=== PATIENT | male | born 1965 | race Caucasian/White ===

== ENCOUNTER 2024-10-29 08:54 | Outpatient (AMB) | payer BC, SELFPAY ==
--- NOTE | 2024-10-29 09:57 | MHC.OFFWIV ---
Intake Vital Signs 10/29/24 09:59 Weight 245 lb BP 150/100 H Blood Pressure Location Lt brachial Position Sitting Pulse 100 Pulse Source Pulse Oximeter Temp 98.2 F Temp Source Oral Pulse Oximetry (%) 94 Oxygen Delivery Method Room Air Intake Visit Reasons: EP SOB, pain in rt shoulder Intake Note: Patient here for SOB which has been present for a couple of months and worsening. Patient Tobacco Use Status: Never used Tobacco Allergies No Known Allergies Allergy (Verified 10/29/24 10:00) Do you need a note to return to daycare/school/sports/work: Yes HPI HPI Comments History of Present Illness Details This is a 59yo male with a past medical history of NIDDM and hypertension, currently not taking any medications, presenting for dyspnea on exertion that has been present and worsening over the past six months. 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 Patient denies any overt has pain has had right anterior shoulder pain for the past 3 days. Patient denies any injury or trauma preceding the onset of his right shoulder pain but finds lifting objects painful. Patient has not taken any medication for treatment of his discomfort. [facility] Medical History Encounter to establish care Hypertension Newly diagnosed type 1 diabetes mellitus Right foot pain Surgical History No pertinent past surgical history Social History Housing: Apartment Alcohol intake: current Alcohol intake frequency: holidays/special occasions only Patient Tobacco Use Status: Never used Tobacco e-Cigarette/Vaping Use: Never Used Second Hand Smoke Exposure: No service: No Current occupational status: employed Cognitive needs: No Hearing needs: No Vision needs: No Review of Systems Const All systems reviewed & are unremarkable except as noted in HPI and below Reports no additional complaints, Denies chills, Reports fatigue, Denies fever(s) and Reports snoring (unknown, but states poor sleep at night) Eyes Reports no additional complaints ENT Reports no additional complaints Card Denies chest pain and Reports dyspnea on exertion Resp Denies cough, Reports dyspnea on exertion, Reports snoring (unknown, but states poor sleep at night) and Denies wheezing GI Reports no additional complaints, Denies belching, Denies bloating and Denies nausea Reports no additional complaints Musc Reports no additional complaints Skin/Breast Reports system reviewed and no additional complaints, except as documented Neuro Reports no additional complaints Psych Reports no additional complaints Endo Reports no additional complaints and Reports fatigue Rajat/Lymph Reports no additional complaints Aller/Immun Denies wheezing Physical Exam Vital Signs: Last Vital Signs Temp 98.2 F 10/29/24 09:59 Pulse 100 10/29/24 09:59 BP 150/100 H 10/29/24 09:59 Pulse Ox 94 10/29/24 09:59 Oxygen Delivery Method Room Air 10/29/24 09:59 Patient is hypertensive and afebrile. Const General: cooperative, no acute distress, well developed, alert and awake; No lethargic Nutritional Appearance: obese Orientation/consciousness: patient oriented x3 and No lethargic Limitations: no limitations Resp Effort & Inspection: normal respiratory effort, able to speak in complete sentences, normal respiratory pattern, no audible wheezes, no cough and no respiratory distress Auscultation: clear to auscultation bilaterally Cardio Rate: regular rate Rhythm: regular rhythm Skin General skin exam: no rashes or lesions noted Neuro General: patient oriented x3 Psych Appearance: grossly normal Mental Status: mental status grossly normal Insight: Good insight present (Psych) Judgement: Good judgement present (Psych) Results AMB Random Glucose (hemocue) AMB Random Glucose (hemocue) 234 mg/dL Last Edit by YU Costa on 10/29/24 10:28 Results Reviewed Results Reviewed: Patient is hyperglycemic. Assessment & Plan Assessment & Plan (1) Hyperglycemia: Comment: Patient has no primary care physician in his not currently taking any oral hyperglycemic medications. Code(s): R73.9 - Hyperglycemia, unspecified Plan: Patient will go to the emergency department for further evaluation and care. (2) Dyspnea on exertion: Comment: Given this patient's history coupled with his examination there is concern for cardiac etiology of his dyspnea on exertion. Code(s): R06.09 - Other forms of dyspnea Plan: Patient will go to the emergency department for further evaluation and care. Expect is called to RAIMUNDO Rico at [facility] at 10:32am. Patient will travel by private vehicle and is agreement with this plan of care. Orders: Orders AMB Random Glucose (hemocue) Today Z13.9 - Encounter for screening, unspecified AMB Random Glucose (hemocue) Today Z13.9 - Encounter for screening, unspecified Coding Level of Care Code Est Pt Level 3 (01641) Diagnoses Hyperglycemia R73.9 Dyspnea on exertion R06.09 Time Spent (min) 20
[2024-10-29 09:59] VITALS: BP 150/100; PULSE 100; TEMP 36.8; O2SAT 94
== END 2024-10-29 10:58 | disposition home or self-care (01) ==
PROVIDERS: PCP Nurse Practitioner Family; Visit Provider Physician Assistant
DX: R73.9 Hyperglycemia, unspecified (principal); R06.09 Other forms of dyspnea; Z13.9 Encounter for screening, unspecified

== ENCOUNTER → 2024-10-29 08:54 | Outpatient (BNVA) | payer BC, SELFPAY | PROVIDERS: PCP Nurse Practitioner Family | DX: R06.09 Other forms of dyspnea (principal); E11.65 Type 2 diabetes mellitus with hyperglycemia; I10 Essential (primary) hypertension | CPT/HCPCS: 82948 ==

== ENCOUNTER 2024-10-29 11:01 | Inpatient (IN) | payer OTHER, SELFPAY ==
[2024-10-29] VITALS (9 sets, daily range): BP systolic 154–186; BP diastolic 80–133; PULSE 96–108; RESP 18–30; TEMP 36.7–37.4; O2SAT 88–100; BMI 41.7
--- NOTE | ~2024-10-29 | US_ITS ---
CLINICAL HISTORY: bilateral sweling r o dvt Venous duplex ultrasound bilateral lower extremity Comparison: None Findings: The visualized deep veins are fully compressible with normal Doppler color flow and spectral tracings. No popliteal cyst. Left groin lymph node measuring 3.2 x 2.6 x 0.9 cm. IMPRESSION: 1. Negative for bilateral lower extremity deep vein thrombosis. 2. Prominent left groin lymph node. This document has been electronically signed by: Tim Huggins MD on 10/29/2024 19:03:52
--- NOTE | ~2024-10-29 | CT_ITS ---
EXAMINATION: CT ANGIOGRAM CHEST CLINICAL INFORMATION: Dyspnea with elevated d-dimer. COMPARISON: None available. TECHNIQUE: CTPA examination performed. Spiral CT imaging axially was obtained through the chest after the administration of 65 mL of Omnipaque 350 intravenous contrast. Extensive vascular post-processing including two-dimensional and three-dimensional reformatted images were created and reviewed on an independent workstation. This CT examination was performed using dose optimization techniques as appropriate, variously including the following: *Automated exposure control *Adjustment of mA and/or kV according to patient size (this includes techniques or standardized protocols for targeted exams where dose is matched to indication/reason for exam; i.e. extremities or head) *Use of iterative reconstruction technique FINDINGS: LUNGS: -Moderate respiratory motion present limiting the examination. -Low lung volumes present, with patchy groundglass opacities throughout both lungs. Expiratory appearance of the lungs with indwelling of the posterior membranous trachea. -Small layering pleural effusions bilaterally, with segmental atelectasis bilateral lower lobes. Cannot exclude pneumonia given the appearance. -No additional consolidative opacity. -No pneumothorax. MEDIASTINUM: -There is moderate cardiac enlargement. There is no pericardial effusion. -No pathologic lymphadenopathy or mass within the mediastinum. -Normal esophagus. -Normal thyroid. VASCULAR: -Opacification of the pulmonary artery system is diagnostic. There is limitation from extensive respiratory motion. No central or segmental embolus. Cannot exclude more peripheral embolic disease. -Main pulmonary artery is abnormally dilated suggesting pulmonary arterial hypertension. -No evidence of right heart strain. -Mild reflux of contrast into the hepatic IVC and proximal hepatic veins, suggesting elevated right heart pressures. -Aorta is nonaneurysmal. No definite evidence of acute aortic syndrome. AXILLA/CHEST WALL: No lymphadenopathy. UPPER ABDOMEN: Small type I hiatus hernia. OSSEOUS STRUCTURES: -No suspicious lytic or blastic bone lesions. Mild to moderate degenerative spinal changes. CT/CT angio chest PE protocol IMPRESSION: 1. Exam is significantly limited by expiratory state of the lungs, and extensive respiratory motion artifact. 2. There is no central or segmental pulmonary embolus. Cannot exclude for peripheral embolic disease on the basis of this exam. 3. There is enlargement of the main pulmonary artery, with mild reflux of contrast into the proximal hepatic veins. Findings suggest elevated right heart pressures/pulmonary hypertension. 4. There is moderate cardiac enlargement. 5. Within confines of motion and expiratory appearance, there are small layering effusions with passive associated atelectasis. Cannot exclude, however doubt pneumonia given the appearance. 6. Patchy geographic groundglass attenuation throughout the aerated lungs is likely on the basis of expiratory state. Cannot exclude a mild amount of interstitial pulmonary edema. Electronically signed by: Shine Avila MD 10/29/2024 03:33 PM [facility] [place]
--- NOTE | ~2024-10-29 | XR_ITS ---
EXAMINATION: XR CHEST CLINICAL INFORMATION: SOB COMPARISON: None available. TECHNIQUE: 2 views of the chest were obtained. FINDINGS: The lungs are expanded with patchy opacity left lung base question atelectasis versus infiltrate. Rest the lungs are clear. There is mild blunting of left CP angle from pleural effusion or thickening. The heart size is enlarged. Pulmonary vascularity is normal. There is mild spondylosis off dorsal spine. XR/XR chest 2V IMPRESSION: Left lower lobe patchy opacity infiltrate versus atelectasis. Mild blunting of left CP angle from pleural effusion or pleural thickening. Electronically signed by: King Benz MD 10/29/2024 12:01 PM EST
--- NOTE | 2024-10-29 11:19 | ED.SOB ---
HPI - SOB/Dyspnea General Chief Complaint: Dyspnea Stated Complaint: SOB Time Seen by Provider: 10/29/24 12:38 Source: patient, RN notes reviewed and old records reviewed Mode of arrival: ambulatory Limitations: no limitations History of Present Illness ED Provider: Flakita HPI Narrative: Patient is a 59-year-old male with history of NIDDM, HTN, not currently on any medications as he has not had a PCP for several years presenting to the emergency department with complaint of worsening shortness of breath and dyspnea on exertion over the past 1-2 weeks. Reports associated pedal edema, left worse than right. Denies fevers or URI symptoms. Denies chest pain or palpitations. Denies dizziness or lightheadedness. 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 States that he is having difficulty with work due to his dyspnea. Also complains of right anterior shoulder pain but denies known injury. MD elicited complaint: shortness of breath Pertinent past history: diabetes and other Onset (ago): week(s) Context: occurred during exertion Timing: intermittent Exacerbating factors: exertion and movement Relieving factors: rest Associated symptoms: denies other symptoms Treatment prior to arrival: none Related Data Previous Rx's ?Medication ?Instructions ?Recorded blood sugar diagnostic (FreeStyle #100 ea 02/08/22 Lite Strips) blood-glucose meter (FreeStyle #1 ea 02/08/22 Lite Meter kit) lancets 21 gauge (Comfort EZ #100 ea 02/08/22 Lancets) Allergies Allergy/AdvReac Type Severity Reaction Status Date / Time No Known Allergies Allergy Verified 10/29/24 11:20 Review of Systems Review of Systems: As per HPI Yes all other systems are reviewed and are negative Constitutional: Constitutional: Reports as per HPI PMFSH Past Medical History Medical History Encounter to establish care Hypertension Newly diagnosed type 1 diabetes mellitus Right foot pain Surgical History No pertinent past surgical history Social History Social History Housing: Apartment Alcohol intake: current Alcohol intake frequency: holidays/special occasions only Patient Tobacco Use Status: Never used Tobacco Smoked in Last 30 Days: No e-Cigarette/Vaping Use: Never Used Second Hand Smoke Exposure: No Use of substances other than those prescribed or required for medical reasons: No Advance Directives: No Advance Directives Information Provided: Yes Do you have a plan to hurt others: No Plan service: No Current occupational status: employed Cognitive needs: No Hearing needs: No Vision needs: No Physical Exam Vital Signs: Vital Signs: Last Vital Signs Temp 98.7 F 10/29/24 13:45 Pulse 99 10/29/24 13:45 Resp 28 H 10/29/24 13:45 BP 181/125 H 10/29/24 13:45 Pulse Ox 98 10/29/24 13:45 O2 Del Method Nasal Cannula 10/29/24 13:45 O2 Flow Rate 2 10/29/24 13:45 BMI result Body Mass Index 41.7 Vital signs have been reviewed and appear to be correct. Blood pressure elevated. Heart rate slightly tachycardic. Respiratory rate normal. Temperature normal. Oxygen saturation hypoxic on room air. Const: General: cooperative, no acute distress, alert and awake Nutritional Appearance: obese Orientation/consciousness: oriented to person, oriented to place, oriented to time and patient oriented x3 Limitations: no limitations HEENT: Head: Yes normocephalic and Yes atraumatic Ears: external ears normal General nose exam: Normal external nose present Face and sinus: Yes face symmetric Mouth: oropharynx normal and moist mucous membranes Throat: Yes uvula midline Eyes: Pupils: Equal, round and reactive pupils present Neck: Neck: Yes normal visual inspection and Yes supple Resp: Effort & Inspection: normal respiratory effort and able to speak in complete sentences Auscultation: clear to auscultation bilaterally Cardio: Rate: regular rate Rhythm: regular rhythm Heart sounds: S1 normal heart sound present and S2 normal heart sound present Peripheral pulses: Peripheral pulses 2+ throughout GI: Palpation (GI): Soft to palpation and nontender Auscultation: normoactive bowel sounds : General: Yes no CVA tenderness Back/Spine/Pelvis: Back: no CVA tenderness Skin: General skin exam: elasticity normal and turgor normal Neuro: General: oriented to person, oriented to place, oriented to time, patient oriented x3, moves all extremities, no focal motor deficits and CN's II-XI intact bilaterally Cranial nerves: Yes Equal, round and reactive pupils present Cognition (Neuro): normal cognition Extrem: Other: bilateral 3+ pitting pedal edema, L>R General: Yes full ROM and Yes no calf tenderness Psych: Mental Status: mental status grossly normal Affect: normal affect Thought process: Normal thought process present Course Course Course Narrative: This is an RME: Additional HPI, ROS, PE not included below will be deferred to primary provider. RME assessment and note performed by: Yuli Rose PA-C This is a [id number]-male, NIDDM and hypertension, currently not taking any medications, who presents to the ER with complaints of SOB x 5 months. Endorsing some LE swelling. SOB is constant. 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 Patient found to be hypoxic at 88% on room air, he was placed on 2 L. Plan: Labs, EKG, CXR, viral swabs, further ER eval needed Medications Administered Discontinued Medications Generic Name Dose Route Start Last Admin Trade Name Freq PRN Reason Stop Dose Admin Furosemide 20 mg 10/29/24 13:15 10/29/24 13:47 Furosemide 20 Mg/2 Ml Vial IVPUSH 10/29/24 13:16 20 mg ONCE ONE Administration Protocol Iohexol 100 ml 10/29/24 14:38 10/29/24 14:38 Iohexol 350 Mg/Ml 100 Ml Infus..Btl IV 10/29/24 14:39 70 ml ONCE ONE Administration Medical Decision Making Medical Decision Making [facility] Narrative: Patient is a 59-year-old male with history of NIDDM, HTN, not currently on any medications as he has not had a PCP for several years presenting to the emergency department with complaint of worsening shortness of breath and dyspnea on exertion over the past 1-2 weeks. On exam patient is awake, A+Ox3, hypertensive, slightly tachycardic, afebrile, normal neurological exam without focal deficits, physical exam findings as above. Given reported symptoms and physical exam findings, initial differential includes but is not limited to viral illness, covid, flu, rsv, bronchitis, pneumonia, new onset CHF. Labs notable for no leukocytosis, elevated troponin, elevated BNP, elevated D-dimer. EKG shows sinus tachycardia. Will obtain CTA chest to r/o PE. X-ray chest notable for patchy LLL opacity. CTA chest limited by motion artifact, no central or segmental PE, enlargement of main pulmonary artery suggesting pulmonary hypertension, moderate cardiac enlargement. My interpretation is in agreement with the radiologist's interpretation. Feel symptoms are likely due to new onset CHF. Case discussed with Dr. Smith Differential Diagnosis Differential Diagnoses: The differential diagnosis associated with the presentation includes As per [facility] Admission/Observation Consideration of admission/observation: Escalation of care including admission/observation considered Consult Healthcare Provider Management of the patient was discussed with: Hospitalist Lab Data [facility] Lab Attestation statement: I reviewed the patient's lab results. As per [facility] 10/29/24 12:02 10/29/24 12:02 Labs: Lab Results 10/29/24 10/29/24 Range/Units 11:59 12:02 WBC 7.7 (4.8-10.8) X10*3/uL RBC 5.45 (4.60-5.80) X10*6/uL Hgb 14.8 (14.0-18.0) g/dl Hct 45.9 (42.0-52.0) % MCV 84.2 (80.0-98.0) fL MCH 27.2 (27.0-33.0) pg MCHC 32.2 (31.0-36.0) g/dl RDW 13.4 (11.0-16.0) % Plt Count 161 (160-400) X10*3/uL MPV 11.7 (9.4-12.4) fL Immature Gran % (Auto) 0.1 (0.0-0.4) % Neut % (Auto) 74.2 H (45-73) % Lymph % (Auto) 15.6 L (20-40) % [place] % (Auto) 7.8 (2-11) % Eos % (Auto) 1.8 (0-4) % Baso % (Auto) 0.5 (0-2) % Lymph # (Auto) 1.2 (1.2-4.9) X10*3/uL [place] # (Auto) 0.6 (0.1-1.2) X10*3/uL Eos # (Auto) 0.1 (0.0-0.4) X10*3/uL Baso # (Auto) 0.0 (0.0-0.2) X10*3/uL Abs Immat Gran (auto) 0.01 (0.00-0.03) X10*3/uL Absolute Neuts (auto) 5.7 (2.0-8.3) x10*3/uL Absolute Nucleated RBC 0.000 (0.0-0.012) X10*3/uL Nucleated RBC % (auto) 0.0 (0.0-0.2) /100WBC PT 12.6 H (10.9-12.4) SEC INR 1.1 (0.9-1.1) D-Dimer High Sensitivty 459 NG/ML Sodium 139 (135-145) mmol/L Potassium 4.1 (3.3-5.1) mmol/L Chloride 106 (96-108) mmol/L Carbon Dioxide 30 H (22-29) mmol/L Anion Gap 7 L (12-20) BUN 18 H (9-16) mg/dL Creatinine 1.27 (0.5-1.4) mg/dL Estim Creat Clear Calc 78.4 Estimated GFR 58 Random Glucose 259 H (60-115) mg/dL Calcium 8.7 (8.4-10.2) mg/dL Magnesium 1.9 (1.6-2.6) mg/dL Total Bilirubin 0.8 (0.0-1.0) mg/dL Direct Bilirubin 0.3 (0.0-0.5) mg/dL AST 23 (5-37) U/L ALT 43 H (0-40) U/L Alkaline Phosphatase 88 (39-117) U/L Troponin I High Sens 62.8 H (<3.5-35.0) ng/L B-Natriuretic Peptide 795 H (<100) pg/mL Total Protein 6.6 (6.5-8.0) g/dL Albumin 3.6 (3.5-5.0) g/dL Influenza Type A (PCR) NEGATIVE (Negative) Influenza Type B (PCR) NEGATIVE (Negative) RSV RNA Qual (PCR) NEGATIVE (Negative) SARS-CoV-2 RNA (RT-PCR) NEGATIVE (Negative) Independent Interpretation I performed an independent interpretation of an: EKG (sinus tachycardia, rate 101bpm, normal AL interval and QTc), Plain X-Ray and CT Scan Interpretation: Chest x-ray notable for patchy left lower lobe opacity. CTA chest limited by motion artifact, no central or segmental PE, enlargement of main pulmonary artery suggesting pulmonary hypertension, moderate cardiac enlargement. Radiology Impression Discussion of test interpretation with radiology: I have reviewed the radiologist's reading. Radiologist Impression: XR/XR chest 2V IMPRESSION: Left lower lobe patchy opacity infiltrate versus atelectasis. Mild blunting of left CP angle from pleural effusion or pleural thickening. CT/CT angio chest PE protocol IMPRESSION: 1. Exam is significantly limited by expiratory state of the lungs, and extensive respiratory motion artifact. 2. There is no central or segmental pulmonary embolus. Cannot exclude for peripheral embolic disease on the basis of this exam. 3. There is enlargement of the main pulmonary artery, with mild reflux of contrast into the proximal hepatic veins. Findings suggest elevated right heart pressures/pulmonary hypertension. 4. There is moderate cardiac enlargement. 5. Within confines of motion and expiratory appearance, there are small layering effusions with passive associated atelectasis. Cannot exclude, however doubt pneumonia given the appearance. 6. Patchy geographic groundglass attenuation throughout the aerated lungs is likely on the basis of expiratory state. Cannot exclude a mild amount of interstitial pulmonary edema. External Record Review External record reviewed: Inpatient record, Office record and Outpatient record Chronic Conditions Patient?s care impacted by: Diabetes and Hypertension Discharge Plan Discharge Clinical Impression: DAWKINS (dyspnea on exertion) Patient Disposition: Admitted As Inpatient Print Language: Arabic
--- NOTE | 2024-10-29 11:26 | ECG_ITS ---
Test Reason : sob Blood Pressure : */* mmHG Vent. Rate : 101 BPM Atrial Rate : 101 BPM P-R Int : 178 ms QRS Dur : 92 ms QT Int : 358 ms P-R-T Axes : 45 2 65 degrees QTcB Int : 464 ms Sinus tachycardia Possible Left atrial enlargement Minimal voltage criteria for LVH, may be normal variant ( [place] product ) Nonspecific T wave abnormality Abnormal ECG No previous ECGs available Referred By: Yuli Rose Electronically Signed By: LANDY CASTREJON
--- NOTE | 2024-10-29 11:27 | PC.NURSE ---
pt 88% room air - started on 2L NC and pt came up to 94%
[2024-10-29 12:07] LABS: MANUAL DIFF FLAG NO
[2024-10-29 12:09] LABS: Basophils Percent Auto 0.5 % (0-2); Eosinophils Absolute Auto 0.1 X10*3/uL (0.0-0.4); Eosinophils Percent Auto 1.8 % (0-4); Hematocrit 45.9 % (42.0-52.0); Hemoglobin 14.8 g/dl (14.0-18.0); Imm Gran Abs Auto 0.01 X10*3/uL (0.00-0.03); Imm Gran Pct Auto 0.1 % (0.0-0.4); Lymphocytes Absolute Auto 1.2 X10*3/uL (1.2-4.9); Lymphocytes Percent Auto 15.6 % (20-40); Mean Corpuscular HGB Conc 32.2 g/dl (31.0-36.0); Mean Corpuscular Hemoglobin 27.2 pg (27.0-33.0); Mean Corpuscular Volume 84.2 fL (80.0-98.0); Mean Platelet Volume 11.7 fL (9.4-12.4); Monocytes Absolute Auto 0.6 X10*3/uL (0.1-1.2); Monocytes Percent Auto 7.8 % (2-11); Neutrophils Absolute Auto 5.7 x10*3/uL (2.0-8.3); Neutrophils Percent Auto 74.2 % (45-73); Platelet Count 161 X10*3/uL (160-400); Red Blood Count 5.45 X10*6/uL (4.60-5.80); Red Cell Distribution Width 13.4 % (11.0-16.0); White Blood Count 7.7 X10*3/uL (4.8-10.8)
[2024-10-29 12:18] LABS: INTERNATIONAL NORM RATIO 1.1 (0.9-1.1); Prothrombin Time 12.6 SEC (10.9-12.4)
[2024-10-29 12:44] LABS: Alanine Aminotransferase 43 U/L (0-40); Albumin Level 3.6 g/dL (3.5-5.0); Alkaline Phosphatase 88 U/L (39-117); Anion Gap 7 (12-20); Aspartate Amino Transferase 23 U/L (5-37); Bilirubin Direct 0.3 mg/dL (0.0-0.5); Bilirubin Total 0.8 mg/dL (0.0-1.0); Blood Urea Nitrogen 18 mg/dL (9-16); Calcium 8.7 mg/dL (8.4-10.2); Carbon Dioxide 30 mmol/L (22-29); Chloride 106 mmol/L (96-108); Creatinine Clr Calc Pharmacy 78.4; Estimated Glomerular Filt Rate 58; Glucose Random 259 mg/dL (60-115); Magnesium 1.9 mg/dL (1.6-2.6); Potassium 4.1 mmol/L (3.3-5.1); Sodium 139 mmol/L (135-145); Total Protein 6.6 g/dL (6.5-8.0)
[2024-10-29 12:47] LABS: Influenza A PCR NEGATIVE (Negative); Influenza B PCR NEGATIVE (Negative); Resp Syncy Virus RNA Qual PCR NEGATIVE (Negative); SARS COV2 PCR INHOUSE NEGATIVE (Negative)
[2024-10-29 12:48] LABS: B Type Natriuretic Peptide 795 pg/mL (<100)
[2024-10-29 12:51] LABS: Troponin-I High Sensitivity 62.8 ng/L (<3.5-35.0)
[2024-10-29 12:56] LABS: D Dimer High Sensitivity 459 NG/ML
[2024-10-29] MEDS: Furosemide 20 MG/2 ML VIAL IVPUSH (13:47)
--- NOTE | 2024-10-29 14:19 | PC.NURSE ---
pt is alert and oriented, skin pwd, respirations even but slightly labored breathing at about 26-28, ls clear diminished, pt is currently on 2l via nasal cannual and sating at 97-98%, pt's bilateral legs have peding edema all the way up to the knees about +2 legs are also red and glossy in appearance, pt reports feeling sob of breath for the last couple of months and progressively getting worse, pt is sob with exertion and with rest, pt's bp is very high witch the pt states he is aware of it but currently not on any meds
[2024-10-29] MEDS: iohexoL 350 MG/ML 100 ML INFUS..BTL IV (14:38)
--- NOTE | 2024-10-29 16:08 | P.HPHOSP_ITS ---
History of Present Illness Date of Service: 10/29/24 Chief Complaint: dyspnea, swelling, weight gain 59yo M with DM2 but not on any medications and without any current primary care doctor presenting with about 2 weeks of progressive lower extremity swelling, dyspnea at rest and exertion, and orthopnea. No chest pain. Approximately 10 lb weight gain over this period of time. No history of known CAD or HTN. He is a truck driver teamster. He denies smoking, alcohol intake, or drug use. In the ED, he was found to be hypoxic [Sa 88%] and volume overloaded on clinical exam and CT. He was hypertensive to 181/125 and tachypneic to 28. He was given 20 mg of IV furosemide and is starting to diurese. BNP 795, hs Tn-I 62.8. Review of Systems 2 Review of Systems: Yes all other systems are reviewed and are negative [facility] Medical History Encounter to establish care Hypertension Newly diagnosed type 1 diabetes mellitus Right foot pain Surgical History No pertinent past surgical history Social History Housing: Apartment Alcohol intake: current Alcohol intake frequency: holidays/special occasions only Patient Tobacco Use Status: Never used Tobacco Smoked in Last 30 Days: No e-Cigarette/Vaping Use: Never Used Second Hand Smoke Exposure: No Use of substances other than those prescribed or required for medical reasons: No Advance Directives: No Advance Directives Information Provided: Yes Do you have a plan to hurt others: No Plan service: No Current occupational status: employed Cognitive needs: No Hearing needs: No Vision needs: No Meds Allergies Allergy/AdvReac Type Severity Reaction Status Date / Time No Known Allergies Allergy Verified 10/29/24 11:20 Active Medications: Current Medications Dextrose (Dextrose 50 % 25 Gm/50 Ml Syringe) 25 gm IVPUSH Q15M PRN; Protocol PRN Reason: per Hypoglycemia Standing Ord. Glucose (Glucose Gel 15 Gm Gel..Gram.) 15 gm PO Q15M PRN; Protocol PRN Reason: per Hypoglycemia Standing Ord. Furosemide 200 mg/ Sodium (Chloride) 100 mls @ 2.5 mls/hr IVCONT .Q24H KELSEY Insulin Human Lispro (Insulin Lispro 100 Unit/Ml 3 Ml Vial) 0 unit SUBCUT QIDACHS KELSEY; Protocol Nitroglycerin (Nitroglycerin 2 % Oint 1 Gm Packet) 1 inch TRANSDERMA ONCE ONE Stop: 10/29/24 15:59 Valsartan (Valsartan 40 Mg Tablet) 40 mg PO BID KELSEY; Protocol Physical Exam 2 Vital Signs and Narrative: Vital Signs: Last Vital Signs Temp 98.7 F 10/29/24 13:45 Pulse 99 10/29/24 13:45 Resp 28 H 10/29/24 13:45 BP 181/125 H 10/29/24 13:45 Pulse Ox 98 10/29/24 13:45 O2 Del Method Nasal Cannula 10/29/24 13:45 O2 Flow Rate 2 10/29/24 13:45 BMI result Body Mass Index 41.7 Gen: short of breath HEENT: sclera anicteric, moist mucus membranes Neck: supple, JVD Lungs: mild resp distress, bilateral inspiratory crackles Heart: regular rate and rhythm, no murmurs Abd: soft, non-tender, non-distended, obese Ext: 3+ bilateral pitting leg edema Skin: warm/well-perfused Neuro: alert and oriented x3, no focal findings Psych: appropriate affect Results Labs 10/29/24 12:02 10/29/24 12:02 Labs: Laboratory Results - last 24 hr 10/29/24 10/29/24 11:59 12:02 MCV 84.2 MCH 27.2 MCHC 32.2 RDW 13.4 Plt Count 161 MPV 11.7 Immature Gran % (Auto) 0.1 Neut % (Auto) 74.2 H Lymph % (Auto) 15.6 L [place] % (Auto) 7.8 Eos % (Auto) 1.8 Baso % (Auto) 0.5 Lymph # (Auto) 1.2 [place] # (Auto) 0.6 Eos # (Auto) 0.1 Baso # (Auto) 0.0 Abs Immat Gran (auto) 0.01 Absolute Neuts (auto) 5.7 Absolute Nucleated RBC 0.000 Nucleated RBC % (auto) 0.0 PT 12.6 H INR 1.1 D-Dimer High Sensitivty 459 Anion Gap 7 L Estim Creat Clear Calc 78.4 Estimated GFR 58 Random Glucose 259 H Calcium 8.7 Magnesium 1.9 Total Bilirubin 0.8 Direct Bilirubin 0.3 AST 23 ALT 43 H Alkaline Phosphatase 88 Troponin I High Sens 62.8 H B-Natriuretic Peptide 795 H Total Protein 6.6 Albumin 3.6 Influenza Type A (PCR) NEGATIVE Influenza Type B (PCR) NEGATIVE RSV RNA Qual (PCR) NEGATIVE SARS-CoV-2 RNA (RT-PCR) NEGATIVE Imaging Radiologist's Impressions: Impressions Chest X-Ray 10/29/24 11:26 IMPRESSION: Left lower lobe patchy opacity infiltrate versus atelectasis. Mild blunting of left CP angle from pleural effusion or pleural thickening. Electronically signed by: King Benz MD 10/29/2024 12:01 PM EST RP Chest CTA 10/29/24 14:31 IMPRESSION: 1. Exam is significantly limited by expiratory state of the lungs, and extensive respiratory motion artifact. 2. There is no central or segmental pulmonary embolus. Cannot exclude for peripheral embolic disease on the basis of this exam. 3. There is enlargement of the main pulmonary artery, with mild reflux of contrast into the proximal hepatic veins. Findings suggest elevated right heart pressures/pulmonary hypertension. 4. There is moderate cardiac enlargement. 5. Within confines of motion and expiratory appearance, there are small layering effusions with passive associated atelectasis. Cannot exclude, however doubt pneumonia given the appearance. 6. Patchy geographic groundglass attenuation throughout the aerated lungs is likely on the basis of expiratory state. Cannot exclude a mild amount of interstitial pulmonary edema. Electronically signed by: Shine Avila MD 10/29/2024 03:33 PM EST RP Assessment and Plan (1) Acute decompensated heart failure: Status: Acute Plan 59yo M with DM2, no current primary care; no known cardiac history; presenting with 2 wk of progressive orthopena, dyspnea, edema, and weight gain, found to have hypoxia due to ADHF. ADHF uncontrolled HTN - admit to telemetry, start furosemide IV infusion, strict I/O, monitor BNP + lytes, recheck Tn-I though suspect high due to demand from CHF rather than ACS though will eventually require ischemic workup, TTE, low-Na diet, Cardiology consultation - give nitroglycerin paste and hydralazine now - start neurohormonal modulation with valsartan - start beta-madeleine once euvolemic acute hypoxic respiratory failure - supplemental O2, wean as tolerated DM2 - correction-dose lispro, A1c VTE prophylaxis - enoxaparin dispo - eventual home code status - full I anticipate that the patient will stay at least 2 midnights as an inpatient in the hospital due to the above reasons. It is neither reasonable nor safe to care for them in a less acute setting. Quality Stroke Does the patient have a stroke diagnosis?: No VTE Prior VTE?: No VTE Risk Level:: Medical - moderate - high VTE Device Contraindication: N/A - Device Ordered VTE Drug Contraindication: N/A - Med Ordered
--- NOTE | 2024-10-29 16:22 | PHA.MEDREC ---
Addendum entered by Marcus Tolentino RPh 10/29/24 16:36: Med rec was reviewed by Jacque. Original Note: Pharmacy Consult ? Medication Reconciliation Pharmacy has completed the medication reconciliation. patient states he isn't taking any medications at this time.
[2024-10-29] MEDS: Nitroglycerin 2 % Oint 1 GM Packet 1 INCH TRANSDERMA (16:36)
[2024-10-29] MEDS: hydrALAZINE HCl 20 MG/ML VIAL 10 MG IVPUSH (16:37)
[2024-10-29 16:49] LABS: Estimated Average Glucose 298 mg/dL; Hemoglobin A1C 416.0534 umol/L; Total Hemoglobin (HGBA1C) 3861.7466 umol/L
[2024-10-29 17:03] LABS: Troponin-I High Sensitivity 60.9 ng/L (<3.5-35.0)
[2024-10-29] MEDS: Valsartan 40 MG TABLET PO ×2 (17:10→20:51)
[2024-10-29] MEDS: Enoxaparin Sodium 40 MG/0.4 ML SYRINGE SUBCUT (17:10)
[2024-10-29] MEDS: Furosemide 200 MG in 0.9 % Sodium Chloride 80 ML IVCONT (17:11)
[2024-10-29] MEDS: Insulin Lispro 100 UNIT/ML 3 ML VIAL SUBCUT ×2 (17:56→20:50)
[2024-10-29 18:01] LABS: Glucose, Whole Blood 220 mg/dL (60-115)
[2024-10-29 20:06] LABS: Glucose, Whole Blood 261 mg/dL (60-115)
[2024-10-30] VITALS (7 sets, daily range): BP systolic 129–157; BP diastolic 70–98; PULSE 78–93; RESP 16–19; TEMP 36.3–37.4; O2SAT 92–100
[2024-10-30] MEDS: Acetaminophen 325 MG TABLET 650 MG PO (00:33)
[2024-10-30 06:40] LABS: Venous Blood Gas Refer to POC result
[2024-10-30 06:43] LABS: VBG Base Excess 10.1 mmol/L; VBG HCO3 37 mmol/L (22-26); VBG pCO2 55 mmHg; VBG pH 7.42 (7.32-7.43); VBG pO2 41 mmHg
--- NOTE | 2024-10-30 07:00 | CA_ITS ---
Transthoracic Echocardiogram Patient (Last, First, Middle): Jerome Garner M Gender: Male Date of : 1965 Age: 59 Procedure Date: 10/30/2024 Procedure Type: Transthoracic Echocardiogram Location: [facility] – [place] Height: 170.18 cm Weight: 124.29 kg BSA: 2.31 m2 Heart Rate: 91 bpm BP: 157 / 91 mmHg Foreign Language Stenographer: SB Referring MD: Latha Adame MD Symptoms: chf Study Quality: Fair/Contrast ECG Rhythm: Sinus Conclusions: - The left ventricular systolic function is mild to moderately decreased. The calculated ejection fraction is 40% by biplane method. - Evidence suggests grade II (moderate) diastolic dysfunction. - No obvious valvular pathology seen on this study. Findings Procedure Information Contrast agent, definity, is being given per protocol without apparent complications. Left Ventricle Moderately increased left ventricular cavity size. The left ventricular systolic function is mild to moderately decreased. The calculated ejection fraction is 40% by biplane method. There is moderate global hypokinesis. Evidence suggests grade II (moderate) diastolic dysfunction. There is mild septal asymmetric hypertrophy. Right Ventricle Moderately increased right ventricular cavity size. There is normal right ventricular systolic function. Atria Both atria are normal in size. Aortic Valve There is a normal trileaflet aortic valve. There is mild calcification of the aortic valve. There is no aortic valve stenosis. There is no aortic valve regurgitation. Mitral Valve The mitral valve appears normal. There is no mitral valve regurgitation. There is no mitral valve stenosis. Pulmonic Valve The pulmonic valve is likely normal. Tricuspid Valve There is trace tricuspid valve regurgitation. There is no evidence of pulmonary hypertension. Great Vessels The asc aorta is normal in size. Small plaque is seen in the sino tubular ridge. Venous The inferior vena cava is normal in size and collapses greater than 50% with inspiration. Pericardium/Pleural There is a small loculated pericardial effusion overlying the left ventricle. Recommendations, Care & Conclusions No obvious valvular pathology seen on this study. Measurements 2D Linear Measurements IVSd: 1.08 0.6-0.9/0.6-1.0 cm LVIDd: 6.81 3.9-5.3/4.2-5.9 cm LVIDd Index: 2.95 2.4-3.2/2.2-3.1 cm/m2 LVIDs: 4.83 2.0-3.6 cm LVPWd: 1.41 0.7-1.1 cm Ao Root: 3.80 2.1-3.5 cm LA Diam: 4.50 2.7-3.8/3.0-4.0 cm LAIDs Index: 1.95 1.5-2.3 cm/m2 LV Mass: 508.08 67-162/88-224 g LV Mass Index: 219.95 43-95/49-115 g/m2 LVOT Diam: 2.50 3.0+(-)1.3 cm 2D Systolic Function EF 4C: 44.30 >55% EF 2C: 37.50 >55% EF BiP: 39.90 >55% Mitral Valve MV Pk E: 0.99 MV PK A: 0.56 MV Decel Time: 139.00 E/A: 1.80 E'Lateral: 9.03 E'Medial: 5.00 E/E' Med: 19.70 E/E' Lat: 10.90 PHT: 41.00 MVA PHT: 5.37 Decel [place]: 7.08 Aortic Valve AoV Pk [place]: 1.41 AoV Pk Grad: 8.00 XAVI: 3.81 LVOT LVOT Pk [place]: 0.96 LVOT Mn [place]: 0.78 LVOT VTI: 0.20 LVOT Pk Grad: 4.00 LVOT Mn Grad: 3.00 LVOT Diam: 2.50 LVOT Area: 4.91 Diastolic Function MV Pk E: 0.99 MV Pk A: 0.56 E/A: 1.80 E'Medial: 5.00 E/E' Med: 19.70 E' Laterial: 9.03 E/E' Lat: 10.90 Right Ventricle TAPSE (mm): 19.00 TVS' [place]: 11.00 Tricuspid Valve TR Pk [place]: 2.00 TR Pk Grad: 16.00 RA Press: 3.00 RVSP: 19.00 Great Vessels Aorta Ao Root-2D: 3.80 2.0-3.7 cm Ao Asc: 3.80 2.1-3.4 cm Pulmonary Veins Pulm Vein S/D 0.70 Pulmonary Valve PV Pk [place]: 0.80 Peak PV Grad: 3.00 Updated in Other Vendor System with Status of Final Semaj Weinstein MD electronically signed on 10/30/2024 10:58:05 AM with status of Final
[2024-10-30 07:04] LABS: B Type Natriuretic Peptide 496 pg/mL (<100)
[2024-10-30 07:05] LABS: Anion Gap 15 (12-20); Blood Urea Nitrogen 17 mg/dL (9-16); Calcium 9.7 mg/dL (8.4-10.2); Carbon Dioxide 31 mmol/L (22-29); Chloride 99 mmol/L (96-108); Creatinine Clr Calc Pharmacy 80.3; Estimated Glomerular Filt Rate 59; Glucose Random 204 mg/dL (60-115); Magnesium 1.9 mg/dL (1.6-2.6); Potassium 3.9 mmol/L (3.3-5.1); Sodium 141 mmol/L (135-145)
[2024-10-30 07:18] LABS: Glucose, Whole Blood 209 mg/dL (60-115)
[2024-10-30] MEDS: Valsartan 40 MG TABLET PO ×2 (07:52→21:35)
[2024-10-30] MEDS: Insulin Lispro 100 UNIT/ML 3 ML VIAL SUBCUT ×4 (08:29→21:35)
--- NOTE | 2024-10-30 08:36 | MHC.CM.PN ---
Pt lives alone, he is functionally independent, no home health services or DME. He does not currently have a PCP, brochure given. He is able to arrange transport home at [place]. HCP form completed and added to chart, naming his sisters: Hui and Trena. DCP: home, self care. CM to follow for [place] needs.
--- NOTE | 2024-10-30 09:23 | PM.CNCAR ---
History of Present Illness History of Present Illness Date of Service: 10/30/24 Chief complaint: ADHF Narrative: This is a cardiology consultation regarding congestive heart failure. Apparently patient does not have a primary care doctor. He states his physician retired while back and he has not found a new 1. It seems he has a history of diabetes, not on meds. Also had very high blood pressures upon arrival and he does not take any meds for that either. He states that he has been having shortness of breath for the last few weeks along with some leg swelling and that led to the presentation. He does not have any clear anginal-type symptoms. He has been treated for congestive heart failure. No known cardiac issues in the past including coronary disease or myocardial infarction or cardiomyopathy. Review of Systems Review of Systems: Yes all other systems are reviewed and are negative Constitutional: Constitutional: Reports as per HPI and Reports no additional constitutional complaints Eyes: Eyes: Reports as per HPI and Denies no additional eye complaints ENT: Denies system reviewed and no additional complaints, except as documented and Reports as per HPI Cardiovascular: Cardiovascular: Reports as per HPI, Reports no additional cardiovascular complaints, Denies acrocyanosis, Denies cool extremities, Denies chest pain, Denies leg edema, Denies lightheadedness, Denies palpitations and Reports dyspnea Respiratory: Respiratory: Reports as per HPI, Denies no additional respiratory complaints and Reports dyspnea Gastrointestinal: Gastrointestinal: Reports as per HPI and Denies no additional gastrointestinal complaints Genitourinary: Genitourinary: Reports no additional male genitourinary complaints and Reports as per HPI Musculoskeletal: Musculoskeletal: Reports no additional musculoskeletal complaints and Reports as per HPI Integumentary/Breasts: Skin/Breast: Reports system reviewed and no additional complaints, except as docu Neurologic: Reports system reviewed and no additional complaints, except as documented and Reports as per HPI Psychiatric: Psychiatric: Reports no additional psychiatric complaints and Reports as per HPI Endocrine: Endocrine: Reports no additional endocrine complaints, Reports as per HPI and Denies palpitations Hematologic/Lymphatic: Hematologic/Lymphatic: Reports no additional hematologic/lymphatic complaints and Reports as per HPI Allergic/Immunologic: Allergic/Immunologic: Reports no additional allergic/immunologic complaints and Reports as per HPI [facility] Past Medical History Medical History Encounter to establish care Hypertension Newly diagnosed type 1 diabetes mellitus Right foot pain Family History Family History (Updated 10/30/24 @ 09:26 by Semaj Weinstein MD) Unknown No problems noted. Surgical History Surgical History No pertinent past surgical history Social History Social History Household Members: None Housing: Apartment Do you presently have visiting nurse or other home services: No Alcohol intake: current Alcohol intake frequency: holidays/special occasions only Comment: refusing fall prec Patient Tobacco Use Status: Never used Tobacco Smoked in Last 30 Days: No e-Cigarette/Vaping Use: Never Used Patient Interested in Nicotine Replacement: No Patient Given Instructions on How to Stop Smoking: No Second Hand Smoke Exposure: No Use of substances other than those prescribed or required for medical reasons: No Currently Displaying Signs/Symptoms of Drug Intoxication Withdrawal: No Any prior treatment program specific to substance use: No Have you been hit, kicked, punched, or otherwise hurt by someone within the past year? If so, by whom?: No Is there a partner from a previous relationship who is making you feel unsafe now?: No Are you made to feel afraid or neglected: No Advance Directives: No Advance Directives Information Provided: Yes Do you have a plan to hurt others: No Plan Recently lost weight without trying: No Eating poorly because of decreased appetite: No Poor oral hygiene: No service: No Current occupational status: employed Cognitive needs: No Hearing needs: No Vision needs: No Meds Allergies Allergy/AdvReac Type Severity Reaction Status Date / Time No Known Allergies Allergy Verified 10/29/24 11:20 Active Medications: Current Medications Acetaminophen (Acetaminophen 325 Mg Tablet) 650 mg PO Q6H PRN PRN Reason: Pain, Mild 1-3,fever,headache Last Admin: 10/30/24 00:33 Dose: 650 mg Calcium Carbonate (Calcium Carbonate 750 Mg Tab.Chew) 750 mg PO Q4H PRN PRN Reason: Heartburn Dextrose (Dextrose 50 % 25 Gm/50 Ml Syringe) 25 gm IVPUSH Q15M PRN; Protocol PRN Reason: per Hypoglycemia Standing Ord. Enoxaparin Sodium (Enoxaparin Sodium 40 Mg/0.4 Ml Syringe) 40 mg SUBCUT Q24H [facility] Last Admin: 10/29/24 17:10 Dose: 40 mg Glucose (Glucose Gel 15 Gm Gel..Gram.) 15 gm PO Q15M PRN; Protocol PRN Reason: per Hypoglycemia Standing Ord. Furosemide 200 mg/ Sodium (Chloride) 100 mls @ 2.5 mls/hr IVCONT .Q24H [facility] Last Admin: 10/29/24 17:11 Dose: 5 mg/hr, 2.5 mls/hr Insulin Glargine (Insulin Glargine,Hum.Rec.Anlog 100 Unit/Ml 10 Ml Vial) 10 unit SUBCUT BEDTIME [facility] Insulin Human Lispro (Insulin Lispro 100 Unit/Ml 3 Ml Vial) 0 unit SUBCUT QIDACHS [facility]; Protocol Last Admin: 10/30/24 08:29 Dose: 4 unit Magnesium Hydroxide (Milk Of Magnesia 30 Ml Oral.Susp) 30 ml PO DAILY PRN PRN Reason: Constipation Melatonin (Melatonin 3 Mg Tablet) 6 mg PO BEDTIME PRN PRN Reason: Insomnia Ondansetron HCl (Ondansetron Hcl 4 Mg/2 Ml Vial) 4 mg IVPUSH Q8H PRN PRN Reason: Nausea and Vomiting Sodium Chloride (0.9 % Sodium Chloride Flush 3 Ml Syringe) 3 ml IVFLUSH QSHIFT [facility] Last Admin: 10/30/24 07:53 Dose: Not Given Valsartan (Valsartan 40 Mg Tablet) 40 mg PO BID [facility]; Protocol Last Admin: 10/30/24 07:52 Dose: 40 mg Home Medications ?Medication ?Instructions ?Recorded ?Confirmed ?Last Taken ?Type No Known Home Meds 10/29/24 10/29/24 Unknown History Physical Exam Vital Signs: Vital Signs: Last Vital Signs Temp 98.0 F 10/30/24 07:27 Pulse 78 10/30/24 07:27 Resp 19 10/30/24 07:27 BP 146/91 H 10/30/24 07:27 Pulse Ox 100 10/30/24 07:27 O2 Del Method Nasal Cannula 10/30/24 07:27 O2 Flow Rate 3 10/30/24 07:27 BMI result Body Mass Index 41.7 Const: General: comfortable and no acute distress Orientation/consciousness: patient oriented x3 HEENT: Other: Unremarkable Head: Yes normal to inspection Neck: Neck: Yes normal visual inspection Chest: Chest palpation & inspection: normal inspection of the chest Resp: Other: Few fine crackles Cardio: Palpation: normal PMI Heart sounds: S1 normal heart sound present, S2 normal heart sound present, no gallops, no murmurs and no rubs GI: Palpation (GI): Soft to palpation Back/Spine/Pelvis: Other: unremarkable Skin: General skin exam: no rashes or lesions noted Neuro: General: patient oriented x3 Extrem: Other: 1-2+ edema General: Yes normal to inspection Psych: Mental Status: mental status grossly normal Objective Labs and Meds 10/29/24 12:02 10/30/24 06:34 Lab results: Laboratory Results - last 24 hr 10/29/24 10/29/24 10/29/24 11:59 12:02 16:36 WBC 7.7 RBC 5.45 Hgb 14.8 Hct 45.9 MCV 84.2 MCH 27.2 MCHC 32.2 RDW 13.4 Plt Count 161 MPV 11.7 Immature Gran % (Auto) 0.1 Neut % (Auto) 74.2 H Lymph % (Auto) 15.6 L [place] % (Auto) 7.8 Eos % (Auto) 1.8 Baso % (Auto) 0.5 Lymph # (Auto) 1.2 [place] # (Auto) 0.6 Eos # (Auto) 0.1 Baso # (Auto) 0.0 Abs Immat Gran (auto) 0.01 Absolute Neuts (auto) 5.7 Absolute Nucleated RBC 0.000 Nucleated RBC % (auto) 0.0 PT 12.6 H INR 1.1 D-Dimer High Sensitivty 459 VBG pH VBG pCO2 VBG pO2 VBG HCO3 VBG O2 Saturation VBG Base Excess Sodium 139 Potassium 4.1 Chloride 106 Carbon Dioxide 30 H Anion Gap 7 L BUN 18 H Creatinine 1.27 Estim Creat Clear Calc 78.4 Estimated GFR 58 POC Glucose Random Glucose 259 H Estimat Average Glucose 298 Hemoglobin A1c % 12.0 H Calcium 8.7 Magnesium 1.9 Total Bilirubin 0.8 Direct Bilirubin 0.3 AST 23 ALT 43 H Alkaline Phosphatase 88 Troponin I High Sens 62.8 H 60.9 H B-Natriuretic Peptide 795 H Total Protein 6.6 Albumin 3.6 Influenza Type A (PCR) NEGATIVE Influenza Type B (PCR) NEGATIVE RSV RNA Qual (PCR) NEGATIVE SARS-CoV-2 RNA (RT-PCR) NEGATIVE 10/29/24 10/29/24 10/30/24 17:53 20:00 06:34 WBC RBC Hgb Hct MCV MCH MCHC RDW Plt Count MPV Immature Gran % (Auto) Neut % (Auto) Lymph % (Auto) [place] % (Auto) Eos % (Auto) Baso % (Auto) Lymph # (Auto) [place] # (Auto) Eos # (Auto) Baso # (Auto) Abs Immat Gran (auto) Absolute Neuts (auto) Absolute Nucleated RBC Nucleated RBC % (auto) PT INR D-Dimer High Sensitivty VBG pH VBG pCO2 VBG pO2 VBG HCO3 VBG O2 Saturation VBG Base Excess Sodium 141 Potassium 3.9 Chloride 99 Carbon Dioxide 31 H Anion Gap 15 BUN 17 H Creatinine 1.24 Estim Creat Clear Calc 80.3 Estimated GFR 59 POC Glucose 220 H 261 H Random Glucose 204 H Estimat Average Glucose Hemoglobin A1c % Calcium 9.7 D Magnesium 1.9 Total Bilirubin Direct Bilirubin AST ALT Alkaline Phosphatase Troponin I High Sens B-Natriuretic Peptide 496 H Total Protein Albumin Influenza Type A (PCR) Influenza Type B (PCR) RSV RNA Qual (PCR) SARS-CoV-2 RNA (RT-PCR) 10/30/24 10/30/24 06:38 07:09 WBC RBC Hgb Hct MCV MCH MCHC RDW Plt Count MPV Immature Gran % (Auto) Neut % (Auto) Lymph % (Auto) [place] % (Auto) Eos % (Auto) Baso % (Auto) Lymph # (Auto) [place] # (Auto) Eos # (Auto) Baso # (Auto) Abs Immat Gran (auto) Absolute Neuts (auto) Absolute Nucleated RBC Nucleated RBC % (auto) PT INR D-Dimer High Sensitivty VBG pH 7.42 VBG pCO2 55 VBG pO2 41 VBG HCO3 37 H VBG O2 Saturation 63.0 VBG Base Excess 10.1 Sodium Potassium Chloride Carbon Dioxide Anion Gap BUN Creatinine Estim Creat Clear Calc Estimated GFR POC Glucose 209 H Random Glucose Estimat Average Glucose Hemoglobin A1c % Calcium Magnesium Total Bilirubin Direct Bilirubin AST ALT Alkaline Phosphatase Troponin I High Sens B-Natriuretic Peptide Total Protein Albumin Influenza Type A (PCR) Influenza Type B (PCR) RSV RNA Qual (PCR) SARS-CoV-2 RNA (RT-PCR) ECG Interpretation: EKG with underlying sinus rhythm at 01:01/Min; possible left atrial enlargement; minimal criteria for LVH; nonspecific ST-T changes. Normal CO/corrected QT. Imaging Radiologist's impression: Impressions Chest X-Ray 10/29/24 11:26 IMPRESSION: Left lower lobe patchy opacity infiltrate versus atelectasis. Mild blunting of left CP angle from pleural effusion or pleural thickening. Electronically signed by: King Benz MD 10/29/2024 12:01 PM EST RP Chest CTA 10/29/24 14:31 IMPRESSION: 1. Exam is significantly limited by expiratory state of the lungs, and extensive respiratory motion artifact. 2. There is no central or segmental pulmonary embolus. Cannot exclude for peripheral embolic disease on the basis of this exam. 3. There is enlargement of the main pulmonary artery, with mild reflux of contrast into the proximal hepatic veins. Findings suggest elevated right heart pressures/pulmonary hypertension. 4. There is moderate cardiac enlargement. 5. Within confines of motion and expiratory appearance, there are small layering effusions with passive associated atelectasis. Cannot exclude, however doubt pneumonia given the appearance. 6. Patchy geographic groundglass attenuation throughout the aerated lungs is likely on the basis of expiratory state. Cannot exclude a mild amount of interstitial pulmonary edema. Electronically signed by: Shine Avila MD 10/29/2024 03:33 PM EST RP Assessment and Plan (1) Acute congestive heart failure: Status: Acute (2) Acute right-sided heart failure: Status: Acute (3) Hypertensive emergency: Status: Acute (4) Uncontrolled diabetes mellitus with hyperglycemia: Status: Acute Plan Blood pressure trend reviewed. As much as 186/121 mm Hg. Hemoglobin A1c was 12%. High sensitivity troponins are 62.8 and 60.9. Cardiac BNP is 496. On arrival, 795. Clinically, he does appear volume overloaded. Overall, uncontrolled diabetes, uncontrolled hypertension, obesity, possible sleep apnea, biventricular failure. IV diuretics. Because of diabetes, agree with Diovan as the initial choice for blood pressure management. Most likely will need more medications. To be decided. Diabetes management. Consider adding Jardiance. Obtain echocardiogram. We will follow up with you. Procedures Date of Service Date of Service: 10/30/24
[2024-10-30] MEDS: Empagliflozin 10 MG TABLET PO (10:24)
[2024-10-30 11:04] LABS: Glucose, Whole Blood 262 mg/dL (60-115)
--- NOTE | 2024-10-30 14:17 | P.PNIM_ITS ---
Subjective Subjective Date of Service: 10/30/24 Interval History: net negative 4.2L thus far, dyspnea + BP improved no chest pain Review of Systems Review of Systems: Yes all other systems are reviewed and are negative Physical Exam 2 Vital Signs: Vital Signs: Last Vital Signs Temp 98.1 F 10/30/24 11:42 Pulse 82 10/30/24 11:42 Resp 17 10/30/24 11:42 BP 154/98 H 10/30/24 11:42 Pulse Ox 99 10/30/24 11:42 O2 Del Method Nasal Cannula 10/30/24 11:42 O2 Flow Rate 3 10/30/24 11:42 BMI result Body Mass Index 41.7 Gen: in no acute distress HEENT: sclera anicteric, moist mucus membranes Neck: supple, JVD Lungs: bibasilar inspiratory crackles Heart: regular rate and rhythm, no murmurs Abd: soft, non-tender, non-distended, obese Ext: 2+ pitting edema bilaterally in legs Skin: warm/well-perfused Neuro: alert and oriented x3, no focal findings Psych: appropriate affect Objective Data Active Medications Acetaminophen (Acetaminophen 325 Mg Tablet) 650 mg PO Q6H PRN PRN Reason: Pain, Mild 1-3,fever,headache Last Admin: 10/30/24 00:33 Dose: 650 mg Documented By: AUDRA Calcium Carbonate (Calcium Carbonate 750 Mg Tab.Chew) 750 mg PO Q4H PRN PRN Reason: Heartburn Dextrose (Dextrose 50 % 25 Gm/50 Ml Syringe) 25 gm IVPUSH Q15M PRN; Protocol PRN Reason: per Hypoglycemia Standing Ord. Empagliflozin (Empagliflozin 10 Mg Tablet) 10 mg PO DAILY [facility] Last Admin: 10/30/24 10:24 Dose: 10 mg Documented By: JAZZY Enoxaparin Sodium (Enoxaparin Sodium 40 Mg/0.4 Ml Syringe) 40 mg SUBCUT Q24H [facility] Last Admin: 10/29/24 17:10 Dose: 40 mg Documented By: VIDHI Glucose (Glucose Gel 15 Gm Gel..Gram.) 15 gm PO Q15M PRN; Protocol PRN Reason: per Hypoglycemia Standing Ord. Furosemide 200 mg/ Sodium (Chloride) 100 mls @ 2.5 mls/hr IVCONT .Q24H [facility] Last Admin: 10/29/24 17:11 Dose: 5 mg/hr, 2.5 mls/hr Documented By: VIDHI Insulin Glargine (Insulin Glargine,Hum.Rec.Anlog 100 Unit/Ml 10 Ml Vial) 10 unit SUBCUT BEDTIME [facility] Insulin Human Lispro (Insulin Lispro 100 Unit/Ml 3 Ml Vial) 0 unit SUBCUT QIDACHS [facility]; Protocol Last Admin: 10/30/24 11:36 Dose: 6 unit Documented By: JAZZY Magnesium Hydroxide (Milk Of Magnesia 30 Ml Oral.Susp) 30 ml PO DAILY PRN PRN Reason: Constipation Melatonin (Melatonin 3 Mg Tablet) 6 mg PO BEDTIME PRN PRN Reason: Insomnia Ondansetron HCl (Ondansetron Hcl 4 Mg/2 Ml Vial) 4 mg IVPUSH Q8H PRN PRN Reason: Nausea and Vomiting Sodium Chloride (0.9 % Sodium Chloride Flush 3 Ml Syringe) 3 ml IVFLUSH QSHIFT [facility] Last Admin: 10/30/24 07:53 Dose: Not Given Documented By: JAZZY Non-Admin Reason: IV Running Valsartan (Valsartan 40 Mg Tablet) 40 mg PO BID [facility]; Protocol Last Admin: 10/30/24 07:52 Dose: 40 mg Documented By: JAZZY Labs 10/29/24 12:02 10/30/24 06:34 Labs: Laboratory Results - last 24 hr 10/29/24 10/29/24 10/29/24 12:02 16:36 17:53 VBG pH VBG pCO2 VBG pO2 VBG HCO3 VBG O2 Saturation VBG Base Excess Anion Gap Estim Creat Clear Calc Estimated GFR POC Glucose 220 H Random Glucose Estimat Average Glucose 298 Hemoglobin A1c % 12.0 H Calcium Magnesium Troponin I High Sens 60.9 H B-Natriuretic Peptide 10/29/24 10/30/24 10/30/24 20:00 06:34 06:38 VBG pH 7.42 VBG pCO2 55 VBG pO2 41 VBG HCO3 37 H VBG O2 Saturation 63.0 VBG Base Excess 10.1 Anion Gap 15 Estim Creat Clear Calc 80.3 Estimated GFR 59 POC Glucose 261 H Random Glucose 204 H Estimat Average Glucose Hemoglobin A1c % Calcium 9.7 D Magnesium 1.9 Troponin I High Sens B-Natriuretic Peptide 496 H 10/30/24 10/30/24 07:09 10:54 VBG pH VBG pCO2 VBG pO2 VBG HCO3 VBG O2 Saturation VBG Base Excess Anion Gap Estim Creat Clear Calc Estimated GFR POC Glucose 209 H 262 H Random Glucose Estimat Average Glucose Hemoglobin A1c % Calcium Magnesium Troponin I High Sens B-Natriuretic Peptide Assessment and Plan (1) Acute decompensated heart failure: Status: Acute Plan d2 for 59yo M with DM2, no current primary care; no known cardiac history; presenting with 2 wk of progressive orthopena, dyspnea, edema, and weight gain, found to have hypoxia due to ADHF acute HF with mildly reduced EF - continue IV furosemide, monitor I/O + BNP + lytes, low-Na diet - hs Tn-I indeterminate/flat, due to CHF rather than ACS though will need outpt ischemic workup - started valsartan - start empagliflozin - eventually start b-madeleine once euvolemic - sleep study - outpt Cardiology f/u acute hypoxic respiratory failure - supplemental O2, wean as tolerated uncontrolled DM2 with hyperglycemia - A1c 12; start Lantus and continue correction-dose lispro; also on empagliflozin and will also eventually start MTF VTE prophylaxis - enoxaparin dispo - eventual home Total time managing care of this patient today: 40 minutes. Quality Stroke Does the patient have a stroke diagnosis?: No VTE Prior VTE?: No VTE Risk Level:: Medical - moderate - high VTE Device Contraindication: N/A - Device Ordered VTE Drug Contraindication: N/A - Med Ordered
[2024-10-30 16:17] LABS: Glucose, Whole Blood 159 mg/dL (60-115)
[2024-10-30] MEDS: Enoxaparin Sodium 40 MG/0.4 ML SYRINGE SUBCUT (17:10)
--- NOTE | 2024-10-30 18:43 | PC.NURSE ---
patient would like sister naveed tejeda updated with his health as she will be the one helping care for him when he gets home [phone]
[2024-10-30] MEDS: Furosemide 200 MG in 0.9 % Sodium Chloride 80 ML IVCONT (20:11)
[2024-10-30 21:32] LABS: Glucose, Whole Blood 194 mg/dL (60-115)
[2024-10-30] MEDS: Insulin Glargine,Hum.rec.anlog 100 UNIT/ML 10 ML VIAL 10 UNIT SUBCUT (21:35)
[2024-10-31] VITALS (9 sets, daily range): BP systolic 106–142; BP diastolic 64–89; PULSE 80–95; RESP 16–20; TEMP 36–37.1; O2SAT 91–96
[2024-10-31 07:05] LABS: Glucose, Whole Blood 192 mg/dL (60-115)
[2024-10-31 07:40] LABS: Anion Gap 19 (12-20); Blood Urea Nitrogen 27 mg/dL (9-16); Calcium 9.5 mg/dL (8.4-10.2); Carbon Dioxide 30 mmol/L (22-29); Chloride 95 mmol/L (96-108); Creatinine Clr Calc Pharmacy 66.3; Estimated Glomerular Filt Rate 48; Glucose Random 182 mg/dL (60-115); Magnesium 2.1 mg/dL (1.6-2.6); Potassium 3.6 mmol/L (3.3-5.1); Sodium 140 mmol/L (135-145)
[2024-10-31 08:15] LABS: B Type Natriuretic Peptide 111 pg/mL (<100)
[2024-10-31] MEDS: Empagliflozin 10 MG TABLET PO (09:31)
[2024-10-31] MEDS: 0.9 % Sodium Chloride Flush 3 ML SYRINGE IVFLUSH ×3 (09:31→20:48)
[2024-10-31] MEDS: Valsartan 40 MG TABLET PO ×2 (09:31→20:46)
[2024-10-31] MEDS: Insulin Lispro 100 UNIT/ML 3 ML VIAL SUBCUT ×4 (09:32→21:17)
--- NOTE | 2024-10-31 09:45 | PM.PNCARD ---
Subjective Subjective Date of Service: 10/31/24 Interval history: Patient was seen in follow-up. He states he is feeling better. He has diuresed a lot. So far, he is-6.3 L. Total urine output 7.8 L. Review of Systems Review of Systems Yes all other systems are reviewed and are negative Constitutional: Reports as per HPI and Reports no additional constitutional complaints Eyes: Reports as per HPI and Denies no additional eye complaints Denies system reviewed and no additional complaints, except as documented and Reports as per HPI Cardiovascular: Reports as per HPI, Reports no additional cardiovascular complaints, Denies acrocyanosis, Denies cool extremities, Denies chest pain, Denies leg edema, Denies lightheadedness, Denies palpitations and Reports dyspnea Respiratory: Reports as per HPI, Denies no additional respiratory complaints and Reports dyspnea Gastrointestinal: Reports as per HPI and Denies no additional gastrointestinal complaints Genitourinary: Reports no additional male genitourinary complaints and Reports as per HPI Musculoskeletal: Reports no additional musculoskeletal complaints and Reports as per HPI Skin/Breast: Reports system reviewed and no additional complaints, except as docu Reports system reviewed and no additional complaints, except as documented and Reports as per HPI Psychiatric: Reports no additional psychiatric complaints and Reports as per HPI Endocrine: Reports no additional endocrine complaints, Reports as per HPI and Denies palpitations Hematologic/Lymphatic: Reports no additional hematologic/lymphatic complaints and Reports as per HPI Allergic/Immunologic: Reports no additional allergic/immunologic complaints and Reports as per HPI Physical Exam Vital Signs: Last Vital Signs Temp 97.5 F 10/31/24 07:14 Pulse 86 10/31/24 07:14 Resp 20 10/31/24 07:14 BP 132/83 10/31/24 07:14 Pulse Ox 95 10/31/24 07:14 O2 Del Method Nasal Cannula 10/31/24 07:14 O2 Flow Rate 3 10/31/24 07:14 FiO2 95 10/30/24 19:35 BMI result Body Mass Index 41.7 Const General: comfortable and no acute distress Orientation/consciousness: patient oriented x3 HEENT Other: Unremarkable Head: Yes normal to inspection Neck Neck: Yes normal visual inspection Chest Chest palpation & inspection: normal inspection of the chest Resp Other: Few fine crackles Cardio Palpation: normal PMI Heart sounds: S1 normal heart sound present, S2 normal heart sound present, no gallops, no murmurs and no rubs GI Palpation (GI): Soft to palpation Back/Spine/Pelvis Other: unremarkable Skin General skin exam: no rashes or lesions noted Neuro General: patient oriented x3 Extrem Other: 1-2+ edema General: Yes normal to inspection Psych Mental Status: mental status grossly normal Objective Labs and Meds 10/29/24 12:02 10/31/24 06:52 Lab results: Laboratory Results - last 24 hr 10/30/24 10/30/24 10/30/24 10:54 16:13 21:27 Sodium Potassium Chloride Carbon Dioxide Anion Gap BUN Creatinine Estim Creat Clear Calc Estimated GFR POC Glucose 262 H 159 H 194 H Random Glucose Calcium Magnesium B-Natriuretic Peptide 10/31/24 10/31/24 06:52 06:57 Sodium 140 Potassium 3.6 Chloride 95 L Carbon Dioxide 30 H Anion Gap 19 BUN 27 H Creatinine 1.50 H Estim Creat Clear Calc 66.3 Estimated GFR 48 POC Glucose 192 H Random Glucose 182 H Calcium 9.5 Magnesium 2.1 B-Natriuretic Peptide 111 H Progress Note: A&P Assessment and plan (1) Acute congestive heart failure: Status: Acute (2) Acute right-sided heart failure: Status: Acute (3) Hypertensive emergency: Status: Acute (4) Uncontrolled diabetes mellitus with hyperglycemia: Status: Acute Plan Blood pressure trend reviewed. As much as 186/121 mm Hg. Currently, blood pressure is much improved. 132/83 mm Hg. Hemoglobin A1c was 12%. High sensitivity troponins are 62.8 and 60.9. Cardiac BNP on arrival somewhere in 95. Then 496 and most recently 111 today. Hence there is good improvement. Overall, improving congestive heart failure. Uncontrolled diabetes, uncontrolled hypertension, obesity, possible sleep apnea. Echocardiogram with LVEF of 40%. Moderate diastolic dysfunction. No significant valve findings. As there is a bump in creatinine and he is also diurese a lot, okay to hold diuretics today. Probably start oral diuretics tomorrow. Continue Diovan. For diabetes, on Lantus/Jardiance. We will follow up with you. Discussed with Dr. Adame. Time Spent With Patient Time: Total time managing care of this patient today ____ minutes. Progress Note: Quality Stroke Does the patient have a stroke diagnosis?: No Procedures Date of Service Date of Service: 10/31/24
--- NOTE | 2024-10-31 10:48 | P.PNIM_ITS ---
Subjective Subjective Date of Service: 10/31/24 Interval History: breathing improved SCr up Review of Systems Review of Systems: Yes all other systems are reviewed and are negative Physical Exam 2 Vital Signs: Vital Signs: Last Vital Signs Temp 97.5 F 10/31/24 07:14 Pulse 86 10/31/24 07:14 Resp 20 10/31/24 07:14 BP 132/83 10/31/24 07:14 Pulse Ox 95 10/31/24 07:14 O2 Del Method Nasal Cannula 10/31/24 07:14 O2 Flow Rate 3 10/31/24 07:14 FiO2 95 10/30/24 19:35 BMI result Body Mass Index 41.7 Gen: in no acute distress HEENT: sclera anicteric, moist mucus membranes Neck: supple Lungs: clear to auscultation bilaterally Heart: regular rate and rhythm, no murmurs Abd: soft, non-tender, non-distended, obese Ext: 1+ edema of legs Skin: warm/well-perfused Neuro: alert and oriented x3, no focal findings Psych: appropriate affect Objective Data Active Medications Acetaminophen (Acetaminophen 325 Mg Tablet) 650 mg PO Q6H PRN PRN Reason: Pain, Mild 1-3,fever,headache Last Admin: 10/30/24 00:33 Dose: 650 mg Documented By: AUDRA Calcium Carbonate (Calcium Carbonate 750 Mg Tab.Chew) 750 mg PO Q4H PRN PRN Reason: Heartburn Dextrose (Dextrose 50 % 25 Gm/50 Ml Syringe) 25 gm IVPUSH Q15M PRN; Protocol PRN Reason: per Hypoglycemia Standing Ord. Empagliflozin (Empagliflozin 10 Mg Tablet) 10 mg PO DAILY [facility] Last Admin: 10/31/24 09:31 Dose: 10 mg Documented By: CATHERINE Enoxaparin Sodium (Enoxaparin Sodium 40 Mg/0.4 Ml Syringe) 40 mg SUBCUT Q24H [facility] Last Admin: 10/30/24 17:10 Dose: 40 mg Documented By: JAZZY Glucose (Glucose Gel 15 Gm Gel..Gram.) 15 gm PO Q15M PRN; Protocol PRN Reason: per Hypoglycemia Standing Ord. Insulin Glargine (Insulin Glargine,Hum.Rec.Anlog 100 Unit/Ml 10 Ml Vial) 10 unit SUBCUT BEDTIME [facility] Last Admin: 10/30/24 21:35 Dose: 10 unit Documented By: PAULETTE Insulin Human Lispro (Insulin Lispro 100 Unit/Ml 3 Ml Vial) 0 unit SUBCUT QIDACHS [facility]; Protocol Last Admin: 10/31/24 09:32 Dose: 2 unit Documented By: CATHERINE Magnesium Hydroxide (Milk Of Magnesia 30 Ml Oral.Susp) 30 ml PO DAILY PRN PRN Reason: Constipation Melatonin (Melatonin 3 Mg Tablet) 6 mg PO BEDTIME PRN PRN Reason: Insomnia Ondansetron HCl (Ondansetron Hcl 4 Mg/2 Ml Vial) 4 mg IVPUSH Q8H PRN PRN Reason: Nausea and Vomiting Sodium Chloride (0.9 % Sodium Chloride Flush 3 Ml Syringe) 3 ml IVFLUSH QSHIFT [facility] Last Admin: 10/31/24 09:31 Dose: 3 ml Documented By: CATHERINE Valsartan (Valsartan 40 Mg Tablet) 40 mg PO BID [facility]; Protocol Last Admin: 10/31/24 09:31 Dose: 40 mg Documented By: CATHERNIE Labs 10/29/24 12:02 10/31/24 06:52 Labs: Laboratory Results - last 24 hr 10/30/24 10/30/24 10/30/24 10:54 16:13 21:27 Anion Gap Estim Creat Clear Calc Estimated GFR POC Glucose 262 H 159 H 194 H Random Glucose Calcium Magnesium B-Natriuretic Peptide 10/31/24 10/31/24 06:52 06:57 Anion Gap 19 Estim Creat Clear Calc 66.3 Estimated GFR 48 POC Glucose 192 H Random Glucose 182 H Calcium 9.5 Magnesium 2.1 B-Natriuretic Peptide 111 H Assessment and Plan (1) Acute decompensated heart failure: Status: Acute Plan d3 for 59yo M with DM2, no current primary care; no known cardiac history; presenting with 2 wk of progressive orthopena, dyspnea, edema, and weight gain, found to have hypoxia due to ADHF acute HF with mildly reduced EF - d/c IV furosemide; recheck BMP in AM and if SCr improved, start PO furosemide - low-Na diet - hs Tn-I indeterminate/flat, due to CHF rather than ACS though will need outpt ischemic workup - started valsartan - started empagliflozin - eventually start b-madeleine - sleep study - outpt Cardiology f/u - TTE 10/30/24: - The left ventricular systolic function is mild to moderately decreased. The calculated ejection fraction is 40% by biplane method. - Evidence suggests grade II (moderate) diastolic dysfunction. - No obvious valvular pathology seen on this study. DEZ - probably from zealous diuresis; hold and recheck BMP in AM acute hypoxic respiratory failure - supplemental O2, wean as tolerated uncontrolled DM2 with hyperglycemia - A1c 12; staredt Lantus and continue correction-dose lispro; also on empagliflozin and will also eventually start MTF and GPZ VTE prophylaxis - enoxaparin dispo - eventual home In my clinical judgment, the patient requires continued inpatient hospitalization for the following reasons: DEZ Total time managing care of this patient today: 40 minutes. Quality Stroke Does the patient have a stroke diagnosis?: No VTE Prior VTE?: No VTE Risk Level:: Medical - moderate - high VTE Device Contraindication: N/A - Device Ordered VTE Drug Contraindication: N/A - Med Ordered
[2024-10-31 10:52] LABS: Glucose, Whole Blood 267 mg/dL (60-115)
[2024-10-31] MEDS: carvediloL 3.125 MG TABLET PO ×2 (11:45→20:47)
--- NOTE | 2024-10-31 14:23 | P.CDIM_ITS ---
PROVIDER RESPONSE TEXT: To clarify, the appropriate diagnosis supported by the clinical indicators: Other (explain): Morbid obesity QUERY TEXT: PHYSICIAN'S DOCUMENTATION REQUEST Date of Query: 10/31/2024 12:56 PM EST Patient Name: Jerome Garner Admit Date: 10/29/2024 Dear Latha Adame MD, A review of the medical record indicates additional documentation may be needed. Please review below and update the documentation accordingly. Clinical Indicators: Height: ( ) 5'8 Weight: ( ) 124.284 kg BMI: ( ) 41.7 Other Clinical Notes Supporting Significance of the BMI: on therapeutic diet If possible, please provide an associated diagnosis related to the abnormal BMI, such as: Overweight Obesity Due to excess calories Obesity Drug induced Obesity Due to other cause Specify the other cause Severe or Morbid Obesity With alveolar hypoventilation Severe or Morbid Obesity Without alveolar hypoventilation BMI is not significant Other (explain) Clinically unable to determine (explain) Thank you, Flower Boogie RN Use of terms such as suspected, likely, concern for, or probable (associated with a specific diagnosi s that is being evaluated, monitored, or treated as if it exists) are acceptable and can be coded in the inpatient se tting, when documented at the time of discharge. Please use your independent medical judgment in providing your response. THIS QUERY IS PART OF THE PERMANENT MEDICAL RECORD
[2024-10-31 15:25] LABS: Glucose, Whole Blood 235 mg/dL (60-115)
[2024-10-31] MEDS: Enoxaparin Sodium 40 MG/0.4 ML SYRINGE SUBCUT (18:33)
[2024-10-31] MEDS: Acetaminophen 325 MG TABLET 650 MG PO (20:45)
[2024-10-31] MEDS: Melatonin 3 MG TABLET 6 MG PO (20:46)
[2024-10-31 21:04] LABS: Glucose, Whole Blood 246 mg/dL (60-115)
[2024-10-31] MEDS: Insulin Glargine,Hum.rec.anlog 100 UNIT/ML 10 ML VIAL 10 UNIT SUBCUT (21:17)
[2024-11-01] VITALS (7 sets, daily range): BP systolic 114–127; BP diastolic 64–74; PULSE 67–105; RESP 18–20; TEMP 36.3–36.8; O2SAT 91–97
[2024-11-01 07:07] LABS: Glucose, Whole Blood 188 mg/dL (60-115)
[2024-11-01 07:43] LABS: Anion Gap 15 (12-20); B Type Natriuretic Peptide 57 pg/mL (<100); Blood Urea Nitrogen 37 mg/dL (9-16); Calcium 9.8 mg/dL (8.4-10.2); Carbon Dioxide 31 mmol/L (22-29); Chloride 98 mmol/L (96-108); Estimated Glomerular Filt Rate 47; Glucose Random 181 mg/dL (60-115); Magnesium 2.5 mg/dL (1.6-2.6); Potassium 3.6 mmol/L (3.3-5.1); Sodium 140 mmol/L (135-145)
[2024-11-01] MEDS: 0.9 % Sodium Chloride Flush 3 ML SYRINGE IVFLUSH ×3 (10:30→21:34)
[2024-11-01] MEDS: Valsartan 40 MG TABLET PO ×2 (10:30→21:33)
[2024-11-01] MEDS: carvediloL 3.125 MG TABLET PO ×2 (10:30→21:33)
[2024-11-01] MEDS: Empagliflozin 10 MG TABLET PO (10:30)
[2024-11-01] MEDS: Acetaminophen 325 MG TABLET 650 MG PO ×2 (10:40→23:02)
--- NOTE | 2024-11-01 10:48 | PM.PNCARD ---
Subjective Subjective Date of Service: 11/01/24 Interval history: Patient states that he feels fine. No new complaints. Review of Systems Review of Systems Yes all other systems are reviewed and are negative Constitutional: Reports as per HPI and Reports no additional constitutional complaints Eyes: Reports as per HPI and Denies no additional eye complaints Denies system reviewed and no additional complaints, except as documented and Reports as per HPI Cardiovascular: Reports as per HPI, Reports no additional cardiovascular complaints, Denies acrocyanosis, Denies cool extremities, Denies chest pain, Denies leg edema, Denies lightheadedness, Denies palpitations and Denies dyspnea Respiratory: Reports as per HPI, Denies no additional respiratory complaints and Denies dyspnea Gastrointestinal: Reports as per HPI and Denies no additional gastrointestinal complaints Genitourinary: Reports no additional male genitourinary complaints and Reports as per HPI Musculoskeletal: Reports no additional musculoskeletal complaints and Reports as per HPI Skin/Breast: Reports system reviewed and no additional complaints, except as docu Reports system reviewed and no additional complaints, except as documented and Reports as per HPI Psychiatric: Reports no additional psychiatric complaints and Reports as per HPI Endocrine: Reports no additional endocrine complaints, Reports as per HPI and Denies palpitations Hematologic/Lymphatic: Reports no additional hematologic/lymphatic complaints and Reports as per HPI Allergic/Immunologic: Reports no additional allergic/immunologic complaints and Reports as per HPI Physical Exam Vital Signs: Last Vital Signs Temp 97.5 F 11/01/24 07:16 Pulse 79 11/01/24 07:16 Resp 20 11/01/24 07:16 BP 116/71 11/01/24 07:16 Pulse Ox 96 11/01/24 07:16 O2 Del Method Nasal Cannula 11/01/24 07:16 O2 Flow Rate 2 11/01/24 07:16 FiO2 95 10/30/24 19:35 BMI result Body Mass Index 41.7 Const General: comfortable and no acute distress Orientation/consciousness: patient oriented x3 HEENT Other: Unremarkable Head: Yes normal to inspection Neck Neck: Yes normal visual inspection Chest Chest palpation & inspection: normal inspection of the chest Resp Other: Few fine crackles Cardio Palpation: normal PMI Heart sounds: S1 normal heart sound present, S2 normal heart sound present, no gallops, no murmurs and no rubs GI Palpation (GI): Soft to palpation Back/Spine/Pelvis Other: unremarkable Skin General skin exam: no rashes or lesions noted Neuro General: patient oriented x3 Extrem Other: 1+ edema General: Yes normal to inspection Psych Mental Status: mental status grossly normal Objective Labs and Meds 10/29/24 12:02 11/01/24 06:44 Lab results: Laboratory Results - last 24 hr 10/31/24 10/31/24 10/31/24 10:46 15:22 21:00 Sodium Potassium Chloride Carbon Dioxide Anion Gap BUN Creatinine Estim Creat Clear Calc Estimated GFR POC Glucose 267 H 235 H 246 H Random Glucose Calcium Magnesium B-Natriuretic Peptide 11/01/24 11/01/24 06:44 06:58 Sodium 140 Potassium 3.6 Chloride 98 Carbon Dioxide 31 H Anion Gap 15 BUN 37 H Creatinine 1.53 H Estim Creat Clear Calc 65.0 Estimated GFR 47 POC Glucose 188 H Random Glucose 181 H Calcium 9.8 Magnesium 2.5 B-Natriuretic Peptide 57 Progress Note: A&P Assessment and plan (1) Acute congestive heart failure: Status: Acute (2) Acute right-sided heart failure: Status: Acute (3) Hypertensive emergency: Status: Acute (4) Uncontrolled diabetes mellitus with hyperglycemia: Status: Acute Plan Blood pressure trend reviewed. As much as 186/121 mm Hg. Currently, blood pressure is much improved. Today's blood pressure is 116/71 mm Hg. Hemoglobin A1c was 12%. High sensitivity troponins are 62.8 and 60.9. Cardiac BNP on arrival somewhere in 95. Then 496 and most recently 57 today. Hence there is good improvement. Overall, improving congestive heart failure. So far, he is -8 L. total urine output is 11,200 ml. Uncontrolled diabetes, uncontrolled hypertension, obesity, possible sleep apnea. Echocardiogram with LVEF of 40%. Moderate diastolic dysfunction. No significant valve findings. Creatinine has shown a slight tries and hence diuretics can be on hold. Continue Diovan/Coreg. For diabetes, he is on Lantus/Jardiance. We will need primary care to follow up on this upon discharge. Ambulate patient. Discussed with Dr. Adame. Time Spent With Patient Time: Total time managing care of this patient today ____ minutes. Progress Note: Quality Stroke Does the patient have a stroke diagnosis?: No Procedures Date of Service Date of Service: 11/01/24
[2024-11-01 10:53] LABS: Glucose, Whole Blood 240 mg/dL (60-115)
[2024-11-01] MEDS: Insulin Lispro 100 UNIT/ML 3 ML VIAL SUBCUT ×3 (12:30→21:33)
--- NOTE | 2024-11-01 12:48 | P.PNIM_ITS ---
Subjective Subjective Date of Service: 11/01/24 Interval History: breathing improved, edema improved SCr still up at 1.53 Review of Systems Review of Systems: Yes all other systems are reviewed and are negative Physical Exam 2 Vital Signs: Vital Signs: Last Vital Signs Temp 97.4 F 11/01/24 11:00 Pulse 79 11/01/24 11:00 Resp 18 11/01/24 11:00 BP 127/74 11/01/24 11:00 Pulse Ox 94 11/01/24 11:00 O2 Del Method Room Air 11/01/24 11:00 O2 Flow Rate 2 11/01/24 07:16 FiO2 95 10/30/24 19:35 BMI result Body Mass Index 41.7 Gen: in no acute distress HEENT: sclera anicteric, moist mucus membranes Neck: supple Lungs: clear to auscultation bilaterally Heart: regular rate and rhythm, no murmurs Abd: soft, non-tender, non-distended, obese Ext: 1+ edema of legs Skin: warm/well-perfused Neuro: alert and oriented x3, no focal findings Psych: appropriate affect Objective Data Active Medications Acetaminophen (Acetaminophen 325 Mg Tablet) 650 mg PO Q6H PRN PRN Reason: Pain, Mild 1-3,fever,headache Last Admin: 11/01/24 10:40 Dose: 650 mg Documented By: CATHERINE Calcium Carbonate (Calcium Carbonate 750 Mg Tab.Chew) 750 mg PO Q4H PRN PRN Reason: Heartburn Carvedilol (Carvedilol 3.125 Mg Tablet) 3.125 mg PO BID [facility]; Protocol Last Admin: 11/01/24 10:30 Dose: 3.125 mg Documented By: CATHERINE Dextrose (Dextrose 50 % 25 Gm/50 Ml Syringe) 25 gm IVPUSH Q15M PRN; Protocol PRN Reason: per Hypoglycemia Standing Ord. Empagliflozin (Empagliflozin 10 Mg Tablet) 10 mg PO DAILY [facility] Last Admin: 11/01/24 10:30 Dose: 10 mg Documented By: CATHERINE Enoxaparin Sodium (Enoxaparin Sodium 40 Mg/0.4 Ml Syringe) 40 mg SUBCUT Q24H [facility] Last Admin: 10/31/24 18:33 Dose: 40 mg Documented By: CATHERINE Glucose (Glucose Gel 15 Gm Gel..Gram.) 15 gm PO Q15M PRN; Protocol PRN Reason: per Hypoglycemia Standing Ord. Insulin Glargine (Insulin Glargine,Hum.Rec.Anlog 100 Unit/Ml 10 Ml Vial) 10 unit SUBCUT BEDTIME [facility] Last Admin: 10/31/24 21:17 Dose: 10 unit Documented By: ELENI Insulin Human Lispro (Insulin Lispro 100 Unit/Ml 3 Ml Vial) 0 unit SUBCUT QIDACHS [facility]; Protocol Last Admin: 11/01/24 10:31 Dose: Not Given Documented By: CATHERINE Non-Admin Reason: Patient Asleep Magnesium Hydroxide (Milk Of Magnesia 30 Ml Oral.Susp) 30 ml PO DAILY PRN PRN Reason: Constipation Melatonin (Melatonin 3 Mg Tablet) 6 mg PO BEDTIME PRN PRN Reason: Insomnia Last Admin: 10/31/24 20:46 Dose: 6 mg Documented By: ELENI Ondansetron HCl (Ondansetron Hcl 4 Mg/2 Ml Vial) 4 mg IVPUSH Q8H PRN PRN Reason: Nausea and Vomiting Sodium Chloride (0.9 % Sodium Chloride Flush 3 Ml Syringe) 3 ml IVFLUSH QSHIFT [facility] Last Admin: 11/01/24 10:30 Dose: 3 ml Documented By: CATHERINE Valsartan (Valsartan 40 Mg Tablet) 40 mg PO BID [facility]; Protocol Last Admin: 11/01/24 10:30 Dose: 40 mg Documented By: CATHERINE Labs 10/29/24 12:02 11/01/24 06:44 Labs: Laboratory Results - last 24 hr 10/31/24 10/31/24 11/01/24 15:22 21:00 06:44 Anion Gap 15 Estim Creat Clear Calc 65.0 Estimated GFR 47 POC Glucose 235 H 246 H Random Glucose 181 H Calcium 9.8 Magnesium 2.5 B-Natriuretic Peptide 57 11/01/24 11/01/24 06:58 10:50 Anion Gap Estim Creat Clear Calc Estimated GFR POC Glucose 188 H 240 H Random Glucose Calcium Magnesium B-Natriuretic Peptide Assessment and Plan (1) Acute decompensated heart failure: Status: Acute Plan d4 for 59yo M with DM2, no current primary care; no known cardiac history; presenting with 2 wk of progressive orthopena, dyspnea, edema, and weight gain, found to have hypoxia due to ADHF acute HF with mildly reduced EF - d/c'ed IV furosemide drip 10/30; recheck BMP in AM and if SCr improved, start PO furosemide - low-Na diet - hs Tn-I indeterminate/flat, due to CHF rather than ACS though will need outpt ischemic workup - started valsartan - started empagliflozin - started carvedilol - sleep study done, f/u results as outpt - outpt Cardiology f/u - TTE 10/30/24: - The left ventricular systolic function is mild to moderately decreased. The calculated ejection fraction is 40% by biplane method. - Evidence suggests grade II (moderate) diastolic dysfunction. - No obvious valvular pathology seen on this study. DEZ - probably from zealous diuresis; held and recheck BMP in AM acute hypoxic respiratory failure - supplemental O2, wean as tolerated, home O2 eval prior to d/c uncontrolled DM2 with hyperglycemia - A1c 12; started Lantus and continue correction-dose lispro - upon discharge, will try to manage glucose with metformin, glipizide, and empagliflozin VTE prophylaxis - enoxaparin dispo - eventual home In my clinical judgment, the patient requires continued inpatient hospitalization for the following reasons: DEZ Total time managing care of this patient today: 40 minutes. Quality Stroke Does the patient have a stroke diagnosis?: No VTE Prior VTE?: No VTE Risk Level:: Medical - moderate - high VTE Device Contraindication: N/A - Device Ordered VTE Drug Contraindication: N/A - Med Ordered
--- NOTE | 2024-11-01 14:35 | MHC.CM.PN ---
PT NOT YET MEDICALLY CLEARED TO DC, PER MD NOTE, PT REQUIRING TREATMENT FOR DEZ DCP: HOME NO SERVICES VIA PRIVATE TRANSPORT
[2024-11-01 16:08] LABS: Glucose, Whole Blood 217 mg/dL (60-115)
--- NOTE | 2024-11-01 16:57 | P.DS_ITS ---
DS: Providers Provider Date of Service: 11/01/24 Date of admission: 10/29/24 16:07 Date of discharge: 11/01/24 Primary care physician: HAILEY Lange Consults: 10/29/24 15:58 Consult to Cardiology Routine Consulting Provider: [facility] [place] [facility] Reason for consultation: CHF DS: Diagnosis Discharge Diagnosis (1) Acute decompensated heart failure: Status: Acute (2) Acute heart failure with reduced ejection fraction (HFrEF, <= 40%): Status: Acute (3) Uncontrolled hypertension: Status: Acute (4) Uncontrolled diabetes mellitus with hyperglycemia: Status: Acute (5) Morbid obesity with BMI of 40.0-44.9, adult: Status: Acute (6) YURIY (obstructive sleep apnea): Status: Acute (7) Acute respiratory failure with hypoxia: Status: Acute DS: Summary Hospital Course Hospital Course: from my admission H+P, 10/29/24: 59yo M with DM2 but not on any medications and without any current primary care doctor presenting with about 2 weeks of progressive lower extremity swelling, dyspnea at rest and exertion, and orthopnea. No chest pain. Approximately 10 lb weight gain over this period of time. No history of known CAD or HTN. He is a student truck driver. He denies smoking, alcohol intake, or drug use. In the ED, he was found to be hypoxic [Sa 88%] and volume overloaded on clinical exam and CT. He was hypertensive to 181/125 and tachypneic to 28. He was given 20 mg of IV furosemide and is starting to diurese. BNP 795, hs Tn-I 62.8. 59yo M with DM2, no current primary care; no known cardiac history; presenting with 2 wk of progressive orthopena, dyspnea, edema, and weight gain, found to have hypoxia due to acute decompensated heart failure. He was admitted to the telemetry unit. Hospital course by problem: acute HF with reduced EF hypertensive urgency - Treated with IV furosemide drip until 10/30. SCr slightly high at 1.5 and was ___ on discharge; started on furosemide 20 mg daily plus low-sodium diet. - Troponin indeterminate/flat, due to CHF rather than ACS though will need outpt ischemic workup - Started valsartan, empagliflozin, and carvedilol. - Needs outpt Cardiology follow-up. - TTE 10/30/24: - The left ventricular systolic function is mild to moderately decreased. The calculated ejection fraction is 40% by biplane method. - Evidence suggests grade II (moderate) diastolic dysfunction. - No obvious valvular pathology seen on this study. DEZ - probably from zealous diuresis and valsartan. acute hypoxic respiratory failure YURIY - weaned off oxygen but qualified for nocturnal oxygen. Home O2 eval: ____ uncontrolled DM2 with hyperglycemia - A1c 12; given basal-bolus insulin in the hospital but upon discharge, will try to manage glucose with metformin, glipizide, and empagliflozin. Diet/exercise counseled. Needs to establish primary care RIKI. He was discharged home with the above medications and follow-up plan. Time Attestation Discharge Coordination Time (in mins): 45 Quality: Safe Use of Opioids Does Pt have an Active Cancer Diagnosis on the Problem List?: No Quality: Stroke Does the patient have a stroke diagnosis?: No Physical Exam Vital Signs: Vital Signs: Last Vital Signs Temp 97.4 F 11/01/24 15:43 Pulse 77 11/01/24 15:43 Resp 20 11/01/24 15:43 BP 118/64 11/01/24 15:43 Pulse Ox 91 L 11/01/24 15:43 O2 Del Method Room Air 11/01/24 15:43 O2 Flow Rate 2 11/01/24 07:16 FiO2 95 10/30/24 19:35 BMI result Body Mass Index 41.7 Gen: in no acute distress HEENT: sclera anicteric, moist mucus membranes Neck: supple Lungs: clear to auscultation bilaterally Heart: regular rate and rhythm, no murmurs Abd: soft, non-tender, non-distended, obese Ext: 1+ edema of legs Skin: warm/well-perfused Neuro: alert and oriented x3, no focal findings Psych: appropriate affect DS: Data Data Completed and Pending Completed studies during hospitalization [Text1]: Laboratory Results WBC 7.7 X10*3/uL (4.8-10.8) 10/29/24 12:02 RBC 5.45 X10*6/uL (4.60-5.80) 10/29/24 12:02 Hgb 14.8 g/dl (14.0-18.0) 10/29/24 12:02 Hct 45.9 % (42.0-52.0) 10/29/24 12:02 MCV 84.2 fL (80.0-98.0) 10/29/24 12:02 MCH 27.2 pg (27.0-33.0) 10/29/24 12:02 MCHC 32.2 g/dl (31.0-36.0) 10/29/24 12:02 RDW 13.4 % (11.0-16.0) 10/29/24 12:02 Plt Count 161 X10*3/uL (160-400) 10/29/24 12:02 MPV 11.7 fL (9.4-12.4) 10/29/24 12:02 Immature Gran % (Auto) 0.1 % (0.0-0.4) 10/29/24 12:02 Neut % (Auto) 74.2 % (45-73) H 10/29/24 12:02 Lymph % (Auto) 15.6 % (20-40) L 10/29/24 12:02 [place] % (Auto) 7.8 % (2-11) 10/29/24 12:02 Eos % (Auto) 1.8 % (0-4) 10/29/24 12:02 Baso % (Auto) 0.5 % (0-2) 10/29/24 12:02 Lymph # (Auto) 1.2 X10*3/uL (1.2-4.9) 10/29/24 12:02 [place] # (Auto) 0.6 X10*3/uL (0.1-1.2) 10/29/24 12:02 Eos # (Auto) 0.1 X10*3/uL (0.0-0.4) 10/29/24 12:02 Baso # (Auto) 0.0 X10*3/uL (0.0-0.2) 10/29/24 12:02 Abs Immat Gran (auto) 0.01 X10*3/uL (0.00-0.03) 10/29/24 12:02 Absolute Neuts (auto) 5.7 x10*3/uL (2.0-8.3) 10/29/24 12:02 Absolute Nucleated RBC 0.000 X10*3/uL (0.0-0.012) 10/29/24 12:02 Nucleated RBC % (auto) 0.0 /100WBC (0.0-0.2) 10/29/24 12:02 PT 12.6 SEC (10.9-12.4) H 10/29/24 12:02 INR 1.1 (0.9-1.1) 10/29/24 12:02 D-Dimer High Sensitivty 459 NG/ML 10/29/24 12:02 VBG pH 7.42 (7.32-7.43) 10/30/24 06:38 VBG pCO2 55 mmHg 10/30/24 06:38 VBG pO2 41 mmHg 10/30/24 06:38 VBG HCO3 37 mmol/L (22-26) H 10/30/24 06:38 VBG O2 Saturation 63.0 % 10/30/24 06:38 VBG Base Excess 10.1 mmol/L 10/30/24 06:38 Sodium 140 mmol/L (135-145) 11/01/24 06:44 Potassium 3.6 mmol/L (3.3-5.1) 11/01/24 06:44 Chloride 98 mmol/L (96-108) 11/01/24 06:44 Carbon Dioxide 31 mmol/L (22-29) H 11/01/24 06:44 Anion Gap 15 (12-20) 11/01/24 06:44 BUN 37 mg/dL (9-16) H 11/01/24 06:44 Creatinine 1.53 mg/dL (0.5-1.4) H 11/01/24 06:44 Estim Creat Clear Calc 65.0 11/01/24 06:44 Estimated GFR 47 11/01/24 06:44 POC Glucose 217 mg/dL (60-115) H 11/01/24 16:01 Random Glucose 181 mg/dL (60-115) H 11/01/24 06:44 Estimat Average Glucose 298 mg/dL 10/29/24 12:02 Hemoglobin A1c % 12.0 % (<6.0) H 10/29/24 12:02 Calcium 9.8 mg/dL (8.4-10.2) 11/01/24 06:44 Magnesium 2.5 mg/dL (1.6-2.6) 11/01/24 06:44 Total Bilirubin 0.8 mg/dL (0.0-1.0) 10/29/24 12:02 Direct Bilirubin 0.3 mg/dL (0.0-0.5) 10/29/24 12:02 AST 23 U/L (5-37) 10/29/24 12:02 ALT 43 U/L (0-40) H 10/29/24 12:02 Alkaline Phosphatase 88 U/L (39-117) 10/29/24 12:02 Troponin I High Sens 60.9 ng/L (<3.5-35.0) H 10/29/24 16:36 B-Natriuretic Peptide 57 pg/mL (<100) 11/01/24 06:44 Total Protein 6.6 g/dL (6.5-8.0) 10/29/24 12:02 Albumin 3.6 g/dL (3.5-5.0) 10/29/24 12:02 Influenza Type A (PCR) NEGATIVE (Negative) 10/29/24 11:59 Influenza Type B (PCR) NEGATIVE (Negative) 10/29/24 11:59 RSV RNA Qual (PCR) NEGATIVE (Negative) 10/29/24 11:59 SARS-CoV-2 RNA (RT-PCR) NEGATIVE (Negative) 10/29/24 11:59 Impressions Chest X-Ray 10/29/24 11:26 IMPRESSION: Left lower lobe patchy opacity infiltrate versus atelectasis. Mild blunting of left CP angle from pleural effusion or pleural thickening. Electronically signed by: King Benz MD 10/29/2024 12:01 PM [facility] [place] Chest CTA 10/29/24 14:31 IMPRESSION: 1. Exam is significantly limited by expiratory state of the lungs, and extensive respiratory motion artifact. 2. There is no central or segmental pulmonary embolus. Cannot exclude for peripheral embolic disease on the basis of this exam. 3. There is enlargement of the main pulmonary artery, with mild reflux of contrast into the proximal hepatic veins. Findings suggest elevated right heart pressures/pulmonary hypertension. 4. There is moderate cardiac enlargement. 5. Within confines of motion and expiratory appearance, there are small layering effusions with passive associated atelectasis. Cannot exclude, however doubt pneumonia given the appearance. 6. Patchy geographic groundglass attenuation throughout the aerated lungs is likely on the basis of expiratory state. Cannot exclude a mild amount of interstitial pulmonary edema. Electronically signed by: Shine Avila MD 10/29/2024 03:33 PM [facility] [place] Discharge Plan Discharge Patient Disposition: Home, Self-Care Discharge Diagnosis: CHF hypertension diabetes YURIY Referrals: Brenda Roland FNP [Primary Care Provider] - 1 Week Semaj Weinstein MD [Physician] - 1 Week Discharge Medications: New Jardiance 10 mg Tablet 10 mg PO DAILY Qty: 30 0RF furosemide 20 mg tablet 20 mg PO QAM Qty: 30 0RF glipizide 5 mg tablet extended release 24hr 5 mg PO DAILY Qty: 30 0RF metformin 500 mg tablet extended release 24 hr 500 mg PO BID Qty: 60 0RF valsartan 40 mg Tablet 40 mg PO BID Qty: 60 0RF Protocol: Hold for SBP< HOLD for SBP < : 90 carvedilol 3.125 mg Tablet 3.125 mg PO BID Qty: 60 0RF Protocol: Hold for SBP/HR < HOLD for SBP < : 90 HOLD for HR < : 60 No Action No Known Home Meds Diet: diabetic, low-sodium Activity on Discharge: As tolerated Stand Alone Forms: Patient Portal Discharge page Print Language: Liberian Care Plan Goals: cardiac health Health Concerns: CHF hypertension diabetes YURIY Plan of Treatment: Low-sodium diet: less than 2000 mg of sodium daily. Weigh yourself daily and call your doctor if your weight goes up by more than 3 lb/day or 5 lb/week. furosemide [diuretic] 20 mg daily carvedilol 3.125 mg twice daily valsartan 40 mg twice daily empagliflozin 10 mg once daily metformin 500 mg twice daily glipizide 5 mg once daily nocturnal oxygen diet/exercise follow up with [facility] [place] Cardiology in 1-2 weeks. Please establish primary care RIKI. Return to the hospital if you experience recurrent or worsening symptoms. Assessment: See Discharge Summary.
[2024-11-01] MEDS: Enoxaparin Sodium 40 MG/0.4 ML SYRINGE SUBCUT (17:37)
[2024-11-01 19:37] LABS: Glucose, Whole Blood 260 mg/dL (60-115)
[2024-11-01] MEDS: Insulin Glargine,Hum.rec.anlog 100 UNIT/ML 10 ML VIAL 10 UNIT SUBCUT (21:33)
[2024-11-02 03:02] VITALS: BP 109/69; PULSE 69; RESP 20; TEMP 36.1; O2SAT 92
[2024-11-02 06:58] LABS: Anion Gap 15 (12-20); Blood Urea Nitrogen 38 mg/dL (9-16); Calcium 9.7 mg/dL (8.4-10.2); Carbon Dioxide 29 mmol/L (22-29); Chloride 99 mmol/L (96-108); Creatinine Clr Calc Pharmacy 66.8; Estimated Glomerular Filt Rate 48; Glucose Random 204 mg/dL (60-115); Potassium 3.9 mmol/L (3.3-5.1); Sodium 139 mmol/L (135-145)
[2024-11-02 07:29] LABS: Glucose, Whole Blood 212 mg/dL (60-115)
[2024-11-02] MEDS: Valsartan 40 MG TABLET PO (07:57)
[2024-11-02] MEDS: carvediloL 3.125 MG TABLET PO (07:58)
[2024-11-02] MEDS: Empagliflozin 10 MG TABLET PO (07:58)
[2024-11-02] MEDS: 0.9 % Sodium Chloride Flush 3 ML SYRINGE IVFLUSH (07:58)
[2024-11-02] MEDS: Insulin Lispro 100 UNIT/ML 3 ML VIAL SUBCUT ×2 (07:59→11:46)
[2024-11-02 08:00] VITALS: BP 137/78; PULSE 84; RESP 16; TEMP 36.3; O2SAT 97
--- NOTE | 2024-11-02 10:17 | PM.PNCARD ---
Subjective Subjective Date of Service: 11/02/24 Interval history: He seems to be improving quite well. No new concerns. Review of Systems Review of Systems Yes all other systems are reviewed and are negative Constitutional: Reports as per HPI and Reports no additional constitutional complaints Eyes: Reports as per HPI and Denies no additional eye complaints Denies system reviewed and no additional complaints, except as documented and Reports as per HPI Cardiovascular: Reports as per HPI, Reports no additional cardiovascular complaints, Denies acrocyanosis, Denies cool extremities, Denies chest pain, Denies leg edema, Denies lightheadedness, Denies palpitations and Denies dyspnea Respiratory: Reports as per HPI, Denies no additional respiratory complaints and Denies dyspnea Gastrointestinal: Reports as per HPI and Denies no additional gastrointestinal complaints Genitourinary: Reports no additional male genitourinary complaints and Reports as per HPI Musculoskeletal: Reports no additional musculoskeletal complaints and Reports as per HPI Skin/Breast: Reports system reviewed and no additional complaints, except as docu Reports system reviewed and no additional complaints, except as documented and Reports as per HPI Psychiatric: Reports no additional psychiatric complaints and Reports as per HPI Endocrine: Reports no additional endocrine complaints, Reports as per HPI and Denies palpitations Hematologic/Lymphatic: Reports no additional hematologic/lymphatic complaints and Reports as per HPI Allergic/Immunologic: Reports no additional allergic/immunologic complaints and Reports as per HPI Physical Exam Vital Signs: Last Vital Signs Temp 97.4 F 11/02/24 08:00 Pulse 84 11/02/24 08:00 Resp 16 11/02/24 08:00 BP 137/78 11/02/24 08:00 Pulse Ox 97 11/02/24 08:00 O2 Del Method Room Air 11/02/24 08:00 O2 Flow Rate 2 11/01/24 07:16 FiO2 95 10/30/24 19:35 BMI result Body Mass Index 41.7 Const General: comfortable and no acute distress Orientation/consciousness: patient oriented x3 HEENT Other: Unremarkable Head: Yes normal to inspection Neck Neck: Yes normal visual inspection Chest Chest palpation & inspection: normal inspection of the chest Resp Auscultation: clear to auscultation bilaterally Cardio Palpation: normal PMI Heart sounds: S1 normal heart sound present, S2 normal heart sound present, no gallops, no murmurs and no rubs GI Palpation (GI): Soft to palpation Back/Spine/Pelvis Other: unremarkable Skin General skin exam: no rashes or lesions noted Neuro General: patient oriented x3 Extrem Other: Chronic lower extremity changes with 1+ edema. General: Yes normal to inspection Psych Mental Status: mental status grossly normal Objective Labs and Meds 10/29/24 12:02 11/02/24 06:15 Lab results: Laboratory Results - last 24 hr 11/01/24 11/01/24 11/01/24 10:50 16:01 19:31 Hold Purple Top Sodium Potassium Chloride Carbon Dioxide Anion Gap BUN Creatinine Estim Creat Clear Calc Estimated GFR POC Glucose 240 H 217 H 260 H Random Glucose Calcium 11/02/24 11/02/24 06:15 07:13 Hold Purple Top SEE NOTE Sodium 139 Potassium 3.9 Chloride 99 Carbon Dioxide 29 Anion Gap 15 BUN 38 H Creatinine 1.49 H Estim Creat Clear Calc 66.8 Estimated GFR 48 POC Glucose 212 H Random Glucose 204 H Calcium 9.7 Progress Note: A&P Assessment and plan (1) Acute congestive heart failure: Status: Acute (2) Acute right-sided heart failure: Status: Acute (3) Hypertensive emergency: Status: Acute (4) Uncontrolled diabetes mellitus with hyperglycemia: Status: Acute Plan Blood pressure trend reviewed. As much as 186/121 mm Hg. Currently, blood pressure is much improved. Today's blood pressure is 137/78 mm Hg. Hemoglobin A1c was 12%. High sensitivity troponins are 62.8 and 60.9. Cardiac BNP on arrival somewhere in 95. Then 496 and most recently 57. Hence there is good improvement. Overall, improving congestive heart failure. So far, he is -8.8 L. total urine output is 12,900 ml. Uncontrolled diabetes, uncontrolled hypertension, obesity, possible sleep apnea. Echocardiogram with LVEF of 40%. Moderate diastolic dysfunction. No significant valve findings. Creatinine has shown a slight rise and hence diuretics on hold. Continue Diovan/Coreg. For diabetes, he is on Lantus/Jardiance. We will need primary care to follow up on this upon discharge. Ambulate patient. Discussed with Dr. Adame. Follow-up in clinic could be scheduled. Time Spent With Patient Time: Total time managing care of this patient today ____ minutes. Progress Note: Quality Stroke Does the patient have a stroke diagnosis?: No Procedures Date of Service Date of Service: 11/02/24
[2024-11-02 11:27] LABS: Glucose, Whole Blood 297 mg/dL (60-115)
--- NOTE | 2024-11-02 12:01 | PM.DS ---
DS: Providers Provider Date of Service: 11/02/24 Date of admission: 10/29/24 16:07 Date of discharge: 11/02/24 Primary care physician: HAILEY Lange Consults: 10/29/24 15:58 Consult to Cardiology Routine Consulting Provider: [facility] Reason for consultation: CHF DS: Diagnosis Discharge Diagnosis (1) Acute congestive heart failure: Status: Acute (2) Acute right-sided heart failure: Status: Acute (3) Hypertensive emergency: Status: Acute (4) Uncontrolled diabetes mellitus with hyperglycemia: Status: Acute DS: Summary Hospital Course Hospital Course: from my admission H+P, 10/29/24: 59yo M with DM2 but not on any medications and without any current primary care doctor presenting with about 2 weeks of progressive lower extremity swelling, dyspnea at rest and exertion, and orthopnea. No chest pain. Approximately 10 lb weight gain over this period of time. No history of known CAD or HTN. He is a septic pump truck driver. He denies smoking, alcohol intake, or drug use. In the ED, he was found to be hypoxic [Sa 88%] and volume overloaded on clinical exam and CT. He was hypertensive to 181/125 and tachypneic to 28. He was given 20 mg of IV furosemide and is starting to diurese. BNP 795, hs Tn-I 62.8. 59yo M with DM2, no current primary care; no known cardiac history; presenting with 2 wk of progressive orthopena, dyspnea, edema, and weight gain, found to have hypoxia due to acute decompensated heart failure. He was admitted to the telemetry unit. Hospital course by problem: acute HF with reduced EF hypertensive urgency - Treated with IV furosemide drip until 10/30. SCr slightly high at 1.5 and was ___ on discharge; started on furosemide 20 mg daily plus low-sodium diet. - Troponin indeterminate/flat, due to CHF rather than ACS though will need outpt ischemic workup - Started valsartan, empagliflozin, and carvedilol. - Needs outpt Cardiology follow-up. - TTE 10/30/24: - The left ventricular systolic function is mild to moderately decreased. The calculated ejection fraction is 40% by biplane method. - Evidence suggests grade II (moderate) diastolic dysfunction. - No obvious valvular pathology seen on this study. DEZ - probably from zealous diuresis and valsartan. acute hypoxic respiratory failure YURIY - weaned off oxygen... Did not qualify for home O2. We will need outpatient nocturnal study uncontrolled DM2 with hyperglycemia - A1c 12; given basal-bolus insulin in the hospital but upon discharge, will try to manage glucose with metformin, glipizide, and empagliflozin. Diet/exercise counseled. Needs to establish primary care RIKI. He was discharged home with the above medications and follow-up plan. Time Attestation Discharge Coordination Time (in mins): 35 Quality: Safe Use of Opioids Does Pt have an Active Cancer Diagnosis on the Problem List?: No Quality: Stroke Does the patient have a stroke diagnosis?: No Physical Exam Vital Signs: Vital Signs: Last Vital Signs Temp 97.4 F 11/02/24 08:00 Pulse 84 11/02/24 08:00 Resp 16 11/02/24 08:00 BP 137/78 11/02/24 08:00 Pulse Ox 97 11/02/24 08:00 O2 Del Method Room Air 11/02/24 08:00 O2 Flow Rate 2 11/01/24 07:16 FiO2 95 10/30/24 19:35 BMI result Body Mass Index 41.7 Const: Other: Awake alert oriented x3 no acute distress Resp: Other: Clear to auscultation bilaterally no rales rhonchi or wheezes Cardio: Other: No S4; positive S1-S2; no S3 murmurs rubs or gallops GI: Other: Soft nontender nondistended normoactive bowel sounds Extrem: Other: No edema bilaterally DS: Data Data Completed and Pending Labs on day of discharge: Laboratory Results - last 24 hr 11/01/24 11/01/24 11/02/24 16:01 19:31 06:15 Hold Purple Top SEE NOTE Sodium 139 Potassium 3.9 Chloride 99 Carbon Dioxide 29 Anion Gap 15 BUN 38 H Creatinine 1.49 H Estim Creat Clear Calc 66.8 Estimated GFR 48 POC Glucose 217 H 260 H Random Glucose 204 H Calcium 9.7 11/02/24 11/02/24 07:13 11:20 Hold Purple Top Sodium Potassium Chloride Carbon Dioxide Anion Gap BUN Creatinine Estim Creat Clear Calc Estimated GFR POC Glucose 212 H 297 H Random Glucose Calcium Discharge Plan Discharge Anticipated Discharge Date/Time: 11/02/24 11:58 Patient Disposition: Home, Self-Care Discharge Diagnosis: CHF hypertension diabetes YURIY Referrals: Brenda Roland FNP [Primary Care Provider] - 1 Week Semaj Weinstein MD [Physician] - 1 Week Discharge Medications: New valsartan 40 mg Tablet 40 mg PO BID Qty: 60 0RF Protocol: Hold for SBP< HOLD for SBP < : 90 Jardiance 10 mg Tablet 10 mg PO DAILY Qty: 30 0RF glipizide 5 mg tablet extended release 24hr 5 mg PO DAILY Qty: 30 0RF metformin 500 mg tablet extended release 24 hr 500 mg PO BID Qty: 60 0RF furosemide 20 mg tablet 20 mg PO QAM Qty: 30 0RF carvedilol 3.125 mg Tablet 3.125 mg PO BID Qty: 60 0RF Protocol: Hold for SBP/HR < HOLD for SBP < : 90 HOLD for HR < : 60 Discharge Orders: Discharge Order (Routine); Ordered 11/02/24 Ordered By: Tobi Biggs Diet: diabetic, low-sodium Activity on Discharge: As tolerated Stand Alone Forms: Patient Portal Discharge page Print Language: Mauritian Care Plan Goals: cardiac health Health Concerns: CHF hypertension diabetes YURIY Plan of Treatment: Low-sodium diet: less than 2000 mg of sodium daily. Weigh yourself daily and call your doctor if your weight goes up by more than 3 lb/day or 5 lb/week. furosemide [diuretic] 20 mg daily carvedilol 3.125 mg twice daily valsartan 40 mg twice daily empagliflozin 10 mg once daily metformin 500 mg twice daily glipizide 5 mg once daily nocturnal oxygen diet/exercise [place] up with [facility] [place] [place]2 [place]. Please establish primary care RIKI. Return to the hospital if you experience recurrent or worsening symptoms. Assessment: See Discharge Summary.
--- NOTE | 2024-11-02 12:46 | MHC.CM.PN ---
Pt has been medically cleared for DC, he will go home today via private transport, plan is self care.
== END 2024-11-02 15:31 | disposition home or self-care (01) | DRG 194 ==
LOC: HO.ED 15:54 → HO.EDOVER 16:22 → HO.IMC 16:26
PROVIDERS: Physician Assistant Medical; Registered Nurse Emergency; Admitting Provider Family Medicine; Emergency Provider Emergency Medicine Emergency Medical Services; PCP Nurse Practitioner Family; Visit Provider Hospitalist
DX: I11.0 Hypertensive heart disease with heart failure (principal); J96.01 Acute respiratory failure with hypoxia; N17.9 Acute kidney failure, unspecified; I50.31 Acute diastolic (congestive) heart failure; E66.01 Morbid (severe) obesity due to excess calories; G47.33 Obstructive sleep apnea (adult) (pediatric); Z68.41 Body mass index [BMI] 40.0-44.9, adult; E11.65 Type 2 diabetes mellitus with hyperglycemia; I27.29 Other secondary pulmonary hypertension; I50.811 Acute right heart failure; I50.82 Biventricular heart failure; Z20.822 Contact with and (suspected) exposure to COVID-19
CPT/HCPCS: 0241U; 36415; 71046; 71275; 80048; 80076; 82803; 82947; 83036; 83735; 83880; 84484; 85025; 85379; 85610; 93005; 93306; 93970; 94799; 97162; 99285; J0360; J1650; J1940; Q9957; Q9967

== ENCOUNTER → 2024-10-29 11:26 | Outpatient (BNV) | payer BC, SELFPAY | PROVIDERS: Emergency Provider Emergency Medicine Emergency Medical Services; PCP Nurse Practitioner Family; Visit Provider Radiology Diagnostic Radiology | DX: I51.7 Cardiomegaly (principal); I28.8 Other diseases of pulmonary vessels; R59.0 Localized enlarged lymph nodes; R06.02 Shortness of breath | CPT/HCPCS: 71046; 71275 ==

== ENCOUNTER → 2024-10-29 11:26 | Outpatient (BNV) | payer BC, SELFPAY | PROVIDERS: Admitting Provider Family Medicine; Emergency Provider Emergency Medicine Emergency Medical Services; PCP Nurse Practitioner Family; Visit Provider Internal Medicine | DX: R00.0 Tachycardia, unspecified (principal) | CPT/HCPCS: 93010 ==

== ENCOUNTER → 2024-10-29 13:09 | Outpatient (BNV) | payer BC, SELFPAY | PROVIDERS: Emergency Provider Emergency Medicine Emergency Medical Services; PCP Nurse Practitioner Family; Visit Provider Family Medicine | DX: I50.9 Heart failure, unspecified (principal) | CPT/HCPCS: 99232 ==

== ENCOUNTER → 2024-10-29 16:07 | Outpatient (BNV) | payer BC, SELFPAY | PROVIDERS: Admitting Provider Family Medicine; Emergency Provider Emergency Medicine Emergency Medical Services; PCP Nurse Practitioner Family; Visit Provider Internal Medicine | DX: I50.9 Heart failure, unspecified (principal); I50.811 Acute right heart failure; I16.1 Hypertensive emergency; E11.65 Type 2 diabetes mellitus with hyperglycemia | CPT/HCPCS: 99223; 99233 ==

== ENCOUNTER 2024-11-05 14:12 | Outpatient (AMB) | payer OTHER, SELFPAY ==
--- NOTE | 2024-11-05 14:22 | A.OFFPC_ITS ---
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 to est care/HTN, DM, CHF Allergies No Known Allergies Allergy (Verified 11/05/24 14:24) Medication List - Last Reconciled 11/05/24 by Jai Ribera, [facility]- carvedilol 3.125 mg See Protocol PO BID empagliflozin (Jardiance) 10 mg PO DAILY furosemide 20 mg PO QAM glipizide ER 5 mg PO DAILY metformin ER 500 mg PO BID valsartan 40 mg See Protocol PO BID Tobacco use date assessed: 11/05/24 Dental Screening Dental Screen Date: 11/05/24 Did you have a dental visit in the last 12 months?: No Did you have a dental problem in the last 6 months where you did not have access to dental care?: No Was dental information given to patient?: No HPI [employer], htn, chf, dm - per Jai HPI Details Chief Complaint I am here to establish care and follow up on my heart failure and other health issues. History of Present Illness The patient is a 59-year-old male presenting with a history of acute decompensated heart failure. He experienced a two-week history of worsening orthopnea, dyspnea, edema, and weight gain prior to hospitalization (10/29/2024- 11/02/2024). In the hospital, the patient was noted to have hypoxia secondary to heart failure, for which he was treated with intravenous Lasix. Troponin levels were intermittently elevated but attributed to congestive heart failure (CHF) rather than acute coronary syndrome. He began therapy with Valsartan, Jardiance, and Carvedilol, and was discharged on Lasix 20 mg daily and a low-sodium diet. A follow-up with cardiology was recommended. The patient reports significant improvement in symptoms, denying any current orthopnea, dyspnea, or chest pain. His last cardiology evaluation noted an improvement in heart function with an ejection fraction of 40%, and improved congestion. He also remains on Metformin and reports interest in adjusting his blood sugar management. (pleasee see hospital documentation) Social History - Employment status: no work for the nex t 2-3 months currently - Housing: Not discussed. - Exercise: light, encouraged weight los s - Nutritional intake: Following a low-so dium diet. - Weight management: Encouraged weight l oss with diet and exercise - Substance use: Not discussed. Health Maintenance - Colonoscopy screen declined; consideri ng Cologuard test. Review of Systems - Cardiovascular: Denies chest pain. - Respiratory: Denies dyspnea. - Neurological: Denies headache, dizzine ss. Physical Exam General: Cooperative, healthy appearing, comfortable, no acute distress and well developed, morbidly obese Orientation: Patient oriented x3 Limitations: No limitations Head: Normal to inspection Ears: Hearing grossly normal bilaterally Nose: Normal external nose present Face and sinus: Normal facial exam Eyes: Appearance normal, both eyes and all related structures Neck: Normal visual inspection and Yes full ROM Respiratory: Normal respiratory effort and able to speak in complete sentences. Clear to auscultation bilaterally Cardiovascular: Regular rate and rhythm. Normal S1 and S2, no murmurs GI: Normal to inspection. Soft to palpation and nontender Skin: No rashes or lesions noted Neuro: Patient oriented x3 Extremities: Feet were dry appearing bilateral. Positive sensation from the use of the monofilament of feet. Feet were intact except for some onychomycosis noted with dilated toenails. Results - Echocardiogram: Ejection fraction of 4 3%, mild diastolic dysfunction noted. Plan - Continue current management with Lasix , Valsartan, Jardiance, and Carvedilol. - Follow up with cardiology as scheduled . - Review blood glucose monitoring schedu le and maintain a log, encouraged labs and follow up - Encourage patient to obtain Cologuard for colorectal cancer screening. - Encourage regular blood pressure monit oring and symptom tracking, and report readings. Will drop off values from home in approx 2.5 weeks, will adjust accordingly Discussion Notes During the visit, I reviewed the patient's history of acute decompensated heart failure and the current medication regimen. We discussed the importance of c ompliance with medications, particularly focusing on the benefits of diuretics and their role in managing fluid status. I explained that the improvement in ejection fraction is a positive indicator of controlled heart failure, and further cardiology follow-up will help optimize treatment. We also discussed the rationale for blood sugar monitoring to manage his diabetes. The patient expressed understanding and agreement with the management plan and expressed interest in performing the Cologuard test for colon cancer screening. Refused all vaccinations Patient Instructions - Continue taking all prescribed medicat ions as directed. - Monitor and log blood pressure and blo od sugar levels twice daily. - Follow a strict low-sodium diet. - Attend follow-up appointment with card iology. - Submit Cologuard test as arranged for colorectal cancer screening. - Contact clinic for any new or worsenin g symptoms including chest pain, shortness of breath, or rapid weight changes. [facility] Medical History Encounter to establish care Hypertension Newly diagnosed type 1 diabetes mellitus Right foot pain Surgical History No pertinent past surgical history Family History (Updated 10/30/24 @ 09:26 by Semaj Weinstein MD) Unknown No problems noted. Social History Household Members: None Housing: Apartment Do you presently have visiting nurse or other home services: No Alcohol intake: current Alcohol intake frequency: holidays/special occasions only Comment: refusing fall prec Patient Tobacco Use Status: Never used Tobacco e-Cigarette/Vaping Use: Never Used Second Hand Smoke Exposure: No service: No Current occupational status: employed Cognitive needs: No Hearing needs: No Vision needs: No Questionnaire PHQ-9 Over the last 2 weeks, how often have you been bothered by any of the following problems? 1. Little interest or pleasure in doing things: not at all 2. Feeling down, depressed, or hopeless: not at all 3. Trouble falling or staying asleep, or sleeping too much: several days 4. Feeling tired or having little energy: several days 5. Poor appetite or overeating: several days 6. Feeling bad about yourself - or that you are a failure or have let yourself or your family down: not at all 7. Trouble concentrating on things, such as reading the newspaper or watching television: not at all 8. Moving or speaking so slowly that other people could have noticed. Or the opposite - being so fidgety or restless that you have been moving around a lot more than usual: not at all 9. Thoughts that you would be better off or of hurting yourself in some way: not at all Total score: 3 Source: Developed by Drs. Constantino Nunez, Sahra Bay, Lobito Chino and colleagues, with an educational kayden from [employer]. Thrive Questionnaire Date Thrive assessed: 10/30/24 I am a: Patient What is your living situation today?: I have a steady place to live Within the past 12 months, did the food you bought not last and you didn't have the money to get more?: Never true Within the past 12 months, did you worry whether your food would run out before you got money to buy more?: Never true Do you have trouble paying for medicines?: No Do you have trouble getting transportation to medical appointments?: No Do you have trouble paying your heating and electricity bill?: No Do you have trouble taking care of your child, family member or friend?: No Do you have trouble with day-to-day activities such as bathing, preparing meals, shopping, managing finances, etc.?: No Are you currently unemployed and looking for a job?: Yes Are you interested in more education?: No Please select the resources that you would like help with: None Currently or been in a relationship where the following occur: No concerns reported THRIVE Score: 0 AUDIT C Alcohol Use Questionnaire (AUDIT-C) 1. How often do you have a drink containing alcohol?: Monthly or less 2. How many drinks containing alcohol do you have on a typical day when you are drinking?: 1 or 2 3. How often do you have six or more drinks on one occasion?: Never Total Score: 1 CONSTANZA-7 AMB Questionnaire CONSTANZA-7 Date CONSTANZA - 7 assessed: 11/05/24 Feeling nervous, anxious, or on edge: 0 = Not at all Not being able to stop or control worryin = Not at all Worrying too much about different things: 0 = Not at all Trouble relaxin = Not at all Being so restless that it is hard to sit still: 0 = Not at all Becoming easily annoyed or irritable: 0 = Not at all Feeling afraid as if something awful might happen: 0 = Not at all Total CONSTANZA-7 score (0-4 normal; 5-9 mild; 10-14 moderate; 15-21 severe): 0 Source: Developed by Drs. Constantino Nunez, Sahra [place], Lobito Chino and colleagues, with an educational kayden from [employer]. Physical exam (Primary Care) Vital Signs: Last Vital Signs Temp 98.0 F 11/05/24 14:34 Pulse 86 11/05/24 14:34 Resp 18 11/05/24 14:34 BP 144/84 H 11/05/24 14:34 Pulse Ox 95 11/05/24 14:34 Oxygen Delivery Method Room Air 11/05/24 14:34 BMI result Body Mass Index 40.1 Tobacco/Smoking Status: Tobacco use Status Tobacco use date assessed 11/05/24 11/05/24 14:26 Patient Tobacco Use Status Never used Tobacco 11/05/24 14:22 e-Cigarette/Vaping Use Never Used 11/05/24 14:22 PHQ-9: PHQ-9 Score PHQ-9: Total score 3 11/05/24 14:56 Thrive Assessment: Date of Thrive Assessment Date Thrive assessed 10/30/24 11/05/24 14:22 Currently or been in a relationship where the following occur: No concerns reported Coding Level of Care Code New Pt Level 4 (36845) Diagnoses DM (diabetes mellitus) type II uncontrolled with eye manifestation Primary hypertension I10 Hypertension type: primary hypertension Acute heart failure with reduced ejection fraction (HFrEF, <= 40%) I50.21 Morbid obesity E66.01 Dyspnea on exertion R06.09 Morbid obesity with BMI of 40.0-44.9, adult E66.01; Z68.41 Screening for prostate cancer Z12.5 Assessment & Plan Assessment & Plan (1) DM (diabetes mellitus) type II uncontrolled with eye manifestation: Category: Medical (2) Hypertension: Code(s): I10 - Essential (primary) hypertension Category: Medical Qualifiers: Hypertension type: primary hypertension Qualified Code(s): I10 - Essential (primary) hypertension (3) Acute heart failure with reduced ejection fraction (HFrEF, <= 40%): Code(s): I50.21 - Acute systolic (congestive) heart failure Category: Medical (4) Morbid obesity: Code(s): E66.01 - Morbid (severe) obesity due to excess calories Category: Medical (5) Morbid obesity: Code(s): E66.01 - Morbid (severe) obesity due to excess calories Category: Medical (6) Dyspnea on exertion: Comment: Given this patient's history coupled with his examination there is concern for cardiac etiology of his dyspnea on exertion. Code(s): R06.09 - Other forms of dyspnea Category: Medical (7) Morbid obesity with BMI of 40.0-44.9, adult: Code(s): E66.01 - Morbid (severe) obesity due to excess calories; Z68.41 - Body mass index [BMI] 40.0-44.9, adult Category: Medical Plan: . (8) Screening for prostate cancer: Code(s): Z12.5 - Encounter for screening for malignant neoplasm of prostate Category: Medical Plan . Orders: Orders Complete Blood Count Auto Diff Today E66.01 - Morbid (severe) obesity due to excess calories, I10 - Essential (primary) hypertension, I50.21 - Acute systolic (congestive) heart failure Lipid Panel Today E66.01 - Morbid (severe) obesity due to excess calories, I10 - Essential (primary) hypertension, I50.21 - Acute systolic (congestive) heart failure Prostate Specific Antigen Scr Today Z12.5 - Encounter for screening for malignant neoplasm of prostate Comprehensive [place]. Panel Fast Today E66.01 - Morbid (severe) obesity due to excess calories, I10 - Essential (primary) hypertension, I50.21 - Acute systolic (congestive) heart failure TSH reflex Free T4 Today E66.01 - Morbid (severe) obesity due to excess calories, I10 - Essential (primary) hypertension, I50.21 - Acute systolic (congestive) heart failure UA CC w/rflx Micro + Cult Today E66.01 - Morbid (severe) obesity due to excess calories, I10 - Essential (primary) hypertension, I50.21 - Acute systolic (congestive) heart failure B Type Natriuretic Peptide Today I50.21 - Acute systolic (congestive) heart failure, R06.09 - Other forms of dyspnea Microalbumin, Random (w Creat) Today I50.21 - Acute systolic (congestive) heart failure Hemoglobin A1c Today E66.01 - Morbid (severe) obesity due to excess calories, Z68.41 - Body mass index [BMI] 40.0-44.9, adult Referrals Sleep Medicine Referral E66.01 - Morbid (severe) obesity due to excess calories, I10 - Essential (primary) hypertension Ophthalmology Referral I10 - Essential (primary) hypertension, I50.21 - Acute systolic (congestive) heart failure Cologuard Test Z12.11 - Encounter for screening for malignant neoplasm of colon, Z12.12 - Encounter for screening for malignant neoplasm of rectum
[2024-11-05 14:34] VITALS: BP 144/84; PULSE 86; RESP 18; TEMP 36.7; O2SAT 95; BMI 40.1
== END 2024-11-05 15:41 | disposition home or self-care (01) ==
PROVIDERS: PCP Nurse Practitioner Family; Visit Provider Nurse Practitioner Family
DX: I10 Essential (primary) hypertension (principal); I50.21 Acute systolic (congestive) heart failure; E66.01 Morbid (severe) obesity due to excess calories; Z68.41 Body mass index [BMI] 40.0-44.9, adult; R06.09 Other forms of dyspnea; Z12.5 Encounter for screening for malignant neoplasm of prostate

== ENCOUNTER 2024-11-13 09:22 | Outpatient (REF) | payer OTHER, SELFPAY ==
[2024-11-13 10:49] LABS: B Type Natriuretic Peptide 84 pg/mL (<100)
[2024-11-13 13:52] LABS: Appearance Urine Clear; Color Urine Yellow; Glucose Urine UA >=1000 mg/dL (Negative); Leukocyte Esterase Urine Negative (Negative); Nitrite Urine Negative (Negative); PH 6.5 (5.0-9.0); Specific Gravity - Urine 1.025 (1.005-1.025); UMIC TRIGGER UACC YES; Urine Blood Negative (Negative); Urine Ketones Negative (Negative); Urine Protein 30 (1+) mg/dL (Neg-Trace)
[2024-11-13 13:53] LABS: MANUAL DIFF FLAG NO
[2024-11-13 13:58] LABS: Bacteria Urine None Seen (None Seen); Basophils Absolute Auto 0.1 X10*3/uL (0.0-0.2); Basophils Percent Auto 0.7 % (0-2); Eosinophils Absolute Auto 0.3 X10*3/uL (0.0-0.4); Eosinophils Percent Auto 3.9 % (0-4); Hematocrit 47.5 % (42.0-52.0); Hemoglobin 14.6 g/dl (14.0-18.0); Hyaline Casts Urine 0-2 /LPF (0-2); Imm Gran Abs Auto 0.01 X10*3/uL (0.00-0.03); Imm Gran Pct Auto 0.1 % (0.0-0.4); Lymphocytes Absolute Auto 1.7 X10*3/uL (1.2-4.9); Lymphocytes Percent Auto 22.1 % (20-40); Mean Corpuscular HGB Conc 30.7 g/dl (31.0-36.0); Mean Corpuscular Hemoglobin 26.6 pg (27.0-33.0); Mean Corpuscular Volume 86.5 fL (80.0-98.0); Monocytes Absolute Auto 0.8 X10*3/uL (0.1-1.2); Monocytes Percent Auto 10.6 % (2-11); Neutrophils Absolute Auto 4.7 x10*3/uL (2.0-8.3); Neutrophils Percent Auto 62.6 % (45-73); Platelet Count 151 X10*3/uL (160-400); RBC Urine 0-2 /HPF (0-2); Red Blood Count 5.49 X10*6/uL (4.60-5.80); Red Cell Distribution Width 13.3 % (11.0-16.0); Squamous Epithelial Cell Urine 0-2 /HPF (0-2); WBC Urine 0-5 /HPF (0-5); White Blood Count 7.5 X10*3/uL (4.8-10.8)
[2024-11-13 14:11] LABS: Estimated Average Glucose 289 mg/dL; Hemoglobin A1c % 11.7 % (<6.0); Total Hemoglobin (HGBA1C) 3819.7431 umol/L
[2024-11-13 14:23] LABS: Alanine Aminotransferase 53 U/L (0-40); Albumin Level 3.7 g/dL (3.5-5.0); Alkaline Phosphatase 93 U/L (39-117); Anion Gap 11 (12-20); Aspartate Amino Transferase 31 U/L (5-37); Bilirubin Total 0.4 mg/dL (0.0-1.0); Blood Urea Nitrogen 28 mg/dL (9-16); Calcium 8.9 mg/dL (8.4-10.2); Carbon Dioxide 28 mmol/L (22-29); Chloride 105 mmol/L (96-108); Cholesterol 179 mg/dL (<200); Estimated Glomerular Filt Rate 60; Glucose Fasting 170 mg/dL (60-99); HDL Cholesterol 51 mg/dL (>40); LDL Cholesterol Calculated 112 mg/dL (<100); Potassium 4.6 mmol/L (3.3-5.1); Sodium 139 mmol/L (135-145); Total Protein 7.1 g/dL (6.5-8.0); Triglycerides 82 mg/dL (<150)
[2024-11-13 14:37] LABS: Creatinine Urine 63.37 mg/dL
[2024-11-13 14:43] LABS: TSH reflex Free T4 2.64 uIU/mL (0.32-4.0)
[2024-11-13 14:56] LABS: Prostate Specific Antigen Scr 2.65 ng/mL (<0.05-4.0)
== END 2024-11-13 09:23 | disposition home or self-care (01) ==
LOC: HO.HMGCLDS 09:22
PROVIDERS: PCP Nurse Practitioner Family; Visit Provider Nurse Practitioner Family
DX: R06.09 Other forms of dyspnea (principal); Z68.41 Body mass index [BMI] 40.0-44.9, adult; Z12.5 Encounter for screening for malignant neoplasm of prostate; I10 Essential (primary) hypertension; E66.01 Morbid (severe) obesity due to excess calories; I50.21 Acute systolic (congestive) heart failure; Z13.1 Encounter for screening for diabetes mellitus
CPT/HCPCS: 36415; 80053; 80061; 81001; 82043; 82570; 83036; 83880; 84153; 84443; 85025

== ENCOUNTER 2024-11-14 12:53 | Outpatient (AMB) | payer OTHER, SELFPAY ==
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
[2024-11-14 12:55] VITALS: BP 152/98; PULSE 100; O2SAT 92; BMI 40.4
== END 2024-11-14 14:07 | disposition home or self-care (01) ==
PROVIDERS: PCP Nurse Practitioner Family; Visit Provider Physician Assistant Medical
DX: E66.01 Morbid (severe) obesity due to excess calories (principal); Z68.41 Body mass index [BMI] 40.0-44.9, adult; G47.33 Obstructive sleep apnea (adult) (pediatric); S43.51XA Sprain of right acromioclavicular joint, initial encounter; G47.19 Other hypersomnia; M54.50 Low back pain, unspecified; G89.29 Other chronic pain; R06.89 Other abnormalities of breathing
CPT/HCPCS: 99204

== ENCOUNTER → 2024-11-14 12:53 | Outpatient (BNVA) | payer OTHER, SELFPAY | PROVIDERS: PCP Nurse Practitioner Family; Visit Provider Physician Assistant Medical ==

== ENCOUNTER → 2024-11-28 10:44 | Outpatient (BNVA) | payer OTHER, SELFPAY | PROVIDERS: PCP Nurse Practitioner Family ==

== ENCOUNTER 2024-12-02 13:38 | Outpatient (AMB) | payer OTHER, SELFPAY ==
--- NOTE | 2024-12-02 13:39 | A.OFFVIS_ITS ---
Vital Signs 12/02/24 13:40 Height 5 ft 8 in Weight 268 lb 15.423 oz BMI 40.9 BP 140/80 H Blood Pressure Location Lt brachial Position Sitting Pulse 88 Pulse Source Pulse Oximeter Intake Visit Reasons: C hosp F/U Allergies No Known Allergies Allergy (Verified 11/14/24 13:00) Medication List - Last Reconciled 12/02/24 by Semaj Weinstein MD carvedilol 3.125 mg See Protocol PO BID empagliflozin (Jardiance) 10 mg PO DAILY furosemide 20 mg PO QAM glipizide ER 5 mg PO DAILY metformin ER 500 mg PO BID valsartan 40 mg See Protocol PO BID HPI Comments Details: Jerome returns for follow-up after recent hospitalization. He was admitted for acute congestive heart failure from suspected uncontrolled hypertension and also had uncontrolled diabetes. Appropriately managed and received intravenous diuretics. Eventually, put on guideline based medical therapy for heart failure, hypertension, diabetes and discharged home. He states he feels better. He still gets some shortness of breath going up inclines but okay on level ground. Overall, better than before. On reasonable medical regimen but likely needs more optimization. [facility] Medical History Encounter to establish care Hypertension Newly diagnosed type 1 diabetes mellitus Right foot pain Surgical History No pertinent past surgical history Family History Unknown No problems noted. Social History Household Members: None Housing: Apartment Do you presently have visiting nurse or other home services: No Alcohol intake: current Alcohol intake frequency: holidays/special occasions only Comment: refusing fall prec Patient Tobacco Use Status: Never used Tobacco e-Cigarette/Vaping Use: Never Used Second Hand Smoke Exposure: No service: No Current occupational status: employed Cognitive needs: No Hearing needs: No Vision needs: No Review of Systems Const Denies weakness ENT Denies dizziness Card Denies chest pain, Denies chest pain with activity, Denies syncope, Denies rapid heart rate, Denies pedal edema, Denies edema, Denies leg edema, Denies lightheadedness, Denies palpitations, Denies dyspnea, Denies dyspnea on exertion and Denies orthopnea Resp Denies cough, Denies dyspnea and Denies dyspnea on exertion GI Denies hematochezia and Denies change in stool character Musc Denies abnormal gait, Denies muscle cramps, Denies muscle weakness, Denies numbness, Denies radiating pain into limb and Denies tingling Neuro Denies abnormal gait, Denies dizziness, Denies syncope, Denies numbness, Denies tingling and Denies weakness Endo Denies palpitations Physical Exam Vital Signs: Last Vital Signs Pulse 88 12/02/24 13:40 BP 140/80 H 12/02/24 13:40 BMI result Body Mass Index 40.9 Const General: comfortable and no acute distress Orientation/consciousness: patient oriented x3 HEENT Other: Unremarkable Head: Yes normal to inspection Neck Neck: Yes normal visual inspection Chest Chest palpation & inspection: normal inspection of the chest Resp Auscultation: clear to auscultation bilaterally Cardio Palpation: normal PMI Heart sounds: S1 normal heart sound present, S2 normal heart sound present, no gallops, no murmurs and no rubs GI Palpation (GI): Soft to palpation Back/Spine/Pelvis Other: unremarkable Skin General skin exam: no rashes or lesions noted Neuro General: patient oriented x3 Extrem General: Yes normal to inspection Psych Mental Status: mental status grossly normal Assessment & Plan Assessment & Plan (1) Chronic combined systolic and diastolic CHF (congestive heart failure): Code(s): I50.42 - Chronic combined systolic (congestive) and diastolic (congestive) heart failure Category: Medical Plan: In the echocardiogram, LVEF 40%. Moderate diastolic dysfunction. Etiology could be uncontrolled hypertension but could have concurrent coronary disease as well. Repeat the study to see if any improvement in LVEF now that blood pressure is much better. Exercise myocardial perfusion imaging study to assess for ischemia. Continue carvedilol, valsartan, diuretics. (2) Hypertension: Code(s): I10 - Essential (primary) hypertension Category: Medical Qualifiers: Hypertension type: primary hypertension Qualified Code(s): I10 - Essential (primary) hypertension Plan: Blood pressure as much as 186/121 mm Hg during hospitalization. Much better now but still not ideal. We will likely need changes in due course. Orders: Orders CA stress test Today I50.9 - Heart failure, unspecified, R07.2 - Precordial pain CA Echo Limited Today I50.9 - Heart failure, unspecified NM cardiolite stress test Today I50.9 - Heart failure, unspecified Coding Level of Care Code Est Pt Level 4 (48553) Complex EM visit Add On G2211 Diagnoses Chronic combined systolic and diastolic CHF (congestive heart failure) I50.42 Primary hypertension I10 Hypertension type: primary hypertension
[2024-12-02 13:40] VITALS: BP 140/80; PULSE 88; BMI 40.9
== END 2024-12-02 13:56 | disposition home or self-care (01) ==
PROVIDERS: PCP Nurse Practitioner Family; Visit Provider Internal Medicine
DX: I50.42 Chronic combined systolic (congestive) and diastolic (congestive) heart failure (principal); I10 Essential (primary) hypertension
CPT/HCPCS: 99214

== ENCOUNTER → 2024-12-02 13:38 | Outpatient (BNVA) | payer OTHER, SELFPAY | PROVIDERS: PCP Nurse Practitioner Family; Visit Provider Internal Medicine ==

== ENCOUNTER 2025-01-09 08:13 | Outpatient (AMB) | payer OTHER, SELFPAY ==
--- NOTE | 2025-01-09 08:21 | A.OFFPC_ITS ---
Vital Signs 01/09/25 08:22 01/09/25 09:05 Height 5 ft 8 in Weight 274 lb BMI 41.7 BP 146/92 H 150/92 H Blood Pressure Location Rt brachial Rt brachial Position Sitting Sitting Respiration 16 Pulse 95 Pulse Source Pulse Oximeter Temp 97.9 F Temp Source Oral Pulse Oximetry (%) 93 Oxygen Delivery Method Room Air Intake Visit Reasons: DM reschedule from 12/23 Intake Note: Pt is here today for his f/u DM Allergies No Known Allergies Allergy (Verified 01/09/25 09:31) Medication List - Last Reconciled 01/09/25 by Jai Ribera, [facility]- carvedilol 3.125 mg See Protocol PO BID empagliflozin (Jardiance) 10 mg PO DAILY furosemide 20 mg PO QAM glipizide ER 5 mg PO DAILY metformin ER 500 mg PO BID valsartan 40 mg See Protocol PO BID Tobacco use date assessed: 01/09/25 Dental Screening Dental Screen Date: 01/09/25 Did you have a dental visit in the last 12 months?: No Did you have a dental problem in the last 6 months where you did not have access to dental care?: No Was dental information given to patient?: No HPI DM reschedule from 12/23 HPI Details Chief Complaint The patient is newly diagnosed with diabetes and requires a follow-up. History of Present Illness The patient is a 59-year-old male presenting with a follow-up for Type 2 Diabetes Mellitus. The patient has been newly diagnosed and currently measures his home blood glucose levels, noting averages in the 150s to 180s range. His treatment involves the medication Jardiance, initially at 10 mg, with planned escalation to 25 mg to better manage his condition. His morbid obesity serves as a complicating factor, warranting future consideration of GLP-1 agonists to aid in both glycemic control and weight management. Reports of shortness of breath on exertion were discussed, but the patient denies experiencing any chest pain. Additional concerns such as pruritus on the dorsal aspect of his hands were identified during the visit. Pt is following up with cardiology. refused vaccinations. Social History - The patient is not currently employed. - He is morbidly obese. - Emphasis on incorporating a walking ro utine for weight loss was discussed. Health Maintenance - Discussed the importance of weight los s and starting a walking routine. - Consideration of GLP-1 agonists for we ight and diabetes management in the future. Review of Systems - Cardiovascular: Denies chest pain. - Respiratory: Reports shortness of ayah th on exertion. - Integumentary: Reports pruritus on the dorsal aspect of both hands. -faint neuropathy verbalized to medial b ilat feet. Physical Exam General: Cooperative, healthy appearing, comfortable, no acute distress and well developed, morbidly obese Orientation: Patient oriented x3 Limitations: No limitations Head: Normal to inspection Ears: Hearing grossly normal bilaterally Nose: Normal external nose present Face and sinus: Normal facial exam Eyes: Appearance normal, both eyes and all related structures Neck: Normal visual inspection and Yes full ROM Respiratory: Normal respiratory effort and able to speak in complete sentences. Clear to auscultation bilaterally Cardiovascular: Regular rate and rhythm. Normal S1 and S2 GI: Normal to inspection. Soft to palpation and nontender Skin: Erythematous and slightly scabbing on the dorsal aspect of bilateral hands, related to itching Neuro: Patient oriented x3 Extremities: +1 edema to bilateral lower extremities, normal to inspection. feet intact bilat, + sensation bilat (dry appearing) Results Plan I will increase the patient's Jardiance dosage from 10 mg to 25 mg to better manage his blood glucose levels. Due to the patient's morbid obesity, a GLP-1 agonist might be introduced in the future to assist with weight loss and better glycemic control. Encouraging a walking routine is essential for weight reduction and overall health improvement. The pruritus on the patient's hands will be addressed with a prescription of hydrocortisone cream. Consistent follo w-up will be maintained to assess the patient's progress and modify management as required. Discussion Notes During the visit, I discussed the patient's current diabetes management plan, emphasizing the increase in Jardiance dosage and potential future use of GLP-1 agonists. The importance of weight loss and incorporating a walking routine was highlighted. We reviewed the pruritus on the patient's hands, agreeing to treat it with hydrocortisone cream. The patient was informed about the potential benefits of these interventions and is aware of the need for ongoing monitoring, follow-up, and reassessment during future visits. Patient Instructions - Begin taking Jardiance at 25 mg as pre scribed. - Start a daily walking routine to aid w eight management and overall health. - Apply hydrocortisone cream to the affe cted areas on the hands as directed. - Schedule follow-up appointments for on going evaluation and management. - Monitor blood glucose levels regularly and report significant changes. - Seek care if you experience chest pain , increased shortness of breath, or other concerning symptoms. -HTN: spoke to pt's campaign manager, will increase his coreg. [facility] Medical History Encounter to establish care Hypertension Newly diagnosed type 1 diabetes mellitus Right foot pain Surgical History No pertinent past surgical history Family History Unknown No problems noted. Social History Household Members: None Housing: Apartment Do you presently have visiting nurse or other home services: No Alcohol intake: current Alcohol intake frequency: holidays/special occasions only Comment: refusing fall prec Patient Tobacco Use Status: Never used Tobacco e-Cigarette/Vaping Use: Never Used Second Hand Smoke Exposure: No service: No Current occupational status: employed Cognitive needs: No Hearing needs: No Vision needs: No Questionnaire Thrive Questionnaire Date Thrive assessed: 11/05/24 I am a: Patient What is your living situation today?: I have a steady place to live Within the past 12 months, did the food you bought not last and you didn't have the money to get more?: Never true Within the past 12 months, did you worry whether your food would run out before you got money to buy more?: Never true Do you have trouble paying for medicines?: No Do you have trouble getting transportation to medical appointments?: No Do you have trouble paying your heating and electricity bill?: No Do you have trouble taking care of your child, family member or friend?: No Do you have trouble with day-to-day activities such as bathing, preparing meals, shopping, managing finances, etc.?: No Are you currently unemployed and looking for a job?: Yes Are you interested in more education?: No Please select the resources that you would like help with: None Currently or been in a relationship where the following occur: No concerns reported THRIVE Score: 0 CONSTANZA-7 AMB Questionnaire CONSTANZA-7 Date CONSTANZA - 7 assessed: 11/05/24 Source: Developed by Drs. Constantino Nunez, Sahra [place], Lobito Chino and colleagues, with an educational kayden from [employer]. Physical exam (Primary Care) Vital Signs: Last Vital Signs Temp 97.9 F 01/09/25 08:22 Pulse 95 01/09/25 08:22 Resp 16 01/09/25 08:22 BP 146/92 H 01/09/25 08:22 Pulse Ox 93 01/09/25 08:22 Oxygen Delivery Method Room Air 01/09/25 08:22 BMI result Body Mass Index 41.7 Tobacco/Smoking Status: Tobacco use Status Tobacco use date assessed 01/09/25 01/09/25 08:25 Patient Tobacco Use Status Never used Tobacco 01/09/25 08:22 e-Cigarette/Vaping Use Never Used 01/09/25 08:22 Thrive Assessment: Date of Thrive Assessment Date Thrive assessed 11/05/24 01/09/25 08:22 Currently or been in a relationship where the following occur: No concerns reported Coding Level of Care Code Est Pt Level 4 (53649) Diagnoses Uncontrolled diabetes mellitus with hyperglycemia E11.65 Dyspnea on exertion R06.09 Primary hypertension I10 Hypertension type: primary hypertension Chronic combined systolic and diastolic CHF (congestive heart failure) I50.42 Dermatitis L30.9 Morbid obesity E66.01 Assessment & Plan Assessment & Plan (1) Uncontrolled diabetes mellitus with hyperglycemia: Code(s): E11.65 - Type 2 diabetes mellitus with hyperglycemia Category: Medical (2) Dyspnea on exertion: Code(s): R06.09 - Other forms of dyspnea Category: Medical (3) Hypertension: Code(s): I10 - Essential (primary) hypertension Category: Medical Qualifiers: Hypertension type: primary hypertension Qualified Code(s): I10 - Essential (primary) hypertension (4) Chronic combined systolic and diastolic CHF (congestive heart failure): Code(s): I50.42 - Chronic combined systolic (congestive) and diastolic (congestive) heart failure Category: Medical (5) Dermatitis: Code(s): L30.9 - Dermatitis, unspecified Category: Medical (6) Morbid obesity: Code(s): E66.01 - Morbid (severe) obesity due to excess calories Category: Medical Plan . Orders: Orders UA CC w/rflx Micro + Cult Today E11.65 - Type 2 diabetes mellitus with hyperglycemia Lipid Panel Today E11.65 - Type 2 diabetes mellitus with hyperglycemia PFT pulmonary function test Today R06.09 - Other forms of dyspnea Complete Blood Count Auto Diff Today E11.65 - Type 2 diabetes mellitus with hyperglycemia Comprehensive [place]. Panel Fast Today E11.65 - Type 2 diabetes mellitus with hyperglycemia TSH reflex Free T4 Today E11.65 - Type 2 diabetes mellitus with hyperglycemia Medications: New hydrocortisone 2.5% 1 appl topical BID PRN 30 grams 0RF skin irritation Changed From empagliflozin (Jardiance) 10 mg PO DAILY 30 tabs 1RF To empagliflozin 25 mg PO DAILY 90 tabs 1RF From carvedilol 3.125 mg See Protocol PO BID 60 tabs 1RF To carvedilol 6.25 mg See Protocol PO BID 30 days 60 tabs 3RF
[2025-01-09 08:22] VITALS: BP 146/92; PULSE 95; RESP 16; TEMP 36.6; O2SAT 93; BMI 41.7
[2025-01-09 09:05] VITALS: BP 150/92
== END 2025-01-09 09:38 | disposition home or self-care (01) ==
LOC: HO.HMCC 08:14
PROVIDERS: PCP Nurse Practitioner Family; Visit Provider Nurse Practitioner Family
DX: E11.65 Type 2 diabetes mellitus with hyperglycemia (principal); I11.0 Hypertensive heart disease with heart failure; E66.01 Morbid (severe) obesity due to excess calories; Z68.41 Body mass index [BMI] 40.0-44.9, adult; I50.42 Chronic combined systolic (congestive) and diastolic (congestive) heart failure; R06.09 Other forms of dyspnea; L30.9 Dermatitis, unspecified

== ENCOUNTER → 2025-01-09 08:13 | Outpatient (BNVA) | payer OTHER, SELFPAY | PROVIDERS: PCP Nurse Practitioner Family; Visit Provider Nurse Practitioner Family ==

== ENCOUNTER 2025-02-03 13:44 | Outpatient (AMB) | payer OTHER, SELFPAY ==
[2025-02-03 13:50] VITALS: BP 144/90; PULSE 95; O2SAT 94; BMI 41.0
--- NOTE | 2025-02-03 13:50 | A.OFFPC_ITS ---
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 Accompanied by: Self / Same As Patient Allergies No Known Allergies Allergy (Verified 02/03/25 14:18) Medication List - Last Reconciled 02/03/25 by ELBA RodriguezP- carvedilol 12.5 mg See Protocol PO BID 30 days empagliflozin 25 mg PO DAILY furosemide 20 mg PO QAM glipizide ER 10 mg (2 x 5 mg) PO DAILY 90 days hydrocortisone 2.5% 1 appl topical BID PRN metformin ER 500 mg PO BID tirzepatide (Mounjaro) 2.5 mg (0.5 mL) subcut QWEEK valsartan 40 mg See Protocol PO BID Tobacco use date assessed: 01/09/25 Dental Screening Dental Screen Date: 01/09/25 HPI 3m f/u HPI Details Chief Complaint Elevated blood pressure and poorly controlled diabetes History of Present Illness The patient is a 59-year-old male presenting with issues related to his hypertension and type 2 diabetes mellitus management. He reports persistently elevated systolic blood pressures at home, typically in the 140s to 150s, with no recent improvements. He denies any chest pain, headaches, or blurred vision. However, he experiences exertional shortness of breath, which he attributes to his morbid obesity. For his diabetes, he reports glucose levels mostly ranging from 170 to 200 mg/dL, and his current HbA1c is 8.8%. He has been on glipizide, though the current method appears insufficient for his glycemic control. His morbid obesity remains a significant factor in his overall health, affecting both his hypertension and diabetes management. denies any hx of thyroid carcinoma/pancreatitis. Social History - Denies participation in regular exerci se. - Attributes shortness of breath on exer tion to being out of shape and morbidly obese. Health Maintenance Review of Systems - Cardiovascular: Denies chest pain. - Respiratory: Reports shortness of ayah th on exertion. - Neurological: Denies headaches, blurre d vision. Physical Exam General: Cooperative, healthy appearing, comfortable, no acute distress and well developed Orientation: Patient oriented x3 Limitations: No limitations Head: Normal to inspection Ears: Hearing grossly normal bilaterally Nose: Normal external nose present Face and sinus: Normal facial exam Eyes: Appearance normal, both eyes and all related structures Neck: Normal visual inspection and Yes full ROM Respiratory: Normal respiratory effort and able to speak in complete sentences. Diminished/clear to auscultation bilaterally Cardiovascular: Regular rate and rhythm. Normal S1 and S2 GI: Normal to inspection. Soft to palpation and nontender Skin: No rashes or lesions noted Neuro: Patient oriented x3 Extremities: Morbidly obese plus 1 pitting edema in lower extremities, + sensation with use of monofilament. intact, dry Results - Labs: HbA1c today at 8.8%. Plan 1. 5 mg twice daily to address his uncon trolled hypertension. For managing his type 2 diabetes, we initiated a GLP-1 receptor agonist with Mounjaro and increased glipizide to 10 mg daily to enhance glycemic control. The patient should continue home monitoring of blood pressure and blood sugar, with a f ollow-up in three months to evaluate treatment efficacy.: Discussion Notes I discussed with the patient the details of increasing his beta-madeleine dosage to help manage his high blood pressure more effectively. Additionally, I explained the introduction of the GLP-1 agonist, Mounjaro, which may aid in both glucose control and weight management. I also emphasized the importance of increasing his glipizide dosage for better control of his diabetes. The patient was informed of the procedures involved, potential benefits, and possible side effects. We concluded with plans for a follow-up in three months to monitor his progress and make further adjustments if necessary. Patient Instructions - Continue taking your beta-madeleine as p rescribed, now at 12.5 mg twice daily. - Start taking Mounjaro as directed, a G LP-1 agonist for diabetes management. - Increase your glipizide dosage to 10 m g daily. - Monitor your blood pressure and blood sugar levels at home regularly. - Return for a follow-up appointment in three months. - Contact us if you experience side effe cts or worsening symptoms. [facility] Medical History Encounter to establish care Hypertension Newly diagnosed type 1 diabetes mellitus Right foot pain Surgical History No pertinent past surgical history Family History Unknown No problems noted. Social History Household Members: None Housing: Apartment Do you presently have visiting nurse or other home services: No Alcohol intake: current Alcohol intake frequency: holidays/special occasions only Comment: refusing fall prec Patient Tobacco Use Status: Never used Tobacco e-Cigarette/Vaping Use: Never Used Second Hand Smoke Exposure: No service: No Current occupational status: employed Cognitive needs: No Hearing needs: No Vision needs: No Questionnaire Thrive Questionnaire Date Thrive assessed: 02/03/25 I am a: Patient What is your living situation today?: I have a steady place to live Within the past 12 months, did the food you bought not last and you didn't have the money to get more?: Never true Within the past 12 months, did you worry whether your food would run out before you got money to buy more?: Never true Do you have trouble paying for medicines?: No Do you have trouble getting transportation to medical appointments?: No Do you have trouble paying your heating and electricity bill?: No Do you have trouble taking care of your child, family member or friend?: No Do you have trouble with day-to-day activities such as bathing, preparing meals, shopping, managing finances, etc.?: No Are you currently unemployed and looking for a job?: Yes Are you interested in more education?: No Please select the resources that you would like help with: None Currently or been in a relationship where the following occur: No concerns reported THRIVE Score: 0 CONSTANZA-7 AMB Questionnaire CONSTANZA-7 Date CONSTANZA - 7 assessed: 11/05/24 Source: Developed by Drs. Constantino Nunez, [place], Lobito Chino and colleagues, with an educational kayden from [employer]. Physical exam (Primary Care) BMI result Body Mass Index 41.0 Tobacco/Smoking Status: Tobacco use Status Tobacco use date assessed 01/09/25 02/03/25 13:52 Patient Tobacco Use Status Never used Tobacco 02/03/25 13:52 e-Cigarette/Vaping Use Never Used 02/03/25 13:52 Thrive Assessment: Date of Thrive Assessment Date Thrive assessed 02/03/25 02/03/25 13:52 Currently or been in a relationship where the following occur: No concerns reported Results AMB Hemoglobin A1c AMB Hemoglobin A1c 8.8 % Last Edit by Tino Daniel CMA on 02/03/25 14: 06 Coding Level of Care Code Est Pt Level 4 (27779) Diagnoses Decompensated heart failure I50.9 Uncontrolled diabetes mellitus with hyperglycemia E11.65 Morbid obesity with BMI of 40.0-44.9, adult E66.01; Z68.41 Assessment & Plan Assessment & Plan (1) Decompensated heart failure: Code(s): I50.9 - Heart failure, unspecified Category: Medical (2) Uncontrolled diabetes mellitus with hyperglycemia: Code(s): E11.65 - Type 2 diabetes mellitus with hyperglycemia Category: Medical (3) Morbid obesity with BMI of 40.0-44.9, adult: Code(s): E66.01 - Morbid (severe) obesity due to excess calories; Z68.41 - Body mass index [BMI] 40.0-44.9, adult Category: Medical Plan . Orders: Orders AMB Hemoglobin A1c Today Z13.9 - Encounter for screening, unspecified B Type Natriuretic Peptide Today I50.9 - Heart failure, unspecified Medications: New tirzepatide (Mounjaro) for 4 weeks 2.5 mg (0.5 mL) subcut QWEEK 2 mL 0RF Changed From glipizide ER 5 mg PO DAILY 30 tabs 1RF To glipizide ER 10 mg (2 x 5 mg) PO DAILY 90 days 180 tabs 1RF From carvedilol 6.25 mg See Protocol PO BID 30 days 60 tabs 3RF To carvedilol 12.5 mg See Protocol PO BID 30 days 60 tabs 3RF
== END 2025-02-03 14:13 | disposition home or self-care (01) ==
LOC: HO.HMCC 13:45
PROVIDERS: PCP Nurse Practitioner Family; Visit Provider Nurse Practitioner Family
DX: I50.9 Heart failure, unspecified (principal); E11.65 Type 2 diabetes mellitus with hyperglycemia; E66.01 Morbid (severe) obesity due to excess calories; Z68.41 Body mass index [BMI] 40.0-44.9, adult; Z13.9 Encounter for screening, unspecified

== ENCOUNTER → 2025-02-03 13:44 | Outpatient (BNVA) | payer OTHER, SELFPAY | PROVIDERS: PCP Nurse Practitioner Family; Visit Provider Nurse Practitioner Family | DX: I50.9 Heart failure, unspecified (principal); E11.65 Type 2 diabetes mellitus with hyperglycemia; E66.01 Morbid (severe) obesity due to excess calories; Z68.41 Body mass index [BMI] 40.0-44.9, adult; Z79.84 Long term (current) use of oral hypoglycemic drugs; Z79.899 Other long term (current) drug therapy | CPT/HCPCS: 83036 ==

== ENCOUNTER 2025-02-28 14:08 | Outpatient (AMB) | payer OTHER, SELFPAY ==
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
[2025-02-28 14:17] VITALS: BP 140/90; PULSE 71; O2SAT 94; BMI 42.0
== END 2025-02-28 14:47 | disposition home or self-care (01) ==
LOC: HO.HSMS 14:09
PROVIDERS: PCP Nurse Practitioner Family; Visit Provider Physician Assistant Medical
DX: G47.19 Other hypersomnia (principal); M54.50 Low back pain, unspecified; G89.29 Other chronic pain; R06.89 Other abnormalities of breathing
CPT/HCPCS: 99499

== ENCOUNTER → 2025-02-28 14:08 | Outpatient (BNVA) | payer OTHER, SELFPAY | PROVIDERS: PCP Nurse Practitioner Family; Visit Provider Physician Assistant Medical ==

== ENCOUNTER 2025-05-12 08:55 | Outpatient (REF) | payer SELFPAY ==
[2025-05-12 10:52] LABS: B Type Natriuretic Peptide 10 pg/mL (<100)
[2025-05-12 13:18] LABS: MANUAL DIFF FLAG NO
[2025-05-12 13:40] LABS: Appearance Urine Cloudy; PH 6.0 (5.0-9.0); Specific Gravity - Urine 1.025 (1.005-1.025); UMIC TRIGGER UACC YES
[2025-05-12 13:41] LABS: Hematocrit 46.8 % (42.0-52.0); Hemoglobin 14.9 g/dl (14.0-18.0); Imm Gran Abs Auto 0.01 X10*3/uL (0.00-0.03); Imm Gran Pct Auto 0.2 % (0.0-0.4); Lymphocytes Absolute Auto 1.1 X10*3/uL (1.2-4.9); Mean Corpuscular HGB Conc 31.8 g/dl (31.0-36.0); Mean Corpuscular Hemoglobin 28.3 pg (27.0-33.0); Mean Corpuscular Volume 88.8 fL (80.0-98.0); NRBC Abs Auto 0.000 X10*3/uL (0.0-0.012); NRBC Pct Auto 0.0 /100WBC (0.0-0.2); Platelet Count 156 X10*3/uL (160-400); Red Blood Count 5.27 X10*6/uL (4.60-5.80); White Blood Count 6.1 X10*3/uL (4.8-10.8)
[2025-05-12 14:08] LABS: Alanine Aminotransferase 223 U/L (0-40); Albumin Level 3.9 g/dL (3.5-5.0); Alkaline Phosphatase 166 U/L (39-117); Anion Gap 12 (12-20); Aspartate Amino Transferase 134 U/L (5-37); Blood Urea Nitrogen 24 mg/dL (9-16); Calcium 9.2 mg/dL (8.4-10.2); Carbon Dioxide 31 mmol/L (22-29); Chloride 101 mmol/L (96-108); Cholesterol 176 mg/dL (<200); Estimated Glomerular Filt Rate 47; HDL Cholesterol 31 mg/dL (>40); Potassium 4.1 mmol/L (3.3-5.1); Sodium 140 mmol/L (135-145); Total Protein 7.1 g/dL (6.5-8.0); Triglycerides 290 mg/dL (<150)
== END 2025-05-12 08:56 | disposition home or self-care (01) ==
LOC: HO.HMGCLDS 08:55
PROVIDERS: PCP Nurse Practitioner Family; Visit Provider Nurse Practitioner Family
DX: E11.65 Type 2 diabetes mellitus with hyperglycemia (principal); I87.2 Venous insufficiency (chronic) (peripheral); E66.01 Morbid (severe) obesity due to excess calories; Z68.41 Body mass index [BMI] 40.0-44.9, adult; I50.9 Heart failure, unspecified; Z79.84 Long term (current) use of oral hypoglycemic drugs; Z28.21 Immunization not carried out because of patient refusal
CPT/HCPCS: 36415; 80053; 80061; 81001; 81003; 83036; 83880; 84443; 85025; 99212

== ENCOUNTER 2025-05-12 08:55 | Outpatient (AMB) | payer OTHER, SELFPAY ==
[2025-05-12 08:59] VITALS: BP 138/80; PULSE 100; RESP 18; O2SAT 91; BMI 42.6
--- NOTE | 2025-05-12 08:59 | A.OFFPC_ITS ---
Vital Signs 05/12/25 08:59 05/12/25 09:21 Height 5 ft 8 in Weight 280 lb BMI 42.6 BP 138/80 Blood Pressure Location Lt brachial Position Sitting Respiration 18 Pulse 100 Pulse Source Pulse Oximeter Pulse Oximetry (%) 91 L 95 Oxygen Delivery Method Room Air Intake Visit Reasons: 3m follow up Allergies No Known Allergies Allergy (Verified 05/12/25 09:36) Medication List - Last Reconciled 05/12/25 by Jai Ribera [facility] carvedilol 12.5 mg See Protocol PO BID 30 days empagliflozin 25 mg PO DAILY furosemide 20 mg PO QAM glipizide ER 10 mg (2 x 5 mg) PO DAILY 90 days hydrocortisone 2.5% 1 appl topical BID PRN metformin ER 750 mg PO BID 90 days valsartan 40 mg See Protocol PO BID Tobacco use date assessed: 01/09/25 Dental Screening Dental Screen Date: 01/09/25 HPI 3m follow up HPI Details Chief Complaint The patient presents for follow-up of diabetes management. History of Present Illness The patient is a 60-year-old male presenting with diabetes management. His hemoglobin A1c is currently 9.0, indicating poor glycemic control. He reports a suboptimal diet and has experienced intolerance to Mounjaro, which made him feel excessively full. The patient is also morbidly obese and experiences dyspnea on exertion. He has been advised to follow up with cardiology and has undergone pulmonary function testing, but there were issues with scheduling the follow-up (pt could not be contacted, number given to pt today to set up PFT). Additionally, the patient exhibits signs of venous stasis in the lower extremities, with erythema and itching leading to scabbing. There is a positive dorsalis pedis pulse bilaterally, with the right side being more pronounced, and plus 1 pitting edema is noted to BLE. Social History - Exercise: Reports dyspnea on exertion, indicating limited physical activity. - Nutrition: Reports a suboptimal diet, contributing to poor diabetes control. Health Maintenance - Referral to endocrinology for diabetes management. - Referral for pulmonary function testin g due to dyspnea on exertion. - Optometry and ophthalmology referrals placed previously. Review of Systems - General: Denies fever, chills, nausea, vomiting. - Cardiovascular: Denies chest pain. - Respiratory: Reports dyspnea on exerti on, denies shortness of breath at rest. - Neurological: Denies blurred vision. Physical Exam General: Cooperative, healthy appearing, comfortable, no acute distress and well developed, morbidly obese Orientation: Patient oriented x3 Limitations: No limitations Head: Normal to inspection Ears: Hearing grossly normal bilaterally Nose: Normal external nose present Face and sinus: Normal facial exam Eyes: Appearance normal, both eyes and all related structures Neck: Normal visual inspection and Yes full ROM Respiratory: Normal respiratory effort and able to speak in complete sentences. Clear to auscultation bilaterally Cardiovascular: Regular rate and rhythm. Normal S1 and S2 GI: Normal to inspection. Soft to palpation and nontender Skin: Swelling to bilateral extremities with venous stasis appearance, small and larger patches of erythema, signs of itching and scabbing Neuro: Patient oriented x3 Extremities: Positive dorsalis pedis bilaterally, right greater than left, + 1 pitting edema to lower extremities, large areas of erythema (left lateral LE) more macular and small areas of erythema more macular singular to bilateral extremities as well Results - Labs: Hemoglobin A1c 9.0, indicating p oor glycemic control. Plan The patient's diabetes management plan includes increasing the dosage of metformin and maintaining the current SGLT-2 inhibitor therapy with Jardiance. He is referred to endocrinology for further evaluation and management, with a potential need for insulin therapy in the future. For his dyspnea on exertion, pulmonary function testing has been ordered, and he is encouraged to follow up with cardiology. The patient is advised to address his morbid obesity through dietary modifications and increased physical activity, although his current exercise capacity is limited by dyspnea. Additionally, venous stasis US order to BLE Discussion Notes I discussed with the patient the importance of managing his diabetes more effectively, including the need to increase his metformin dosage and the potential for insulin therapy in the future. We talked about the referral to endocrinology for specialized care and the necessity of following up with cardiology and importance of PFT reinforced for his dyspnea on exertion. I emphasized the importance of lifestyle modifications, particularly dietary changes and increased physical activity, to address his morbid obesity. Patient Instructions - Increase metformin dosage as prescribe d. - Continue taking Jardiance as directed. - Follow up with endocrinology for diabe rod management. - Schedule and complete pulmonary functi on testing. - Follow up with cardiology - Implement dietary changes and increase physical activity as tolerated. -complete testing to BLE (US) -encouraged to get labs drawn. [facility] Medical History Encounter to establish care Hypertension Newly diagnosed type 1 diabetes mellitus Right foot pain Surgical History No pertinent past surgical history Family History Unknown No problems noted. Social History Household Members: None Housing: Apartment Do you presently have visiting nurse or other home services: No Alcohol intake: current Alcohol intake frequency: holidays/special occasions only Comment: refusing fall prec Patient Tobacco Use Status: Never used Tobacco e-Cigarette/Vaping Use: Never Used Second Hand Smoke Exposure: No service: No Current occupational status: employed Cognitive needs: No Hearing needs: No Vision needs: No Questionnaire Thrive Questionnaire Date Thrive assessed: 11/05/24 I am a: Patient What is your living situation today?: I have a steady place to live Within the past 12 months, did the food you bought not last and you didn't have the money to get more?: Never true Within the past 12 months, did you worry whether your food would run out before you got money to buy more?: Never true Do you have trouble paying for medicines?: No Do you have trouble getting transportation to medical appointments?: No Do you have trouble paying your heating and electricity bill?: No Do you have trouble taking care of your child, family member or friend?: No Do you have trouble with day-to-day activities such as bathing, preparing meals, shopping, managing finances, etc.?: No Are you currently unemployed and looking for a job?: Yes Are you interested in more education?: No Please select the resources that you would like help with: None Currently or been in a relationship where the following occur: No concerns reported THRIVE Score: 0 CONSTANZA-7 AMB Questionnaire CONSTANZA-7 Date CONSTANZA - 7 assessed: 11/05/24 Source: Developed by Drs. Constantino Nunez, Sahra Bay, Lobito Chino and colleagues, with an educational kayden from [employer]. Physical exam (Primary Care) Vital Signs: Last Vital Signs Pulse 100 05/12/25 08:59 Resp 18 05/12/25 08:59 BP 138/80 05/12/25 08:59 Pulse Ox 91 L 05/12/25 08:59 Oxygen Delivery Method Room Air 05/12/25 08:59 BMI result Body Mass Index 42.6 Tobacco/Smoking Status: Tobacco use Status Tobacco use date assessed 01/09/25 05/12/25 09:01 Patient Tobacco Use Status Never used Tobacco 05/12/25 09:01 e-Cigarette/Vaping Use Never Used 05/12/25 09:01 Thrive Assessment: Date of Thrive Assessment Date Thrive assessed 11/05/24 05/12/25 09:01 Currently or been in a relationship where the following occur: No concerns repo rted Results AMB Hemoglobin A1c AMB Hemoglobin A1c 9.0 % Last Edit by Amber Seymour MA on 05/12/25 09:24 Coding Level of Care Code Est Pt Level 4 (35463) Diagnoses Venous insufficiency I87.2 DM (diabetes mellitus) type II uncontrolled with eye manifestation Uncontrolled diabetes mellitus with hyperglycemia E11.65 Assessment & Plan Assessment & Plan (1) Venous insufficiency: Code(s): I87.2 - Venous insufficiency (chronic) (peripheral) Category: Medical (2) DM (diabetes mellitus) type II uncontrolled with eye manifestation: Category: Medical (3) Uncontrolled diabetes mellitus with hyperglycemia: Code(s): E11.65 - Type 2 diabetes mellitus with hyperglycemia Category: Medical Plan . Orders: Orders AMB Hemoglobin A1c Today Z13.9 - Encounter for screening, unspecified US venous insuf bilat Today I87.2 - Venous insufficiency (chronic) (peripheral) Referrals Endocrinology Referral E11.65 - Type 2 diabetes mellitus with hyperglycemia Medications: Changed From metformin ER 500 mg PO BID 60 tabs 1RF To metformin ER 750 mg PO BID 180 tabs 1RF 90 days Discontinued tirzepatide (Mounjaro) for 4 weeks Discontinued Reason: Patient Refused 2.5 mg (0.5 mL) subcut QWEEK 2 mL 0RF
[2025-05-12 09:21] VITALS: O2SAT 95
== END 2025-05-12 09:30 | disposition home or self-care (01) ==
LOC: HO.HMCC 08:55
PROVIDERS: PCP Nurse Practitioner Family; Visit Provider Nurse Practitioner Family
DX: I87.2 Venous insufficiency (chronic) (peripheral) (principal); E11.65 Type 2 diabetes mellitus with hyperglycemia; Z13.9 Encounter for screening, unspecified

== ENCOUNTER 2025-07-13 18:13 | Inpatient (IN) | payer OTHER, SELFPAY ==
[2025-07-13] VITALS (17 sets, daily range): BP systolic 113–146; BP diastolic 67–95; PULSE 90–135; RESP 17–45; TEMP 36.2–37; O2SAT 88–100; BMI 39.3
--- NOTE | 2025-07-13 | ECG_ITS ---
Test Reason : TACHY Blood Pressure : */* mmHG Vent. Rate : 124 BPM Atrial Rate : 124 BPM P-R Int : 162 ms QRS Dur : 90 ms QT Int : 310 ms P-R-T Axes : 36 -20 118 degrees QTcB Int : 445 ms Sinus tachycardia Possible Left atrial enlargement Left ventricular hypertrophy ( R in aVL , [place] product ) T wave abnormality, consider lateral ischemia Abnormal ECG When compared with ECG of 29-Oct-2024 11:53, No significant change was found Referred By: Generic ED Physician Electronically Signed By: Homar José
--- NOTE | ~2025-07-13 | NM_ITS ---
EXAMINATION: NM GASTROINTESTINAL BLEEDING HISTORY: hemorrhagic shock/rectal bleeding, abd CT negative. TECHNIQUE: A GI bleeding study was performed following the intravenous administration of 25 mCi technetium 99m labeled red blood cells. COMPARISON: Correlation is made with an unenhanced CT of the abdomen and pelvis dated 07/15/2025. FINDINGS: No extravasation of activity is identified suggest active GI bleeding. There is normal activity seen in the heart, liver, and urinary bladder. NM/NM GI bleeding IMPRESSION: No evidence of active GI bleeding. Electronically signed by: Constantino Marte MD 07/15/2025 02:24 PM EDT
--- NOTE | ~2025-07-13 | CT_ITS ---
CLINICAL HISTORY: Hemorrhagic shock, rectal bleeding CT angiography abdomen and pelvis with contrast. 3-D post processing. Comparison: None provided Findings: Motion degraded exam. Aorta, mesenteric/renal arteries, and iliofemoral systems are within normal limits. No significant atheromatous plaquing. No intraluminal contrast within the bowel to suggest acute gastrointestinal bleed. Hypoventilatory changes in the bilateral lung base. Sludge versus stones within the gallbladder. Liver and spleen are unremarkable. No biliary ductal dilation. Pancreas, adrenal glands and kidneys demonstrate no acute process. No stones or hydronephrosis. No bowel obstruction, pneumoperitoneum, or pneumatosis. Diverticulosis without diverticulitis affecting the descending and sigmoid colon. Pelvic contents unremarkable. Normal appendix. Fat containing left inguinal hernia. No fluid collections or adenopathy. No acute fracture. Lumbar degenerative change. IMPRESSION: No findings of acute gastrointestinal hemorrhage. Diverticulosis without evidence of acute diverticulitis. Biliary sludge versus cholelithiasis without findings of acute cholecystitis. This document has been electronically signed by: Deanna Mcintosh MD on 07/15/2025 05:39:49
--- NOTE | ~2025-07-13 | CT_ITS ---
CLINICAL HISTORY: dissection rule out CT angiography abdomen and pelvis with contrast. 3-D post processing. Comparison: None provided Findings: No aortic dissection. The celiac, SMA, single left and right renal arteries and MARTHA are patent. Small paraesophageal hernia. The lung bases are clear. Cholelithiasis. Inferior of the pancreas mesenteric root geographic areas of heterogeneous low-attenuation, approximately 13 x 6 cm by 10 cm craniocaudal. No bowel obstruction, pneumoperitoneum, or pneumatosis. Diverticulosis. The appendix is within normal limits. The prostate is within normal limits. The bones are intact. IMPRESSION: 1. Large heterogeneous low-attenuation area inferior to pancreas, measuring 13 x 6 x 10 cm; mesenteric panniculitis. 2. Cholelithiasis. 3. Small paraesophageal hernia. 4. No CT evidence of abdominal aortic dissection. This document has been electronically signed by: Macho Shields MD on 07/13/2025 22:09:47
--- NOTE | ~2025-07-13 | CT_ITS ---
CLINICAL HISTORY: facial trauma CT cervical spine without contrast Comparison: None provided Findings: Vertebral alignment is within normal limits. Multilevel disc height loss with reactive endplate change. No acute fractures or dislocations. No acute findings on limited view of the intracranial contents. Soft tissues of the neck are normal. Lung apices are clear. IMPRESSION: Degenerative changes without evidence of acute fracture. This document has been electronically signed by: Deanna Mcintosh MD on 07/15/2025 04:53:23
--- NOTE | ~2025-07-13 | CT_ITS ---
CLINICAL HISTORY: Unwitnessed fall CT chest without contrast Comparison: CT/SR - CT ANGIO CHEST AORTA - 07/13/2025 07:47 PM EDT Findings: The heart size is normal. Mild coronary calcification. No pericardial effusion. No adenopathy. Esophagus is decompressed. No chest wall lesions. The visualized thyroid and mediastinum are unremarkable. Basilar hypoventilatory changes bilaterally. This is greater on the right than the left. No significant effusion. No dense consolidation. Imaging obtained in expiration. The visualized upper abdomen is unremarkable. No acute fractures. IMPRESSION: 1. No findings of acute trauma to the chest. Image obtained in expiration. Hypoventilatory changes bilaterally. This document has been electronically signed by: Deanna Mcintosh MD on 07/15/2025 05:39:24
--- NOTE | ~2025-07-13 | CT_ITS ---
CLINICAL HISTORY: Face trauma CT maxillofacial without contrast Comparison: None provided Findings: No acute fractures. Facial soft tissue swelling Temporomandibular joints are mildly subluxed though this may be related to the position of the mouth. Polypoid mucosal thickening in the bilateral maxillary sinus. Paranasal sinuses are otherwise clear. No mastoid effusions. Unremarkable orbital contents. Visualized intracranial contents are within normal limits. No foreign bodies. IMPRESSION: No acute facial fracture identified. Anterior midline soft tissue swelling. This document has been electronically signed by: Deanna Mcintosh MD on 07/15/2025 04:52:19
--- NOTE | ~2025-07-13 | CT_ITS ---
CLINICAL HISTORY: face trauma CT head without contrast Comparison: None provided Findings: No intra-axial mass, midline shift, hydrocephalus, or acute hemorrhage. No significant atrophy-like change or white matter disease. The visualized paranasal sinuses and mastoid air cells are normal. The orbits are within normal limits. There is no acute fracture. IMPRESSION: 1. No acute intracranial hemorrhage or skull fracture. This document has been electronically signed by: Deanna Mcintosh MD on 07/15/2025 05:42:56
--- NOTE | ~2025-07-13 | CT_ITS ---
CLINICAL HISTORY: Aorta rule out CT angiography chest with contrast. 3D Postprocessing. Comparison: CT - CT CHEST ANGIOGRAPHY WITH IV CONTRAST - 10/29/24 14:29 EST Findings: Calcified coronary atherosclerotic disease. The thoracic aorta is normal caliber. No main or segmental pulmonary emboli identified. Small paraesophageal hernia. Bibasilar dependent subsegmental atelectasis. Cholelithiasis. Hepatic steatosis. No acute fractures. IMPRESSION: 1. Calcified coronary atherosclerotic disease. 2. Small paraesophageal hernia. 3. Cholelithiasis. 4. Hepatic steatosis. 5. No main or segmental pulmonary emboli identified. This document has been electronically signed by: Macho Shields MD on 07/13/2025 21:32:32
--- NOTE | ~2025-07-13 | XR_ITS ---
CLINICAL HISTORY: hypoxia 1 view chest x-ray Comparison: CR - XR CHEST 1V - 07/13/25 19:04 EDT Findings: Mild linear opacities at the bilateral lung bases. Mild pulmonary hypoinflation. No consolidation. Heart size is mildly enlarged. No acute fracture. IMPRESSION: Mild pulmonary hypoinflation with mild bibasilar opacities likely secondary to atelectasis. This document has been electronically signed by: Jazmine Aldridge MD on 07/20/2025 13:17:39
--- NOTE | ~2025-07-13 | XR_ITS ---
CLINICAL HISTORY: gastric perforation --- Additional Notes or Special Instructions: Upright please 1 view chest x-ray Comparison: CR/VA/SR - XR CHEST 2 VIEWS - 10/29/24 11:45 EST Findings: The lungs are clear. Normal size heart. No acute fracture. IMPRESSION: 1. No acute findings. This document has been electronically signed by: Macho Shields MD on 07/13/2025 19:44:19
--- NOTE | ~2025-07-13 | US_ITS ---
CLINICAL HISTORY: new right ankle swelling; hypoxia Venous duplex ultrasound bilateral lower extremity Comparison: US - US VENOUS DUPLEX LE BI - 10/29/24 18:20 EST Findings: The visualized deep veins are fully compressible with normal Doppler color flow and spectral tracings. No popliteal cyst. Enlarged normal morphology lymph node containing a large fatty hilum within the left groin, most likely inflammatory. A similar finding was present on the prior study. IMPRESSION: 1. Negative for bilateral lower extremity deep vein thrombosis. This document has been electronically signed by: Jazmine Aldridge MD on 07/20/2025 15:10:29
--- NOTE | ~2025-07-13 | XR_ITS ---
CLINICAL HISTORY: c o right knee pain 2 view right knee Comparison: None provided Findings: No fracture or dislocation. Mild tricompartmental osteoarthritis. No knee joint effusion. IMPRESSION: Mild tricompartmental osteoarthritis. This document has been electronically signed by: Elliot Friend DO on 07/14/2025 12:00:22
--- NOTE | ~2025-07-13 | XR_ITS ---
CLINICAL HISTORY: pain, new swelling 3 view left ankle Comparison: None provided Findings: There are at least 2 small bone fragments adjacent to the distal tip of the medial malleolus measuring up to 5 mm in size. Symmetric ankle mortise. Severe soft tissue edema. Mild arthritic change. No ankle effusion. No radiopaque foreign body. IMPRESSION: Small bone fragments adjacent to the medial malleolus are felt to most likely be chronic but acute fractures are not excluded. This document has been electronically signed by: Jazmine Aldridge MD on 07/20/2025 13:14:30
--- NOTE | 2025-07-13 18:20 | ED_ITS ---
HPI - General Adult General Chief complaint: GI Bleed Stated complaint: Bld in stool Time Seen by Provider: 07/13/25 18:49 Source: patient Mode of arrival: ambulatory Limitations: no limitations History of Present Illness ED Provider: Dr. Valadez [facility] narrative: This is a 60-year-old male history of CHF, hypertension, hyperlipidemia, obesity, diabetes presented hospital today for evaluation of bright red rectal bleeding. With the abdominal pain. The patient is also complaining of fatigue and exhaustion. He is complaining of diffuse abdominal pain. No nausea no vomiting. Related Data Previous Rx's ?Medication ?Instructions ?Recorded empagliflozin 25 mg tablet 25 mg PO DAILY #90 tabs 07/26 hydrocortisone 2.5 % topical cream 1 appl topical BID PRN skin 01/09/25 irritation #30 grams glipizide 5 mg tablet, extended 10 mg (2 x 5 mg) PO DA TREVOR 90 days 02/03/25 release 24 hr #180 tabs furosemide 20 mg tablet 20 mg PO QAM #30 tabs valsartan 40 mg tablet 40 mg PO BID #60 tabs carvedilol 12.5 mg tablet 12.5 mg PO BID 30 days #60 t abs 05/08/25 metformin 750 mg tablet,extended 750 mg PO BID 90 days #180 tabs 05/12/25 release 24 hr Allergies Allergy/AdvReac Type Severity Reaction Status Date / Time No Known Allergies Allergy Verified 07/13/25 18:24 Review of Systems 2 Review of Systems: Pertinent review of systems as mentioned in HPI. All other system otherwise negative. [facility] Past Medical History Medical History Encounter to establish care Hypertension Newly diagnosed type 1 diabetes mellitus Right foot pain Surgical History No pertinent past surgical history Family History Family History Unknown No problems noted. Social History Social History Household Members: None Housing: Apartment Do you presently have visiting nurse or other home services: No Alcohol intake: current Alcohol intake frequency: holidays/special occasions only Comment: refusing fall prec Patient Tobacco Use Status: Never used Tobacco e-Cigarette/Vaping Use: Never Used Second Hand Smoke Exposure: No Advance Directives Date on File: 11/04/24 service: No Current occupational status: employed Cognitive needs: No Hearing needs: No Vision needs: No Physical Exam ED Exam Exam: General: Appears fatigued, diaphoretic pale Head: Normacephalic, atraumatic ENT: oral mucosa moist, neck supple, no tracheal deviation Cardiovascular: regular rate, regular rhythm, no murmurs, rubbing, gallops Respiratory: CTAB, no wheeze, rales, rhonchi Gastrointestinal: Soft, non distended, diffuse abdominal tenderness on palpation Extremities: +2 pitting edema bilateral lower extremities Neurological: Awake and alert, no facial droop noted Skin: Cool and diaphoretic Psychiatric: Appropriate mood and thoughts Vital Signs: Vital Signs - 24 hr 07/13/25 18:21 07/13/25 18:50 07/13/25 19:13 Temperature 97.5 F 97.9 F Pulse Rate 135 H 119 H 104 H Respiratory Rate 20 40 H 45 H Blood Pressure 130/84 129/78 146/84 H Pulse Oximetry 94 92 Oxygen Delivery Method Room Air Oxygen Flow Rate 07/13/25 19:31 07/13/25 19:34 07/13/25 20:00 Temperature 97.2 F Pulse Rate 103 H 109 H Respiratory Rate 37 H Blood Pressure 120/78 120/78 Pulse Oximetry 88 L Oxygen Delivery Method Nasal Cannula Oxygen Flow Rate 2 07/13/25 20:02 07/13/25 20:05 07/13/25 20:19 Temperature Pulse Rate 103 H 104 H Respiratory Rate 39 H Blood Pressure 127/68 113/71 Pulse Oximetry 90 L 98 Oxygen Delivery Method Nasal Cannula Nasal Cannula Oxygen Flow Rate 4 6 07/13/25 20:30 07/13/25 20:34 07/13/25 20:49 Temperature Pulse Rate 101 H 101 H 96 Respiratory Rate 29 H Blood Pressure 117/67 117/67 127/72 Pulse Oximetry 95 Oxygen Delivery Method Nasal Cannula Oxygen Flow Rate 6 07/13/25 21:00 07/13/25 22:00 07/13/25 22:15 Temperature 97.2 F Pulse Rate 97 91 90 Respiratory Rate 27 H 17 26 H Blood Pressure 124/76 123/78 123/78 Pulse Oximetry 98 100 Oxygen Delivery Method Nasal Cannula Nasal Cannula Oxygen Flow Rate 07/13/25 23:00 07/13/25 23:25 Temperature 98.6 F Pulse Rate 95 100 Respiratory Rate 28 H 20 Blood Pressure 121/86 139/95 H Pulse Oximetry 100 100 Oxygen Delivery Method Nasal Cannula Nasal Cannula Oxygen Flow Rate 6 3 BMI result Body Mass Index 39.3 Course Course Course Narrative: Rapid medical examination performed in triage by Christine Moore PA-C. Patient is a 60 year old assigned male at presenting to the emergency department with blood in his stool. Detailed physical exam and review of systems are deferred to the human resources office manager. Labs ordered. camp program director aware. Medications Administered Discontinued Medications Generic Name Dose Route Start Last Admin Trade Name Freq PRN Reason Stop Dose Admin Famotidine 20 mg 07/13/25 18:55 07/13/25 19:01 Famotidine/Pf 20 Mg/2 Ml Vial IVPUSH 07/13/25 18:56 20 mg ONCE ONE Administration Sodium Chloride 1,000 mls @ 999 mls/hr 07/13/25 19:00 07/13/25 20:02 Ns IV 07/13/25 20:00 Infused .Q1H1M KELSEY Infusion Vancomycin HCl 2,000 mg in 500 mls @ 250 mls/hr 07/13/25 19:03 07/13/25 22:00 Vancomycin/Ns IV 07/13/25 21:02 Infused ONCE ONE Infusion Piperacillin Sod/Tazobactam 100 mls @ 200 mls/hr 07/13/25 19:03 07/13/25 20:10 Sod 4.5 gm/ Sodium Chloride IV 07/13/25 19:32 Infused ONCE ONE Infusion Iohexol 100 ml 07/13/25 20:06 07/13/25 20:06 Iohexol 350 Mg/Ml 100 Ml Infus..Btl IV 07/13/25 20:07 100 ml ONCE ONE Administration Ondansetron HCl 4 mg 07/13/25 18:55 07/13/25 19:01 Ondansetron Hcl 4 Mg/2 Ml Vial IVPUSH 07/13/25 18:56 4 mg ONCE ONE Administration Pantoprazole Sodium 80 mg 07/13/25 18:55 07/13/25 19:01 Pantoprazole Sodium 40 Mg/10 Ml Vial IVPUSH 07/13/25 18:56 80 mg ONCE ONE Administration Medical Decision Making Medical Decision Making [facility] Narrative: 60-year-old male history of obesity, diabetes hypertension hyperlipidemia, CHF presented hospital today for diffuse abdominal pain and diaphoresis and lightheadedness. Upon my evaluation the patient had a syncopal episode. Patient has no seizure- like activity on examination. No sign of cardiac arrhythmia. No sign of hypotension. Patient is likely had a syncopal episode due to either vasovagal or due to his underlying metabolic pathologies. I did obtain a EKG no sign of cardiac arrhythmia no sign of STEMI. Due to patient's history of rectal bleeding and syncopal episode. We will plan to transfuse 1 units of uncrossed blood. IV Protonix and IV Pepcid given to the patient. Patient's initial hemoglobin was 13.6. We will plan to repeat a 2nd hemoglobin level. Patient's chemistry did show elevated glucose at 504, patient's lactic acid elevated at 3.2. Second lactic acid is 2.0. Patient's BNP is elevated at 831. No sign of DKA on lab work. Broad-spectrum antibiotic initiated for the patient given leukocytosis and elevated lactic acid. CTA of the chest abdomen and pelvis was ordered to rule out aortic dissection given patient's presentation. 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 No dissection. On my reassessment patient does appears to be improved. We will plan to admit the patient to the hospital at this time. Differential Diagnosis Differential Diagnoses: The differential diagnosis associated with the presentation includes Rectal bleed, syncopal episode, mesenteric panniculitis, cholecystitis, appendicitis, aortic dissection Lab Data [facility] Lab Attestation statement: I reviewed the patient's lab results. 07/13/25 19:19 07/13/25 18:39 Labs: Lab Results 07/13/25 07/13/25 07/13/25 Range/Units 18:39 18:55 19:19 WBC 10.6 12.6 H (4.8-10.8) X10*3/uL RBC 4.92 4.69 (4.60-5.80) X10*6/uL Hgb 13.6 L 13.1 L (14.0-18.0) g/dl Hct 42.1 40.6 L (42.0-52.0) % MCV 85.6 86.6 (80.0-98.0) fL MCH 27.6 27.9 (27.0-33.0) pg MCHC 32.3 32.3 (31.0-36.0) g/dl RDW 13.0 13.1 (11.0-16.0) % Plt Count 204 D 186 (160-400) X10*3/uL MPV 12.5 H 12.7 H (9.4-12.4) fL Immature Gran % (Auto) 0.3 0.2 (0.0-0.4) % Neut % (Auto) 69.7 67.1 (45-73) % Lymph % (Auto) 18.9 L 20.0 (20-40) % [place] % (Auto) 8.0 9.9 (2-11) % Eos % (Auto) 2.5 2.2 (0-4) % Baso % (Auto) 0.6 0.6 (0-2) % Lymph # (Auto) 2.0 2.5 (1.2-4.9) X10*3/uL [place] # (Auto) 0.9 1.3 H (0.1-1.2) X10*3/uL Eos # (Auto) 0.3 0.3 (0.0-0.4) X10*3/uL Baso # (Auto) 0.1 0.1 (0.0-0.2) X10*3/uL Abs Immat Gran (auto) 0.03 0.02 (0.00-0.03) X10*3/uL Absolute Neuts (auto) 7.4 8.4 H (2.0-8.3) x10*3/uL Absolute Nucleated RBC 0.000 0.000 (0.0-0.012) X10*3/uL Nucleated RBC % (auto) 0.0 0.0 (0.0-0.2) /100WBC PT 11.5 (10.9-12.4) SEC INR 1.0 (0.9-1.1) VBG pH (7.32-7.43) VBG pCO2 mmHg VBG pO2 mmHg VBG HCO3 (22-26) mmol/L VBG O2 Saturation % VBG Base Excess mmol/L Sodium 138 (135-145) mmol/L Potassium 3.7 (3.3-5.1) mmol/L Chloride 103 (96-108) mmol/L Carbon Dioxide 21 L (22-29) mmol/L Anion Gap 18 (12-20) BUN 19 H (9-16) mg/dL Creatinine 1.31 (0.5-1.4) mg/dL Estim Creat Clear Calc 72.7 Estimated GFR 55 POC Glucose 439 H* (60-115) mg/dL Random Glucose 504 H* (60-115) mg/dL Lactic Acid 3.2 H* (0.5-2.0) mmol/L Lactic Acid F/U @ 2Hr (0.5-2.0) mmol/L Calcium 8.5 D (8.4-10.2) mg/dL Magnesium 1.8 (1.6-2.6) mg/dL Total Bilirubin 0.4 (0.0-1.0) mg/dL AST 24 (5-37) U/L ALT 40 (0-40) U/L Alkaline Phosphatase 98 (39-117) U/L NT-Pro-B Natriuret Pep 831.6 H (<300) pg/mL Total Protein 6.3 L (6.5-8.0) g/dL Albumin 3.6 (3.5-5.0) g/dL Beta-Hydroxybutyrate 0.45 H (0.02-0.27) mmol/L Blood Type A Negative Antibody Screen NEGATIVE Crossmatch See Detail 07/13/25 07/13/25 Range/Units 19:28 23:02 WBC (4.8-10.8) X10*3/uL RBC (4.60-5.80) X10*6/uL Hgb (14.0-18.0) g/dl Hct (42.0-52.0) % MCV (80.0-98.0) fL MCH (27.0-33.0) pg MCHC (31.0-36.0) g/dl RDW (11.0-16.0) % Plt Count (160-400) X10*3/uL MPV (9.4-12.4) fL Immature Gran % (Auto) (0.0-0.4) % Neut % (Auto) (45-73) % Lymph % (Auto) (20-40) % [place] % (Auto) (2-11) % Eos % (Auto) (0-4) % Baso % (Auto) (0-2) % Lymph # (Auto) (1.2-4.9) X10*3/uL [place] # (Auto) (0.1-1.2) X10*3/uL Eos # (Auto) (0.0-0.4) X10*3/uL Baso # (Auto) (0.0-0.2) X10*3/uL Abs Immat Gran (auto) (0.00-0.03) X10*3/uL Absolute Neuts (auto) (2.0-8.3) x10*3/uL Absolute Nucleated RBC (0.0-0.012) X10*3/uL Nucleated RBC % (auto) (0.0-0.2) /100WBC PT (10.9-12.4) SEC INR (0.9-1.1) VBG pH 7.35 (7.32-7.43) VBG pCO2 46 mmHg VBG pO2 179 mmHg VBG HCO3 26 (22-26) mmol/L VBG O2 Saturation 100.0 % VBG Base Excess 0.1 mmol/L Sodium (135-145) mmol/L Potassium (3.3-5.1) mmol/L Chloride (96-108) mmol/L Carbon Dioxide (22-29) mmol/L Anion Gap (12-20) BUN (9-16) mg/dL Creatinine (0.5-1.4) mg/dL Estim Creat Clear Calc Estimated GFR POC Glucose (60-115) mg/dL Random Glucose (60-115) mg/dL Lactic Acid (0.5-2.0) mmol/L Lactic Acid F/U @ 2Hr 2.0 (0.5-2.0) mmol/L Calcium (8.4-10.2) mg/dL Magnesium (1.6-2.6) mg/dL Total Bilirubin (0.0-1.0) mg/dL AST (5-37) U/L ALT (0-40) U/L Alkaline Phosphatase (39-117) U/L NT-Pro-B Natriuret Pep (<300) pg/mL Total Protein (6.5-8.0) g/dL Albumin (3.5-5.0) g/dL Beta-Hydroxybutyrate (0.02-0.27) mmol/L Blood Type Antibody Screen Crossmatch Independent Interpretation I performed an independent interpretation of an: Plain X-Ray and CT Scan Radiology Impression Discussion of test interpretation with radiology: I have reviewed the radiologist's reading. Chronic Conditions Patient?s care impacted by: Diabetes and Hypertension Critical Care Time Critical Care Time Critical Care Time: Yes Total Critical Care Time: 40 Attestation: Time is exclusive of separately billable procedures. Time includes: direct patient care, patient reassessment, coordination of patient care, interpretation of data (laboratory data, pulse oximetry, arterial blood gases and chest xrays), review of patient's medical records, medical consultation and documentation of patient care. Procedures excluded from critical care time: central intravenous line placement and electrocardiography. Discharge Plan Discharge Clinical Impression: Mesenteric panniculitis, Sepsis Patient Disposition: Admitted As Inpatient Print Language: Mac[place]
[2025-07-13 18:42] LABS: MANUAL DIFF FLAG NO
[2025-07-13 18:44] LABS: Hematocrit 42.1 % (42.0-52.0); Hemoglobin 13.6 g/dl (14.0-18.0); Imm Gran Abs Auto 0.03 X10*3/uL (0.00-0.03); Imm Gran Pct Auto 0.3 % (0.0-0.4); Lymphocytes Absolute Auto 2.0 X10*3/uL (1.2-4.9); Mean Corpuscular HGB Conc 32.3 g/dl (31.0-36.0); Mean Corpuscular Hemoglobin 27.6 pg (27.0-33.0); Mean Corpuscular Volume 85.6 fL (80.0-98.0); NRBC Abs Auto 0.000 X10*3/uL (0.0-0.012); NRBC Pct Auto 0.0 /100WBC (0.0-0.2); Platelet Count 204 X10*3/uL (160-400); Red Blood Count 4.92 X10*6/uL (4.60-5.80); White Blood Count 10.6 X10*3/uL (4.8-10.8)
[2025-07-13 18:50] LABS: INTERNATIONAL NORM RATIO 1.0 (0.9-1.1); Prothrombin Time 11.5 SEC (10.9-12.4)
[2025-07-13 18:59] LABS: Glucose, Whole Blood 439 mg/dL (60-115)
[2025-07-13 19:01] LABS: Alanine Aminotransferase 40 U/L (0-40); Albumin Level 3.6 g/dL (3.5-5.0); Alkaline Phosphatase 98 U/L (39-117); Anion Gap 18 (12-20); Aspartate Amino Transferase 24 U/L (5-37); Blood Urea Nitrogen 19 mg/dL (9-16); Calcium 8.5 mg/dL (8.4-10.2); Carbon Dioxide 21 mmol/L (22-29); Chloride 103 mmol/L (96-108); Creatinine Clr Calc Pharmacy 72.7; Estimated Glomerular Filt Rate 55; Magnesium 1.8 mg/dL (1.6-2.6); Potassium 3.7 mmol/L (3.3-5.1); Sodium 138 mmol/L (135-145); Total Protein 6.3 g/dL (6.5-8.0)
--- NOTE | 2025-07-13 19:02 | PC.NURSE ---
at approx, Dr alexander requested help in room 19, two RN at bedside, patient ntoed to be agonal breathing, noted to be pale and diaphoretic. patient noted to be in sinus tach rate 110s-120s. patient was able to open eyes and track staff in room. poc noted to be 432, patient noted to desat down to 76% on room air, placed on non rebreather, recovered to 93%. family at bedside states patient has hx of CHF, has not been taking medications due to inability to afford. 1LNS spiked and running per MD orders. patient noted to be start being nausea, patient non rebreather removed, placed on 2l NC. patient medicated per NOV.
[2025-07-13 19:04] LABS: NT Pro B Type Natriuretic Pept 831.6 pg/mL (<300)
--- NOTE | 2025-07-13 19:15 | ECG_ITS ---
Test Reason : syncope Blood Pressure : */* mmHG Vent. Rate : 110 BPM Atrial Rate : * BPM P-R Int : * ms QRS Dur : 88 ms QT Int : 472 ms P-R-T Axes : * 109 84 degrees QTcB Int : 638 ms Sinus tachycardia Rightward axis Nonspecific ST and T wave abnormality Abnormal ECG When compared with ECG of 13-Jul-2025 18:31, QRS axis Shifted right T wave inversion no longer evident in Lateral leads Referred By: Kimberly Valadez Electronically Signed By: Homar José
[2025-07-13 19:26] LABS: MANUAL DIFF FLAG NO
[2025-07-13 19:28] LABS: Hematocrit 40.6 % (42.0-52.0); Hemoglobin 13.1 g/dl (14.0-18.0); Imm Gran Abs Auto 0.02 X10*3/uL (0.00-0.03); Imm Gran Pct Auto 0.2 % (0.0-0.4); Lymphocytes Absolute Auto 2.5 X10*3/uL (1.2-4.9); Mean Corpuscular HGB Conc 32.3 g/dl (31.0-36.0); Mean Corpuscular Hemoglobin 27.9 pg (27.0-33.0); Mean Corpuscular Volume 86.6 fL (80.0-98.0); NRBC Abs Auto 0.000 X10*3/uL (0.0-0.012); NRBC Pct Auto 0.0 /100WBC (0.0-0.2); Platelet Count 186 X10*3/uL (160-400); Red Blood Count 4.69 X10*6/uL (4.60-5.80); White Blood Count 12.6 X10*3/uL (4.8-10.8)
[2025-07-13 19:35] LABS: VBG HCO3 26 mmol/L (22-26); VBG O2 % Saturation 100.0 %
[2025-07-13 20:00] LABS: Venous Blood Gas Refer to POC result
[2025-07-13] MEDS: vancomycin/NS 2,000 MG/500 ML PLAST..BAG 250 MG IV (20:00)
[2025-07-13] MEDS: iohexoL 350 MG/ML 100 ML INFUS..BTL IV (20:06)
[2025-07-13 21:24] LABS: Reflex Lactate? Lactic Acid Added
[2025-07-13 23:23] LABS: ~Lactic Acid-LAB USE ONLY 2.0 mmol/L (0.5-2.0)
--- NOTE | 2025-07-13 23:34 | PC.NURSE ---
Resumed care of patient at 2300, he is sitting up right in bed, denies pain/nausea at this time. Pt assessed onto bed pain and urinal at this time. Pt vitals obtained and stable. O2 turned down to 3L NC satting 100%. Pt is a/ox4 at this time. Awaiting to provide hygiene care at this time once pt is off bedpan. Awaiting dispo at this time.
--- NOTE | 2025-07-13 23:35 | P.HPHOSP_ITS ---
History of Present Illness Date of Service: 07/13/25 Chief Complaint: BRBPR 60-year-old male with a past medical history of HTN, HLD, dm, HFrEF, YURIY, morbid obesity, chronic low back pain; presented to the hospital today with a chief complaint of bright red blood per rectum. Patient mentions the past couple days he has been feeling generally weak and tired. Has been having couple of episodes of bright red blood per rectum. Hence presented to the ER for further evaluation. Denies any abdominal pain. Denies any chest pain or palpitations. Denies any nausea vomiting or diarrhea. Review of all other systems is negative. ER course: Per ER team, patient on presentation noted to be tired, diaphoretic; blood pressure was stable; patient while being interviewed by the ER physician has syncopized for about a minute. No seizure-like activity. Telemetry showed no acute abnormality; EKG showed normal sinus rhythm; no evidence of ischemia; proBNP slightly elevated; troponin negative; hemoglobin stable at 13.6. Patient was given on crossed blood transfusion of 1 unit as patient appeared ill on presentation. Patient blood pressure remained stable. Follow up hemoglobin remained stable. No further episodes of BRBPR. Patient noted to have bright red blood around his perianal area. On labs also noted to have elevated blood glucose levels but not in DKA or HHS. Creatinine stable around his baseline. CT angio of the abdomen was done which showed no evidence of active bleeding; noted to have findings consistent with mesenteric panniculitis. Patient lactate level was also elevated and given patient being diaphoretic actually initially sepsis was in the differential and received broad-spectrum antibiotics. Patient was given 1 L of IV fluids in the ER. [facility] Medical History Encounter to establish care Hypertension Newly diagnosed type 1 diabetes mellitus Right foot pain Family History Unknown No problems noted. Surgical History No pertinent past surgical history Social History Household Members: None Housing: Apartment Do you presently have visiting nurse or other home services: No Alcohol intake: current Alcohol intake frequency: holidays/special occasions only Comment: refusing fall prec Patient Tobacco Use Status: Never used Tobacco Smoked in Last 30 Days: No e-Cigarette/Vaping Use: Never Used Second Hand Smoke Exposure: No Use of substances other than those prescribed or required for medical reasons: No Advance Directives: Yes Advance Directives on File: Yes Advance Directives Date on File: 11/04/24 Do you have a plan to hurt others: No Plan service: No Current occupational status: employed Cognitive needs: No Hearing needs: No Vision needs: No Meds Allergies Allergy/AdvReac Type Severity Reaction Status Date / Time No Known Allergies Allergy Verified 07/13/25 18:24 Active Medications: Current Medications Acetaminophen (Acetaminophen 325 Mg Tablet) 650 mg PO Q6H PRN PRN Reason: Pain, Mild 1-3,fever,headache Calcium Carbonate (Calcium Carbonate 750 Mg Tab.Chew) 750 mg PO Q4H PRN PRN Reason: Heartburn Magnesium Hydroxide (Milk Of Magnesia 30 Ml Oral.Susp) 30 ml PO DAILY PRN PRN Reason: Constipation Melatonin (Melatonin 3 Mg Tablet) 6 mg PO BEDTIME PRN PRN Reason: Insomnia Pantoprazole Sodium (Pantoprazole Sodium 40 Mg/10 Ml Vial) 40 mg IVPUSH DAILY@0630 [facility] Sodium Chloride (0.9 % Sodium Chloride Flush 3 Ml Syringe) 3 ml IVFLUSH QSHIFT [facility] Physical Exam 2 Vital Signs and Narrative: Vital Signs: Last Vital Signs Temp 98.6 F 07/13/25 23:25 Pulse 100 07/13/25 23:25 Resp 20 07/13/25 23:25 BP 139/95 H 07/13/25 23:25 Pulse Ox 100 07/13/25 23:25 O2 Del Method Nasal Cannula 07/13/25 23:25 O2 Flow Rate 3 07/13/25 23:25 BMI result Body Mass Index 39.3 Gen: Appears be in no acute distress HEENT: NCAT, Moist mucosa. Pulmonary: Vesicular breath sounds, fair air entry CVS: Normal S1-S2 Abdomen: BS+, Soft, Nontender Extremities: Warm well perfused Neuro: Alert and awake. Results Labs 07/13/25 19:19 07/13/25 18:39 Labs: Laboratory Results - last 24 hr 07/13/25 07/13/25 07/13/25 18:39 18:55 19:19 MCV 85.6 86.6 MCH 27.6 27.9 MCHC 32.3 32.3 RDW 13.0 13.1 Plt Count 204 D 186 MPV 12.5 H 12.7 H Immature Gran % (Auto) 0.3 0.2 Neut % (Auto) 69.7 67.1 Lymph % (Auto) 18.9 L 20.0 Rutherford % (Auto) 8.0 9.9 Eos % (Auto) 2.5 2.2 Baso % (Auto) 0.6 0.6 Lymph # (Auto) 2.0 2.5 Rutherford # (Auto) 0.9 1.3 H Eos # (Auto) 0.3 0.3 Baso # (Auto) 0.1 0.1 Abs Immat Gran (auto) 0.03 0.02 Absolute Neuts (auto) 7.4 8.4 H Absolute Nucleated RBC 0.000 0.000 Nucleated RBC % (auto) 0.0 0.0 PT 11.5 INR 1.0 VBG pH VBG pCO2 VBG pO2 VBG HCO3 VBG O2 Saturation VBG Base Excess Anion Gap 18 Estim Creat Clear Calc 72.7 Estimated GFR 55 POC Glucose 439 H* Random Glucose 504 H* Lactic Acid 3.2 H* Lactic Acid F/U @ 2Hr Calcium 8.5 D Magnesium 1.8 Total Bilirubin 0.4 AST 24 ALT 40 Alkaline Phosphatase 98 NT-Pro-B Natriuret Pep 831.6 H Total Protein 6.3 L Albumin 3.6 Beta-Hydroxybutyrate 0.45 H Blood Type A Negative Antibody Screen NEGATIVE Crossmatch See Detail 07/13/25 07/13/25 19:28 23:02 MCV MCH MCHC RDW Plt Count MPV Immature Gran % (Auto) Neut % (Auto) Lymph % (Auto) Rutherford % (Auto) Eos % (Auto) Baso % (Auto) Lymph # (Auto) Rutherford # (Auto) Eos # (Auto) Baso # (Auto) Abs Immat Gran (auto) Absolute Neuts (auto) Absolute Nucleated RBC Nucleated RBC % (auto) PT INR VBG pH 7.35 VBG pCO2 46 VBG pO2 179 VBG HCO3 26 VBG O2 Saturation 100.0 VBG Base Excess 0.1 Anion Gap Estim Creat Clear Calc Estimated GFR POC Glucose Random Glucose Lactic Acid Lactic Acid F/U @ 2Hr 2.0 Calcium Magnesium Total Bilirubin AST ALT Alkaline Phosphatase NT-Pro-B Natriuret Pep Total Protein Albumin Beta-Hydroxybutyrate Blood Type Antibody Screen Crossmatch Assessment and Plan (1) Mesenteric panniculitis: Status: Acute Plan 60-year-old male with a past medical history of HTN, HLD, dm, HFrEF, YURIY, morbid obesity, chronic low back pain; presented to the hospital today with a chief complaint of bright red blood per rectum. BRBPR: Patient appeared mildly toxic on presentation; patient was given uncrossed blood transfusion I unit. Patient H&H remained stable around 13. No further episodes while in the ER. Clear liquid diet GI consult IV ppi Syncope: Likely vasovagal. Blood pressure is stable. EKG nonischemic. No evidence of blocks. Troponin negative. Telemetry. Echocardiogram. Will defer to day team to consult Cardiology in the morning. Hypertension: Hold home antihypertensives for now Diabetes: Will keep the patient on Lantus plus sliding scale. Has mild hyperglycemia. Not in DKA or HHS. HFrEF: Will hold the Lasix for the 1st 24 hours. To be resumed eventually. YURIY: Supplemental oxygen p.r.n. Lactic acidosis: Likely in setting of volume depletion. Patient received 1 L of IV fluids. Follow-up repeat levels. Mesenteric panniculitis: CT abdomen pelvis showed hypoattenuation inferior to pancreas; mesenteric panniculitis. Supportive care. GI consulted. DVT prophylaxis: SCD boots Code status: Full code Quality Stroke Does the patient have a stroke diagnosis?: No VTE Prior VTE?: No VTE Risk Level:: Medical - moderate - high VTE Device Contraindication: N/A - Device Ordered VTE Drug Contraindication: Treatment Not Indicated
[2025-07-14] VITALS (9 sets, daily range): BP systolic 83–147; BP diastolic 31–82; PULSE 73–135; RESP 18–32; TEMP 36.1–36.6; O2SAT 94–97; BMI 39.9
--- NOTE | 2025-07-14 00:47 | PC.NURSE ---
Hygeine care provided with pt at this time, total bed change completed, pt now on bedpan x2 for BM. Pt noted to have maroon liquid with multiple jelly like clots noted. Pt denies pain in abd, denies dizziness as well. Pt remains sitting up right at this time, ED MD aware. Phleb at bedside currently drawing labs.
[2025-07-14] MEDS: Octreotide Acetate 100 MCG/ML AMPUL IVPUSH (00:52)
[2025-07-14] MEDS: 0.9 % Sodium Chloride Flush 3 ML SYRINGE IVFLUSH ×4 (00:52→20:10)
[2025-07-14 00:53] LABS: MANUAL DIFF FLAG NO
[2025-07-14 00:55] LABS: Hematocrit 39.0 % (42.0-52.0); Hemoglobin 12.3 g/dl (14.0-18.0); Imm Gran Abs Auto 0.05 X10*3/uL (0.00-0.03); Imm Gran Pct Auto 0.5 % (0.0-0.4); Lymphocytes Absolute Auto 1.0 X10*3/uL (1.2-4.9); Mean Corpuscular HGB Conc 31.5 g/dl (31.0-36.0); Mean Corpuscular Hemoglobin 27.8 pg (27.0-33.0); Mean Corpuscular Volume 88.0 fL (80.0-98.0); NRBC Abs Auto 0.000 X10*3/uL (0.0-0.012); NRBC Pct Auto 0.0 /100WBC (0.0-0.2); Platelet Count 156 X10*3/uL (160-400); Red Blood Count 4.43 X10*6/uL (4.60-5.80); White Blood Count 10.4 X10*3/uL (4.8-10.8)
--- NOTE | 2025-07-14 01:39 | MHC.EDTECH ---
Emptied urinal. There was about 600ml
--- NOTE | 2025-07-14 01:58 | PC.NURSE ---
$510 dollars in noriega counted at bedside with this RN/pt, and preparatory technician, pt wishing to keep money in belongings at bedside and not to lock up with security at this time
--- NOTE | 2025-07-14 02:27 | MHC.EDTECH ---
emptied urinal about 300ml
--- NOTE | 2025-07-14 02:50 | PC.NURSE ---
This RN and windows technical specialist transferred pt upstairs at this time to assigned room
[2025-07-14 04:10] LABS: Glucose, Whole Blood 424 mg/dL (60-115)
[2025-07-14 06:36] LABS: MANUAL DIFF FLAG NO
[2025-07-14 06:39] LABS: Hematocrit 33.9 % (42.0-52.0); Hemoglobin 10.7 g/dl (14.0-18.0); Imm Gran Abs Auto 0.02 X10*3/uL (0.00-0.03); Imm Gran Pct Auto 0.2 % (0.0-0.4); Lymphocytes Absolute Auto 1.4 X10*3/uL (1.2-4.9); Mean Corpuscular HGB Conc 31.6 g/dl (31.0-36.0); Mean Corpuscular Hemoglobin 27.8 pg (27.0-33.0); Mean Corpuscular Volume 88.1 fL (80.0-98.0); NRBC Abs Auto 0.000 X10*3/uL (0.0-0.012); NRBC Pct Auto 0.0 /100WBC (0.0-0.2); Platelet Count 161 X10*3/uL (160-400); Red Blood Count 3.85 X10*6/uL (4.60-5.80); White Blood Count 9.3 X10*3/uL (4.8-10.8)
[2025-07-14 06:53] LABS: Alanine Aminotransferase 29 U/L (0-40); Albumin Level 3.0 g/dL (3.5-5.0); Alkaline Phosphatase 74 U/L (39-117); Aspartate Amino Transferase 16 U/L (5-37); Blood Urea Nitrogen 20 mg/dL (9-16); Calcium 7.9 mg/dL (8.4-10.2); Creatinine Clr Calc Pharmacy 71.6; Estimated Glomerular Filt Rate 54; Total Protein 5.0 g/dL (6.5-8.0)
[2025-07-14 06:59] LABS: Anion Gap 13 (12-20); Carbon Dioxide 25 mmol/L (22-29); Chloride 107 mmol/L (96-108); Potassium 4.8 mmol/L (3.3-5.1); Sodium 140 mmol/L (135-145)
--- NOTE | 2025-07-14 07:00 | CA_ITS ---
Transthoracic Echocardiogram Patient (Last, First, Middle): Jerome Garner M Gender: Male Date of : 1965 Age: 60 Procedure Date: 07/14/2025 Procedure Type: Transthoracic Echocardiogram Location: [place] Height: 172.72 cm Weight: 118.84 kg BSA: 2.29 m2 Heart Rate: 109 bpm BP: 110 / 74 mmHg Strategic Sourcing Manager: GERARD Referring MD: Moncho Diaz MD Symptoms: syncope Study Quality: Fair w/Contrast Conclusions: - Normal left ventricular cavity size. There is mildly increased left ventricular wall thickness. The left ventricular systolic function is low normal. The visually estimated ejection fraction is between 50-55%. - The basal inferior and mid inferior segments are hypokinetic. - Normal right ventricular cavity size and systolic function. - There is mild dilatation of the sinuses of Valsalva measuring 3.80 cm and mild dilatation of the ascending aorta measuring 4.00 cm. Findings Procedure Information Contrast agent, definity, is being given per protocol without apparent complications. Left Ventricle Normal left ventricular cavity size. There is mildly increased left ventricular wall thickness. The left ventricular systolic function is low normal. The visually estimated ejection fraction is between 50-55%. There is evidence of regional wall motion abnormalities. Diastolic function is indeterminate on the basis of available data. Wall Motion Rest Echo Findings The basal inferior and mid inferior segments are hypokinetic. Right Ventricle Normal right ventricular cavity size and systolic function. Atria The left atrium is normal in size. The right atrium is normal in size. Aortic Valve There is mild calcification of the aortic valve. There is no aortic valve stenosis. There is no aortic valve regurgitation. Mitral Valve Normal mitral valve structure and function. There is no mitral valve regurgitation. There is no mitral valve stenosis. Pulmonic Valve The pulmonic valve is likely normal. Tricuspid Valve Normal tricuspid valve structure. There is no tricuspid valve regurgitation. Tricuspid regurgitation envelope is inadequate for calculation of right ventricular systolic pressure. Normal right atrial pressure. Great Vessels There is mild dilatation of the sinuses of Valsalva measuring 3.80 cm and mild dilatation of the ascending aorta measuring 4.00 cm. Venous The inferior vena cava is normal in size and collapses greater than 50% with inspiration. Pericardium/Pleural There is no evidence of pericardial effusion. Prior Study Comparison Changes noted compared to prior study dated: 10/30/2024. EF 50%, inferior wall motion abnormality. Measurements 2D Linear Measurements IVSd: 1.36 0.6-0.9/0.6-1.0 cm LVIDd: 4.40 3.9-5.3/4.2-5.9 cm LVIDd Index: 1.92 2.4-3.2/2.2-3.1 cm/m2 LVIDs: 3.42 2.0-3.6 cm LVPWd: 1.32 0.7-1.1 cm LA Diam: 3.30 2.7-3.8/3.0-4.0 cm LAIDs Index: 1.44 1.5-2.3 cm/m2 LV Mass: 280.50 67-162/88-224 g LV Mass Index: 122.49 43-95/49-115 g/m2 LVOT Diam: 2.50 3.0+(-)1.3 cm 2D Systolic Function EF 4C: 48.80 >55% EF 2C: 40.20 >55% EF BiP: 46.00 >55% Mitral Valve E'Lateral: 6.64 E'Medial: 5.22 Aortic Valve AoV Pk Landen: 1.45 AoV Mn Landen: 1.06 AoV VTI: 0.20 AoV Pk Grad: 8.00 Aov Mn Grad: 5.00 XAVI Cont.VTI: 2.83 LVOT LVOT Pk Landen: 0.76 LVOT Mn Landen: 0.57 LVOT VTI: 0.12 LVOT Pk Grad: 2.00 LVOT Mn Grad: 1.00 LVOT Diam: 2.50 LVOT Area: 4.91 Diastolic Function E'Medial: 5.22 E' Laterial: 6.64 Right Ventricle TAPSE (mm): 19.50 TVS' Landen: 13.80 Tricuspid Valve TR Pk Landen: 1.59 TR Pk Grad: 10.00 Great Vessels Aorta Sinus of Valsalva: 3.80 2.0-3.5 cm Ao Asc: 4.00 2.1-3.4 cm Ao Arch: 3.20 Pulmonary Valve PV Pk Landen: 0.94 Peak PV Grad: 4.00 Updated in Other Vendor System with Status of Final Homar José MD electronically signed on 07/16/2025 4:45:45 PM with status of Final
[2025-07-14 07:16] LABS: Glucose, Whole Blood > 600 mg/dL (60-115)
--- NOTE | 2025-07-14 07:19 | HO.PM.IMPN ---
Subjective Subjective Date of Service: 07/14/25 Interval History: Patient has self-limited bright red blood per rectum likely diverticular bleed, history of diverticulosis CT reassuring GI consulted-no indication for urgent colonoscopy-outpatient colonoscopy Patient is syncope likely in the setting of vasovagal Review of Systems Review of Systems: Yes all other systems are reviewed and are negative Physical Exam Exam: Exam: Care challenging as the patient not following directions per staff Insists on using bedside commode and ambulating even though he is on fall risk precautions, refusing care General: AOx3, does not appear to be in distress , morbid obesity Resp: CTA bilaterally CVS: S1, S2, RRR GI: +BS, NT, no distention Skin: Warm, dry Neuro: Motor grossly intact bilaterally Extremities: No edema Psych: Appropriate affect Objective Data Active Medications Acetaminophen (Acetaminophen 325 Mg Tablet) 650 mg PO Q6H PRN PRN Reason: Pain, Mild 1-3,fever,headache Calcium Carbonate (Calcium Carbonate 750 Mg Tab.Chew) 750 mg PO Q4H PRN PRN Reason: Heartburn Dextrose (Dextrose 50 % 25 Gm/50 Ml Syringe) 25 gm IVPUSH Q15M PRN; Protocol PRN Reason: per Hypoglycemia Standing Ord. Glucose (Glucose Gel 15 Gm Gel..Gram.) 15 gm PO Q15M PRN; Protocol PRN Reason: per Hypoglycemia Standing Ord. Insulin Glargine (Insulin Glargine,Hum.Rec.Anlog 100 Unit/Ml 10 Ml Vial) 10 unit SUBCUT BEDTIME [facility] Insulin Human Lispro (Insulin Lispro 100 Unit/Ml 3 Ml Vial) 0 unit SUBCUT QIDACHS [facility]; Protocol Insulin Human Lispro (Insulin Lispro 100 Unit/Ml 3 Ml Vial) 10 unit SUBCUT ONCE ONE Stop: 07/14/25 07:14 Magnesium Hydroxide (Milk Of Magnesia 30 Ml Oral.Susp) 30 ml PO DAILY PRN PRN Reason: Constipation Melatonin (Melatonin 3 Mg Tablet) 6 mg PO BEDTIME PRN PRN Reason: Insomnia Pantoprazole Sodium (Pantoprazole Sodium 40 Mg/10 Ml Vial) 40 mg IVPUSH DAILY@0630 [facility] Last Admin: 07/14/25 06:16 Dose: 40 mg Documented By: ELENI Sodium Chloride (0.9 % Sodium Chloride Flush 3 Ml Syringe) 3 [facility] Last Admin: 07/14/25 00:52 Dose: 3 ml Documented By: CHRISTINE Labs 07/14/25 06:10 07/14/25 06:10 Labs: Laboratory Results - last 24 hr 07/13/25 07/13/25 07/13/25 18:39 18:55 19:19 MCV 85.6 86.6 MCH 27.6 27.9 MCHC 32.3 32.3 RDW 13.0 13.1 Plt Count 204 D 186 MPV 12.5 H 12.7 H Immature Gran % (Auto) 0.3 0.2 Neut % (Auto) 69.7 67.1 Lymph % (Auto) 18.9 L 20.0 [place] % (Auto) 8.0 9.9 Eos % (Auto) 2.5 2.2 Baso % (Auto) 0.6 0.6 Lymph # (Auto) 2.0 2.5 [place] # (Auto) 0.9 1.3 H Eos # (Auto) 0.3 0.3 Baso # (Auto) 0.1 0.1 Abs Immat Gran (auto) 0.03 0.02 Absolute Neuts (auto) 7.4 8.4 H Absolute Nucleated RBC 0.000 0.000 Nucleated RBC % (auto) 0.0 0.0 PT 11.5 INR 1.0 VBG pH VBG pCO2 VBG pO2 VBG HCO3 VBG O2 Saturation VBG Base Excess Anion Gap 18 Estim Creat Clear Calc 72.7 Estimated GFR 55 POC Glucose 439 H* Random Glucose 504 H* Lactic Acid 3.2 H* Lactic Acid F/U @ 2Hr Calcium 8.5 D Magnesium 1.8 Total Bilirubin 0.4 AST 24 ALT 40 Alkaline Phosphatase 98 NT-Pro-B Natriuret Pep 831.6 H Total Protein 6.3 L Albumin 3.6 Beta-Hydroxybutyrate 0.45 H Blood Type A Negative Antibody Screen NEGATIVE Crossmatch See Detail 07/13/25 07/13/25 07/14/25 19:28 23:02 00:44 MCV 88.0 MCH 27.8 MCHC 31.5 RDW 13.5 Plt Count 156 L MPV 12.6 H Immature Gran % (Auto) 0.5 H Neut % (Auto) 84.9 H Lymph % (Auto) 9.2 L [place] % (Auto) 5.1 Eos % (Auto) 0.1 Baso % (Auto) 0.2 Lymph # (Auto) 1.0 L [place] # (Auto) 0.5 Eos # (Auto) 0.0 Baso # (Auto) 0.0 Abs Immat Gran (auto) 0.05 H Absolute Neuts (auto) 8.9 H Absolute Nucleated RBC 0.000 Nucleated RBC % (auto) 0.0 PT INR VBG pH 7.35 VBG pCO2 46 VBG pO2 179 VBG HCO3 26 VBG O2 Saturation 100.0 VBG Base Excess 0.1 Anion Gap Estim Creat Clear Calc Estimated GFR POC Glucose Random Glucose Lactic Acid Lactic Acid F/U @ 2Hr 2.0 Calcium Magnesium Total Bilirubin AST ALT Alkaline Phosphatase NT-Pro-B Natriuret Pep Total Protein Albumin Beta-Hydroxybutyrate Blood Type Antibody Screen Crossmatch 07/14/25 07/14/25 07/14/25 04:05 06:10 07:08 MCV 88.1 MCH 27.8 MCHC 31.6 RDW 13.6 Plt Count 161 MPV 12.7 H Immature Gran % (Auto) 0.2 Neut % (Auto) 75.5 H Lymph % (Auto) 14.7 L [place] % (Auto) 8.9 Eos % (Auto) 0.3 Baso % (Auto) 0.4 Lymph # (Auto) 1.4 [place] # (Auto) 0.8 Eos # (Auto) 0.0 Baso # (Auto) 0.0 Abs Immat Gran (auto) 0.02 Absolute Neuts (auto) 7.0 Absolute Nucleated RBC 0.000 Nucleated RBC % (auto) 0.0 PT INR VBG pH VBG pCO2 VBG pO2 VBG HCO3 VBG O2 Saturation VBG Base Excess Anion Gap 13 Estim Creat Clear Calc 71.6 Estimated GFR 54 POC Glucose 424 H* > 600 H* Random Glucose 435 H* Lactic Acid Lactic Acid F/U @ 2Hr Calcium 7.9 L D Magnesium Total Bilirubin 0.4 AST 16 ALT 29 Alkaline Phosphatase 74 NT-Pro-B Natriuret Pep Total Protein 5.0 L Albumin 3.0 L Beta-Hydroxybutyrate Blood Type Antibody Screen Crossmatch Assessment and Plan (1) BRBPR (bright red blood per rectum): Status: Acute Plan Patient is a 60-year-old male with PMH notable for HTN, HLD, dm, HFrEF, YURIY, morbid obesity, chronic low back pain; presented to the hospital today with a chief complaint of bright red blood per [id number] likely secondary to diverticular bleed. Bright red blood per rectum , s/p 1 unit PRBC and fluid resuscitation-likely a bit of dilutional effect Leukocytosis and lactate normalized post fluid resuscitation Likely diverticular [id number], asymptomatic thus far with no further bleeding episodes noted CT abdomen pelvis reassuring GI consulted -Colonoscopy outpatient no immediate intervention indicated Vasovagal syncope Patient likely had 1 episode of vasovagal syncope in the ED at the time of admission. EKG, troponin negative HFrEF GDM T HTN Follow-up outpatient Patient in prior echo had LVEF of 40% We will continue home Lasix given hemodynamic status reassuring Severe uncontrolled hyperglycemia (blood glucose greater than 600 on admission) secondary to DM type 2, medication noncompliance, poor dietary adherence We will treat with Lantus 10 units and insulin sliding scale to maintain euglycemia No DKA or HHS, be hydroxybutyrate negative Undiagnosed YURIY P.r.n. CPAP Might need home O2 eval prior to DC VTE prophylaxis - enoxaparin PTOT Rehab This note is constructed using voice recognition software. While every effort has been made to ensure accuracy, director oncology errors may have been included. Total time managing care of this patient today: 40 minutes. Quality Stroke Does the patient have a stroke diagnosis?: No VTE Prior VTE?: No VTE Risk Level:: Medical - moderate - high VTE Device Contraindication: N/A - Device Ordered VTE Drug Contraindication: Treatment Not Indicated
[2025-07-14 07:59] LABS: VBG HCO3 32 mmol/L (22-26); VBG O2 % Saturation 44.0 %
[2025-07-14 08:01] LABS: Venous Blood Gas Refer to POC result
--- NOTE | 2025-07-14 08:36 | PHA.MEDREC ---
Pharmacy Consult ? Medication Reconciliation Pharmacy has completed the medication reconciliation. Patient had no idea what they take for medications, Utilized patients pharmacy claims.
--- NOTE | 2025-07-14 10:23 | PM.EVENT ---
Event Note Date of Service: 07/14/25 Event Note: GI consult dictated GI bleeding likely from diverticulitis CT neg follow hct eventual colonoscopy, outpt vs inpt mesenteric findings asymptomatic, f/u as outpt. Time Spent With Patient Time: Total time managing care of this patient today ____ minutes.
[2025-07-14 11:23] LABS: Glucose, Whole Blood 346 mg/dL (60-115)
[2025-07-14 15:42] LABS: Glucose, Whole Blood 341 mg/dL (60-115)
--- NOTE | 2025-07-14 16:58 | MHC.CM.PN ---
PT REPORTS HE LIVES ALONE AND IS INDEPENDENT WITH CARE HE HAS NO DME OR SERVICES PT CURRENTLY HAS NO HEALTH INSURANCE BUT REPORTS HE IS WORKING WITH [facility] PCP: MARICRUZ LOCKHART HCP ON FILE DCP: HOME VIA FAMILY TRANSPORT
[2025-07-14 20:41] LABS: Cannabinoid Screen Urine Not Detected (Not Detect)
[2025-07-14 20:50] LABS: Glucose, Whole Blood 377 mg/dL (60-115)
[2025-07-14] MEDS: Insulin Glargine,Hum.rec.anlog 100 UNIT/ML 10 ML VIAL 10 UNIT SUBCUT (21:18)
[2025-07-14 21:43] LABS: Glucose, Whole Blood 381 mg/dL (60-115)
[2025-07-14] MEDS: Lactated Ringers 1,000 ML 999 ML IV ×2 (22:10→22:14)
[2025-07-14 22:39] LABS: Venous Blood Gas Refer to POC result
[2025-07-14 22:40] LABS: VBG HCO3 30 mmol/L (22-26); VBG O2 % Saturation 42.0 %
[2025-07-14 22:42] LABS: Hematocrit 26.0 % (42.0-52.0); Hemoglobin 8.2 g/dl (14.0-18.0); Mean Corpuscular HGB Conc 31.5 g/dl (31.0-36.0); Mean Corpuscular Hemoglobin 28.0 pg (27.0-33.0); Mean Corpuscular Volume 88.7 fL (80.0-98.0); NRBC Abs Auto 0.000 X10*3/uL (0.0-0.012); NRBC Pct Auto 0.0 /100WBC (0.0-0.2); Platelet Count 131 X10*3/uL (160-400); Red Blood Count 2.93 X10*6/uL (4.60-5.80); White Blood Count 9.0 X10*3/uL (4.8-10.8)
[2025-07-14 22:47] LABS: Ammonia 15 umol/L (13-55)
[2025-07-14 22:55] LABS: INTERNATIONAL NORM RATIO 1.1 (0.9-1.1); Prothrombin Time 12.5 SEC (10.9-12.4)
[2025-07-14 23:03] LABS: Alanine Aminotransferase 22 U/L (0-40); Albumin Level 2.6 g/dL (3.5-5.0); Alkaline Phosphatase 62 U/L (39-117); Anion Gap 12 (12-20); Aspartate Amino Transferase 14 U/L (5-37); Blood Urea Nitrogen 14 mg/dL (9-16); Calcium 7.6 mg/dL (8.4-10.2); Carbon Dioxide 24 mmol/L (22-29); Chloride 106 mmol/L (96-108); Creatinine Clr Calc Pharmacy 78.6; Estimated Glomerular Filt Rate > 60; Magnesium 1.8 mg/dL (1.6-2.6); Potassium 4.1 mmol/L (3.3-5.1); Sodium 138 mmol/L (135-145); Total Protein 4.6 g/dL (6.5-8.0)
[2025-07-14 23:05] LABS: Troponin-I High Sensitivity 23.4 ng/L (<3.5-35.0)
[2025-07-15] VITALS (19 sets, daily range): BP systolic 85–146; BP diastolic 42–79; PULSE 82–105; RESP 16–33; TEMP 36.3–36.9; O2SAT 92–97
[2025-07-15 00:38] LABS: Reflex Lactate? Lactic Acid Added
[2025-07-15] MEDS: Albumin Human 25 % 100 ML IV ×2 (01:15→05:52)
--- NOTE | 2025-07-15 01:25 | PM.EVENT ---
Event Note Date of Service: 07/17/25 Event Note: 9:42 pm - contacted by nursing to notify that the patient was found sitting on the side of the bed leaning over the bed rail with a bloody nose. The patient told his RN that he fell and hit his face which caused the bloody nose. On evaluation patient was found somnolent but opening eyes spontaneously. There is a superficial wound over the nasal bridge; no blood coming out from nares. Patient answering questions appropriately. Last episode of rectal bleeding was this morning. Cardiopulmonary and gastrointestinal exam is unremarkable. In the interim of the evaluation patient was found to have a blood pressure of 62/40. Second IV access was opened and 2 L of LR ordered. Labs STAT ordered. As well as head, facial bones, C-spine, chest, abdominal pelvis CT scans. 10:14 pm - ICU team contacted. Recommended IV fluids/albumin. 11:01 pm - Hgb dropped from 12.3 --> 8.2 since this morning. Two PRBCs stat ordered. 12:00 am - BP 83/31 before blood transfusion. 12:23 am - ICU updated and recommended to run PRBCs faster; and will reevaluate. 12:10 am - Dr. Cole contacted and recommended abdominal pelvis CT angio to determine if pt needs embolization; colonoscopy is not an option at this moment, if CT is negative will obtain nuclear medicine tagged RBC scan. Time Spent With Patient Time: Total time managing care of this patient today ____ minutes.
[2025-07-15 01:34] LABS: ~Lactic Acid-LAB USE ONLY 2.3 mmol/L (0.5-2.0)
[2025-07-15] MEDS: iohexoL 350 MG/ML 100 ML INFUS..BTL IV (02:44)
[2025-07-15 03:07] LABS: Reflex Lactate? 2 Y
[2025-07-15 03:40] LABS: ~Lactic Acid-LAB USE ONLY 1.3 mmol/L (0.5-2.0)
--- NOTE | 2025-07-15 07:23 | P.PNIM_ITS ---
Subjective Subjective Date of Service: 07/15/25 Interval History: Patient had an unwitnessed fall causing massive hemorrhagic shock while apparently micturating on a commode. Patient has been difficult to follow directions, resisting Review of Systems Review of Systems: Yes all other systems are reviewed and are negative Physical Exam 2 Exam: Exam: Care challenging as the patient not following directions per staff hence the fall Patient also likely had hemorrhagic shock likely leading to vasovagal syncope Insists on using bedside commode and ambulating even though he is on fall risk precautions, refusing care, unwitnessed fall General: AOx3, does not appear to be in distress , morbid obesity Resp: CTA bilaterally CVS: S1, S2, RRR GI: +BS, NT, no distention Skin: Has a right nasal bruise post fall Neuro: Motor grossly intact bilaterally Extremities: No edema Psych: Flat affect Vital Signs: Vital Signs: Last Vital Signs Temp 98.1 F 07/15/25 06:00 Pulse 93 07/15/25 06:00 Resp 32 H 07/15/25 06:00 BP 131/70 07/15/25 06:00 Pulse Ox 97 07/15/25 01:00 O2 Del Method Nasal Cannula 07/15/25 01:00 O2 Flow Rate 2 07/15/25 01:00 BMI result Body Mass Index 39.9 GI: Other: abdomen is soft and nontender Objective Data Active Medications Acetaminophen (Acetaminophen 325 Mg Tablet) 650 mg PO Q6H PRN PRN Reason: Pain, Mild 1-3,fever,headache Calcium Carbonate (Calcium Carbonate 750 Mg Tab.Chew) 750 mg PO Q4H PRN PRN Reason: Heartburn Carvedilol (Carvedilol 12.5 Mg Tablet) 12.5 mg PO BID [facility]; Protocol Last Admin: 07/14/25 20:09 Dose: 12.5 mg Documented By: ELENI Dextrose (Dextrose 50 % 25 Gm/50 Ml Syringe) 25 gm IVPUSH Q15M PRN; Protocol PRN Reason: per Hypoglycemia Standing Ord. Empagliflozin (Empagliflozin 25 Mg Tablet) 25 mg PO DAILY [facility] Furosemide (Furosemide 20 Mg Tablet) 20 mg PO DAILY [facility]; Protocol Last Admin: 07/14/25 20:09 Dose: 20 mg Documented By: ELENI Glipizide (Glipizide Xl 10 Mg Tab.Er.24) 10 mg PO DAILY [facility] Glucose (Glucose Gel 15 Gm Gel..Gram.) 15 gm PO Q15M PRN; Protocol PRN Reason: per Hypoglycemia Standing Ord. Insulin Glargine (Insulin Glargine,Hum.Rec.Anlog 100 Unit/Ml 10 Ml Vial) 15 unit SUBCUT BEDTIME [facility] Insulin Human Lispro (Insulin Lispro 100 Unit/Ml 3 Ml Vial) 0 unit SUBCUT QIDACHS [facility]; Protocol Last Admin: 07/15/25 00:28 Dose: Not Given Documented By: ELENI Non-Admin Reason: new order Comments: pt. already received lispro coverage Magnesium Hydroxide (Milk Of Magnesia 30 Ml Oral.Susp) 30 ml PO DAILY PRN PRN Reason: Constipation Melatonin (Melatonin 3 Mg Tablet) 6 mg PO BEDTIME PRN PRN Reason: Insomnia Metformin HCl (Metformin Hcl Er 500 Mg Tab.Er.24h) 500 mg PO BID [facility] Pantoprazole Sodium (Pantoprazole Sodium 40 Mg/10 Ml Vial) 40 mg IVPUSH DAILY@0630 [facility] Last Admin: 07/15/25 05:52 Dose: 40 mg Documented By: ELENI Sodium Chloride (0.9 % Sodium Chloride Flush 3 Ml Syringe) 3 ml IVFLUSH QSHIFT [facility] Last Admin: 07/14/25 20:10 Dose: 3 ml Documented By: ELENI Valsartan (Valsartan 40 Mg Tablet) 40 mg PO BID [facility]; Protocol Last Admin: 07/14/25 20:09 Dose: 40 mg Documented By: ELENI Labs 07/15/25 08:17 07/15/25 08:17 Labs: Laboratory Results - last 24 hr 07/13/25 07/14/25 07/14/25 18:39 07:48 07:54 MCV MCH MCHC RDW Plt Count MPV Absolute Nucleated RBC Nucleated RBC % (auto) PT INR VBG pH 7.27 L VBG pCO2 68 VBG pO2 37 VBG HCO3 32 H VBG O2 Saturation 44.0 VBG Base Excess 3.6 Anion Gap Estim Creat Clear Calc Estimated GFR POC Glucose Random Glucose Lactic Acid Lactic Acid F/U @ 2Hr Lactic Acid F/U @ 4Hr Calcium Phosphorus Magnesium Total Bilirubin AST ALT Alkaline Phosphatase Ammonia Troponin I High Sens Total Protein Albumin Beta-Hydroxybutyrate 0.20 Urine Opiates Screen Ur Buprenorphine Scrn Ur Oxycodone Screen Urine Methadone Screen Urine Fentanyl Screen Ur Barbiturates Screen Ur Phencyclidine Scrn Ur Amphetamines Screen U Benzodiazepines Scrn Urine Cocaine Screen U Marijuana (THC) Screen Ethyl Alcohol Blood Type A Negative Antibody Screen NEGATIVE Crossmatch See Detail 07/14/25 07/14/25 07/14/25 11:19 12:01 15:34 MCV MCH MCHC RDW Plt Count MPV Absolute Nucleated RBC Nucleated RBC % (auto) PT INR VBG pH VBG pCO2 VBG pO2 VBG HCO3 VBG O2 Saturation VBG Base Excess Anion Gap Estim Creat Clear Calc Estimated GFR POC Glucose 346 H 341 H Random Glucose Lactic Acid Lactic Acid F/U @ 2Hr Lactic Acid F/U @ 4Hr Calcium Phosphorus Magnesium Total Bilirubin AST ALT Alkaline Phosphatase Ammonia Troponin I High Sens Total Protein Albumin Beta-Hydroxybutyrate Urine Opiates Screen Ur Buprenorphine Scrn Ur Oxycodone Screen Urine Methadone Screen Urine Fentanyl Screen Ur Barbiturates Screen Ur Phencyclidine Scrn Ur Amphetamines Screen U Benzodiazepines Scrn Urine Cocaine Screen U Marijuana (THC) Screen Ethyl Alcohol < 10 Blood Type Antibody Screen Crossmatch 07/14/25 07/14/25 07/14/25 20:15 20:46 21:39 MCV MCH MCHC RDW Plt Count MPV Absolute Nucleated RBC Nucleated RBC % (auto) PT INR VBG pH VBG pCO2 VBG pO2 VBG HCO3 VBG O2 Saturation VBG Base Excess Anion Gap Estim Creat Clear Calc Estimated GFR POC Glucose 377 H* 381 H* Random Glucose Lactic Acid Lactic Acid F/U @ 2Hr Lactic Acid F/U @ 4Hr Calcium Phosphorus Magnesium Total Bilirubin AST ALT Alkaline Phosphatase Ammonia Troponin I High Sens Total Protein Albumin Beta-Hydroxybutyrate Urine Opiates Screen Not Detected Ur Buprenorphine Scrn Not Detected Ur Oxycodone Screen Not Detected Urine Methadone Screen Not Detected Urine Fentanyl Screen Not Detected Ur Barbiturates Screen Not Detected Ur Phencyclidine Scrn Not Detected Ur Amphetamines Screen Not Detected U Benzodiazepines Scrn Not Detected Urine Cocaine Screen Not Detected U Marijuana (THC) Screen Not Detected Ethyl Alcohol Blood Type Antibody Screen Crossmatch 07/14/25 07/14/25 07/15/25 22:32 22:37 01:02 MCV 88.7 MCH 28.0 MCHC 31.5 RDW 13.6 Plt Count 131 L MPV 12.2 Absolute Nucleated RBC 0.000 Nucleated RBC % (auto) 0.0 PT 12.5 H INR 1.1 VBG pH 7.30 L VBG pCO2 60 VBG pO2 36 VBG HCO3 30 H VBG O2 Saturation 42.0 VBG Base Excess 3.4 Anion Gap 12 Estim Creat Clear Calc 78.6 Estimated GFR > 60 POC Glucose Random Glucose 364 H* Lactic Acid 3.3 H* Lactic Acid F/U @ 2Hr 2.3 H* Lactic Acid F/U @ 4Hr Calcium 7.6 L Phosphorus 2.9 Magnesium 1.8 Total Bilirubin 0.3 AST 14 ALT 22 Alkaline Phosphatase 62 Ammonia 15 Troponin I High Sens 23.4 D Total Protein 4.6 L Albumin 2.6 L Beta-Hydroxybutyrate Urine Opiates Screen Ur Buprenorphine Scrn Ur Oxycodone Screen Urine Methadone Screen Urine Fentanyl Screen Ur Barbiturates Screen Ur Phencyclidine Scrn Ur Amphetamines Screen U Benzodiazepines Scrn Urine Cocaine Screen U Marijuana (THC) Screen Ethyl Alcohol Blood Type Antibody Screen Crossmatch 07/15/25 03:20 MCV MCH MCHC RDW Plt Count MPV Absolute Nucleated RBC Nucleated RBC % (auto) PT INR VBG pH VBG pCO2 VBG pO2 VBG HCO3 VBG O2 Saturation VBG Base Excess Anion Gap Estim Creat Clear Calc Estimated GFR POC Glucose Random Glucose Lactic Acid Lactic Acid F/U @ 2Hr Lactic Acid F/U @ 4Hr 1.3 Calcium Phosphorus Magnesium Total Bilirubin AST ALT Alkaline Phosphatase Ammonia Troponin I High Sens Total Protein Albumin Beta-Hydroxybutyrate Urine Opiates Screen Ur Buprenorphine Scrn Ur Oxycodone Screen Urine Methadone Screen Urine Fentanyl Screen Ur Barbiturates Screen Ur Phencyclidine Scrn Ur Amphetamines Screen U Benzodiazepines Scrn Urine Cocaine Screen U Marijuana (THC) Screen Ethyl Alcohol Blood Type Antibody Screen Crossmatch Microbiology Microbiology Results: Microbiology 07/13/25 19:39 Blood Culture - Preliminary Blood - Venous No growth after 24 hours. 07/13/25 19:19 Blood Culture - Preliminary Blood - Venous No growth after 24 hours. Assessment and Plan (1) BRBPR (bright red blood per rectum): Status: Acute Plan Patient is a 60-year-old male with PMH notable for HTN, HLD, dm, HFrEF, YURIY, morbid obesity, chronic low back pain; presented to the hospital today with a chief complaint of bright red blood per rectum. Initially deemed diverticular bleed, however he sustained an unwitnessed fall and workup revealed severe hemorrhagic shock with hypotension and necessitating colonoscopy for further workup. Unwitnessed fall-likely secondary to hemorrhagic shock Patient sustained an unwitnessed traumatic fall to the face and was found by the staff overnight on 07/14/2025 Workup revealed hemoglobin 6.9 (not documented), hypotension with SBP in the 80s likely needing escalating to ICU. Fortunately patient responded to blood transfusion x2 (total 3 units this admission), with nearly half his hemoglobin on admission. Colonoscopy tomorrow NPO from midnight Hold anticoagulation Patient okay to have clear liquids no reds Hemorrhagic shock secondary to possible GI source Patient had a CTA, tagged red blood cells which thus far is unrevealing for any occult GI bleed. However he does have brisk bright red blood-likely UGI be and needs urgent endoscopy colonoscopy. Even accounting for the dilutional effect, patient received 3 units PRBC and 2 L LR this admission and his hemoglobin is now 9.4. Plan as above Recurrent syncope PTOT deemed the patient unsafe to discharge home SDR being recommended Given fall on 07/14/2025, we will check TTE, tomorrow and monitor on tele Fall precautions, aspiration precautions Patient likely had 1 episode of vasovagal syncope in the ED at the time of admission. EKG, troponin negative HFrEF GDM T HTN Follow-up outpatient Patient in prior echo had LVEF of 40% We will continue home Lasix given hemodynamic status reassuring Severe uncontrolled hyperglycemia (blood glucose greater than 600 on admission) secondary to DM type 2, medication noncompliance, poor dietary adherence We adjusting insulin hyperglycemia No DKA or HHS, be hydroxybutyrate negative Undiagnosed YURIY P.r.n. CPAP Might need home O2 eval prior to DC VTE prophylaxis - enoxaparin PTOT Rehab Given significant hemorrhagic shock, patient needs GI workup colonoscopy. Hence necessitating ongoing admission This note is constructed using voice recognition software. While every effort has been made to ensure accuracy, other sports coach or instructor errors may have been included. Total time managing care of this patient today: 40 minutes. Quality Stroke Does the patient have a stroke diagnosis?: No VTE Prior VTE?: No VTE Risk Level:: Medical - moderate - high VTE Device Contraindication: N/A - Device Ordered VTE Drug Contraindication: Treatment Not Indicated
[2025-07-15 07:37] LABS: Glucose, Whole Blood 287 mg/dL (60-115)
--- NOTE | 2025-07-15 07:57 | PC.NURSE ---
07/14/252119 Pt. bed exit alarm sounding and pt. noted to be swinging his legs to edge of bed; pt. states needs to sit at edge to void. Pt. requesting privacy and agreed not to stand up. Call koch within pt. reach. Pt. denied lightheadedness/dizziness. This procedure writer went back to check in on patient at 2129 and found pt. still sitting at edge of bed leaning on the right bed rail with feet touching floor. Pt. somnolent but opens eyes spontanously and able to verbally respond. Blood noted on floor and blood on his right nostril, not actively bleeding. Pt. stated his feet slid, he fell to his knees and then face hit the floor and he got himself back to bed. Dr. Sanchez notified and at bedside. Pt. denies pain or LOC. Pt. responds appropriately. POC 381. SBP 62/40 manual bp. Labs obtained. H/H decreased-see labs. Pt. received total of 2L of LR, pt. received 1 unit of RBC's, SBP stabilized and transported to CT w/ short story writer and reeturned to med/tele. Pt. received 2nd unit of blood and total of 2 bags of Albumin. SR high 90's and 2L NC.
[2025-07-15] MEDS: 0.9 % Sodium Chloride Flush 3 ML SYRINGE IVFLUSH ×3 (08:22→21:59)
[2025-07-15] MEDS: glipiZIDE XL 10 MG TAB.ER.24 PO (08:23)
[2025-07-15 08:30] LABS: MANUAL DIFF FLAG NO
[2025-07-15 08:45] LABS: Hematocrit 29.6 % (42.0-52.0); Hemoglobin 9.4 g/dl (14.0-18.0); Imm Gran Abs Auto 0.03 X10*3/uL (0.00-0.03); Imm Gran Pct Auto 0.3 % (0.0-0.4); Lymphocytes Absolute Auto 1.5 X10*3/uL (1.2-4.9); Mean Corpuscular HGB Conc 31.8 g/dl (31.0-36.0); Mean Corpuscular Hemoglobin 28.1 pg (27.0-33.0); Mean Corpuscular Volume 88.6 fL (80.0-98.0); NRBC Abs Auto 0.000 X10*3/uL (0.0-0.012); NRBC Pct Auto 0.0 /100WBC (0.0-0.2); Platelet Count 122 X10*3/uL (160-400); Red Blood Count 3.34 X10*6/uL (4.60-5.80); White Blood Count 8.6 X10*3/uL (4.8-10.8)
[2025-07-15 09:25] LABS: Alanine Aminotransferase 20 U/L (0-40); Albumin Level 3.3 g/dL (3.5-5.0); Alkaline Phosphatase 62 U/L (39-117); Anion Gap 9 (12-20); Aspartate Amino Transferase 13 U/L (5-37); Blood Urea Nitrogen 12 mg/dL (9-16); Calcium 8.0 mg/dL (8.4-10.2); Carbon Dioxide 31 mmol/L (22-29); Chloride 106 mmol/L (96-108); Creatinine Clr Calc Pharmacy 95.9; Estimated Glomerular Filt Rate > 60; Magnesium 1.8 mg/dL (1.6-2.6); Potassium 4.1 mmol/L (3.3-5.1); Sodium 142 mmol/L (135-145); Total Protein 5.1 g/dL (6.5-8.0)
[2025-07-15 10:47] LABS: Glucose, Whole Blood 168 mg/dL (60-115)
[2025-07-15 12:24] LABS: Troponin-I High Sensitivity 18.9 ng/L (<3.5-35.0)
[2025-07-15] MEDS: PEG 3350/Na Sulf,Bicarb,Cl/KCL 4,000 ML SOLN.RECON 4000 ML PO (15:25)
[2025-07-15 16:10] LABS: Glucose, Whole Blood 227 mg/dL (60-115)
--- NOTE | 2025-07-15 16:23 | PM.GIPN ---
Subjective Subjective Date of Service: 07/15/25 Interval History: fell last night no bleeding today Critical Care Time (minutes): 0 Physical Exam Vital Signs: Vital Signs: Last Vital Signs Temp 97.7 F 07/15/25 15:37 Pulse 95 07/15/25 15:47 Resp 18 07/15/25 15:37 BP 139/76 07/15/25 15:47 Pulse Ox 92 07/15/25 15:37 O2 Del Method Nasal Cannula 07/15/25 15:37 O2 Flow Rate 2 07/15/25 15:37 BMI result Body Mass Index 39.9 GI: Other: abdomen is soft and nontender Objective Data Labs 07/15/25 08:17 07/15/25 08:17 Labs: Laboratory Results - last 24 hr 07/13/25 07/14/25 07/14/25 18:39 20:15 20:46 WBC RBC Hgb Hct MCV MCH MCHC RDW Plt Count MPV Immature Gran % (Auto) Neut % (Auto) Lymph % (Auto) Esmeralda % (Auto) Eos % (Auto) Baso % (Auto) Lymph # (Auto) Esmeralda # (Auto) Eos # (Auto) Baso # (Auto) Abs Immat Gran (auto) Absolute Neuts (auto) Absolute Nucleated RBC Nucleated RBC % (auto) Hold Purple Top PT INR VBG pH VBG pCO2 VBG pO2 VBG HCO3 VBG O2 Saturation VBG Base Excess Sodium Potassium Chloride Carbon Dioxide Anion Gap BUN Creatinine Estim Creat Clear Calc Estimated GFR POC Glucose 377 H* Random Glucose Lactic Acid Lactic Acid F/U @ 2Hr Lactic Acid F/U @ 4Hr Calcium Phosphorus Magnesium Total Bilirubin AST ALT Alkaline Phosphatase Ammonia Troponin I High Sens Total Protein Albumin Urine Opiates Screen Not Detected Ur Buprenorphine Scrn Not Detected Ur Oxycodone Screen Not Detected Urine Methadone Screen Not Detected Urine Fentanyl Screen Not Detected Ur Barbiturates Screen Not Detected Ur Phencyclidine Scrn Not Detected Ur Amphetamines Screen Not Detected U Benzodiazepines Scrn Not Detected Urine Cocaine Screen Not Detected U Marijuana (THC) Screen Not Detected Blood Type A Negative Antibody Screen NEGATIVE Crossmatch See Detail 07/14/25 07/14/25 07/14/25 21:39 22:32 22:37 WBC 9.0 RBC 2.93 L D Hgb 8.2 L D Hct 26.0 L D MCV 88.7 MCH 28.0 MCHC 31.5 RDW 13.6 Plt Count 131 L MPV 12.2 Immature Gran % (Auto) Neut % (Auto) Lymph % (Auto) Esmeralda % (Auto) Eos % (Auto) Baso % (Auto) Lymph # (Auto) [place]meralda # (Auto) Eos # (Auto) Baso # (Auto) Abs Immat Gran (auto) Absolute Neuts (auto) Absolute Nucleated RBC 0.000 Nucleated RBC % (auto) 0.0 Hold Purple Top PT 12.5 H INR 1.1 VBG pH 7.30 L VBG pCO2 60 VBG pO2 36 VBG HCO3 30 H VBG O2 Saturation 42.0 VBG Base Excess 3.4 Sodium 138 Potassium 4.1 Chloride 106 Carbon Dioxide 24 Anion Gap 12 BUN 14 Creatinine 1.22 Estim Creat Clear Calc 78.6 Estimated GFR > 60 POC Glucose 381 H* Random Glucose 364 H* Lactic Acid 3.3 H* Lactic Acid F/U @ 2Hr Lactic Acid F/U @ 4Hr Calcium 7.6 L Phosphorus 2.9 Magnesium 1.8 Total Bilirubin 0.3 AST 14 ALT 22 Alkaline Phosphatase 62 Ammonia 15 Troponin I High Sens 23.4 D Total Protein 4.6 L Albumin 2.6 L Urine Opiates Screen Ur Buprenorphine Scrn Ur Oxycodone Screen Urine Methadone Screen Urine Fentanyl Screen Ur Barbiturates Screen Ur Phencyclidine Scrn Ur Amphetamines Screen U Benzodiazepines Scrn Urine Cocaine Screen U Marijuana (THC) Screen Blood Type Antibody Screen Crossmatch 07/15/25 07/15/25 07/15/25 01:02 03:20 07:24 WBC RBC Hgb Hct MCV MCH MCHC RDW Plt Count MPV Immature Gran % (Auto) Neut % (Auto) Lymph % (Auto) Esmeralda % (Auto) Eos % (Auto) Baso % (Auto) Lymph # (Auto) [place]mer[place]da # (Auto) Eos # (Auto) Baso # (Auto) Abs Immat Gran (auto) Absolute Neuts (auto) Absolute Nucleated RBC Nucleated RBC % (auto) Hold Purple Top PT INR VBG pH VBG pCO2 VBG pO2 VBG HCO3 VBG O2 Saturation VBG Base Excess Sodium Potassium Chloride Carbon Dioxide Anion Gap BUN Creatinine Estim Creat Clear Calc Estimated GFR POC Glucose 287 H Random Glucose Lactic Acid Lactic Acid F/U @ 2Hr 2.3 H* Lactic Acid F/U @ 4Hr 1.3 Calcium Phosphorus Magnesium Total Bilirubin AST ALT Alkaline Phosphatase Ammonia Troponin I High Sens Total Protein Albumin Urine Opiates Screen Ur Buprenorphine Scrn Ur Oxycodone Screen Urine Methadone Screen Urine Fentanyl Screen Ur Barbiturates Screen Ur Phencyclidine Scrn Ur Amphetamines Screen U Benzodiazepines Scrn Urine Cocaine Screen U Marijuana (THC) Screen Blood Type Antibody Screen Crossmatch 07/15/25 07/15/25 07/15/25 08:17 10:43 11:18 WBC 8.6 RBC 3.34 L Hgb 9.4 L Hct 29.6 L MCV 88.6 MCH 28.1 MCHC 31.8 RDW 13.7 Plt Count 122 L MPV 12.1 Immature Gran % (Auto) 0.3 Neut % (Auto) 70.8 Lymph % (Auto) 17.0 L Esmeralda % (Auto) 9.8 Eos % (Auto) 1.9 Baso % (Auto) 0.2 Lymph # (Auto) 1.5 Esmeralda # (Auto) 0.8 Eos # (Auto) 0.2 Baso # (Auto) 0.0 Abs Immat Gran (auto) 0.03 Absolute Neuts (auto) 6.1 Absolute Nucleated RBC 0.000 Nucleated RBC % (auto) 0.0 Hold Purple Top PT INR VBG pH VBG pCO2 VBG pO2 VBG HCO3 VBG O2 Saturation VBG Base Excess Sodium 142 Potassium 4.1 Chloride 106 Carbon Dioxide 31 H Anion Gap 9 L BUN 12 Creatinine 1.00 Estim Creat Clear Calc 95.9 Estimated GFR > 60 POC Glucose 168 H Random Glucose 254 H Lactic Acid Lactic Acid F/U @ 2Hr Lactic Acid F/U @ 4Hr Calcium 8.0 L Phosphorus Magnesium 1.8 Total Bilirubin 0.9 AST 13 ALT 20 Alkaline Phosphatase 62 Ammonia Troponin I High Sens 18.9 Total Protein 5.1 L Albumin 3.3 L Urine Opiates Screen Ur Buprenorphine Scrn Ur Oxycodone Screen Urine Methadone Screen Urine Fentanyl Screen Ur Barbiturates Screen Ur Phencyclidine Scrn Ur Amphetamines Screen U Benzodiazepines Scrn Urine Cocaine Screen U Marijuana (THC) Screen Blood Type Antibody Screen Crossmatch 07/15/25 07/15/25 11:45 16:00 WBC RBC Hgb Hct MCV MCH MCHC RDW Plt Count MPV Immature Gran % (Auto) Neut % (Auto) Lymph % (Auto) Esmeralda % (Auto) Eos % (Auto) Baso % (Auto) Lymph # (Auto) [place]meralda # (Auto) Eos # (Auto) Baso # (Auto) Abs Immat Gran (auto) Absolute Neuts (auto) Absolute Nucleated RBC Nucleated RBC % (auto) Hold Purple Top SEE NOTE PT INR VBG pH VBG pCO2 VBG pO2 VBG HCO3 VBG O2 Saturation VBG Base Excess Sodium Potassium Chloride Carbon Dioxide Anion Gap BUN Creatinine Estim Creat Clear Calc Estimated GFR POC Glucose 227 H Random Glucose Lactic Acid Lactic Acid F/U @ 2Hr Lactic Acid F/U @ 4Hr Calcium Phosphorus Magnesium Total Bilirubin AST ALT Alkaline Phosphatase Ammonia Troponin I High Sens Total Protein Albumin Urine Opiates Screen Ur Buprenorphine Scrn Ur Oxycodone Screen Urine Methadone Screen Urine Fentanyl Screen Ur Barbiturates Screen Ur Phencyclidine Scrn Ur Amphetamines Screen U Benzodiazepines Scrn Urine Cocaine Screen U Marijuana (THC) Screen Blood Type Antibody Screen Crossmatch Microbiology Microbiology Results: Microbiology 07/13/25 19:39 Blood - Venous Blood Culture - Preliminary No growth after 24 hours. 07/13/25 19:19 Blood - Venous Blood Culture - Preliminary No growth after 24 hours. Procedures Date of Service Date of Service: 07/15/25 Progress Note: A&P Assessment and plan (1) BRBPR (bright red blood per rectum): Status: Acute Assessment and Plan: repeat ct and nuclear scans negative picture is still c/w diverticular bleeding colonoscopy planned for tomorrow. he is aware of risks and benefits and agrees to proceed Time Spent With Patient Time: Total time managing care of this patient today ____ minutes. Quality Stroke Does the patient have a stroke diagnosis?: No VTE Prior VTE?: No VTE Risk Level:: Medical - moderate - high VTE Device Contraindication: N/A - Device Ordered VTE Drug Contraindication: Treatment Not Indicated
[2025-07-15 20:28] LABS: Glucose, Whole Blood 169 mg/dL (60-115)
--- NOTE | 2025-07-15 21:18 | PC.NURSE ---
Pt has scheduled Lantus and SS Lispro insulin at bedtime. Current POC is 169. MD Daniel Becker contacted, as pt is currently completely bowel prep for colonoscopy tomorrow morning with only clear liquids/bowel prep currently and pt will be NPO after midnight. Per MD Daniel Becker, hold both bedtime insulin medications
[2025-07-16] VITALS (20 sets, daily range): BP systolic 127–176; BP diastolic 68–89; PULSE 74–129; RESP 17–36; TEMP 36.5–37; O2SAT 91–97
[2025-07-16 07:06] LABS: MANUAL DIFF FLAG NO
[2025-07-16 07:11] LABS: Hematocrit 28.7 % (42.0-52.0); Hemoglobin 9.3 g/dl (14.0-18.0); Imm Gran Abs Auto 0.04 X10*3/uL (0.00-0.03); Imm Gran Pct Auto 0.5 % (0.0-0.4); Lymphocytes Absolute Auto 1.8 X10*3/uL (1.2-4.9); Mean Corpuscular HGB Conc 32.4 g/dl (31.0-36.0); Mean Corpuscular Hemoglobin 28.5 pg (27.0-33.0); Mean Corpuscular Volume 88.0 fL (80.0-98.0); NRBC Abs Auto 0.000 X10*3/uL (0.0-0.012); NRBC Pct Auto 0.0 /100WBC (0.0-0.2); Platelet Count 127 X10*3/uL (160-400); Red Blood Count 3.26 X10*6/uL (4.60-5.80); White Blood Count 7.9 X10*3/uL (4.8-10.8)
--- NOTE | 2025-07-16 07:18 | HO.PM.IMPN ---
Subjective Subjective Date of Service: 07/16/25 Interval History: Patient underwent colonoscopy today and was noted to have hawthorne diverticulosis, mild amount of oozing noted from the diverticulum at 50 cm status post hemostatic clip application Review of Systems Review of Systems: Yes all other systems are reviewed and are negative Physical Exam Exam: Exam: Care challenging as the patient not following directions per staff hence the fall Patient also likely had hemorrhagic shock likely leading to vasovagal syncope Insists on using bedside commode and ambulating even though he is on fall risk precautions, refusing care, unwitnessed fall on [id number] General: AOx3, does not appear to be in distress , morbid obesity Resp: CTA bilaterally CVS: S1, S2, RRR GI: +BS, NT, no distention Skin: Has a right nasal bruise post fall Neuro: Motor grossly intact bilaterally Extremities: No edema Psych: Flat affect Vital Signs: Vital Signs: Last Vital Signs Temp 98.1 F 07/16/25 02:09 Pulse 94 07/16/25 02:09 Resp 17 07/16/25 02:09 BP 136/81 07/16/25 02:09 Pulse Ox 94 07/16/25 02:09 O2 Del Method Nasal Cannula 07/16/25 02:09 O2 Flow Rate 2 07/16/25 02:09 BMI result Body Mass Index 39.9 GI: Other: abdomen is soft and nontender Objective Data Active Medications Acetaminophen (Acetaminophen 325 Mg Tablet) 650 mg PO Q6H PRN PRN Reason: Pain, Mild 1-3,fever,headache Calcium Carbonate (Calcium Carbonate 750 Mg Tab.Chew) 750 mg PO Q4H PRN PRN Reason: Heartburn Dextrose (Dextrose 50 % 25 Gm/50 Ml Syringe) 25 gm IVPUSH Q15M PRN; Protocol PRN Reason: per Hypoglycemia Standing Ord. Empagliflozin (Empagliflozin 25 Mg Tablet) 25 mg PO DAILY [facility] Last Admin: 07/16/25 06:23 Dose: Not Given Documented By: EYAL Non-Admin Reason: Physician Held Med Glipizide (Glipizide Xl 10 Mg Tab.Er.24) 10 mg PO DAILY [facility] Last Admin: 07/15/25 08:23 Dose: 10 mg Documented By: WU Glucose (Glucose Gel 15 Gm Gel..Gram.) 15 gm PO Q15M PRN; Protocol PRN Reason: per Hypoglycemia Standing Ord. Insulin Glargine (Insulin Glargine,Hum.Rec.Anlog 100 Unit/Ml 10 Ml Vial) 15 unit SUBCUT BEDTIME [facility] Last Admin: 07/15/25 21:18 Dose: Not Given Documented By: MISSY Non-Admin Reason: Physician Held Med Insulin Human Lispro (Insulin Lispro 100 Unit/Ml 3 Ml Vial) 0 unit SUBCUT QIDACHS [facility]; Protocol Last Admin: 07/15/25 21:18 Dose: Not Given Documented By: MISSY Non-Admin Reason: Physician Held Med Magnesium Hydroxide (Milk Of Magnesia 30 Ml Oral.Susp) 30 ml PO DAILY PRN PRN Reason: Constipation Melatonin (Melatonin 3 Mg Tablet) 6 mg PO BEDTIME PRN PRN Reason: Insomnia Pantoprazole Sodium (Pantoprazole Sodium 40 Mg/10 Ml Vial) 40 mg IVPUSH DAILY@0630 [facility] Last Admin: 07/16/25 06:03 Dose: 40 mg Documented By: MISSY Sodium Chloride (0.9 % Sodium Chloride Flush 3 Ml Syringe) 3 ml IVFLUSH QSHIFT [facility] Last Admin: 07/15/25 21:59 Dose: 3 ml Documented By: MISSY Labs 07/16/25 06:31 07/16/25 06:31 Labs: Laboratory Results - last 24 hr 07/13/25 07/15/25 07/15/25 18:39 07:24 08:17 MCV 88.6 MCH 28.1 MCHC 31.8 RDW 13.7 Plt Count 122 L MPV 12.1 Immature Gran % (Auto) 0.3 Neut % (Auto) 70.8 Lymph % (Auto) 17.0 L [place] % (Auto) 9.8 Eos % (Auto) 1.9 Baso % (Auto) 0.2 Lymph # (Auto) 1.5 [place] # (Auto) 0.8 Eos # (Auto) 0.2 Baso # (Auto) 0.0 Abs Immat Gran (auto) 0.03 Absolute Neuts (auto) 6.1 Absolute Nucleated RBC 0.000 Nucleated RBC % (auto) 0.0 Hold Purple Top Anion Gap 9 L Estim Creat Clear Calc 95.9 Estimated GFR > 60 POC Glucose 287 H Random Glucose 254 H Calcium 8.0 L Magnesium 1.8 Total Bilirubin 0.9 AST 13 ALT 20 Alkaline Phosphatase 62 Troponin I High Sens Total Protein 5.1 L Albumin 3.3 L Crossmatch See Detail 07/15/25 07/15/25 07/15/25 10:43 11:18 11:45 MCV MCH MCHC RDW Plt Count MPV Immature Gran % (Auto) Neut % (Auto) Lymph % (Auto) [place] % (Auto) Eos % (Auto) Baso % (Auto) Lymph # (Auto) [place] # (Auto) Eos # (Auto) Baso # (Auto) Abs Immat Gran (auto) Absolute Neuts (auto) Absolute Nucleated RBC Nucleated RBC % (auto) Hold Purple Top SEE NOTE Anion Gap Estim Creat Clear Calc Estimated GFR POC Glucose 168 H Random Glucose Calcium Magnesium Total Bilirubin AST ALT Alkaline Phosphatase Troponin I High Sens 18.9 Total Protein Albumin Crossmatch 07/15/25 07/15/25 07/16/25 16:00 20:24 06:31 MCV 88.0 MCH 28.5 MCHC 32.4 RDW 13.8 Plt Count 127 L MPV 12.3 Immature Gran % (Auto) 0.5 H Neut % (Auto) 61.9 Lymph % (Auto) 22.2 [place] % (Auto) 9.6 Eos % (Auto) 5.3 H Baso % (Auto) 0.5 Lymph # (Auto) 1.8 [place] # (Auto) 0.8 Eos # (Auto) 0.4 Baso # (Auto) 0.0 Abs Immat Gran (auto) 0.04 H Absolute Neuts (auto) 4.9 Absolute Nucleated RBC 0.000 Nucleated RBC % (auto) 0.0 Hold Purple Top Anion Gap Estim Creat Clear Calc Estimated GFR POC Glucose 227 H 169 H Random Glucose Calcium Magnesium Total Bilirubin AST ALT Alkaline Phosphatase Troponin I High Sens Total Protein Albumin Crossmatch Microbiology Microbiology Results: Microbiology 07/14/25 22:32 Blood Culture - Preliminary Blood - Venous No growth after 24 hours. 07/14/25 22:32 Blood Culture - Preliminary Blood - Venous No growth after 24 hours. 07/13/25 19:39 Blood Culture - Preliminary Blood - Venous No growth after 48 hours. 07/13/25 19:19 Blood Culture - Preliminary Blood - Venous No growth after 48 hours. Assessment and Plan (1) BRBPR (bright red blood per rectum): Status: Acute Plan Patient is a 60-year-old male with PMH notable for HTN, HLD, dm, HFrEF, YURIY, morbid obesity, chronic low back pain; presented to the hospital today with a chief complaint of bright red blood per rectum. Initially deemed diverticular bleed, however he sustained an unwitnessed fall and workup revealed severe hemorrhagic shock with hypotension and necessitating colonoscopy for further workup. Unwitnessed unwitnessed traumatic fall to the face and was found by the staff overnight on 07/14/2025 fall-likely secondary to hemorrhagic shock likely secondary to diverticular bleed, status post hemo spray on 07/16/2025 by GI Patient presented to the hospital with 1 episode of bright red blood per rectum but overnight on 07/14/2025, he had an unwitnessed traumatic fall resulting in a hemorrhagic shock (without any objective evidence on imaging) and good response to 2 units PRBC and GI was reconsulted and he underwent colonoscopy today, and was noted to have diverticular bleed, status post hemo spray with temporization. Recurrent syncope PTOT deemed the patient unsafe to discharge home SDR being recommended Given fall on 07/14/2025, we will check TTE-official read pending, tomorrow and monitor on tele Fall precautions, aspiration precautions Patient likely had 1 episode of vasovagal syncope in the ED at the time of admission. EKG, troponin negative HFrEF GDM T HTN Follow-up outpatient Patient in prior echo had LVEF of 40% We will hold home Lasix given hemodynamic status reassuring Severe uncontrolled hyperglycemia (blood glucose greater than 600 on admission) secondary to DM type 2, medication noncompliance, poor dietary adherence We adjusting insulin hyperglycemia No DKA or HHS, be hydroxybutyrate negative Undiagnosed YURIY P.r.n. CPAP Might need home O2 eval prior to DC VTE prophylaxis - enoxaparin PTOT Rehab Given significant hemorrhagic shock, patient needs GI workup colonoscopy. Hence necessitating ongoing admission 1-2 days as we need to ensure hemodynamic stability prior to discharging. This note is constructed using voice recognition software. While every effort has been made to ensure accuracy, wound care specialist errors may have been included. Total time managing care of this patient today: 40 minutes. Quality Stroke Does the patient have a stroke diagnosis?: No VTE Prior VTE?: No VTE Risk Level:: Medical - moderate - high VTE Device Contraindication: N/A - Device Ordered VTE Drug Contraindication: Treatment Not Indicated
[2025-07-16 07:26] LABS: Alanine Aminotransferase 20 U/L (0-40); Albumin Level 3.4 g/dL (3.5-5.0); Alkaline Phosphatase 73 U/L (39-117); Anion Gap 11 (12-20); Aspartate Amino Transferase 16 U/L (5-37); Blood Urea Nitrogen 11 mg/dL (9-16); Calcium 8.3 mg/dL (8.4-10.2); Carbon Dioxide 32 mmol/L (22-29); Chloride 106 mmol/L (96-108); Creatinine Clr Calc Pharmacy 98.9; Estimated Glomerular Filt Rate > 60; Magnesium 1.9 mg/dL (1.6-2.6); Potassium 3.7 mmol/L (3.3-5.1); Sodium 145 mmol/L (135-145); Total Protein 5.4 g/dL (6.5-8.0)
[2025-07-16 08:26] LABS: Glucose, Whole Blood 82 mg/dL (60-115)
[2025-07-16] MEDS: 0.9 % Sodium Chloride Flush 3 ML SYRINGE IVFLUSH ×2 (08:39→20:32)
--- NOTE | 2025-07-16 08:47 | HO.ANESPROP2 ---
Documented by User: Philomena Richards NP 07/16/25 09:12 HPI - Anesthesia Eval Consult details Narrative: 60 yr old male for colonoscopy 07/16/25: On exam pt is sleeping with O2 mask, 3 liters, 8 am sat 91%, belly breathing Hgb stable 9 07/15 & 07/16 CHF: chronic combined systolic/diastolic HF, most recent echo 10/2024 with EF 40% by biplane; saw [facility] cards 11/2024, nuclear stress test was ordered but not done. Uncontrolled Type 2 DM: A1C 9.0% *Referred for pulmonary testing by his PCP but pt did not respond to booking calls per workloads Anesthesia Pre-Procedure Meds Is the patient on any of the following meds?: SGLT2 Inhib PMFSH Active Problems Active Problems: All Active Problems BRBPR (bright red blood per rectum) (Acute) Sepsis (Acute) Mesenteric panniculitis (Acute) Proteinuria (Acute) Low O2 saturation (Acute) Venous insufficiency (Acute) Dermatitis (Acute) Chronic combined systolic and diastolic CHF (congestive heart failure) (Acute) Decompensated heart failure (Acute) Gasping for breath (Acute) Chronic lower back pain (Acute) Excessive daytime sleepiness (Acute) Acromioclavicular (joint) (ligament) sprain (Acute) Screening for prostate cancer (Acute) Morbid obesity (Acute) Acute respiratory failure with hypoxia (Acute) YURIY (obstructive sleep apnea) (Acute) Acute heart failure with reduced ejection fraction (HFrEF, <= 40%) (Acute) Acute heart failure with mildly reduced ejection fraction (HFmrEF, 41-49%) (Acute) Uncontrolled diabetes mellitus with hyperglycemia (Acute) Dyspnea on exertion (Acute) Hyperglycemia (Acute) Morbid obesity with BMI of 40.0-44.9, adult (Acute) Screening for colon cancer (Acute) Bilateral lower extremity edema (Acute) Obesity (BMI 30-39.9) (Acute) Newly diagnosed type 1 diabetes mellitus (Acute) Hypertension (Acute) Uncontrolled hypertension (Acute) Annual physical exam (Acute) DM (diabetes mellitus) type II uncontrolled with eye manifestation (Acute) Past Medical History Medical History Encounter to establish care Hypertension Newly diagnosed type 1 diabetes mellitus Right foot pain Family History Family History Unknown No problems noted. Surgical History Surgical History No pertinent past surgical history Social History Social History Household Members: Other Household Members Other:: roommate Housing: Other Housing Other:: 2 family house. Do you presently have visiting nurse or other home services: No Alcohol intake: current Alcohol intake frequency: holidays/special occasions only Comment: refusing fall prec Patient Tobacco Use Status: Never used Tobacco Smoked in Last 30 Days: No e-Cigarette/Vaping Use: Never Used Second Hand Smoke Exposure: No Use of substances other than those prescribed or required for medical reasons: No Currently Displaying Signs/Symptoms of Drug Intoxication Withdrawal: No Have you been hit, kicked, punched, or otherwise hurt by someone within the past year? If so, by whom?: No Do you feel safe in your current relationship?: No Current Relationship Is there a partner from a previous relationship who is making you feel unsafe now?: No Are you made to feel afraid or neglected: No Advance Directives: Yes Advance Directives on File: Yes Advance Directives Date on File: 11/04/24 Do you have a plan to hurt others: No Plan Recently lost weight without trying: No How much weight loss: Not applicable Eating poorly because of decreased appetite: No Nutrition screen score: 0 Nutrition Risks: No Nutritional Risk Poor oral hygiene: No service: No Current occupational status: employed Cognitive needs: No Hearing needs: No Vision needs: No Meds Allergies Allergy/AdvReac Type Severity Reaction Status Date / Time No Known Allergies Allergy Verified 07/16/25 11:13 Active Medications: Current Medications Acetaminophen (Acetaminophen 325 Mg Tablet) 650 mg PO Q6H PRN PRN Reason: Pain, Mild 1-3,fever,headache Calcium Carbonate (Calcium Carbonate 750 Mg Tab.Chew) 750 mg PO Q4H PRN PRN Reason: Heartburn Dextrose (Dextrose 50 % 25 Gm/50 Ml Syringe) 25 gm IVPUSH Q15M PRN; Protocol PRN Reason: per Hypoglycemia Standing Ord. Empagliflozin (Empagliflozin 25 Mg Tablet) 25 mg PO DAILY [facility] Last Admin: 07/16/25 06:23 Dose: Not Given Glipizide (Glipizide Xl 10 Mg Tab.Er.24) 10 mg PO DAILY [facility] Last Admin: 07/16/25 08:09 Dose: Not Given Glucose (Glucose Gel 15 Gm Gel..Gram.) 15 gm PO Q15M PRN; Protocol PRN Reason: per Hypoglycemia Standing Ord. Insulin Glargine (Insulin Glargine,Hum.Rec.Anlog 100 Unit/Ml 10 Ml Vial) 15 unit SUBCUT BEDTIME [facility] Last Admin: 07/15/25 21:18 Dose: Not Given Insulin Human Lispro (Insulin Lispro 100 Unit/Ml 3 Ml Vial) 0 unit SUBCUT QIDACHS [facility]; Protocol Last Admin: 07/16/25 08:09 Dose: Not Given Magnesium Hydroxide (Milk Of Magnesia 30 Ml Oral.Susp) 30 ml PO DAILY PRN PRN Reason: Constipation Melatonin (Melatonin 3 Mg Tablet) 6 mg PO BEDTIME PRN PRN Reason: Insomnia Pantoprazole Sodium (Pantoprazole Sodium 40 Mg/10 Ml Vial) 40 mg IVPUSH DAILY@0630 [facility] Last Admin: 07/16/25 06:03 Dose: 40 mg Sodium Biphosphate/Sodium Phosphate (Sodium Phosphate,Simpson-Dibasic 133 Ml Enema) 133 ml NC ONCE PRN PRN Reason: Poor Colonoscopy Prep Results Sodium Chloride (0.9 % Sodium Chloride Flush 3 Ml Syringe) 3 ml IVFLUSH QSHIFT [facility] Last Admin: 07/16/25 08:39 Dose: 3 ml Home Medications ?Medication ?Instructions ?Recorded ?Confirmed ?Last Taken ?Type metformin 500 mg tablet,extended 500 mg PO BID 07/14/25 07/14/25 Unknown History release 24 hr Exam Height,Weight and Vital Signs: Height 5 ft 8 in Weight 118.9 kg Last Vital Signs Temp 98.1 F 07/16/25 02:09 Pulse 94 07/16/25 02:09 Resp 17 07/16/25 02:09 BP 136/81 07/16/25 02:09 Pulse Ox 94 07/16/25 02:09 O2 Del Method Nasal Cannula 07/16/25 02:09 O2 Flow Rate 2 07/16/25 02:09 Pertinent Lab Results Pertinent Lab Results: Laboratory Tests 07/13/25 07/13/25 07/13/25 18:39 18:55 19:19 WBC 10.6 12.6 H RBC 4.92 4.69 Hgb 13.6 L 13.1 L Hct 42.1 40.6 L MCV 85.6 86.6 MCH 27.6 27.9 MCHC 32.3 32.3 RDW 13.0 13.1 Plt Count 204 D 186 MPV 12.5 H 12.7 H Immature Gran % (Auto) 0.3 0.2 Neut % (Auto) 69.7 67.1 Lymph % (Auto) 18.9 L 20.0 Simpson % (Auto) 8.0 9.9 Eos % (Auto) 2.5 2.2 Baso % (Auto) 0.6 0.6 Lymph # (Auto) 2.0 2.5 Simpson # (Auto) 0.9 1.3 H Eos # (Auto) 0.3 0.3 Baso # (Auto) 0.1 0.1 Abs Immat Gran (auto) 0.03 0.02 Absolute Neuts (auto) 7.4 8.4 H Absolute Nucleated RBC 0.000 0.000 Nucleated RBC % (auto) 0.0 0.0 Hold Purple Top PT 11.5 INR 1.0 VBG pH VBG pCO2 VBG pO2 VBG HCO3 VBG O2 Saturation VBG Base Excess Sodium 138 Potassium 3.7 Chloride 103 Carbon Dioxide 21 L Anion Gap 18 BUN 19 H Creatinine 1.31 Estim Creat Clear Calc 72.7 Estimated GFR 55 POC Glucose 439 H* Random Glucose 504 H* Lactic Acid 3.2 H* Lactic Acid F/U @ 2Hr Lactic Acid F/U @ 4Hr Calcium 8.5 D Phosphorus Magnesium 1.8 Total Bilirubin 0.4 AST 24 ALT 40 Alkaline Phosphatase 98 Ammonia Troponin I High Sens NT-Pro-B Natriuret Pep 831.6 H Total Protein 6.3 L Albumin 3.6 Beta-Hydroxybutyrate 0.45 H Urine Opiates Screen Ur Buprenorphine Scrn Ur Oxycodone Screen Urine Methadone Screen Urine Fentanyl Screen Ur Barbiturates Screen Ur Phencyclidine Scrn Ur Amphetamines Screen U Benzodiazepines Scrn Urine Cocaine Screen U Marijuana (THC) Screen Ethyl Alcohol Blood Type A Negative Antibody Screen NEGATIVE Crossmatch See Detail 07/13/25 07/13/25 07/14/25 19:28 23:02 00:44 WBC 10.4 RBC 4.43 L Hgb 12.3 L Hct 39.0 L MCV 88.0 MCH 27.8 MCHC 31.5 RDW 13.5 Plt Count 156 L MPV 12.6 H Immature Gran % (Auto) 0.5 H Neut % (Auto) 84.9 H Lymph % (Auto) 9.2 L Simpson % (Auto) 5.1 Eos % (Auto) 0.1 Baso % (Auto) 0.2 Lymph # (Auto) 1.0 L Simpson # (Auto) 0.5 Eos # (Auto) 0.0 Baso # (Auto) 0.0 Abs Immat Gran (auto) 0.05 H Absolute Neuts (auto) 8.9 H Absolute Nucleated RBC 0.000 Nucleated RBC % (auto) 0.0 Hold Purple Top PT INR VBG pH 7.35 VBG pCO2 46 VBG pO2 179 VBG HCO3 26 VBG O2 Saturation 100.0 VBG Base Excess 0.1 Sodium Potassium Chloride Carbon Dioxide Anion Gap BUN Creatinine Estim Creat Clear Calc Estimated GFR POC Glucose Random Glucose Lactic Acid Lactic Acid F/U @ 2Hr 2.0 Lactic Acid F/U @ 4Hr Calcium Phosphorus Magnesium Total Bilirubin AST ALT Alkaline Phosphatase Ammonia Troponin I High Sens NT-Pro-B Natriuret Pep Total Protein Albumin Beta-Hydroxybutyrate Urine Opiates Screen Ur Buprenorphine Scrn Ur Oxycodone Screen Urine Methadone Screen Urine Fentanyl Screen Ur Barbiturates Screen Ur Phencyclidine Scrn Ur Amphetamines Screen U Benzodiazepines Scrn Urine Cocaine Screen U Marijuana (THC) Screen Ethyl Alcohol Blood Type Antibody Screen Crossmatch 07/14/25 07/14/25 07/14/25 04:05 06:10 07:08 WBC 9.3 RBC 3.85 L Hgb 10.7 L Hct 33.9 L MCV 88.1 MCH 27.8 MCHC 31.6 RDW 13.6 Plt Count 161 MPV 12.7 H Immature Gran % (Auto) 0.2 Neut % (Auto) 75.5 H Lymph % (Auto) 14.7 L Simpson % (Auto) 8.9 Eos % (Auto) 0.3 Baso % (Auto) 0.4 Lymph # (Auto) 1.4 Simpson # (Auto) 0.8 Eos # (Auto) 0.0 Baso # (Auto) 0.0 Abs Immat Gran (auto) 0.02 Absolute Neuts (auto) 7.0 Absolute Nucleated RBC 0.000 Nucleated RBC % (auto) 0.0 Hold Purple Top PT INR VBG pH VBG pCO2 VBG pO2 VBG HCO3 VBG O2 Saturation VBG Base Excess Sodium 140 Potassium 4.8 D Chloride 107 Carbon Dioxide 25 Anion Gap 13 BUN 20 H Creatinine 1.34 Estim Creat Clear Calc 71.6 Estimated GFR 54 POC Glucose 424 H* > 600 H* Random Glucose 435 H* Lactic Acid Lactic Acid F/U @ 2Hr Lactic Acid F/U @ 4Hr Calcium 7.9 L D Phosphorus Magnesium Total Bilirubin 0.4 AST 16 ALT 29 Alkaline Phosphatase 74 Ammonia Troponin I High Sens NT-Pro-B Natriuret Pep Total Protein 5.0 L Albumin 3.0 L Beta-Hydroxybutyrate Urine Opiates Screen Ur Buprenorphine Scrn Ur Oxycodone Screen Urine Methadone Screen Urine Fentanyl Screen Ur Barbiturates Screen Ur Phencyclidine Scrn Ur Amphetamines Screen U Benzodiazepines Scrn Urine Cocaine Screen U Marijuana (THC) Screen Ethyl Alcohol Blood Type Antibody Screen Crossmatch 07/14/25 07/14/25 07/14/25 07:48 07:54 11:19 WBC RBC Hgb Hct MCV MCH MCHC RDW Plt Count MPV Immature Gran % (Auto) Neut % (Auto) Lymph % (Auto) Simpson % (Auto) Eos % (Auto) Baso % (Auto) Lymph # (Auto) Simpson # (Auto) Eos # (Auto) Baso # (Auto) Abs Immat Gran (auto) Absolute Neuts (auto) Absolute Nucleated RBC Nucleated RBC % (auto) Hold Purple Top PT INR VBG pH 7.27 L VBG pCO2 68 VBG pO2 37 VBG HCO3 32 H VBG O2 Saturation 44.0 VBG Base Excess 3.6 Sodium Potassium Chloride Carbon Dioxide Anion Gap BUN Creatinine Estim Creat Clear Calc Estimated GFR POC Glucose 346 H Random Glucose Lactic Acid Lactic Acid F/U @ 2Hr Lactic Acid F/U @ 4Hr Calcium Phosphorus Magnesium Total Bilirubin AST ALT Alkaline Phosphatase Ammonia Troponin I High Sens NT-Pro-B Natriuret Pep Total Protein Albumin Beta-Hydroxybutyrate 0.20 Urine Opiates Screen Ur Buprenorphine Scrn Ur Oxycodone Screen Urine Methadone Screen Urine Fentanyl Screen Ur Barbiturates Screen Ur Phencyclidine Scrn Ur Amphetamines Screen U Benzodiazepines Scrn Urine Cocaine Screen U Marijuana (THC) Screen Ethyl Alcohol Blood Type Antibody Screen Crossmatch 07/14/25 07/14/25 07/14/25 12:01 15:34 20:15 WBC RBC Hgb Hct MCV MCH MCHC RDW Plt Count MPV Immature Gran % (Auto) Neut % (Auto) Lymph % (Auto) Simpson % (Auto) Eos % (Auto) Baso % (Auto) Lymph # (Auto) Simpson # (Auto) Eos # (Auto) Baso # (Auto) Abs Immat Gran (auto) Absolute Neuts (auto) Absolute Nucleated RBC Nucleated RBC % (auto) Hold Purple Top PT INR VBG pH VBG pCO2 VBG pO2 VBG HCO3 VBG O2 Saturation VBG Base Excess Sodium Potassium Chloride Carbon Dioxide Anion Gap BUN Creatinine Estim Creat Clear Calc Estimated GFR POC Glucose 341 H Random Glucose Lactic Acid Lactic Acid F/U @ 2Hr Lactic Acid F/U @ 4Hr Calcium Phosphorus Magnesium Total Bilirubin AST ALT Alkaline Phosphatase Ammonia Troponin I High Sens NT-Pro-B Natriuret Pep Total Protein Albumin Beta-Hydroxybutyrate Urine Opiates Screen Not Detected Ur Buprenorphine Scrn Not Detected Ur Oxycodone Screen Not Detected Urine Methadone Screen Not Detected Urine Fentanyl Screen Not Detected Ur Barbiturates Screen Not Detected Ur Phencyclidine Scrn Not Detected Ur Amphetamines Screen Not Detected U Benzodiazepines Scrn Not Detected Urine Cocaine Screen Not Detected U Marijuana (THC) Screen Not Detected Ethyl Alcohol < 10 Blood Type Antibody Screen Crossmatch 07/14/25 07/14/25 07/14/25 20:46 21:39 22:32 WBC 9.0 RBC 2.93 L D Hgb 8.2 L D Hct 26.0 L D MCV 88.7 MCH 28.0 MCHC 31.5 RDW 13.6 Plt Count 131 L MPV 12.2 Immature Gran % (Auto) Neut % (Auto) Lymph % (Auto) Simpson % (Auto) Eos % (Auto) Baso % (Auto) Lymph # (Auto) Simpson # (Auto) Eos # (Auto) Baso # (Auto) Abs Immat Gran (auto) Absolute Neuts (auto) Absolute Nucleated RBC 0.000 Nucleated RBC % (auto) 0.0 Hold Purple Top PT 12.5 H INR 1.1 VBG pH VBG pCO2 VBG pO2 VBG HCO3 VBG O2 Saturation VBG Base Excess Sodium 138 Potassium 4.1 Chloride 106 Carbon Dioxide 24 Anion Gap 12 BUN 14 Creatinine 1.22 Estim Creat Clear Calc 78.6 Estimated GFR > 60 POC Glucose 377 H* 381 H* Random Glucose 364 H* Lactic Acid 3.3 H* Lactic Acid F/U @ 2Hr Lactic Acid F/U @ 4Hr Calcium 7.6 L Phosphorus 2.9 Magnesium 1.8 Total Bilirubin 0.3 AST 14 ALT 22 Alkaline Phosphatase 62 Ammonia 15 Troponin I High Sens 23.4 D NT-Pro-B Natriuret Pep Total Protein 4.6 L Albumin 2.6 L Beta-Hydroxybutyrate Urine Opiates Screen Ur Buprenorphine Scrn Ur Oxycodone Screen Urine Methadone Screen Urine Fentanyl Screen Ur Barbiturates Screen Ur Phencyclidine Scrn Ur Amphetamines Screen U Benzodiazepines Scrn Urine Cocaine Screen U Marijuana (THC) Screen Ethyl Alcohol Blood Type Antibody Screen Crossmatch 07/14/25 07/15/25 07/15/25 22:37 01:02 03:20 WBC RBC Hgb Hct MCV MCH MCHC RDW Plt Count MPV Immature Gran % (Auto) Neut % (Auto) Lymph % (Auto) Simpson % (Auto) Eos % (Auto) Baso % (Auto) Lymph # (Auto) Simpson # (Auto) Eos # (Auto) Baso # (Auto) Abs Immat Gran (auto) Absolute Neuts (auto) Absolute Nucleated RBC Nucleated RBC % (auto) Hold Purple Top PT INR VBG pH 7.30 L VBG pCO2 60 VBG pO2 36 VBG HCO3 30 H VBG O2 Saturation 42.0 VBG Base Excess 3.4 Sodium Potassium Chloride Carbon Dioxide Anion Gap BUN Creatinine Estim Creat Clear Calc Estimated GFR POC Glucose Random Glucose Lactic Acid Lactic Acid F/U @ 2Hr 2.3 H* Lactic Acid F/U @ 4Hr 1.3 Calcium Phosphorus Magnesium Total Bilirubin AST ALT Alkaline Phosphatase Ammonia Troponin I High Sens NT-Pro-B Natriuret Pep Total Protein Albumin Beta-Hydroxybutyrate Urine Opiates Screen Ur Buprenorphine Scrn Ur Oxycodone Screen Urine Methadone Screen Urine Fentanyl Screen Ur Barbiturates Screen Ur Phencyclidine Scrn Ur Amphetamines Screen U Benzodiazepines Scrn Urine Cocaine Screen U Marijuana (THC) Screen Ethyl Alcohol Blood Type Antibody Screen Crossmatch 07/15/25 07/15/25 07/15/25 07:24 08:17 10:43 WBC 8.6 RBC 3.34 L Hgb 9.4 L Hct 29.6 L MCV 88.6 MCH 28.1 MCHC 31.8 RDW 13.7 Plt Count 122 L MPV 12.1 Immature Gran % (Auto) 0.3 Neut % (Auto) 70.8 Lymph % (Auto) 17.0 L Simpson % (Auto) 9.8 Eos % (Auto) 1.9 Baso % (Auto) 0.2 Lymph # (Auto) 1.5 Simpson # (Auto) 0.8 Eos # (Auto) 0.2 Baso # (Auto) 0.0 Abs Immat Gran (auto) 0.03 Absolute Neuts (auto) 6.1 Absolute Nucleated RBC 0.000 Nucleated RBC % (auto) 0.0 Hold Purple Top PT INR VBG pH VBG pCO2 VBG pO2 VBG HCO3 VBG O2 Saturation VBG Base Excess Sodium 142 Potassium 4.1 Chloride 106 Carbon Dioxide 31 H Anion Gap 9 L BUN 12 Creatinine 1.00 Estim Creat Clear Calc 95.9 Estimated GFR > 60 POC Glucose 287 H 168 H Random Glucose 254 H Lactic Acid Lactic Acid F/U @ 2Hr Lactic Acid F/U @ 4Hr Calcium 8.0 L Phosphorus Magnesium 1.8 Total Bilirubin 0.9 AST 13 ALT 20 Alkaline Phosphatase 62 Ammonia Troponin I High Sens NT-Pro-B Natriuret Pep Total Protein 5.1 L Albumin 3.3 L Beta-Hydroxybutyrate Urine Opiates Screen Ur Buprenorphine Scrn Ur Oxycodone Screen Urine Methadone Screen Urine Fentanyl Screen Ur Barbiturates Screen Ur Phencyclidine Scrn Ur Amphetamines Screen U Benzodiazepines Scrn Urine Cocaine Screen U Marijuana (THC) Screen Ethyl Alcohol Blood Type Antibody Screen Crossmatch 07/15/25 07/15/25 07/15/25 11:18 11:45 16:00 WBC RBC Hgb Hct MCV MCH MCHC RDW Plt Count MPV Immature Gran % (Auto) Neut % (Auto) Lymph % (Auto) Simpson % (Auto) Eos % (Auto) Baso % (Auto) Lymph # (Auto) Simpson # (Auto) Eos # (Auto) Baso # (Auto) Abs Immat Gran (auto) Absolute Neuts (auto) Absolute Nucleated RBC Nucleated RBC % (auto) Hold Purple Top SEE NOTE PT INR VBG pH VBG pCO2 VBG pO2 VBG HCO3 VBG O2 Saturation VBG Base Excess Sodium Potassium Chloride Carbon Dioxide Anion Gap BUN Creatinine Estim Creat Clear Calc Estimated GFR POC Glucose 227 H Random Glucose Lactic Acid Lactic Acid F/U @ 2Hr Lactic Acid F/U @ 4Hr Calcium Phosphorus Magnesium Total Bilirubin AST ALT Alkaline Phosphatase Ammonia Troponin I High Sens 18.9 NT-Pro-B Natriuret Pep Total Protein Albumin Beta-Hydroxybutyrate Urine Opiates Screen Ur Buprenorphine Scrn Ur Oxycodone Screen Urine Methadone Screen Urine Fentanyl Screen Ur Barbiturates Screen Ur Phencyclidine Scrn Ur Amphetamines Screen U Benzodiazepines Scrn Urine Cocaine Screen U Marijuana (THC) Screen Ethyl Alcohol Blood Type Antibody Screen Crossmatch 07/15/25 07/16/25 07/16/25 20:24 06:31 08:21 WBC 7.9 RBC 3.26 L Hgb 9.3 L Hct 28.7 L MCV 88.0 MCH 28.5 MCHC 32.4 RDW 13.8 Plt Count 127 L MPV 12.3 Immature Gran % (Auto) 0.5 H Neut % (Auto) 61.9 Lymph % (Auto) 22.2 Simpson % (Auto) 9.6 Eos % (Auto) 5.3 H Baso % (Auto) 0.5 Lymph # (Auto) 1.8 Simpson # (Auto) 0.8 Eos # (Auto) 0.4 Baso # (Auto) 0.0 Abs Immat Gran (auto) 0.04 H Absolute Neuts (auto) 4.9 Absolute Nucleated RBC 0.000 Nucleated RBC % (auto) 0.0 Hold Purple Top PT INR VBG pH VBG pCO2 VBG pO2 VBG HCO3 VBG O2 Saturation VBG Base Excess Sodium 145 Potassium 3.7 Chloride 106 Carbon Dioxide 32 H Anion Gap 11 L BUN 11 Creatinine 0.97 Estim Creat Clear Calc 98.9 Estimated GFR > 60 POC Glucose 169 H 82 Random Glucose 150 H Lactic Acid Lactic Acid F/U @ 2Hr Lactic Acid F/U @ 4Hr Calcium 8.3 L Phosphorus Magnesium 1.9 Total Bilirubin 0.5 AST 16 ALT 20 Alkaline Phosphatase 73 Ammonia Troponin I High Sens NT-Pro-B Natriuret Pep Total Protein 5.4 L Albumin 3.4 L Beta-Hydroxybutyrate Urine Opiates Screen Ur Buprenorphine Scrn Ur Oxycodone Screen Urine Methadone Screen Urine Fentanyl Screen Ur Barbiturates Screen Ur Phencyclidine Scrn Ur Amphetamines Screen U Benzodiazepines Scrn Urine Cocaine Screen U Marijuana (THC) Screen Ethyl Alcohol Blood Type Antibody Screen Crossmatch Narrative Narrative: ECHO 10/2024 Conclusions: - The left ventricular systolic function is mild to moderately decreased. The calculated ejection fraction is 40% by biplane method. - Evidence suggests grade II (moderate) diastolic dysfunction. - No obvious valvular pathology seen on this study. EKG 07/2025 Vent. Rate : 110 BPM Atrial Rate : * BPM P-R Int : * ms QRS Dur : 88 ms QT Int : 472 ms P-R-T Axes : * 109 84 degrees QTcB Int : 638 ms Sinus tachycardia Rightward axis Nonspecific ST and T wave abnormality Abnormal ECG When compared with ECG of 13-Jul-2025 18:31, QRS axis Shifted right T wave inversion no longer evident in Lateral leads Documented by User: Wes Hewitt MD 07/16/25 13:44 [facility] Past Medical History Medical History Encounter to establish care Hypertension Newly diagnosed type 1 diabetes mellitus Right foot pain Family History Family History Unknown No problems noted. Family history of problems with anesthesia: No Surgical History Surgical History No pertinent past surgical history History of Problems with Anesthesia: No Social History Social History Household Members: Other Household Members Other:: roommate Housing: Other Housing Other:: 2 family house. Do you presently have visiting nurse or other home services: No Alcohol intake: current Alcohol intake frequency: holidays/special occasions only Comment: refusing fall prec Patient Tobacco Use Status: Never used Tobacco Smoked in Last 30 Days: No e-Cigarette/Vaping Use: Never Used Second Hand Smoke Exposure: No Use of substances other than those prescribed or required for medical reasons: No Currently Displaying Signs/Symptoms of Drug Intoxication Withdrawal: No Have you been hit, kicked, punched, or otherwise hurt by someone within the past year? If so, by whom?: No Do you feel safe in your current relationship?: No Current Relationship Is there a partner from a previous relationship who is making you feel unsafe now?: No Are you made to feel afraid or neglected: No Advance Directives: Yes Advance Directives on File: Yes Advance Directives Date on File: 11/04/24 Do you have a plan to hurt others: No Plan Recently lost weight without trying: No How much weight loss: Not applicable Eating poorly because of decreased appetite: No Nutrition screen score: 0 Nutrition Risks: No Nutritional Risk Poor oral hygiene: No service: No Current occupational status: employed Cognitive needs: No Hearing needs: No Vision needs: No Meds Allergies Allergy/AdvReac Type Severity Reaction Status Date / Time No Known Allergies Allergy Verified 07/16/25 11:13 Home Medications ?Medication ?Instructions ?Recorded ?Confirmed ?Last Taken ?Type metformin 500 mg tablet,extended 500 mg PO BID 07/14/25 07/14/25 Unknown History release 24 hr Exam Exam Date and Time: 07/16/25 Airway Mallampati Class: III TM Dist: >3cm Neck ROM: Full Denture: Upper and Lower Heart: rrr Lungs: loud crackles at bases Assessment and Plan Assessment Anesthesia Assessment: Anesthesia Plan Discussed and Chart Reviewed Final Anesthetic Review Family History of Problems with Anesthesia: No History of Problems with Anesthesia: No NPO: Yes ASA Class: III Final Preanesthetic Review: No Changes in Pt Med Stat, Meds/Allgs Chart Reviewed, Consent Obtained/Reviewed and Anes Risks/Benef Reviewed Patient Risk: Intermediate Procedure Risk: Low Anesthetic Plan Anesthetic Plan: GA and MAC: Disposition: Standard PACU
--- NOTE | 2025-07-16 09:33 | CONS_ITS ---
DATE OF SERVICE: 07/14/2025 REFERRING PHYSICIAN: Dr. Diaz REASON FOR CONSULTATION: Rectal bleeding and abnormal CT scan of the abdomen. HISTORY OF PRESENT ILLNESS: The patient is a pleasant 60-year-old man who was admitted to the hospital after presenting to the emergency department yesterday. He states he developed nonpainful rectal bleeding with bright red blood per rectum at home and came to the emergency department. He was evaluated with laboratory studies showing a hematocrit on admission of 42.1, and imaging studies consistent with no active GI bleeding. 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 However, the patient has no symptoms from this. He denies any prior history of abdominal pain. He reportedly had a syncopal episode in the emergency department, although on discussing this with him, it sounds like he had a vasovagal episode. He was given a unit of blood and admitted to the hospital. He had 2 more episodes of dark blood by his report earlier this morning, and his hematocrit dropped from 42.1 to 33.9. He has never undergone colonoscopy. PAST MEDICAL HISTORY: 1. Hypertension. 2. Hyperlipidemia. 3. Diabetes mellitus. 4. Heart failure with reduced ejection fraction. 5. Sleep apnea. 6. Morbid obesity. 7. Back pain. CURRENT MEDICATIONS: Current medication list is reviewed in the chart. ALLERGIES: THERE ARE NONE REPORTED. FAMILY HISTORY: This is reviewed with the patient and is negative for GI malignancy and abdominal cancer. SOCIAL HISTORY: He denies tobacco, alcohol, and substance abuse. He is disabled. REVIEW OF SYSTEMS: SKIN: No pruritus. HEENT: Negative. CARDIOPULMONARY: He denies shortness of breath or chest pain. GASTROINTESTINAL: As above. GENITOURINARY: Negative. NEUROPSYCHIATRIC: Negative. PHYSICAL EXAMINATION: GENERAL: Shows a pleasant male, lying comfortably in bed. VITAL SIGNS: Reviewed in the electronic medical record and are stable. SKIN: Anicteric. HEENT: Shows no scleral icterus. NECK: Without lymphadenopathy or thyromegaly. LUNGS: Clear. HEART: Shows a regular rate and rhythm. S1, S2. No murmur. ABDOMEN: Soft without focal masses or tenderness. Bowel sounds are present. No organomegaly is noted. EXTREMITIES: Without edema. LABORATORY DATA AND IMAGING STUDIES: Reviewed. IMPRESSION: Rectal bleeding. His rectal bleeding appears most consistent with a diverticular bleeding source based on his clinical presentation. His CT scan is reassuring and that no active bleeding was identified. If he does have recurrent bleeding, repeat CT scanning and/or nuclear imaging could be obtained and possible angiography pending these results. I discussed this with him. He has never undergone colonoscopy and should have one at some point. This will be reasonable to do as an outpatient if he remains stable. These abnormal CT scan findings are asymptomatic and can be followed up as an outpatient. I discussed this with him in detail. Thanks for asking me to see him. I will follow him in the hospital with you. MD RIA Davis/WHIT / [phone]
--- NOTE | 2025-07-16 11:58 | MHC.CM.PN ---
CM met with pt today to discuss DCP and health ins. Pt. reports that he does not have health ins., he has met with financial counselor, says he gets just under $3000 per month from employer as short term disability, and is going for terminal operations supervisor disablity he said through [facility] [employer] [place]. CM asked pt. if there is anyone who can obtain financial information for him while he is here, he said no.
[2025-07-16 12:43] LABS: Glucose, Whole Blood 137 mg/dL (60-115)
--- NOTE | 2025-07-16 13:48 | MHC.SHP ---
Pre-Procedural Eval Section A - 24 Hr Update-Section A only Date of Service: 07/16/25 The patient is an INPATIENT: Yes Changes since office visit: No Cold of Flu in the past 2 weeks, No New Medical Problems, No Changes in Medication and No Patient answered all questions The patient has been examined within 24 hours of the surgical procedure. The History & Physical has been completed within 30 days and I have reviewed it.: Yes Section B - Complete if H&P > 30 days Chief Complaint: GI Bleed Allergies: Allergies Allergy/AdvReac Type Severity Reaction Status Date / Time No Known Allergies Allergy Verified 07/16/25 11:13 Plan I have reviewed the history and physical and performed a pertinent physical examination on my patient. No changes have occurred unless specified. Time Spent With Patient Time: Total time managing care of this patient today ____ minutes.
--- NOTE | 2025-07-16 13:52 | PM.EVENT ---
Event Note Date of Service: 07/16/25 Event Note: GI Jardiance not stopped for 3 days due to emergent nature of procedure. Time Spent With Patient Time: Total time managing care of this patient today ____ minutes.
--- NOTE | 2025-07-16 14:12 | PC.NURSE ---
Maite Madrid RN updated that anesthesia placed a scopolamine patch behind patient left ear and that a message was sent to dr. asha rosenthal to assess right ac of patient upon return to floor.
--- NOTE | 2025-07-16 14:29 | PM.OP ---
Brief Operative Note Date of Service: 07/16/25 Pre-op diagnosis: GI bleed Post-op diagnosis: same Procedure: colonoscopy Surgeon: Michele Cole MD Anesthesia: MAC Was an Import Export Manager used for this Procedure?: No Estimated blood loss (mL): 5 Pathology: other Condition: stable Disposition: PACU
--- NOTE | 2025-07-16 14:31 | PM.EVENT ---
Event Note Date of Service: 07/16/25 Event Note: Colonoscopy dictated R colon polyp, snared pandiverticulosis minor amount of oozing from a diverticulum at 50 cm hemostatic clip applied, marked with terrance ink advance diet follow hct Time Spent With Patient Time: Total time managing care of this patient today ____ minutes.
[2025-07-16 16:46] LABS: Glucose, Whole Blood 198 mg/dL (60-115)
[2025-07-16 20:16] LABS: Glucose, Whole Blood 173 mg/dL (60-115)
[2025-07-16] MEDS: Insulin Glargine,Hum.rec.anlog 100 UNIT/ML 10 ML VIAL 15 UNIT SUBCUT (20:32)
[2025-07-17] VITALS (13 sets, daily range): BP systolic 122–167; BP diastolic 55–94; PULSE 86–117; RESP 16–20; TEMP 36.5–37.7; O2SAT 92–94
--- NOTE | 2025-07-17 00:54 | OP_ITS ---
DATE OF SERVICE: 07/16/2025 SURGEON: Michele Cole MD INDICATIONS: GI bleeding. PREOPERATIVE DIAGNOSIS: POSTOPERATIVE DIAGNOSIS: PROCEDURE PERFORMED: Colonoscopy to the cecum with control of bleeding. ESTIMATED BLOOD LOSS: COMPLICATIONS: ANESTHESIA: Medications; monitored anesthesia care. ASSISTANTS: SPECIMENS: DESCRIPTION OF PROCEDURE: A History and Physical were performed. The risks and benefits of the procedure were explained to the patient. Informed consent was obtained. The patient was placed in a left lateral decubitus position. A digital rectal exam was performed and was found to be normal. The Olympus pediatric video colonoscope was introduced into the rectum and advanced to cecum. The cecum was identified by transillumination, palpation, identification of the ileocecal valve. Examination was performed. The scope was removed. He tolerated the procedure well, was taken to recovery area in stable condition. FINDINGS: The terminal ileum was examined and appeared normal. The visualized colonic mucosa was normal. There was pandiverticulosis; in the right colon there was 6 mm polyp which was removed with a cold snare and recovered via suction. At 50 cm from the anal verge, was a single diverticulum with a small amount of blood oozing from the diverticula opening. It is not clear if this was the index diverticulum that caused the bleeding, however, because of the finding, a hemostatic clip was used to close the diverticular opening. The area was marked with 3 cc of Amparo ink. Retroflexed examination showed internal hemorrhoids. IMPRESSION: Diverticular bleeding, colon polyp. RECOMMENDATION: 1. Follow up the biopsy results. 2. Advance diet. 3. Follow hematocrit. MD RIA Davis/PATTIL / [phone]
[2025-07-17 06:55] LABS: MANUAL DIFF FLAG NO
[2025-07-17 07:02] LABS: Hematocrit 30.3 % (42.0-52.0); Hemoglobin 9.4 g/dl (14.0-18.0); Imm Gran Abs Auto 0.05 X10*3/uL (0.00-0.03); Imm Gran Pct Auto 0.5 % (0.0-0.4); Lymphocytes Absolute Auto 1.4 X10*3/uL (1.2-4.9); Mean Corpuscular HGB Conc 31.0 g/dl (31.0-36.0); Mean Corpuscular Hemoglobin 28.1 pg (27.0-33.0); Mean Corpuscular Volume 90.7 fL (80.0-98.0); NRBC Abs Auto 0.000 X10*3/uL (0.0-0.012); NRBC Pct Auto 0.0 /100WBC (0.0-0.2); Platelet Count 165 X10*3/uL (160-400); Red Blood Count 3.34 X10*6/uL (4.60-5.80); White Blood Count 9.2 X10*3/uL (4.8-10.8)
[2025-07-17 07:07] LABS: Glucose, Whole Blood 273 mg/dL (60-115)
--- NOTE | 2025-07-17 07:12 | P.PNIM_ITS ---
Subjective Subjective Date of Service: 07/17/25 Interval History: Patient has a 1-1 sitter, unsure of the events overnight, patient appears to be agitated that he needs an O2 sat per Per bedside RNs he has decided to low 70s on room air and has a 2 L O2 without issues. Patient states ?I do not want to have oxygen on me especially when I am eating? H&H stable s/p hemospray Review of Systems Review of Systems: Yes all other systems are reviewed and are negative Physical Exam 2 Exam: Exam: Care challenging as the patient not following directions per staff , now on Video monitor, flat affect, difficult historian General: AOx3, does not appear to be in distress , morbid obesity Resp: CTA bilaterally CVS: S1, S2, RRR GI: +BS, NT, no distention Skin: Has a right nasal bruise post fall Neuro: Motor grossly intact bilaterally Extremities: No edema Psych: Flat affect Vital Signs: Vital Signs: Last Vital Signs Temp 98.6 F 07/17/25 03:30 Pulse 104 H 07/17/25 03:30 Resp 18 07/17/25 03:30 BP 160/87 H 07/17/25 03:30 Pulse Ox 94 07/17/25 03:30 O2 Del Method Nasal Cannula 07/17/25 03:30 O2 Flow Rate 2 07/17/25 03:30 BMI result Body Mass Index 39.9 GI: Other: abdomen is soft and nontender Objective Data Active Medications Acetaminophen (Acetaminophen 325 Mg Tablet) 650 mg PO Q6H PRN PRN Reason: Pain, Mild 1-3,fever,headache Calcium Carbonate (Calcium Carbonate 750 Mg Tab.Chew) 750 mg PO Q4H PRN PRN Reason: Heartburn Dextrose (Dextrose 50 % 25 Gm/50 Ml Syringe) 25 gm IVPUSH Q15M PRN; Protocol PRN Reason: per Hypoglycemia Standing Ord. Glucose (Glucose Gel 15 Gm Gel..Gram.) 15 gm PO Q15M PRN; Protocol PRN Reason: per Hypoglycemia Standing Ord. Insulin Glargine (Insulin Glargine,Hum.Rec.Anlog 100 Unit/Ml 10 Ml Vial) 15 unit SUBCUT BEDTIME KELSEY Last Admin: 07/16/25 20:32 Dose: 15 unit Documented By: TITO Insulin Human Lispro (Insulin Lispro 100 Unit/Ml 3 Ml Vial) 0 unit SUBCUT QIDACHS [facility]; Protocol Last Admin: 07/16/25 20:32 Dose: 4 unit Documented By: TITO Magnesium Hydroxide (Milk Of Magnesia 30 Ml Oral.Susp) 30 ml PO DAILY PRN PRN Reason: Constipation Melatonin (Melatonin 3 Mg Tablet) 6 mg PO BEDTIME PRN PRN Reason: Insomnia Naloxone HCl (Naloxone Hcl 0.4 Mg/Ml Vial) 0.04 mg IVPUSH Q5M PRN PRN Reason: Excessive sedation or RR < 8 Sodium Biphosphate/Sodium Phosphate (Sodium Phosphate,Mon[place]rey-Dibasic 133 Ml Enema) 133 ml VA ONCE PRN PRN Reason: Poor Colonoscopy Prep Results Last Admin: 07/16/25 12:53 Dose: 133 ml Documented By: STEVENSON Sodium Biphosphate/Sodium Phosphate (Sodium Phosphate,[place]-Dibasic 133 Ml Enema) 133 ml VA ONCE PRN PRN Reason: Poor Colonoscopy Prep Results Last Admin: 07/16/25 11:55 Dose: 133 ml Documented By: STEVENSON Sodium Chloride (0.9 % Sodium Chloride Flush 3 Ml Syringe) [facility] Last Admin: 07/16/25 20:32 Dose: 3 ml Documented By: TITO Labs 07/17/25 06:29 07/17/25 06:29 Labs: Laboratory Results - last 24 hr 07/16/25 07/16/25 07/16/25 06:31 08:21 12:39 MCV 88.0 MCH 28.5 MCHC 32.4 RDW 13.8 Plt Count 127 L MPV 12.3 Immature Gran % (Auto) 0.5 H Neut % (Auto) 61.9 Lymph % (Auto) 22.2 [place] % (Auto) 9.6 Eos % (Auto) 5.3 H Baso % (Auto) 0.5 Lymph # (Auto) 1.8 [place] # (Auto) 0.8 Eos # (Auto) 0.4 Baso # (Auto) 0.0 Abs Immat Gran (auto) 0.04 H Absolute Neuts (auto) 4.9 Absolute Nucleated RBC 0.000 Nucleated RBC % (auto) 0.0 Anion Gap 11 L Estim Creat Clear Calc 98.9 Estimated GFR > 60 POC Glucose 82 137 H Random Glucose 150 H Calcium 8.3 L Magnesium 1.9 Total Bilirubin 0.5 AST 16 ALT 20 Alkaline Phosphatase 73 Total Protein 5.4 L Albumin 3.4 L 07/16/25 07/16/25 07/17/25 16:13 20:12 06:29 MCV 90.7 MCH 28.1 MCHC 31.0 RDW 13.8 Plt Count 165 D MPV 11.8 Immature Gran % (Auto) 0.5 H Neut % (Auto) 70.8 Lymph % (Auto) 14.8 L [place] % (Auto) 9.8 Eos % (Auto) 3.8 Baso % (Auto) 0.3 Lymph # (Auto) 1.4 [place] # (Auto) 0.9 Eos # (Auto) 0.4 Baso # (Auto) 0.0 Abs Immat Gran (auto) 0.05 H Absolute Neuts (auto) 6.5 Absolute Nucleated RBC 0.000 Nucleated RBC % (auto) 0.0 Anion Gap Estim Creat Clear Calc Estimated GFR POC Glucose 198 H 173 H Random Glucose Calcium Magnesium Total Bilirubin AST ALT Alkaline Phosphatase Total Protein Albumin 07/17/25 07:00 MCV MCH MCHC RDW Plt Count MPV Immature Gran % (Auto) Neut % (Auto) Lymph % (Auto) [place] % (Auto) Eos % (Auto) Baso % (Auto) Lymph # (Auto) [place] # (Auto) Eos # (Auto) Baso # (Auto) Abs Immat Gran (auto) Absolute Neuts (auto) Absolute Nucleated RBC Nucleated RBC % (auto) Anion Gap Estim Creat Clear Calc Estimated GFR POC Glucose 273 H Random Glucose Calcium Magnesium Total Bilirubin AST ALT Alkaline Phosphatase Total Protein Albumin Microbiology Microbiology Results: Microbiology 07/14/25 22:32 Blood Culture - Preliminary Blood - Venous No growth after 48 hours. 07/14/25 22:32 Blood Culture - Preliminary Blood - Venous No growth after 48 hours. Assessment and Plan (1) BRBPR (bright red blood per rectum): Status: Acute Plan Patient is a 60-year-old male with PMH notable for HTN, HLD, dm, HFrEF, YURIY, morbid obesity, chronic low back pain; presented to the hospital today with a chief complaint of bright red blood per rectum. Initially deemed diverticular bleed, however he sustained an unwitnessed fall and workup revealed severe hemorrhagic shock with hypotension and necessitating colonoscopy for further workup , status post hemo spray on 07/16/2025 by GI. Unwitnessed unwitnessed traumatic fall to the face and was found by the staff overnight on 07/14/2025 fall-likely secondary to hemorrhagic shock likely secondary to diverticular bleed, status post hemo spray on 07/16/2025 by GI Patient presented to the hospital with 1 episode of bright red blood per rectum but overnight on 07/14/2025, he had an unwitnessed traumatic fall resulting in a hemorrhagic shock (without any objective evidence on imaging) and good response to 2 units PRBC (3 U total thus far) underwent colonoscopy 07/16/25 and noted to have diverticular bleed, status post hemo spray with temporization. H& H stable post transfusion. Daily CBC unless he has another bleed. Recurrent syncope PTOT deemed the patient unsafe to discharge home ,SDR being recommended, however challenging as pt doesnt have insurance for the same Given fall on 07/14/2025, we will check TTE-official read pending, tomorrow and monitor on tele Fall precautions, aspiration precautions Patient likely had 1 episode of vasovagal syncope in the ED at the time of admission. EKG, troponin negative HFrEF GDM T HTN Follow-up outpatient Patient in prior echo had LVEF of 40% We will hold home Lasix given hemodynamic status reassuring Severe uncontrolled hyperglycemia (blood glucose greater than 600 on admission) No DKA or HHS, be hydroxybutyrate negative, secondary to DM type 2, medication noncompliance, poor dietary adherence - We adjusting insulin to maintain euglycemia daily AHRD - Hypoxic to low 70s per RNs report and will likely has Undiagnosed YURIY - P.r.n. CPAP - Might need home O2 eval prior to DC VTE prophylaxis - enoxaparin PTOT - Rehab, insurance limiting Given significant hemorrhagic shock, patient needs GI workup colonoscopy. Hence necessitating ongoing admission 1-2 days as we need to ensure hemodynamic stability prior to discharging. Placement and care also challenging above conditions This note is constructed using voice recognition software. While every effort has been made to ensure accuracy, chicken picker errors may have been included. Total time managing care of this patient today: 40 minutes. Quality Stroke Does the patient have a stroke diagnosis?: No VTE Prior VTE?: No VTE Risk Level:: Medical - moderate - high VTE Device Contraindication: N/A - Device Ordered VTE Drug Contraindication: Treatment Not Indicated
[2025-07-17 07:20] LABS: Alanine Aminotransferase 21 U/L (0-40); Albumin Level 3.7 g/dL (3.5-5.0); Alkaline Phosphatase 78 U/L (39-117); Anion Gap 12 (12-20); Aspartate Amino Transferase 21 U/L (5-37); Blood Urea Nitrogen 15 mg/dL (9-16); Calcium 8.5 mg/dL (8.4-10.2); Carbon Dioxide 31 mmol/L (22-29); Chloride 105 mmol/L (96-108); Creatinine Clr Calc Pharmacy 94.1; Estimated Glomerular Filt Rate > 60; Magnesium 2.0 mg/dL (1.6-2.6); Potassium 4.0 mmol/L (3.3-5.1); Sodium 144 mmol/L (135-145); Total Protein 5.8 g/dL (6.5-8.0)
--- NOTE | 2025-07-17 08:29 | HO.POSTANES ---
Post Anesthesia Evaluation Post Anesthesia Evaluation Date of Service: 07/17/25 (Colonoscopy 07/16/25) Vital Signs: Vital Signs Temp Pulse Resp BP Pulse Ox O2 Del Method O2 Flow Rate 07/17/25 07:55 109 H 128/61 07/17/25 07:54 101 H 129/61 07/17/25 07:54 97 122/55 L 07/17/25 07:53 99.8 F 97 20 122/55 L 93 07/17/25 03:30 98.6 F 104 H 18 160/87 H 94 Nasal Cannula 2 07/16/25 23:53 119 H 142/79 H 07/16/25 23:52 115 H 159/78 H 07/16/25 23:51 74 156/78 H 07/16/25 23:42 98.6 F 80 18 154/80 H 94 Nasal Cannula 2 Anesthesia: TIVA Mental Status: Awake Pain Control: Satisfactory Nausea/Vomiting: None Hydration: Adequate Anesthesia-Related Issues: No Anes. Related Issues
--- NOTE | 2025-07-17 10:29 | P.CDIM_ITS ---
PROVIDER RESPONSE TEXT: To clarify, the appropriate diagnosis supported by the clinical indicators: Acute blood loss anemia QUERY TEXT: PHYSICIAN'S DOCUMENTATION REQUEST Date of Query: 07/17/2025 07:56 AM EDT Patient Name: Jerome Garner Admit Date: 07/14/2025 Dear Katina Bowling MD, A review of the medical record indicates additional documentation may be needed. Please review below and update the documentation accordingly. Clinical Indicators: H&P 07/13/25 - Presented with chief complaint of bright red blood per rectum. Generally weak and tired, diaphoretic, pale. GI 07/16/25 - Rectal bleeding - His rectal bleeding most consistent with a diverticular bleeding source based on his clinical presentation. HH 8.2/26.0 BP 87/49 L Transfuse 3 units PRBC 07/14 - patient had an unwitnessed fall resulting in a hemorrhagic shock, good response to transfusions. Based on the above, could you clarify which of the following is the most likely type of anemia you are evaluating, treating, and/or monitoring? Acute blood loss anemia Acute blood loss anemia with baseline chronic anemia (specify type) Anemia of chronic disease indicate if neoplastic disease, CKD, or other Chronic iron deficiency anemia due to blood loss Other specified Other (explain) Clinically unable to determine (explain) Thank you, Tiarra Conklin, CCS, CDIS Use of terms such as suspected, likely, concern for, or probable (associated with a specific diagnosis that is being evaluated, monitored, or treated as if it exists) are acceptable and can be coded in the inpatient setting, when documented at the time of discharge. Please use your independent medical judgment in providing your response. THIS QUERY IS PART OF THE PERMANENT MEDICAL RECORD
[2025-07-17 11:19] LABS: Glucose, Whole Blood 220 mg/dL (60-115)
--- NOTE | 2025-07-17 12:23 | P.PNGI_ITS ---
Subjective Subjective Date of Service: 07/17/25 Interval History: tolerating diet no rectal bleeding Critical Care Time (minutes): 0 Physical Exam 2 Vital Signs: Vital Signs: Last Vital Signs Temp 97.7 F 07/17/25 12:00 Pulse 109 H 07/17/25 12:00 Resp 18 07/17/25 12:00 BP 143/73 H 07/17/25 12:00 Pulse Ox 92 07/17/25 12:00 O2 Del Method Oxymask 07/17/25 12:00 O2 Flow Rate 4 07/17/25 12:00 BMI result Body Mass Index 39.9 GI: Other: abdomen is soft and nontender Objective Data Labs 07/17/25 06:29 07/17/25 06:29 Microbiology Microbiology Results: Microbiology 07/14/25 22:32 Blood - Venous Blood Culture - Preliminary No growth after 48 hours. 07/14/25 22:32 Blood - Venous Blood Culture - Preliminary No growth after 48 hours. 07/13/25 19:39 Blood - Venous Blood Culture - Preliminary No growth after 48 hours. 07/13/25 19:19 Blood - Venous Blood Culture - Preliminary No growth after 48 hours. Procedures Date of Service Date of Service: 07/17/25 Progress Note: A&P Assessment and plan (1) BRBPR (bright red blood per rectum): Status: Acute Assessment and Plan: hematocrit stable doing well Time Spent With Patient Time: Total time managing care of this patient today ____ minutes. Quality Stroke Does the patient have a stroke diagnosis?: No VTE Prior VTE?: No VTE Risk Level:: Medical - moderate - high VTE Device Contraindication: N/A - Device Ordered VTE Drug Contraindication: Treatment Not Indicated
--- NOTE | 2025-07-17 13:59 | MHC.CM.PN ---
CM met with pt to ask permission to call his sister, Hui, to assist with him getting insurance. Pt. gave me permission. Called Hui, she agreed to try going to pt.'s home to get any documents re: income, insurance, to bring into financial counselor with the goal of getting ins for pt. JAI explained that pt. will likely need STR or home services, including home O2 at DC. Awaiting return call.
[2025-07-17 16:40] LABS: Glucose, Whole Blood 379 mg/dL (60-115)
[2025-07-17] MEDS: 0.9 % Sodium Chloride Flush 3 ML SYRINGE IVFLUSH (17:24)
[2025-07-17 21:24] LABS: Glucose, Whole Blood 184 mg/dL (60-115)
[2025-07-17] MEDS: Insulin Glargine,Hum.rec.anlog 100 UNIT/ML 10 ML VIAL 15 UNIT SUBCUT (21:42)
[2025-07-18] VITALS (15 sets, daily range): BP systolic 141–186; BP diastolic 78–98; PULSE 96–116; RESP 12–20; TEMP 36.4–38.2; O2SAT 95–97
--- NOTE | 2025-07-18 02:41 | PC.NURSE ---
pt refusing bed alarm despite being high fall risk. patient turning off bed alarm on his own. patient aware and educated that he is a high fall risk. still refusing bed alarm.
[2025-07-18 07:13] LABS: MANUAL DIFF FLAG NO
--- NOTE | 2025-07-18 07:17 | P.PNIM_ITS ---
Subjective Subjective Date of Service: 07/18/25 Interval History: Patient had a 2.62 sec pause on telemetry, EKG unremarkable, tropes negative, echo HFpEF, no obvious etiology. Pt comletely asymptomatic during the entire duration. Patient is a very poor historian and care has been challenging. PTOT is recommending short-term rehab which has also been challenging given insurance difficulties Physical Exam 2 Exam: Exam: Care challenging as the patient not following directions per staff , now on Video monitor, flat affect, difficult historian General: AOx3, does not appear to be in distress , morbid obesity Resp: CTA bilaterally CVS: S1, S2, RRR GI: +BS, NT, no distention Skin: Has a right nasal bruise post fall, healing Neuro: Motor grossly intact bilaterally Psych: Flat affect Vital Signs: Vital Signs: Last Vital Signs Temp 98.4 F 07/18/25 04:00 Pulse 111 H 07/18/25 04:00 Resp 12 07/18/25 04:00 BP 151/82 H 07/18/25 04:00 Pulse Ox 97 07/18/25 04:00 O2 Del Method Oxymask 07/18/25 04:00 O2 Flow Rate 4 07/18/25 04:00 BMI result Body Mass Index 39.9 GI: Other: abdomen is soft and nontender Objective Data Active Medications Acetaminophen (Acetaminophen 325 Mg Tablet) 650 mg PO Q6H PRN PRN Reason: Pain, Mild 1-3,fever,headache Last Admin: 07/17/25 08:23 Dose: 650 mg Documented By: RABIA Calcium Carbonate (Calcium Carbonate 750 Mg Tab.Chew) 750 mg PO Q4H PRN PRN Reason: Heartburn Dextrose (Dextrose 50 % 25 Gm/50 Ml Syringe) 25 gm IVPUSH Q15M PRN; Protocol PRN Reason: per Hypoglycemia Standing Ord. Glucose (Glucose Gel 15 Gm Gel..Gram.) 15 gm PO Q15M PRN; Protocol PRN Reason: per Hypoglycemia Standing Ord. Insulin Glargine (Insulin Glargine,Hum.Rec.Anlog 100 Unit/Ml 10 Ml Vial) 15 unit SUBCUT BEDTIME REPLACED BY [facility] Last Admin: 07/17/25 21:42 Dose: 15 unit Documented By: TITO Insulin Human Lispro (Insulin Lispro 100 Unit/Ml 3 Ml Vial) 0 unit SUBCUT QIDACHS REPLACED BY [facility]; Protocol Last Admin: 07/17/25 21:42 Dose: 4 unit Documented By: TITO Magnesium Hydroxide (Milk Of Magnesia 30 Ml Oral.Susp) 30 ml PO DAILY PRN PRN Reason: Constipation Melatonin (Melatonin 3 Mg Tablet) 6 mg PO BEDTIME PRN PRN Reason: Insomnia Naloxone HCl (Naloxone Hcl 0.4 Mg/Ml Vial) 0.04 mg IVPUSH Q5M PRN PRN Reason: Excessive sedation or RR < 8 Sodium Biphosphate/Sodium Phosphate (Sodium Phosphate,[place]-Dibasic 133 Ml Enema) 133 ml OR ONCE PRN PRN Reason: Poor Colonoscopy Prep Results Last Admin: 07/16/25 12:53 Dose: 133 ml Documented By: STEVENSON Sodium Biphosphate/Sodium Phosphate (Sodium Phosphate,[place]-Dibasic 133 Ml Enema) 133 ml OR ONCE PRN PRN Reason: Poor Colonoscopy Prep Results Last Admin: 07/16/25 11:55 Dose: 133 ml Documented By: STEVENSON Sodium Chloride (0.9 % Sodium Chloride Flush 3 Ml Syringe) 3 ml [facility] Last Admin: 07/18/25 00:47 Dose: Not Given Documented By: TITO Non-Admin Reason: Previously Administered Labs 07/18/25 07:02 07/18/25 07:02 Labs: Laboratory Results - last 24 hr 07/17/25 07/17/25 07/17/25 06:29 11:13 16:17 Anion Gap 12 Estim Creat Clear Calc 94.1 Estimated GFR > 60 POC Glucose 220 H 379 H* Random Glucose 150 H Calcium 8.5 Magnesium 2.0 Total Bilirubin 0.4 AST 21 ALT 21 Alkaline Phosphatase 78 Total Protein 5.8 L Albumin 3.7 07/17/25 21:17 Anion Gap Estim Creat Clear Calc Estimated GFR POC Glucose 184 H Random Glucose Calcium Magnesium Total Bilirubin AST ALT Alkaline Phosphatase Total Protein Albumin Assessment and Plan (1) BRBPR (bright red blood per rectum): Status: Acute Plan Patient is a 60-year-old male with PMH notable for HTN, HLD, dm, HFrEF, YURIY, morbid obesity, chronic low back pain; presented to the hospital today with a chief complaint of bright red blood per rectum. Initially deemed diverticular bleed, however he sustained an unwitnessed fall and workup revealed severe hemorrhagic shock with hypotension and necessitating colonoscopy for further workup , status post hemo spray on 07/16/2025 by GI. He had a almost 3 sec asymptomatic pause on tele the afternoon of 07/18/25 and cardiac tele monitoring. He was asymptomatic, carrdiac -ve, denies any symptoms. Hence, cardiology curbsided. Unwitnessed unwitnessed traumatic fall to the face and was found by the staff overnight on 07/14/2025 fall-likely secondary to hemorrhagic shock likely secondary to diverticular bleed, status post hemo spray on 07/16/2025 by GI. HDS, no further falls. Patient presented to the hospital with 1 episode of bright red blood per rectum but overnight on 07/14/2025, he had an unwitnessed traumatic fall resulting in a hemorrhagic shock (without any objective evidence on extensive imaging) and good response to 2 units PRBC (3 U total thus far) underwent colonoscopy 07/16/25 and noted to have diverticular bleed, status post hemo spray with temporization. H & H stable post transfusion. Daily CBC unless he has another bleed. Recurrent syncope - PTOT deemed the patient unsafe to discharge home , STR being recommended, however challenging as pt doesnt have insurance for the same Given fall on 07/14/2025, we will check TTE-official read pending, tomorrow and monitor on tele Fall precautions, aspiration precautions Patient likely had 1 episode of vasovagal syncope in the ED at the time of admission. EKG, troponin negative HFpEF GDM T HTN Follow-up outpatient Patient in prior echo had LVEF of 40%, current 55-57% We will hold home Lasix given hemodynamic status reassuring Severe uncontrolled hyperglycemia (blood glucose greater than 600 on admission) No DKA or HHS, be hydroxybutyrate negative, secondary to DM type 2, medication noncompliance, poor dietary adherence - We adjusting insulin to maintain euglycemia daily AHRD - Hypoxic to low 70s per RNs report and will likely has Undiagnosed YURIY - P.r.n. CPAP - Might need home O2 eval prior to DC VTE prophylaxis - enoxaparin PTOT - Rehab, insurance limiting Given significant hemorrhagic shock,Now with his pause - he needs cardiac workup for safe DC planning. Placement and care also challenging above conditions. DC likely monday given logistics. This note is constructed using voice recognition software. While every effort has been made to ensure accuracy, anesthetist errors may have been included. Total time managing care of this patient today: 40 minutes. Quality Stroke Does the patient have a stroke diagnosis?: No VTE Prior VTE?: No VTE Risk Level:: Medical - moderate - high VTE Device Contraindication: N/A - Device Ordered VTE Drug Contraindication: Treatment Not Indicated
[2025-07-18 07:37] LABS: Hematocrit 30.3 % (42.0-52.0); Hemoglobin 9.5 g/dl (14.0-18.0); Imm Gran Abs Auto 0.04 X10*3/uL (0.00-0.03); Imm Gran Pct Auto 0.5 % (0.0-0.4); Lymphocytes Absolute Auto 1.4 X10*3/uL (1.2-4.9); Mean Corpuscular HGB Conc 31.4 g/dl (31.0-36.0); Mean Corpuscular Hemoglobin 28.7 pg (27.0-33.0); Mean Corpuscular Volume 91.5 fL (80.0-98.0); NRBC Abs Auto 0.000 X10*3/uL (0.0-0.012); NRBC Pct Auto 0.0 /100WBC (0.0-0.2); Platelet Count 172 X10*3/uL (160-400); Red Blood Count 3.31 X10*6/uL (4.60-5.80); White Blood Count 8.7 X10*3/uL (4.8-10.8)
[2025-07-18 07:39] LABS: Glucose, Whole Blood 306 mg/dL (60-115)
[2025-07-18 07:40] LABS: Alanine Aminotransferase 18 U/L (0-40); Albumin Level 3.5 g/dL (3.5-5.0); Alkaline Phosphatase 78 U/L (39-117); Anion Gap 10 (12-20); Aspartate Amino Transferase 15 U/L (5-37); Blood Urea Nitrogen 15 mg/dL (9-16); Calcium 8.5 mg/dL (8.4-10.2); Carbon Dioxide 34 mmol/L (22-29); Chloride 102 mmol/L (96-108); Creatinine Clr Calc Pharmacy 99.9; Estimated Glomerular Filt Rate > 60; Magnesium 1.9 mg/dL (1.6-2.6); Potassium 3.8 mmol/L (3.3-5.1); Sodium 142 mmol/L (135-145); Total Protein 5.8 g/dL (6.5-8.0)
[2025-07-18] MEDS: 0.9 % Sodium Chloride Flush 3 ML SYRINGE IVFLUSH ×3 (07:50→21:37)
--- NOTE | 2025-07-18 11:34 | MHC.CM.PN ---
Pt's sister LM that pt. has income info on his phone, CM met with pt. today to discuss, he was able to access his bank statement on his phone and show the income, will request that he email this to financial counselor for her to f/u on health ins carlos. 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. Attempts to contact [employer] [facility] failed with #'s provided. CM will attempt to assist pt. to choose a health ins. plan. DCP: alex ferrera on 07/21/25, referral submitted to [facility] for home care services from them.
[2025-07-18 11:49] LABS: Glucose, Whole Blood 229 mg/dL (60-115)
--- NOTE | 2025-07-18 12:35 | PM.GIPN ---
Subjective Subjective Date of Service: 07/18/25 Interval History: feels good tolerating diet no bleeding Critical Care Time (minutes): 0 Physical Exam Vital Signs: Vital Signs: Last Vital Signs Temp 98.4 F 07/18/25 07:59 Pulse 116 H 07/18/25 08:40 Resp 20 07/18/25 07:59 BP 141/89 H 07/18/25 08:40 Pulse Ox 95 07/18/25 07:59 O2 Del Method Nasal Cannula 07/18/25 07:59 O2 Flow Rate 4 07/18/25 07:59 BMI result Body Mass Index 39.9 GI: Other: abdomen is obese and soft without tenderness Objective Data Labs 07/18/25 07:02 07/18/25 07:02 Labs: Laboratory Results - last 24 hr 07/17/25 07/17/25 07/18/25 16:17 21:17 07:02 WBC 8.7 RBC 3.31 L Hgb 9.5 L Hct 30.3 L MCV 91.5 MCH 28.7 MCHC 31.4 RDW 13.8 Plt Count 172 MPV 11.5 Immature Gran % (Auto) 0.5 H Neut % (Auto) 66.4 Lymph % (Auto) 16.4 L [place] % (Auto) 10.2 Eos % (Auto) 6.2 H Baso % (Auto) 0.3 Lymph # (Auto) 1.4 [place] # (Auto) 0.9 Eos # (Auto) 0.5 H Baso # (Auto) 0.0 Abs Immat Gran (auto) 0.04 H Absolute Neuts (auto) 5.8 Absolute Nucleated RBC 0.000 Nucleated RBC % (auto) 0.0 Sodium 142 Potassium 3.8 Chloride 102 Carbon Dioxide 34 H Anion Gap 10 L BUN 15 Creatinine 0.96 Estim Creat Clear Calc 99.9 Estimated GFR > 60 POC Glucose 379 H* 184 H Random Glucose 280 H Calcium 8.5 Magnesium 1.9 Total Bilirubin 0.3 AST 15 ALT 18 Alkaline Phosphatase 78 Total Protein 5.8 L Albumin 3.5 07/18/25 07/18/25 07:35 11:45 WBC RBC Hgb Hct MCV MCH MCHC RDW Plt Count MPV Immature Gran % (Auto) Neut % (Auto) Lymph % (Auto) [place] % (Auto) Eos % (Auto) Baso % (Auto) Lymph # (Auto) [place] # (Auto) Eos # (Auto) Baso # (Auto) Abs Immat Gran (auto) Absolute Neuts (auto) Absolute Nucleated RBC Nucleated RBC % (auto) Sodium Potassium Chloride Carbon Dioxide Anion Gap BUN Creatinine Estim Creat Clear Calc Estimated GFR POC Glucose 306 H 229 H Random Glucose Calcium Magnesium Total Bilirubin AST ALT Alkaline Phosphatase Total Protein Albumin Microbiology Microbiology Results: Microbiology 07/14/25 22:32 Blood - Venous Blood Culture - Preliminary No growth after 48 hours. 07/14/25 22:32 Blood - Venous Blood Culture - Preliminary No growth after 48 hours. 07/13/25 19:39 Blood - Venous Blood Culture - Preliminary No growth after 48 hours. 07/13/25 19:19 Blood - Venous Blood Culture - Preliminary No growth after 48 hours. Procedures Date of Service Date of Service: 07/18/25 Progress Note: A&P Assessment and plan (1) BRBPR (bright red blood per rectum): Status: Acute Assessment and Plan: doing well hematocrit stable please call with any questions Time Spent With Patient Time: Total time managing care of this patient today ____ minutes. Quality Stroke Does the patient have a stroke diagnosis?: No VTE Prior VTE?: No VTE Risk Level:: Medical - moderate - high VTE Device Contraindication: N/A - Device Ordered VTE Drug Contraindication: Treatment Not Indicated
--- NOTE | 2025-07-18 12:58 | ECG_ITS ---
Test Reason : 3 sec pause Blood Pressure : */* mmHG Vent. Rate : 102 BPM Atrial Rate : 102 BPM P-R Int : 190 ms QRS Dur : 100 ms QT Int : 374 ms P-R-T Axes : 39 -19 95 degrees QTcB Int : 487 ms Sinus tachycardia Minimal voltage criteria for LVH, may be normal variant ( R in aVL ) T wave abnormality, consider lateral ischemia Abnormal ECG When compared with ECG of 13-Jul-2025 19:29, Sinus rhythm has replaced Junctional rhythm QRS axis Shifted left Referred By: Katina Bowling Electronically Signed By: Homar José
--- NOTE | 2025-07-18 13:20 | MHC.CM.PN ---
Pt met with financial counselor and declined to give his bank statement, he is very private with his information, he said he will go home soon and will follow up when he is home. He has financial counselor's contact info. CM submitted a referral to [facility] for eval for home care services.
[2025-07-18 14:26] LABS: Troponin-I High Sensitivity 22.8 ng/L (<3.5-35.0)
[2025-07-18 16:45] LABS: Glucose, Whole Blood 223 mg/dL (60-115)
[2025-07-18 16:51] LABS: Appearance Urine Clear; Glucose Urine UA >=1000 mg/dL (Negative); PH 6.5 (5.0-9.0); Specific Gravity - Urine 1.025 (1.005-1.025); UMIC TRIGGER UA YES
--- NOTE | 2025-07-18 18:41 | PM.EVENT ---
Event Note Date of Service: 07/18/25 Event Note: noted low grade fever, so did sepsis workup, unfortunately he continues to be a very difficult historian hence relying on labs and imaging. Does not appear to be in sepsis. No indication for escalating care, HDS, appers to now be HTNsive- likely reactive Will cont to monitor. Time Spent With Patient Time: Total time managing care of this patient today ____ minutes.
[2025-07-18 21:26] LABS: Glucose, Whole Blood 241 mg/dL (60-115)
[2025-07-18] MEDS: Insulin Glargine,Hum.rec.anlog 100 UNIT/ML 10 ML VIAL 15 UNIT SUBCUT (21:34)
[2025-07-19] VITALS (10 sets, daily range): BP systolic 148–182; BP diastolic 72–110; PULSE 70–119; RESP 18–22; TEMP 36.6–37.4; O2SAT 84–98
[2025-07-19 07:34] LABS: MANUAL DIFF FLAG NO
[2025-07-19 07:37] LABS: Hematocrit 30.1 % (42.0-52.0); Hemoglobin 9.5 g/dl (14.0-18.0); Imm Gran Abs Auto 0.02 X10*3/uL (0.00-0.03); Imm Gran Pct Auto 0.3 % (0.0-0.4); Lymphocytes Absolute Auto 1.1 X10*3/uL (1.2-4.9); Mean Corpuscular HGB Conc 31.6 g/dl (31.0-36.0); Mean Corpuscular Hemoglobin 28.4 pg (27.0-33.0); Mean Corpuscular Volume 89.9 fL (80.0-98.0); NRBC Abs Auto 0.000 X10*3/uL (0.0-0.012); NRBC Pct Auto 0.0 /100WBC (0.0-0.2); Platelet Count 181 X10*3/uL (160-400); Red Blood Count 3.35 X10*6/uL (4.60-5.80); White Blood Count 7.2 X10*3/uL (4.8-10.8)
[2025-07-19 07:59] LABS: Alanine Aminotransferase 20 U/L (0-40); Albumin Level 3.5 g/dL (3.5-5.0); Alkaline Phosphatase 77 U/L (39-117); Anion Gap 13 (12-20); Aspartate Amino Transferase 17 U/L (5-37); Blood Urea Nitrogen 13 mg/dL (9-16); Calcium 8.8 mg/dL (8.4-10.2); Carbon Dioxide 31 mmol/L (22-29); Chloride 103 mmol/L (96-108); Creatinine Clr Calc Pharmacy 107.8; Estimated Glomerular Filt Rate > 60; Magnesium 2.0 mg/dL (1.6-2.6); Potassium 3.7 mmol/L (3.3-5.1); Sodium 143 mmol/L (135-145); Total Protein 6.0 g/dL (6.5-8.0)
[2025-07-19 08:08] LABS: Glucose, Whole Blood 256 mg/dL (60-115)
--- NOTE | 2025-07-19 08:14 | HO.PM.IMPN ---
Subjective Subjective Date of Service: 07/19/25 Physical Exam Vital Signs: Vital Signs: Last Vital Signs Temp 97.9 F 07/19/25 03:38 Pulse 95 07/19/25 03:38 Resp 22 H 07/19/25 03:38 BP 148/98 H 07/19/25 03:38 Pulse Ox 96 07/19/25 03:38 O2 Del Method Nasal Cannula 07/19/25 03:38 O2 Flow Rate 3 07/19/25 03:38 BMI result Body Mass Index 39.9 Objective Data Active Medications Acetaminophen (Acetaminophen 325 Mg Tablet) 650 mg PO Q6H PRN PRN Reason: Pain, Mild 1-3,fever,headache Last Admin: 07/17/25 08:23 Dose: 650 mg Documented By: RABIA Calcium Carbonate (Calcium Carbonate 750 Mg Tab.Chew) 750 mg PO Q4H PRN PRN Reason: Heartburn Dextrose (Dextrose 50 % 25 Gm/50 Ml Syringe) 25 gm IVPUSH Q15M PRN; Protocol PRN Reason: per Hypoglycemia Standing Ord. Glucose (Glucose Gel 15 Gm Gel..Gram.) 15 gm PO Q15M PRN; Protocol PRN Reason: per Hypoglycemia Standing Ord. Insulin Glargine (Insulin Glargine,Hum.Rec.Anlog 100 Unit/Ml 10 Ml Vial) 15 unit SUBCUT BEDTIME [facility] Last Admin: 07/18/25 21:34 Dose: 15 unit Documented By: ELENI Insulin Human Lispro (Insulin Lispro 100 Unit/Ml 3 Ml Vial) 0 unit SUBCUT QIDACHS [facility]; Protocol Last Admin: 07/18/25 21:33 Dose: 6 unit Documented By: ELENI Magnesium Hydroxide (Milk Of Magnesia 30 Ml Oral.Susp) 30 ml PO DAILY PRN PRN Reason: Constipation Melatonin (Melatonin 3 Mg Tablet) 6 mg PO BEDTIME PRN PRN Reason: Insomnia Naloxone HCl (Naloxone Hcl 0.4 Mg/Ml Vial) 0.04 mg IVPUSH Q5M PRN PRN Reason: Excessive sedation or RR < 8 Sodium Biphosphate/Sodium Phosphate (Sodium Phosphate,[place]-Dibasic 133 Ml Enema) 133 ml PA ONCE PRN PRN Reason: Poor Colonoscopy Prep Results Last Admin: 07/16/25 12:53 Dose: 133 ml Documented By: STEVENSON Sodium Biphosphate/Sodium Phosphate (Sodium Phosphate,[place]-Dibasic 133 Ml Enema) 133 ml PA ONCE PRN PRN Reason: Poor Colonoscopy Prep Results Last Admin: 07/16/25 11:55 Dose: 133 ml Documented By: STEVENSON Sodium Chloride (0.9 % Sodium Chloride Flush 3 Ml Syringe) [facility] Last Admin: 07/18/25 21:37 Dose: 3 ml Documented By: ELENI Labs 07/19/25 07:23 07/19/25 07:23 Labs: Laboratory Results - last 24 hr 07/18/25 07/18/25 07/18/25 11:45 13:48 14:35 MCV MCH MCHC RDW Plt Count MPV Immature Gran % (Auto) Neut % (Auto) Lymph % (Auto) [place] % (Auto) Eos % (Auto) Baso % (Auto) Lymph # (Auto) [place] # (Auto) Eos # (Auto) Baso # (Auto) Abs Immat Gran (auto) Absolute Neuts (auto) Absolute Nucleated RBC Nucleated RBC % (auto) Anion Gap Estim Creat Clear Calc Estimated GFR POC Glucose 229 H Random Glucose Lactic Acid 1.1 Calcium Magnesium Total Bilirubin AST ALT Alkaline Phosphatase Troponin I High Sens 22.8 Total Protein Albumin Urine Color Urine Appearance Urine pH Ur Specific [place] Urine Protein Urine Glucose (UA) Urine Ketones Urine Blood Urine Nitrite Ur Leukocyte Esterase Urine RBC Urine WBC Ur Squamous Epith Cells Urine Bacteria Hyaline Casts Urine Yeast 07/18/25 07/18/25 07/18/25 16:29 16:40 21:20 MCV MCH MCHC RDW Plt Count MPV Immature Gran % (Auto) Neut % (Auto) Lymph % (Auto) [place] % (Auto) Eos % (Auto) Baso % (Auto) Lymph # (Auto) [place] # (Auto) Eos # (Auto) Baso # (Auto) Abs Immat Gran (auto) Absolute Neuts (auto) Absolute Nucleated RBC Nucleated RBC % (auto) Anion Gap Estim Creat Clear Calc Estimated GFR POC Glucose 223 H 241 H Random Glucose Lactic Acid Calcium Magnesium Total Bilirubin AST ALT Alkaline Phosphatase Troponin I High Sens Total Protein Albumin Urine Color Yellow Urine Appearance Clear Urine pH 6.5 Ur Specific [place] 1.025 Urine Protein Trace Urine Glucose (UA) >=1000 H Urine Ketones Negative Urine Blood Negative Urine Nitrite Negative Ur Leukocyte Esterase Negative Urine RBC 0-2 Urine WBC 0-5 Ur Squamous Epith Cells 0-2 Urine Bacteria None Seen Hyaline Casts 0-2 Urine Yeast Present 07/19/25 07/19/25 07:23 08:05 MCV 89.9 MCH 28.4 MCHC 31.6 RDW 13.9 Plt Count 181 MPV 10.9 Immature Gran % (Auto) 0.3 Neut % (Auto) 66.0 Lymph % (Auto) 15.9 L [place] % (Auto) 9.6 Eos % (Auto) 7.8 H Baso % (Auto) 0.4 Lymph # (Auto) 1.1 L [place] # (Auto) 0.7 Eos # (Auto) 0.6 H Baso # (Auto) 0.0 Abs Immat Gran (auto) 0.02 Absolute Neuts (auto) 4.8 Absolute Nucleated RBC 0.000 Nucleated RBC % (auto) 0.0 Anion Gap 13 Estim Creat Clear Calc 107.8 Estimated GFR > 60 POC Glucose 256 H Random Glucose 251 H Lactic Acid Calcium 8.8 Magnesium 2.0 Total Bilirubin 0.3 AST 17 ALT 20 Alkaline Phosphatase 77 Troponin I High Sens Total Protein 6.0 L Albumin 3.5 Urine Color Urine Appearance Urine pH Ur Specific [place] Urine Protein Urine Glucose (UA) Urine Ketones Urine Blood Urine Nitrite Ur Leukocyte Esterase Urine RBC Urine WBC Ur Squamous Epith Cells Urine Bacteria Hyaline Casts Urine Yeast Microbiology Microbiology Results: Microbiology 07/13/25 19:39 Blood Culture - Final Blood - Venous No growth after 5 days. 07/13/25 19:19 Blood Culture - Final Blood - Venous No growth after 5 days. Quality Stroke Does the patient have a stroke diagnosis?: No VTE Prior VTE?: No VTE Risk Level:: Medical - moderate - high VTE Device Contraindication: N/A - Device Ordered VTE Drug Contraindication: Treatment Not Indicated
[2025-07-19] MEDS: 0.9 % Sodium Chloride Flush 3 ML SYRINGE IVFLUSH ×2 (08:45→16:59)
[2025-07-19 11:36] LABS: Glucose, Whole Blood 273 mg/dL (60-115)
--- NOTE | 2025-07-19 12:38 | MHC.CM.PN ---
Addendum entered by Trena Beltran 07/20/25 13:13: CM MET WITH PT AGAIN LATE YESTERDAY FOLLOWING A HOME O2 EVALUATION PT UNDERSTANDS HE WILL NEED HOME O2 AT DC AND THIS CANNOT BE ARRANGED UNTIL HE HAS HEALTH INSURANCE HE IS WILLING TO STAY UNTIL MONDAY, HE WILL NEED HEALTH INSURANCE AND HOME O2 ARRANGED PRIOR TO DC Original Note: CM MET WITH PT THIS MORNING AND AGAIN THIS AFTERNOON TO DISCUSS DCP PT INITIALLY STATING HE IS NOT INTERESTED IN STR ALTHOUGH HE DOES UNDERSTAND THIS IS THE RECOMMENDATION. PT ALSO STATES HE WOULD NOT BE WILLING TO HAVE [facility] SERVICES. CM RETURNED AFTER REVIEWING CHART AND LEARNING PT DID NOT OBTAIN HEALTH INSURANCE DURING HIS ADMISSION. CM ASKED PT IF HE WAS DECLINING STR DUE TO LACK OF INSURANCE AND INFORMED HIM HE COULD STAY UNTIL MONDAY TO WORK [place] [facility] [facility] AND GO TO [facility] ONCE INSURANCE IS ARRANGED. PT STATES HE DOES NOT WANT TO STAY AND IS NOT GOING TO GO TO STR ANYWAY. PT STATES HE IS READY TO GO HOME AND FEELS HE CAN MANAGE IN HIS CURRENT CONDITION HE DOES CONFIRM HE WAS USING A WALKER WITH PT, CM WILL SPEAK TO RN [employer] ABOUT PT TAKING A WALKER HOME WITH HIM HE WILL NOT HAVE THE ABILITY OR INSURANCE COVERAGE TO OBTAIN ONE AT DC. PT STATES HE FEELS HE IS AT HIS FUNCTIONAL BASELINE AND DOES FINE INDEPENDENTLY AT HOME. PT REPORTS HIS SISTER WILL TRANSPORT ONCE HE HAS A DC TIME PT UNDERSTANDS HE SHOULD FOLLOW UP WITH GI ACCORDING TO HIS DC INSTRUCTIONS
--- NOTE | 2025-07-19 12:40 | PM.DS ---
DS: Providers Provider Date of Service: 07/19/25 Date of admission: 07/13/25 23:31 Date of discharge: 07/19/25 Primary care physician: QUIANA Dove Consults: 07/13/25 23:31 Consult to Gastroenterology Routine Consulting Provider: [facility] Reason for consultation: GI bleed; mesenteric panniculitis; 07/15/25 11:47 Consult to Gastroenterology Routine Consulting Provider: [facility] Reason for consultation: hemorrhagic shock 07/18/25 12:54 Consult to Cardiology Routine Consulting Provider: [facility] Reason for consultation: 3 sec pause DS: Diagnosis Discharge Diagnosis (1) BRBPR (bright red blood per rectum): Status: Acute DS: Summary Hospital Course Hospital Course: Bright red blood per rectum and symptomatic Hemorrhagic shock causing a fall likely secondary to diverticular bleed, status post hemo spray by GI. Hemodynamically stable for 3 days prior to discharge Patient is a 60-year-old male with PMH notable for HTN, HLD, dm, HFrEF, YURIY, morbid obesity, chronic low back pain; presented to the hospital today with a chief complaint of bright red blood per rectum. Initially deemed diverticular bleed, however he sustained an unwitnessed traumatic fall and trauma workup revealed severe hemorrhagic shock with hypotension and necessitating colonoscopy for further workup , status post hemo spray on 07/16/2025 by GI. He has been hemodynamically stable with a hemoglobin hovering around 9-10 for 4 days prior to discharge. Unclear if he had a pause or not on 07/18/2025. Likely an artifact. Cardiac workup tele, trop, EKG, 1-/2 day of tele monitoring unremarkable. Cardiology consulted, no indications for acute management or change in medications indicated. Fall precautions, aspiration precautions Patient likely had 1 episode of vasovagal syncope in the ED at the time of admission. EKG, troponin negative HFpEF GDM T HTN Recurrent syncopes , likely vasovagal Follow-up outpatient Patient in prior echo had LVEF of 40%, current 55-57% done during this admission Home meds were held on admission Recurrent syncope - PTOT deemed the patient unsafe to discharge home , STR being recommended, however challenging as pt doesnt not have insurance, unable to provide financial information, unable to follow cues, is A&O x3 and understands that he is being recommended to go to rehab. Patient is now deferring any interventions, does not want to stay in the hospital, he has been quite challenging in getting history or to even care for him as extensively documented since admission. Has a very flat affect. Denies any symptoms. Please refer to the case management notes regarding ongoing discussions that we have spent more than 55 minutes and trying to coordinate with him every single day trying to get him the care that he needs. Patient understands and is deferring the management now in the he will likely have a fall, and might if he does not get acute care that he currently needs. Insurance limitations-please refer to case management notes Severe uncontrolled hyperglycemia (blood glucose greater than 600 on admission) No DKA or HHS, be hydroxybutyrate negative, secondary to DM type 2, medication noncompliance, poor dietary adherence - no changes were made at the time of this admission. Patient is aware that he needs to follow up with PCP for further medical management. AHRD - Hypoxic to low 70s per RNs report and will likely has Undiagnosed YURIY - P.r.n. CPAP . Patient continues to defer home O2 VTE prophylaxis - enoxaparin, briefly held during hemorrhagic shock but resumed post resolution/hemo spray. Patient hemodynamically optimized. Deferring short-term rehab, PTOT This note is constructed using voice recognition software. While every effort has been made to ensure accuracy, science education professor errors may have been included. Total time managing care of this patient today:>55 minutes. Time spent discussing smoking cessation with patient: more than 10 minutes Status at Discharge Functional status at discharge: independent ambulation Overall status at discharge: patient is progressing back to baseline Time Attestation Discharge Coordination Time (in mins): 55 mins Quality: Safe Use of Opioids Does Pt have an Active Cancer Diagnosis on the Problem List?: No Quality: Stroke Does the patient have a stroke diagnosis?: No Physical Exam Vital Signs: Vital Signs: Last Vital Signs Temp 97.8 F 07/19/25 12:00 Pulse 71 07/19/25 12:00 Resp 18 07/19/25 12:00 BP 148/90 H 07/19/25 12:00 Pulse Ox 95 07/19/25 12:00 O2 Del Method Nasal Cannula 07/19/25 12:00 O2 Flow Rate 3 07/19/25 12:00 BMI result Body Mass Index 39.9 DS: Data Data Completed and Pending Completed studies during hospitalization [Text1]: Pending at discharge 07/16/25 14:36 Surgical [PTH] Routine Labs on day of discharge: Laboratory Results - last 24 hr 07/18/25 07/18/25 07/18/25 13:48 14:35 16:29 WBC RBC Hgb Hct MCV MCH MCHC RDW Plt Count MPV Immature Gran % (Auto) Neut % (Auto) Lymph % (Auto) [place] % (Auto) Eos % (Auto) Baso % (Auto) Lymph # (Auto) [place] # (Auto) Eos # (Auto) Baso # (Auto) Abs Immat Gran (auto) Absolute Neuts (auto) Absolute Nucleated RBC Nucleated RBC % (auto) Sodium Potassium Chloride Carbon Dioxide Anion Gap BUN Creatinine Estim Creat Clear Calc Estimated GFR POC Glucose 223 H Random Glucose Lactic Acid 1.1 Calcium Magnesium Total Bilirubin AST ALT Alkaline Phosphatase Troponin I High Sens 22.8 Total Protein Albumin Urine Color Urine Appearance Urine pH Ur Specific [place] Urine Protein Urine Glucose (UA) Urine Ketones Urine Blood Urine Nitrite Ur Leukocyte Esterase Urine RBC Urine WBC Ur Squamous Epith Cells Urine Bacteria Hyaline Casts Urine Yeast 07/18/25 07/18/25 07/19/25 16:40 21:20 07:23 WBC 7.2 RBC 3.35 L Hgb 9.5 L Hct 30.1 L MCV 89.9 MCH 28.4 MCHC 31.6 RDW 13.9 Plt Count 181 MPV 10.9 Immature Gran % (Auto) 0.3 Neut % (Auto) 66.0 Lymph % (Auto) 15.9 L [place] % (Auto) 9.6 Eos % (Auto) 7.8 H Baso % (Auto) 0.4 Lymph # (Auto) 1.1 L [place] # (Auto) 0.7 Eos # (Auto) 0.6 H Baso # (Auto) 0.0 Abs Immat Gran (auto) 0.02 Absolute Neuts (auto) 4.8 Absolute Nucleated RBC 0.000 Nucleated RBC % (auto) 0.0 Sodium 143 Potassium 3.7 Chloride 103 Carbon Dioxide 31 H Anion Gap 13 BUN 13 Creatinine 0.89 Estim Creat Clear Calc 107.8 Estimated GFR > 60 POC Glucose 241 H Random Glucose 251 H Lactic Acid Calcium 8.8 Magnesium 2.0 Total Bilirubin 0.3 AST 17 ALT 20 Alkaline Phosphatase 77 Troponin I High Sens Total Protein 6.0 L Albumin 3.5 Urine Color Yellow Urine Appearance Clear Urine pH 6.5 Ur Specific [place] 1.025 Urine Protein Trace Urine Glucose (UA) >=1000 H Urine Ketones Negative Urine Blood Negative Urine Nitrite Negative Ur Leukocyte Esterase Negative Urine RBC 0-2 Urine WBC 0-5 Ur Squamous Epith Cells 0-2 Urine Bacteria None Seen Hyaline Casts 0-2 Urine Yeast Present 07/19/25 07/19/25 08:05 11:33 WBC RBC Hgb Hct MCV MCH MCHC RDW Plt Count MPV Immature Gran % (Auto) Neut % (Auto) Lymph % (Auto) [place] % (Auto) Eos % (Auto) Baso % (Auto) Lymph # (Auto) [place] # (Auto) Eos # (Auto) Baso # (Auto) Abs Immat Gran (auto) Absolute Neuts (auto) Absolute Nucleated RBC Nucleated RBC % (auto) Sodium Potassium Chloride Carbon Dioxide Anion Gap BUN Creatinine Estim Creat Clear Calc Estimated GFR POC Glucose 256 H 273 H Random Glucose Lactic Acid Calcium Magnesium Total Bilirubin AST ALT Alkaline Phosphatase Troponin I High Sens Total Protein Albumin Urine Color Urine Appearance Urine pH Ur Specific [place] Urine Protein Urine Glucose (UA) Urine Ketones Urine Blood Urine Nitrite Ur Leukocyte Esterase Urine RBC Urine WBC Ur Squamous Epith Cells Urine Bacteria Hyaline Casts Urine Yeast Preliminary micro results at discharge 07/14/25 22:32 Blood Culture - Preliminary Blood - Venous No growth after 48 hours. 07/14/25 22:32 Blood Culture - Preliminary Blood - Venous No growth after 48 hours. Discharge Plan Discharge Anticipated Discharge Date/Time: 07/19/25 12:04 Patient Disposition: Home, Self-Care Discharge Diagnosis: Acute hemorrhagic shock secondary to diverticular bleed, stable post hemo spray by GI, recurrent syncope (vasovagal), very difficult to treat, refusing care, multi modality specialties involved and he continues to not follow directions or cues. Now refusing SNF placement as advised by PT Referrals: Jai Ribera, LEASING DIRECTOR-BC [Primary Care Provider, Internal Medicine] - 1 Week Discharge Medications: Continued furosemide 20 mg tablet 20 mg PO QAM Qty: 30 1RF valsartan 40 mg tablet 40 mg PO BID Qty: 60 1RF Protocol: Hold for SBP< HOLD for SBP < : 90 carvedilol 12.5 mg tablet 12.5 mg PO BID 30 Days Qty: 60 3RF Protocol: Hold for SBP/HR < HOLD for SBP < : 90 HOLD for HR < : 60 metformin 500 mg tablet extended release 24 hr 500 mg PO BID glipizide 5 mg tablet extended release 24hr 10 mg PO DAILY 90 Days Qty: 180 1RF empagliflozin 25 mg tablet 25 mg PO DAILY Qty: 90 1RF Discharge Orders: Discharge Order (Routine); Ordered 07/19/25 Ordered By: Katina Bowling Diet: Low salt diet Activity on Discharge: As tolerated Stand Alone Forms: Patient Portal Discharge page Print Language: Argentine Care Plan Goals: Please follow with PCP outpatient within a week for rechecking your CBC Please follow-up with GI outpatient since you had hemorrhagic shock and hemo spray with stabilization for more than 3 days Please follow-up with PCP for outpatient services We have advised do extensively as documented by PTOT, skilled nursing case manager, staff nurses that you need to go to a rehab as you are unsteady and it is not safe a year ago, [facility] refusing short-term rehab, PTOT, home with services. Explained to the patient that he is a high fall risk, however deferring further management. Patient is A&O x3, consent able and has capacity to refuse all the care that we are offering. Health Concerns: Maintenance of hemodynamic status post resolution of hemorrhagic shock from diverticular bleed GI follow-up PCP for establishment Plan of Treatment: No changes in medications Care challenging-patient insistent on going home Assessment: See above
--- NOTE | 2025-07-19 13:40 | PM.CNCAR ---
History of Present Illness History of Present Illness Date of Service: 07/19/25 Chief complaint: GI Bleed Narrative: 60 year gentleman who presented with bright blood per rectum. He has multiple comorbidities. We are consulted because yesterday he had an episode of 2.65 second pause on telemetry. Patient does not recall any symptoms. He is denying any chest discomfort shortness of breath. He has no dizziness or lightheadedness. Telemetry reviewed and he mostly had sinus tachycardia. He is asking whether he can go home. [facility] Past Medical History Medical History Encounter to establish care Hypertension Newly diagnosed type 1 diabetes mellitus Right foot pain Family History Family History Unknown No problems noted. Surgical History Surgical History No pertinent past surgical history Social History Social History Household Members: Other Household Members Other:: roommate Housing: Other Housing Other:: 2 family house. Do you presently have visiting nurse or other home services: No Alcohol intake: current Alcohol intake frequency: holidays/special occasions only Comment: 1:1 sitter Patient Tobacco Use Status: Never used Tobacco Smoked in Last 30 Days: No e-Cigarette/Vaping Use: Never Used Second Hand Smoke Exposure: No Use of substances other than those prescribed or required for medical reasons: No Currently Displaying Signs/Symptoms of Drug Intoxication Withdrawal: No Have you been hit, kicked, punched, or otherwise hurt by someone within the past year? If so, by whom?: No Do you feel safe in your current relationship?: No Current Relationship Is there a partner from a previous relationship who is making you feel unsafe now?: No Are you made to feel afraid or neglected: No Advance Directives: Yes Advance Directives on File: Yes Advance Directives Date on File: 11/04/24 Do you have a plan to hurt others: No Plan Recently lost weight without trying: No How much weight loss: Not applicable Eating poorly because of decreased appetite: No Nutrition screen score: 0 Nutrition Risks: No Nutritional Risk Poor oral hygiene: No service: No Current occupational status: employed Cognitive needs: No Hearing needs: No Vision needs: No Meds Allergies Allergy/AdvReac Type Severity Reaction Status Date / Time No Known Allergies Allergy Verified 07/16/25 11:13 Active Medications: Current Medications Acetaminophen (Acetaminophen 325 Mg Tablet) 650 mg PO Q6H PRN PRN Reason: Pain, Mild 1-3,fever,headache Last Admin: 07/17/25 08:23 Dose: 650 mg Calcium Carbonate (Calcium Carbonate 750 Mg Tab.Chew) 750 mg PO Q4H PRN PRN Reason: Heartburn Dextrose (Dextrose 50 % 25 Gm/50 Ml Syringe) 25 gm IVPUSH Q15M PRN; Protocol PRN Reason: per Hypoglycemia Standing Ord. Glucose (Glucose Gel 15 Gm Gel..Gram.) 15 gm PO Q15M PRN; Protocol PRN Reason: per Hypoglycemia Standing Ord. Insulin Glargine (Insulin Glargine,Hum.Rec.Anlog 100 Unit/Ml 10 Ml Vial) 15 unit SUBCUT BEDTIME [facility] Last Admin: 07/18/25 21:34 Dose: 15 unit Insulin Human Lispro (Insulin Lispro 100 Unit/Ml 3 Ml Vial) 0 unit SUBCUT QIDACHS [facility]; Protocol Last Admin: 07/19/25 11:51 Dose: 8 unit Magnesium Hydroxide (Milk Of Magnesia 30 Ml Oral.Susp) 30 ml PO DAILY PRN PRN Reason: Constipation Melatonin (Melatonin 3 Mg Tablet) 6 mg PO BEDTIME PRN PRN Reason: Insomnia Naloxone HCl (Naloxone Hcl 0.4 Mg/Ml Vial) 0.04 mg IVPUSH Q5M PRN PRN Reason: Excessive sedation or RR < 8 Sodium Biphosphate/Sodium Phosphate (Sodium Phosphate,[place]-Dibasic 133 Ml Enema) 133 ml RI ONCE PRN PRN Reason: Poor Colonoscopy Prep Results Last Admin: 07/16/25 12:53 Dose: 133 ml Sodium Biphosphate/Sodium Phosphate (Sodium Phosphate,[place]-Dibasic 133 Ml Enema) 133 ml RI ONCE PRN PRN Reason: Poor Colonoscopy Prep Results Last Admin: 07/16/25 11:55 Dose: 133 ml Sodium Chloride (0.9 % Sodium Chloride Flush 3 Ml Syringe) 3 ml IVFLUSH [facility] Last Admin: 07/19/25 08:45 Dose: 3 ml Home Medications ?Medication ?Instructions ?Recorded ?Confirmed ?Last Taken ?Type metformin 500 mg tablet,extended 500 mg PO BID 07/14/25 07/14/25 Unknown History release 24 hr Physical Exam Vital Signs: Vital Signs: Last Vital Signs Temp 97.8 F 07/19/25 12:00 Pulse 71 07/19/25 12:00 Resp 18 07/19/25 12:00 BP 148/90 H 07/19/25 12:00 Pulse Ox 95 07/19/25 12:00 O2 Del Method Nasal Cannula 07/19/25 12:00 O2 Flow Rate 3 07/19/25 12:00 BMI result Body Mass Index 39.9 GENERAL APPEARANCE: in no acute distress, pleasant. NECK: no carotid bruit, no jugular venous distention. SKIN: no suspicious lesions, warm and dry. HEART: no murmurs, regular rate and rhythm. LUNGS: clear to auscultation bilaterally. ABDOMEN: soft, nontender. EXTREMITIES: no edema. PERIPHERAL PULSES: equal. NEUROLOGIC: No gross deficits, AAO X 3 Objective Labs and Meds 07/19/25 07:23 07/19/25 07:23 Lab results: Laboratory Results - last 24 hr 07/18/25 07/18/25 07/18/25 13:48 14:35 16:29 WBC RBC Hgb Hct MCV MCH MCHC RDW Plt Count MPV Immature Gran % (Auto) Neut % (Auto) Lymph % (Auto) [place] % (Auto) Eos % (Auto) Baso % (Auto) Lymph # (Auto) [place] # (Auto) Eos # (Auto) Baso # (Auto) Abs Immat Gran (auto) Absolute Neuts (auto) Absolute Nucleated RBC Nucleated RBC % (auto) Sodium Potassium Chloride Carbon Dioxide Anion Gap BUN Creatinine Estim Creat Clear Calc Estimated GFR POC Glucose 223 H Random Glucose Lactic Acid 1.1 Calcium Magnesium Total Bilirubin AST ALT Alkaline Phosphatase Troponin I High Sens 22.8 Total Protein Albumin Urine Color Urine Appearance Urine pH Ur Specific [place] Urine Protein Urine Glucose (UA) Urine Ketones Urine Blood Urine Nitrite Ur Leukocyte Esterase Urine RBC Urine WBC Ur Squamous Epith Cells Urine Bacteria Hyaline Casts Urine Yeast 07/18/25 07/18/25 07/19/25 16:40 21:20 07:23 WBC 7.2 RBC 3.35 L Hgb 9.5 L Hct 30.1 L MCV 89.9 MCH 28.4 MCHC 31.6 RDW 13.9 Plt Count 181 MPV 10.9 Immature Gran % (Auto) 0.3 Neut % (Auto) 66.0 Lymph % (Auto) 15.9 L [place] % (Auto) 9.6 Eos % (Auto) 7.8 H Baso % (Auto) 0.4 Lymph # (Auto) 1.1 L [place] # (Auto) 0.7 Eos # (Auto) 0.6 H Baso # (Auto) 0.0 Abs Immat Gran (auto) 0.02 Absolute Neuts (auto) 4.8 Absolute Nucleated RBC 0.000 Nucleated RBC % (auto) 0.0 Sodium 143 Potassium 3.7 Chloride 103 Carbon Dioxide 31 H Anion Gap 13 BUN 13 Creatinine 0.89 Estim Creat Clear Calc 107.8 Estimated GFR > 60 POC Glucose 241 H Random Glucose 251 H Lactic Acid Calcium 8.8 Magnesium 2.0 Total Bilirubin 0.3 AST 17 ALT 20 Alkaline Phosphatase 77 Troponin I High Sens Total Protein 6.0 L Albumin 3.5 Urine Color Yellow Urine Appearance Clear Urine pH 6.5 Ur Specific [place] 1.025 Urine Protein Trace Urine Glucose (UA) >=1000 H Urine Ketones Negative Urine Blood Negative Urine Nitrite Negative Ur Leukocyte Esterase Negative Urine RBC 0-2 Urine WBC 0-5 Ur Squamous Epith Cells 0-2 Urine Bacteria None Seen Hyaline Casts 0-2 Urine Yeast Present 07/19/25 07/19/25 08:05 11:33 WBC RBC Hgb Hct MCV MCH MCHC RDW Plt Count MPV Immature Gran % (Auto) Neut % (Auto) Lymph % (Auto) [place] % (Auto) Eos % (Auto) Baso % (Auto) Lymph # (Auto) [place] # (Auto) Eos # (Auto) Baso # (Auto) Abs Immat Gran (auto) Absolute Neuts (auto) Absolute Nucleated RBC Nucleated RBC % (auto) Sodium Potassium Chloride Carbon Dioxide Anion Gap BUN Creatinine Estim Creat Clear Calc Estimated GFR POC Glucose 256 H 273 H Random Glucose Lactic Acid Calcium Magnesium Total Bilirubin AST ALT Alkaline Phosphatase Troponin I High Sens Total Protein Albumin Urine Color Urine Appearance Urine pH Ur Specific [place] Urine Protein Urine Glucose (UA) Urine Ketones Urine Blood Urine Nitrite Ur Leukocyte Esterase Urine RBC Urine WBC Ur Squamous Epith Cells Urine Bacteria Hyaline Casts Urine Yeast Assessment and Plan (1) Bradycardia: Status: Acute Plan 60 year gentleman who presented to the hospital with GI bleed and has been stable from that point of view and had a 2.65 sec pause yesterday. Difficult to say whether he was awake or sleeping at that time. Reviewing his telemetry does not have anything other than this pause. Mostly he has been tachycardic. Blood pressure is elevated. I think we can resume carvedilol at 6.25 mg twice a day. He can continue rest of his medications to as before. No concern for any advanced AV block currently. Can continue discharge plan as before. Thank you for allowing me to participate in the care of your patient. Please feel free to contact me if you have any questions. Procedures Date of Service Date of Service: 07/19/25
--- NOTE | 2025-07-19 14:34 | P.PNIM_ITS ---
Subjective Subjective Date of Service: 07/19/25 Interval History: Patient continues to be quite unsteady on feet, needs SDR Patient continues to desaturate on minimal ambulation-needs home O2 eval Likely we will need O2 for home O2 needs-care quite challenging as patient initially refusing and then accepted with the bedside RN hence even though discharge was planned, we are unable to have a safe discharge plan Hence we will continue to stay inpatient until Monday as we need safe discharge planning, home O2 eval Review of Systems Review of Systems: Yes all other systems are reviewed and are negative Physical Exam 2 Exam: Exam: Care challenging as the patient not following directions per staff , now on Video monitor, flat affect, difficult historian General: AOx3, does not appear to be in distress , morbid obesity Resp: CTA bilaterally CVS: S1, S2, RRR GI: +BS, NT, no distention Skin: Has a right nasal bruise post fall, healing Neuro: Motor grossly intact bilaterally Psych: Flat affect Vital Signs: Vital Signs: Last Vital Signs Temp 98.4 F 07/18/25 04:00 Pulse 111 H 07/18/25 04:00 Resp 12 07/18/25 04:00 BP 151/82 H 07/18/25 04:00 Pulse Ox 97 07/18/25 04:00 O2 Del Method Oxymask 07/18/25 04:00 O2 Flow Rate 4 07/18/25 04:00 BMI result Body Mass Index 39.9 GI: Other: abdomen is soft and nontender Objective Data Active Medications Acetaminophen (Acetaminophen 325 Mg Tablet) 650 mg PO Q6H PRN PRN Reason: Pain, Mild 1-3,fever,headache Last Admin: 07/17/25 08:23 Dose: 650 mg Documented By: RABIA Calcium Carbonate (Calcium Carbonate 750 Mg Tab.Chew) 750 mg PO Q4H PRN PRN Reason: Heartburn Dextrose (Dextrose 50 % 25 Gm/50 Ml Syringe) 25 gm IVPUSH Q15M PRN; Protocol PRN Reason: per Hypoglycemia Standing Ord. Glucose (Glucose Gel 15 Gm Gel..Gram.) 15 gm PO Q15M PRN; Protocol PRN Reason: per Hypoglycemia Standing Ord. Insulin Glargine (Insulin Glargine,Hum.Rec.Anlog 100 Unit/Ml 10 Ml Vial) 15 unit SUBCUT BEDTIME [place] Last Admin: 07/18/25 21:34 Dose: 15 unit Documented By: ELENI Insulin Human Lispro (Insulin Lispro 100 Unit/Ml 3 Ml Vial) 0 unit [facility]; Protocol Last Admin: 07/19/25 11:51 Dose: 8 unit Documented By: SHIRLENE Magnesium Hydroxide (Milk Of Magnesia 30 Ml Oral.Susp) 30 ml PO DAILY PRN PRN Reason: Constipation Melatonin (Melatonin 3 Mg Tablet) 6 mg PO BEDTIME PRN PRN Reason: Insomnia Naloxone HCl (Naloxone Hcl 0.4 Mg/Ml Vial) 0.04 mg IVPUSH Q5M PRN PRN Reason: Excessive sedation or RR < 8 Sodium Biphosphate/Sodium Phosphate (Sodium Phosphate,[place]-Dibasic 133 Ml Enema) 133 ml [place] ONCE PRN PRN Reason: Poor Colonoscopy Prep Results Last Admin: 07/16/25 12:53 Dose: 133 ml Documented By: STEVENSON Sodium Biphosphate/Sodium Phosphate (Sodium Phosphate,[place]-Dibasic 133 Ml Enema) 133 ml MO ONCE PRN PRN Reason: Poor Colonoscopy Prep Results Last Admin: 07/16/25 11:55 Dose: 133 ml Documented By: STEVENSON Sodium Chloride (0.9 % Sodium Chloride Flush 3 Ml Syringe) 3 ml [facility] [place] Last Admin: 07/19/25 08:45 Dose: 3 ml Documented By: SHIRLENE Labs 07/19/25 07:23 07/19/25 07:23 Labs: Laboratory Results - last 24 hr 07/18/25 07/18/25 07/18/25 14:35 16:29 16:40 MCV MCH MCHC RDW Plt Count MPV Immature Gran % (Auto) Neut % (Auto) Lymph % (Auto) [place] % (Auto) Eos % (Auto) Baso % (Auto) Lymph # (Auto) [place] # (Auto) Eos # (Auto) Baso # (Auto) Abs Immat Gran (auto) Absolute Neuts (auto) Absolute Nucleated RBC Nucleated RBC % (auto) Anion Gap Estim Creat Clear Calc Estimated GFR POC Glucose 223 H Random Glucose Lactic Acid 1.1 Calcium Magnesium Total Bilirubin AST ALT Alkaline Phosphatase Total Protein Albumin Urine Color Yellow Urine Appearance Clear Urine pH 6.5 Ur Specific [place] 1.025 Urine Protein Trace Urine Glucose (UA) >=1000 H Urine Ketones Negative Urine Blood Negative Urine Nitrite Negative Ur Leukocyte Esterase Negative Urine RBC 0-2 Urine WBC 0-5 Ur Squamous Epith Cells 0-2 Urine Bacteria None Seen Hyaline Casts 0-2 Urine Yeast Present 07/18/25 07/19/25 07/19/25 21:20 07:23 08:05 MCV 89.9 MCH 28.4 MCHC 31.6 RDW 13.9 Plt Count 181 MPV 10.9 Immature Gran % (Auto) 0.3 Neut % (Auto) 66.0 Lymph % (Auto) 15.9 L [place] % (Auto) 9.6 Eos % (Auto) 7.8 H Baso % (Auto) 0.4 Lymph # (Auto) 1.1 L [place] # (Auto) 0.7 Eos # (Auto) 0.6 H Baso # (Auto) 0.0 Abs Immat Gran (auto) 0.02 Absolute Neuts (auto) 4.8 Absolute Nucleated RBC 0.000 Nucleated RBC % (auto) 0.0 Anion Gap 13 Estim Creat Clear Calc 107.8 Estimated GFR > 60 POC Glucose 241 H 256 H Random Glucose 251 H Lactic Acid Calcium 8.8 Magnesium 2.0 Total Bilirubin 0.3 AST 17 ALT 20 Alkaline Phosphatase 77 Total Protein 6.0 L Albumin 3.5 Urine Color Urine Appearance Urine pH Ur Specific [place] Urine Protein Urine Glucose (UA) Urine Ketones Urine Blood Urine Nitrite Ur Leukocyte Esterase Urine RBC Urine WBC Ur Squamous Epith Cells Urine Bacteria Hyaline Casts Urine Yeast 07/19/25 11:33 MCV MCH MCHC RDW Plt Count MPV Immature Gran % (Auto) Neut % (Auto) Lymph % (Auto) [place] % (Auto) Eos % (Auto) Baso % (Auto) Lymph # (Auto) [place] # (Auto) Eos # (Auto) Baso # (Auto) Abs Immat Gran (auto) Absolute Neuts (auto) Absolute Nucleated RBC Nucleated RBC % (auto) Anion Gap Estim Creat Clear Calc Estimated GFR POC Glucose 273 H Random Glucose Lactic Acid Calcium Magnesium Total Bilirubin AST ALT Alkaline Phosphatase Total Protein Albumin Urine Color Urine Appearance Urine pH Ur Specific [place] Urine Protein Urine Glucose (UA) Urine Ketones Urine Blood Urine Nitrite Ur Leukocyte Esterase Urine RBC Urine WBC Ur Squamous Epith Cells Urine Bacteria Hyaline Casts Urine Yeast Microbiology Microbiology Results: Microbiology 07/13/25 19:39 Blood Culture - Final Blood - Venous No growth after 5 days. 07/13/25 19:19 Blood Culture - Final Blood - Venous No growth after 5 days. Assessment and Plan (1) BRBPR (bright red blood per rectum): Status: Acute Plan Bright red blood per rectum and symptomatic Hemorrhagic shock causing a fall likely secondary to diverticular bleed, status post hemo spray by GI. H&H stable. Patient is a 60-year-old male with PMH notable for HTN, HLD, dm, HFrEF, YURIY, morbid obesity, chronic low back pain; presented to the hospital today with a chief complaint of bright red blood per rectum. Initially deemed diverticular bleed, however he sustained an unwitnessed traumatic fall and trauma workup revealed severe hemorrhagic shock with hypotension and necessitating colonoscopy for further workup , status post hemo spray on 07/16/2025 by GI. He has been hemodynamically stable with a hemoglobin hovering around 9-10 for 4 days prior to discharge. Unclear if he had a pause or not on 07/18/2025. Likely an artifact. Cardiac workup tele, trop, EKG, 1-/2 day of tele monitoring unremarkable. Cardiology consulted, no indications for acute management or change in medications indicated. Fall precautions, aspiration precautions Patient likely had 1 episode of vasovagal syncope in the ED at the time of admission. EKG, troponin negative HFpEF GDM T HTN Recurrent syncopes , likely vasovagal Follow-up outpatient Patient in prior echo had LVEF of 40%, current 55-57% done during this admission Home meds were held on admission Recurrent syncope - PTOT deemed the patient unsafe to discharge home , STR being recommended, however challenging as pt doesnt not have insurance, unable to provide financial information, unable to follow cues, is A&O x3 and understands that he is being recommended to go to rehab. Patient is now deferring any interventions, does not want to stay in the hospital, he has been quite challenging in getting history or to even care for him as extensively documented since admission. Has a very flat affect. Denies any symptoms. Please refer to the case management notes regarding ongoing discussions that we have spent more than 55 minutes and trying to coordinate with him every single day trying to get him the care that he needs. Patient understands and is deferring the management now in the he will likely have a fall, and might if he does not get acute care that he currently needs. Insurance limitations- please refer to case management notes Severe uncontrolled hyperglycemia (blood glucose greater than 600 on admission) No DKA or HHS, be hydroxybutyrate negative, secondary to DM type 2, medication noncompliance, poor dietary adherence - no changes were made at the time of this admission. Patient is aware that he needs to follow up with PCP for further medical management. AHRD - Hypoxic to low 70s per RNs report and will likely has Undiagnosed YURIY - P.r.n. CPAP . Patient continues to defer home O2, however given that he endorsed he is ready for O2 if needed, discharge planning fell through and he is now being evaluated by RT for home O2 eval which will likely happen on Monday. VTE prophylaxis - enoxaparin, briefly held during hemorrhagic shock but resumed post resolution/hemo spray. Patient hemodynamically optimized. Deferring short-term rehab, PTOT This note is constructed using voice recognition software. While every effort has been made to ensure accuracy, boat diesel motor mechanic errors may have been included. Total time managing care of this patient today:>55 minutes for discharge planning Patient continues to defer home O2, however given that he endorsed he is ready for O2 if needed, discharge planning fell through and he is now being evaluated by RT for home O2 eval which will likely happen on Monday. Total time managing care of this patient today: 40 minutes. Quality Stroke Does the patient have a stroke diagnosis?: No VTE Prior VTE?: No VTE Risk Level:: Medical - moderate - high VTE Device Contraindication: N/A - Device Ordered VTE Drug Contraindication: Treatment Not Indicated
[2025-07-19 16:44] LABS: Glucose, Whole Blood 294 mg/dL (60-115)
[2025-07-19 21:18] LABS: Glucose, Whole Blood 285 mg/dL (60-115)
[2025-07-19] MEDS: oxyCODONE HCl Immed Release 5 MG TABLET PO (21:27)
[2025-07-19] MEDS: Insulin Glargine,Hum.rec.anlog 100 UNIT/ML 10 ML VIAL 15 UNIT SUBCUT (21:28)
[2025-07-20] VITALS (11 sets, daily range): BP systolic 121–170; BP diastolic 65–98; PULSE 94–123; RESP 16–18; TEMP 36–36.9; O2SAT 92–100
[2025-07-20] MEDS: 0.9 % Sodium Chloride Flush 3 ML SYRINGE IVFLUSH ×4 (00:42→21:32)
[2025-07-20] MEDS: oxyCODONE HCl Immed Release 5 MG TABLET PO ×4 (03:28→21:30)
[2025-07-20 07:46] LABS: Glucose, Whole Blood 229 mg/dL (60-115)
[2025-07-20 08:06] LABS: MANUAL DIFF FLAG NO
[2025-07-20 08:18] LABS: Hematocrit 30.2 % (42.0-52.0); Hemoglobin 9.7 g/dl (14.0-18.0); Imm Gran Abs Auto 0.03 X10*3/uL (0.00-0.03); Imm Gran Pct Auto 0.3 % (0.0-0.4); Lymphocytes Absolute Auto 1.2 X10*3/uL (1.2-4.9); Mean Corpuscular HGB Conc 32.1 g/dl (31.0-36.0); Mean Corpuscular Hemoglobin 28.5 pg (27.0-33.0); Mean Corpuscular Volume 88.8 fL (80.0-98.0); NRBC Abs Auto 0.000 X10*3/uL (0.0-0.012); NRBC Pct Auto 0.0 /100WBC (0.0-0.2); Platelet Count 222 X10*3/uL (160-400); Red Blood Count 3.40 X10*6/uL (4.60-5.80); White Blood Count 9.0 X10*3/uL (4.8-10.8)
[2025-07-20 08:34] LABS: Alanine Aminotransferase 21 U/L (0-40); Albumin Level 3.6 g/dL (3.5-5.0); Alkaline Phosphatase 87 U/L (39-117); Anion Gap 10 (12-20); Aspartate Amino Transferase 17 U/L (5-37); Blood Urea Nitrogen 13 mg/dL (9-16); Calcium 8.6 mg/dL (8.4-10.2); Carbon Dioxide 30 mmol/L (22-29); Chloride 102 mmol/L (96-108); Creatinine Clr Calc Pharmacy 109.0; Estimated Glomerular Filt Rate > 60; Magnesium 1.9 mg/dL (1.6-2.6); Potassium 3.8 mmol/L (3.3-5.1); Sodium 138 mmol/L (135-145); Total Protein 6.1 g/dL (6.5-8.0)
[2025-07-20 11:14] LABS: Glucose, Whole Blood 328 mg/dL (60-115)
[2025-07-20 16:47] LABS: Glucose, Whole Blood 279 mg/dL (60-115)
--- NOTE | 2025-07-20 18:13 | PC.NURSE ---
Left ankle xray shows 2 small medial malleolus fractures, chronic versus acute. MD notified. Incentive spirometry provided with teaching for atelectasis on CXR.
--- NOTE | 2025-07-20 20:04 | P.PNIM_ITS ---
Subjective Subjective Date of Service: 07/20/25 Interval History: The patient reports new pain in the left foot. Evaluation reveals swollen left foot at the ankle Painful acutely during hospitalization. Has not been on AC during stay due to GIB Patient reports new swelling in left leg. Review of Systems Review of Systems: Yes all other systems are reviewed and are negative Physical Exam 2 Exam: Exam: General: A&O x3, oriented to time place person and situation, comfortable, no pain Cardiac: S1, S2 auscultated with no S3/4, no MRG. Well perfused. Respiratory: Normal breath sounds auscultated throughout all lung zones, without wheezing, rales. Normal rate. on 1L NC GI/ : No abdominal pain on palpation, no masses or distentions. MSK: Pain at the left ankle, medial malleolus on palpation. Left limb swelling noted below the knee painful to touch. Neurological: Normal neurological examination on overview, without obvious CN II-XII abnormalities. Vital Signs: Vital Signs: Last Vital Signs Temp 96.8 F 07/20/25 16:00 Pulse 113 H 07/20/25 16:22 Resp 18 07/20/25 16:00 BP 121/76 07/20/25 16:22 Pulse Ox 94 07/20/25 16:00 O2 Del Method Nasal Cannula 07/20/25 16:00 O2 Flow Rate 1.5 07/20/25 16:00 BMI result Body Mass Index 39.9 Objective Data Active Medications Acetaminophen (Acetaminophen 325 Mg Tablet) 650 mg PO Q6H PRN PRN Reason: Pain, Mild 1-3,fever,headache Last Admin: 07/20/25 12:44 Dose: 650 mg Documented By: SHIRLENE Calcium Carbonate (Calcium Carbonate 750 Mg Tab.Chew) 750 mg PO Q4H PRN PRN Reason: Heartburn Carvedilol (Carvedilol 3.125 Mg Tablet) 3.125 mg PO BID [facility]; Protocol Last Admin: 07/20/25 09:28 Dose: 3.125 mg Documented By: SHIRLENE Dextrose (Dextrose 50 % 25 Gm/50 Ml Syringe) 25 gm IVPUSH Q15M PRN; Protocol PRN Reason: per Hypoglycemia Standing Ord. Enoxaparin Sodium (Enoxaparin Sodium 40 Mg/0.4 Ml Syringe) 40 mg SUBCUT Q24H [facility] Last Admin: 07/20/25 17:05 Dose: 40 mg Documented By: SHIRLENE Glucose (Glucose Gel 15 Gm Gel..Gram.) 15 gm PO Q15M PRN; Protocol PRN Reason: per Hypoglycemia Standing Ord. Insulin Glargine (Insulin Glargine,Hum.Rec.Anlog 100 Unit/Ml 10 Ml Vial) 15 unit SUBCUT BEDTIME [facility] Last Admin: 07/19/25 21:28 Dose: 15 unit Documented By: STEPHANIE Insulin Human Lispro (Insulin Lispro 100 Unit/Ml 3 Ml Vial) 0 unit SUBCUT QIDACHS [facility]; Protocol Last Admin: 07/20/25 17:05 Dose: 8 unit Documented By: SHIRLENE Magnesium Hydroxide (Milk Of Magnesia 30 Ml Oral.Susp) 30 ml PO DAILY PRN PRN Reason: Constipation Melatonin (Melatonin 3 Mg Tablet) 6 mg PO BEDTIME PRN PRN Reason: Insomnia Naloxone HCl (Naloxone Hcl 0.4 Mg/Ml Vial) 0.04 mg IVPUSH Q5M PRN PRN Reason: Excessive sedation or RR < 8 Oxycodone HCl (Oxycodone Hcl Immed Release 5 Mg Tablet) 5 mg PO Q4H PRN PRN Reason: Pain, Severe (Pain Scale 7-10) Last Admin: 07/20/25 12:44 Dose: 5 mg Documented By: SHIRLENE Sodium Biphosphate/Sodium Phosphate (Sodium Phosphate,[place]-Dibasic 133 Ml Enema) 133 ml [place] ONCE PRN PRN Reason: Poor Colonoscopy Prep Results Last Admin: 07/16/25 12:53 Dose: 133 ml Documented By: STEVENSON Sodium Biphosphate/Sodium Phosphate (Sodium Phosphate,[place]-Dibasic 133 Ml Enema) 133 ml [place] ONCE PRN PRN Reason: Poor Colonoscopy Prep Results Last Admin: 07/16/25 11:55 Dose: 133 ml Documented By: STEVENSON Sodium Chloride (0.9 % Sodium Chloride Flush 3 Ml Syringe) 3 ml IVFLUSH [facility] Last Admin: 07/20/25 17:06 Dose: 3 ml Documented By: SHIRLENE Labs 07/20/25 07:25 07/20/25 07:25 Labs: Laboratory Results - last 24 hr 07/19/25 07/20/25 07/20/25 21:08 07:25 07:31 MCV 88.8 MCH 28.5 MCHC 32.1 RDW 14.1 Plt Count 222 MPV 11.3 Immature Gran % (Auto) 0.3 Neut % (Auto) 68.9 Lymph % (Auto) 13.1 L [place] % (Auto) 11.6 H Eos % (Auto) 5.7 H Baso % (Auto) 0.4 Lymph # (Auto) 1.2 [place] # (Auto) 1.0 Eos # (Auto) 0.5 H Baso # (Auto) 0.0 Abs Immat Gran (auto) 0.03 Absolute Neuts (auto) 6.2 Absolute Nucleated RBC 0.000 Nucleated RBC % (auto) 0.0 Anion Gap 10 L Estim Creat Clear Calc 109.0 Estimated GFR > 60 POC Glucose 285 H 229 H Random Glucose 240 H Calcium 8.6 Magnesium 1.9 Total Bilirubin 0.6 AST 17 ALT 21 Alkaline Phosphatase 87 Total Protein 6.1 L Albumin 3.6 07/20/25 07/20/25 11:06 16:44 MCV MCH MCHC RDW Plt Count MPV Immature Gran % (Auto) Neut % (Auto) Lymph % (Auto) [place] % (Auto) Eos % (Auto) Baso % (Auto) Lymph # (Auto) [place] # (Auto) Eos # (Auto) Baso # (Auto) Abs Immat Gran (auto) Absolute Neuts (auto) Absolute Nucleated RBC Nucleated RBC % (auto) Anion Gap Estim Creat Clear Calc Estimated GFR POC Glucose 328 H 279 H Random Glucose Calcium Magnesium Total Bilirubin AST ALT Alkaline Phosphatase Total Protein Albumin Microbiology Microbiology Results: Microbiology 07/18/25 15:19 Blood Culture - Preliminary Blood - Venous No growth after 48 hours. Blood Culture - Preliminary No growth after 48 hours. 07/18/25 15:19 Blood Culture - Preliminary Blood - Venous No growth after 48 hours. 07/14/25 22:32 Blood Culture - Final Blood - Venous No growth after 5 days. 07/14/25 22:32 Blood Culture - Final Blood - Venous No growth after 5 days. 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 Hospital course notable for challenging discharge planning due to lack of insurance and patient?s decision to defer recommended interventions. Acute Lower GI Bleed (Diverticular Bleed) ? Status Post Hemo [place] Presented with bright red blood per rectum and hemorrhagic shock, requiring colonoscopy and hemostatic intervention. H&H stabilized post-procedure. Monitor for recurrent bleeding. Continue to trend H&H. Resume VTE prophylaxis as tolerated (enoxaparin restarted). No further GI intervention indicated at this time. Hemorrhagic Shock ? Resolved Assessment: Initial hypotension and shock resolved after GI intervention. No further hemodynamic instability. Monitor vital signs and volume status. No further acute interventions required. Recurrent Syncope / Fall Assessment: Unwitnessed fall at presentation, likely vasovagal in the setting of hemorrhagic shock. Cardiac workup (telemetry, troponin, EKG, echo) unremarkable. No evidence of arrhythmia or acute cardiac event. Fall precautions in place. Continue to monitor for recurrent events. Outpatient follow-up with cardiology as needed. Heart Failure with Improved Ejection Fraction (HFrEF, now EF 55-57%) Assessment: Prior EF 40%, now improved. No acute decompensation during admission. Resume home heart failure medications as tolerated. Monitor for signs of volume overload. Outpatient follow-up for ongoing management. Severe Uncontrolled Hyperglycemia (Type 2 DM) Assessment: Admission glucose >600, no DKA/HHS. Attributed to medication noncompliance and poor dietary adherence. Reinforce diabetes education. Resume/restart home diabetes regimen. Arrange close outpatient follow-up for glycemic management. Obstructive Sleep Apnea / Hypoxia Assessment: History of YURIY, hypoxic to low 70s per RN, currently on 1L O2 [place]. Patient previously deferred home O2 but now amenable to evaluation. Continue O2 as needed. RT to evaluate for home O2. Reinforce importance of CPAP adherence. New Left Lower Extremity Swelling and Pain Assessment: New swelling and pain at left ankle/medial malleolus, with swelling below the knee. No erythema. Not on anticoagulation due to recent GI bleed. Concern for DVT. Ordered left lower extremity venous duplex ultrasound. Ordered left ankle X-ray. Ordered chest X-ray (evaluate for hypoxia/PE). Monitor for signs of DVT/PE. Hold anticoagulation pending imaging results. Discharge Planning / Social Barriers Assessment: Patient deemed unsafe for home discharge by PT/OT, recommended for short-term rehab, but lacks insurance and is deferring interventions. Alert and oriented, understands risks. Continue to engage patient in discharge planning. Case management to continue exploring options. Document patient?s decision and understanding of risks. Outpatient follow-up with PCP and specialists as able. Chronic Medical Issues (HTN, HLD, Morbid Obesity, Chronic Low Back Pain) Assessment: Chronic conditions, no acute exacerbations during this admission. Resume home medications as appropriate. Outpatient follow-up for ongoing management. Patient continues to defer home O2, however given that he endorsed he is ready for O2 if needed, discharge planning fell through and he is now being evaluated by RT for home O2 eval which will likely happen on Monday. Total time managing care of this patient today: 45 minutes. Quality Stroke Does the patient have a stroke diagnosis?: No VTE Prior VTE?: No VTE Risk Level:: Medical - moderate - high VTE Device Contraindication: N/A - Device Ordered VTE Drug Contraindication: Treatment Not Indicated
[2025-07-20 21:15] LABS: Glucose, Whole Blood 242 mg/dL (60-115)
[2025-07-20] MEDS: Insulin Glargine,Hum.rec.anlog 100 UNIT/ML 10 ML VIAL 15 UNIT SUBCUT (21:31)
[2025-07-21] VITALS (7 sets, daily range): BP systolic 123–155; BP diastolic 59–98; PULSE 94–109; RESP 16–20; TEMP 36.5–36.8; O2SAT 93–96
[2025-07-21 06:25] LABS: MANUAL DIFF FLAG NO
[2025-07-21 06:28] LABS: Hematocrit 32.8 % (42.0-52.0); Hemoglobin 10.5 g/dl (14.0-18.0); Imm Gran Abs Auto 0.03 X10*3/uL (0.00-0.03); Imm Gran Pct Auto 0.4 % (0.0-0.4); Lymphocytes Absolute Auto 1.3 X10*3/uL (1.2-4.9); Mean Corpuscular HGB Conc 32.0 g/dl (31.0-36.0); Mean Corpuscular Hemoglobin 28.6 pg (27.0-33.0); Mean Corpuscular Volume 89.4 fL (80.0-98.0); NRBC Abs Auto 0.000 X10*3/uL (0.0-0.012); NRBC Pct Auto 0.0 /100WBC (0.0-0.2); Platelet Count 230 X10*3/uL (160-400); Red Blood Count 3.67 X10*6/uL (4.60-5.80); White Blood Count 7.8 X10*3/uL (4.8-10.8)
[2025-07-21] MEDS: oxyCODONE HCl Immed Release 5 MG TABLET PO (06:43)
[2025-07-21 06:47] LABS: Alanine Aminotransferase 24 U/L (0-40); Albumin Level 3.8 g/dL (3.5-5.0); Alkaline Phosphatase 88 U/L (39-117); Anion Gap 13 (12-20); Aspartate Amino Transferase 23 U/L (5-37); Blood Urea Nitrogen 14 mg/dL (9-16); Calcium 9.0 mg/dL (8.4-10.2); Carbon Dioxide 28 mmol/L (22-29); Chloride 102 mmol/L (96-108); Creatinine Clr Calc Pharmacy 99.9; Estimated Glomerular Filt Rate > 60; Magnesium 2.0 mg/dL (1.6-2.6); Potassium 4.2 mmol/L (3.3-5.1); Sodium 139 mmol/L (135-145); Total Protein 6.8 g/dL (6.5-8.0)
[2025-07-21 07:50] LABS: Glucose, Whole Blood 252 mg/dL (60-115)
[2025-07-21] MEDS: 0.9 % Sodium Chloride Flush 3 ML SYRINGE IVFLUSH (08:24)
[2025-07-21 09:23] LABS: Alcohol, Ethyl Urine Screen POSITIVE
[2025-07-21 11:10] LABS: Glucose, Whole Blood 258 mg/dL (60-115)
--- NOTE | 2025-07-21 12:20 | P.DS_ITS ---
DS: Providers Provider Date of Service: 07/21/25 Date of admission: 07/13/25 23:31 Date of discharge: 07/21/25 Primary care physician: ELBA DovePLarry Consults: 07/13/25 23:31 Consult to Gastroenterology Routine Consulting Provider: [facility] G[facility] Reason for consultation: GI bleed; mesenteric panniculitis; 07/15/25 11:47 Consult to Gastroenterology Routine Consulting Provider: [facility] Gastroenterology Services Reason for consultation: hemorrhagic shock 07/18/25 12:54 Consult to Cardiology Routine Consulting Provider: [facility] Special[facility] Reason for consultation: 3 sec pause DS: Diagnosis Discharge Diagnosis (1) Uncontrolled hypertension: Status: Acute (2) Acute heart failure with mildly reduced ejection fraction (HFmrEF, 41-49%): Status: Acute (3) Decompensated heart failure: Status: Acute (4) Chronic combined systolic and diastolic CHF (congestive heart failure): Status: Acute (5) Venous insufficiency: Status: Acute (6) DM (diabetes mellitus) type II uncontrolled with eye manifestation: Status: Acute (7) Newly diagnosed type 1 diabetes mellitus: Status: Acute (8) Morbid obesity: Status: Acute (9) BRBPR (bright red blood per rectum): Status: Acute (10) Mesenteric panniculitis: Status: Acute (11) Sepsis: Status: Acute (12) Acute respiratory failure with hypoxia: Status: Acute (13) Bilateral lower extremity edema: Status: Acute DS: Summary Hospital Course Hospital Course: Reason for admission: Bright red blood per rectum and symptomatic Hemorrhagic shock causing a fall likely secondary to diverticular bleed, status post hemo spray by GI. Hemodynamically stable for 3 days prior to discharge Patient is a 60-year-old male with PMH notable for HTN, HLD, dm, HFrEF, YURIY, morbid obesity, chronic low back pain; presented to the hospital today with a chief complaint of bright red blood per rectum. Initially deemed diverticular bleed, however he sustained an unwitnessed traumatic fall and trauma workup revealed severe hemorrhagic shock with hypotension and necessitating colonoscopy for further workup , status post hemo spray on 07/16/2025 by GI. He has been hemodynamically stable with a hemoglobin hovering around 9-10 for 4 days prior to discharge. Unclear if he had a pause or not on 07/18/2025. Likely an artifact. Cardiac workup tele, trop, EKG, 1-1/2 day of tele monitoring unremarkable. Cardiology consulted, no indications for acute management or change in medications indicate d. Fall precautions, aspiration precautions Patient likely had 1 episode of vasovagal syncope in the ED at the time of admission. EKG, troponin negative HFpEF GDM T HTN Recurrent syncopes , likely vasovagal Follow-up outpatient Patient in prior echo had LVEF of 40%, current 55-57% done during this admission Home meds were held on admission Recurrent syncope - PTOT deemed the patient unsafe to discharge home , STR being recommended, however challenging as pt doesnt not have insurance, unable to provide financial information, unable to follow cues, is A&O x3 and understands that he is being recommended to go to rehab. Patient is now deferring any interventions, does not want to stay in the hospital, he has been quite challenging in getting history or to even care for him as extensively documented since admission. Has a very flat affect. Denies any symptoms. Please refer to the case management notes regarding ongoing discussions that we have spent more than 55 minutes and trying to coordinate with him every single day trying to get him the care that he needs. Patient understands and is deferring the management now in the he will likely have a fall, and might if he does not get acute care that he currently needs. Insurance limitations- please refer to case management notes Severe uncontrolled hyperglycemia (blood glucose greater than 600 on admission) No DKA or HHS, be hydroxybutyrate negative, secondary to DM type 2, medication noncompliance, poor dietary adherence - no changes were made at the time of this admission. Patient is aware that he needs to follow up with PCP for further medical management. AHRD - Hypoxic to low 70s per RNs report and will likely has Undiagnosed YURIY - P.r.n. CPAP . Patient continues to defer home O2 Time Attestation Discharge Coordination Time (in mins): 45 Quality: Safe Use of Opioids Does Pt have an Active Cancer Diagnosis on the Problem List?: No Quality: Stroke Does the patient have a stroke diagnosis?: No Physical Exam Vital Signs: Vital Signs: Last Vital Signs Temp 98.1 F 07/21/25 07:19 Pulse 109 H 07/21/25 08:06 Resp 20 07/21/25 07:19 BP 151/98 H 07/21/25 08:06 Pulse Ox 93 07/21/25 12:10 O2 Del Method Room Air 07/21/25 12:10 O2 Flow Rate 2 07/21/25 03:55 BMI result Body Mass Index 39.9 DS: Data Data Completed and Pending Completed studies during hospitalization [Text1]: Pending at discharge 07/16/25 14:36 Surgical [PTH] Routine Labs on day of discharge: Laboratory Results - last 24 hr 07/14/25 07/20/25 07/20/25 20:15 16:44 21:09 WBC RBC Hgb Hct MCV MCH MCHC RDW Plt Count MPV Immature Gran % (Auto) Neut % (Auto) Lymph % (Auto) Sumner % (Auto) Eos % (Auto) Baso % (Auto) Lymph # (Auto) Sumner # (Auto) Eos # (Auto) Baso # (Auto) Abs Immat Gran (auto) Absolute Neuts (auto) Absolute Nucleated RBC Nucleated RBC % (auto) Sodium Potassium Chloride Carbon Dioxide Anion Gap BUN Creatinine Estim Creat Clear Calc Estimated GFR POC Glucose 279 H 242 H Random Glucose Calcium Magnesium Total Bilirubin AST ALT Alkaline Phosphatase Total Protein Albumin Urine Ethyl Alcohol POSITIVE 07/21/25 07/21/25 07/21/25 06:20 06:20 06:20 WBC 7.8 RBC 3.67 L Hgb 10.5 L Hct 32.8 L MCV 89.4 MCH 28.6 MCHC 32.0 RDW 14.2 Plt Count 230 MPV 10.8 Immature Gran % (Auto) 0.4 Neut % (Auto) 65.7 Lymph % (Auto) 16.0 L Sumner % (Auto) 12.3 H Eos % (Auto) 5.0 H Baso % (Auto) 0.6 Lymph # (Auto) 1.3 Sumner # (Auto) 1.0 Eos # (Auto) 0.4 Baso # (Auto) 0.1 Abs Immat Gran (auto) 0.03 Absolute Neuts (auto) 5.1 Absolute Nucleated RBC 0.000 Nucleated RBC % (auto) 0.0 Sodium 139 Potassium 4.2 Chloride 102 Carbon Dioxide 28 Anion Gap 13 BUN 14 Creatinine 0.96 Cancelled Estim Creat Clear Calc 99.9 Cancelled Estimated GFR > 60 POC Glucose Random Glucose Calcium Magnesium Total Bilirubin AST ALT Alkaline Phosphatase Total Protein Albumin Urine Ethyl Alcohol 07/21/25 07/21/25 07/21/25 06:20 07:22 11:03 WBC RBC Hgb Hct MCV MCH MCHC RDW Plt Count MPV Immature Gran % (Auto) Neut % (Auto) Lymph % (Auto) Sumner % (Auto) Eos % (Auto) Baso % (Auto) Lymph # (Auto) Sumner # (Auto) Eos # (Auto) Baso # (Auto) Abs Immat Gran (auto) Absolute Neuts (auto) Absolute Nucleated RBC Nucleated RBC % (auto) Sodium Potassium Chloride Carbon Dioxide Anion Gap BUN Creatinine Estim Creat Clear Calc Estimated GFR Cancelled POC Glucose 252 H 258 H Random Glucose 265 H Calcium 9.0 Magnesium 2.0 Total Bilirubin 0.5 AST 23 ALT 24 Alkaline Phosphatase 88 Total Protein 6.8 Albumin 3.8 Urine Ethyl Alcohol Preliminary micro results at discharge 07/18/25 15:19 Blood Culture - Preliminary Blood - Venous No growth after 48 hours. Blood Culture - Preliminary No growth after 48 hours. 07/18/25 15:19 Blood Culture - Preliminary Blood - Venous No growth after 48 hours. Discharge Plan Discharge Anticipated Discharge Date/Time: 07/21/25 12:13 Patient Disposition: Home, Self-Care Discharge Diagnosis: Acute hemorrhagic shock secondary to diverticular bleed, stable post hemo spray by GI, recurrent syncope (vasovagal), very difficult to treat, refusing care, multi modality specialties involved and he continues to not follow directions or cues. Now refusing SNF placement as advised by PT Referrals: Jai Ribera FNP-BC [Primary Care Provider, Internal Medicine] - 1 Week Discharge Medications: Continued furosemide 20 mg tablet 20 mg PO QAM Qty: 30 1RF valsartan 40 mg tablet 40 mg PO BID Qty: 60 1RF Protocol: Hold for SBP< HOLD for SBP < : 90 carvedilol 12.5 mg tablet 12.5 mg PO BID 30 Days Qty: 60 3RF Protocol: Hold for SBP/HR < HOLD for SBP < : 90 HOLD for HR < : 60 metformin 500 mg tablet extended release 24 hr 500 mg PO BID glipizide 5 mg tablet extended release 24hr 10 mg PO DAILY 90 Days Qty: 180 1RF empagliflozin 25 mg tablet 25 mg PO DAILY Qty: 90 1RF Discharge Orders: Discharge Order (Routine); Ordered 07/21/25 Ordered By: Noel Mlapa Diet: Low salt diet Activity on Discharge: As tolerated Stand Alone Forms: Patient Portal Discharge page Print Language: Kittitian Care Plan Goals: Please follow with PCP outpatient within a week for rechecking your CBC Please follow-up with GI outpatient since you had hemorrhagic shock and hemo spray with stabilization for more than 3 days Please follow-up with PCP for outpatient services We have advised do extensively as documented by PTOT, dependency case manager, staff nurses that you need to go to a rehab as you are unsteady and it is not safe a year ago, [facility] refusing short-term rehab, PTOT, home with services. Explained to the patient that he is a high fall risk, however deferring further management. Patient is A&O x3, consent able and has capacity to refuse all the care that we are offering. Health Concerns: Maintenance of hemodynamic status post resolution of hemorrhagic shock from diverticular bleed GI follow-up PCP for establishment Plan of Treatment: No changes in medications Care challenging-patient insistent on going home Assessment: See above Discharge Date/Time: 07/21/25 14:00
--- NOTE | 2025-07-21 12:28 | MHC.CM.PN ---
Pt. has been medically cleared to [place], he will arrange a ride home. He declined to complete insurance carlos. here, said he will follow up at home, so no home services.
== END 2025-07-21 14:00 | disposition home or self-care (01) | DRG 377 ==
LOC: HO.ED 23:38 → HO.EDOVER 23:38 → HO.IMC 07-14 01:48
PROVIDERS: Hospitalist; Internal Medicine; Internal Medicine Gastroenterology; Physician Assistant Medical; Student in an Organized Health Care Education/Training Program; Admitting Provider Hospitalist; Emergency Provider Student in an Organized Health Care Education/Training Program; PCP Nurse Practitioner Family; Visit Provider Internal Medicine
PROC: 0DJD8ZZ Inspection of Lower Intestinal Tract, Via Natural or Artificial Opening Endoscopic (ICD-10-PCS; CPT 45378; principal; 2025-07-16 13:00)
DX: K57.31 Diverticulosis of large intestine without perforation or abscess with bleeding (principal); R57.8 Other shock; I50.22 Chronic systolic (congestive) heart failure; D62 Acute posthemorrhagic anemia; K63.5 Polyp of colon; I49.5 Sick sinus syndrome; M25.472 Effusion, left ankle; E11.65 Type 2 diabetes mellitus with hyperglycemia; K64.8 Other hemorrhoids; R55 Syncope and collapse; G47.33 Obstructive sleep apnea (adult) (pediatric); Z79.84 Long term (current) use of oral hypoglycemic drugs; Z79.899 Other long term (current) drug therapy
CPT/HCPCS: 36415; 70450; 70486; 71045; 71250; 71275; 72125; 73560; 73600; 74174; 74178; 78278; 80053; 80307; 81001; 82010; 82140; 82803; 82947; 83605; 83735; 83880; 84100; 84484; 85025; 85027; 85610; 86850; 86900; 86901; 86920; 86923; 87040; 88305; 93005; 93306; 93970; 97162; 97166; 97530; 99285; A9560; J1308; J1650; J2003; J2250; J2354; J2405; J2470; J2543; J2704; J2765; J3373; J7120; P9016; P9047; Q9957; Q9967

== ENCOUNTER → 2025-07-13 18:31 | Outpatient (BNV) | payer SELFPAY | PROVIDERS: Admitting Provider Hospitalist; Emergency Provider Student in an Organized Health Care Education/Training Program; PCP Nurse Practitioner Family; Visit Provider Internal Medicine Cardiovascular Disease | DX: I51.7 Cardiomegaly (principal); R00.0 Tachycardia, unspecified | CPT/HCPCS: 93010 ==

== ENCOUNTER → 2025-07-13 18:59 | Outpatient (BNV) | payer SELFPAY | PROVIDERS: Emergency Provider Student in an Organized Health Care Education/Training Program; PCP Nurse Practitioner Family; Visit Provider Radiology Diagnostic Radiology | DX: I25.10 Atherosclerotic heart disease of native coronary artery without angina pectoris (principal); K44.9 Diaphragmatic hernia without obstruction or gangrene; K80.20 Calculus of gallbladder without cholecystitis without obstruction; K76.0 Fatty (change of) liver, not elsewhere classified; K25.1 Acute gastric ulcer with perforation | CPT/HCPCS: 71045; 71275; 74174 ==

== ENCOUNTER 2025-07-13 23:31 | Outpatient (BNV) | payer SELFPAY | END 2025-07-14 07:00 | PROVIDERS: Admitting Provider Hospitalist; Emergency Provider Student in an Organized Health Care Education/Training Program; PCP Nurse Practitioner Family; Visit Provider Internal Medicine Cardiovascular Disease | DX: I51.89 Other ill-defined heart diseases (principal); I77.810 Thoracic aortic ectasia | CPT/HCPCS: 93306 ==

== ENCOUNTER 2025-07-13 23:31 | Outpatient (BNV) | payer SELFPAY | END 2025-07-18 12:58 | PROVIDERS: Admitting Provider Hospitalist; Emergency Provider Student in an Organized Health Care Education/Training Program; PCP Nurse Practitioner Family; Visit Provider Internal Medicine Cardiovascular Disease | DX: R00.0 Tachycardia, unspecified (principal) | CPT/HCPCS: 93010 ==

== ENCOUNTER 2025-07-13 23:31 | Outpatient (BNV) | payer BC, SELFPAY | END 2025-07-20 11:30 | PROVIDERS: Admitting Provider Hospitalist; Emergency Provider Student in an Organized Health Care Education/Training Program; PCP Nurse Practitioner Family; Visit Provider Radiology Diagnostic Radiology | DX: M25.471 Effusion, right ankle (principal); R09.02 Hypoxemia; R91.8 Other nonspecific abnormal finding of lung field; J98.4 Other disorders of lung; M25.472 Effusion, left ankle; M25.572 Pain in left ankle and joints of left foot | CPT/HCPCS: 71045; 73600; 93970 ==

== ENCOUNTER 2025-07-13 23:31 | Outpatient (BNV) | payer SELFPAY | END 2025-07-15 02:19 | PROVIDERS: Admitting Provider Hospitalist; Emergency Provider Student in an Organized Health Care Education/Training Program; PCP Nurse Practitioner Family; Visit Provider Radiology Diagnostic Radiology | DX: K57.30 Diverticulosis of large intestine without perforation or abscess without bleeding (principal); J98.11 Atelectasis; M50.30 Other cervical disc degeneration, unspecified cervical region; K92.2 Gastrointestinal hemorrhage, unspecified; R22.0 Localized swelling, mass and lump, head; S09.93XA Unspecified injury of face, initial encounter | CPT/HCPCS: 70450; 70486; 71250; 72125; 74178; 78278 ==

== ENCOUNTER 2025-07-13 23:31 | Outpatient (BNV) | payer SELFPAY | END 2025-07-14 10:23 | PROVIDERS: Admitting Provider Hospitalist; Emergency Provider Student in an Organized Health Care Education/Training Program; PCP Nurse Practitioner Family; Visit Provider Radiology Diagnostic Radiology | DX: M17.11 Unilateral primary osteoarthritis, right knee (principal) | CPT/HCPCS: 73560 ==

== ENCOUNTER → 2025-07-13 23:31 | Outpatient (BNV) | payer SELFPAY | PROVIDERS: Admitting Provider Hospitalist; Emergency Provider Student in an Organized Health Care Education/Training Program; PCP Nurse Practitioner Family; Visit Provider Student in an Organized Health Care Education/Training Program | DX: K62.5 Hemorrhage of anus and rectum (principal) | CPT/HCPCS: 99232 ==

== ENCOUNTER → 2025-07-13 23:31 | Outpatient (BNV) | payer SELFPAY | PROVIDERS: Admitting Provider Hospitalist; Emergency Provider Student in an Organized Health Care Education/Training Program; PCP Nurse Practitioner Family; Visit Provider Internal Medicine Cardiovascular Disease | DX: R00.1 Bradycardia, unspecified (principal) | CPT/HCPCS: 99222 ==

== ENCOUNTER 2025-09-18 15:18 | Outpatient (AMB) | payer OTHER, SELFPAY ==
--- OUTSIDE RECORDS SUMMARY | 2025-07-16 09:40 | XMS_ITS ---
Author Organization [facility] Address [address] [place] [id number] Care Team Providers Care Solar Panel Installation Supervisor Name Role Phone MARICRUZ LOCKHART Primary Care Provider Michele Corona Jr [phone] REASON FOR VISIT GI BLEED Encounters Encounter Location Date Provider Diagnosis [facility] Inpatient [address], [place] [id number] 07/16/2025 Michele Cole Jr Plan Of Treatment No Information Progress Notes * TONY PECKDOB:1965 (60 yo M)Acc No.[id number]:07/16/2025 COLON WITH MAC Patient: Marco AUSTINMCKENZIETONY Provider: Isidro Cole MD :1965 A ge:60 Y S ex:Male Date:07/16/2025 Address:[address] [place], [place] [id number] Pcp:MARICRUZ LOCKHART Subjective: * Chief Complaints: * G I BLEED * The named appointment provid er may or may not be the originator of this progress note, and it is not deemed complete until electronically signed by the appointment provider. Sign off status: Pending * Provider: Isidro Cole MD Date: Generated for Andrew wiseman/Sheila/eTransmitting on: 11/19/2024 07:15 PM EST
--- NOTE | 2025-09-18 15:27 | MHC.PC.OV ---
Vital Signs 09/18/25 15:28 Height 5 ft 8 in Weight 253 lb BMI 38.5 BP 150/100 H Blood Pressure Location Rt brachial Position Sitting Pulse 115 H Pulse Source Pulse Oximeter Pulse Oximetry (%) 95 Oxygen Delivery Method Room Air Intake Visit Reasons: 4m follow up DM Food And Beverage Lead Required: No Accompanied by: Self Allergies No Known Allergies Allergy (Verified 09/18/25 15:28) Tobacco use date assessed: 09/18/25 Dental Screening Dental Screen Date: 09/18/25 Did you have a dental visit in the last 12 months?: Yes Did you have a dental problem in the last 6 months where you did not have access to dental care?: No Was dental information given to patient?: Patient has dentist HPI 4m follow up DM HPI Details Chief Complaint Patient presents for follow-up on several chronic conditions, including uncontrolled diabetes. History of Present Illness The patient is a 60 year old male presenting with a follow-up for multiple chronic conditions, most notably uncontrolled diabetes mellitus. His recent HbA1c was 12.8% (today), which is very high. He has been non-adherent with all his medications for over three months due to insurance issues, but now has coverage. He has not been performing any blood glucose monitoring. Previously ordered referrals for an ophthalmology evaluation and bilateral lower extremity venous testing have not yet been completed. His medical history is significant for congestive heart failure (CHF) and hypertension. No follows up with cardiology seen. Social History - Insurance: The patient experienced a lapse in insurance coverage for over three months, which led to non-adherence to all prescribed medications. Health Maintenance - Diabetic Eye Exam: A referral for an ophthalmology evaluation, previously ordered, was not completed and will be resubmitted. - Venous Testing: A previous referral for venous testing of the bilateral extremities was not completed. Review of Systems - General: Reports some weight loss and feeling okay. - Cardiovascular: Denies chest pain. - Respiratory: Denies shortness of breath. - Gastrointestinal: Denies abdominal pain. - Extremities: Reports his feet sometimes feel heavy. Physical Exam General: Cooperative, healthy appearing, comfortable, no acute distress and well developed, but obese Orientation: Patient oriented x3 Limitations: No limitations Head: Normal to inspection Ears: Hearing grossly normal bilaterally Nose: Normal external nose present Face and sinus: Normal facial exam Eyes: Appearance normal, both eyes and all related structures Neck: Normal visual inspection and Yes full ROM Respiratory: Normal respiratory effort and able to speak in complete sentences. Clear to auscultation bilaterally Cardiovascular: Tachycardic. Normal S1 and S2 GI: Normal to inspection. Soft to palpation and nontender Skin: Feet are excessively dry and cracking. No rashes or lesions noted Neuro: Patient oriented x3 Extremities: +1 pitting edema to bilateral extremities with some discoloration. Normal to inspection Results - Laboratory Studies: Recent labs showed an HbA1c of 12.8, elevated blood sugar, GFR > 60, slight normocytic anemia with a hemoglobin of 10.5, and normal liver enzymes. - EKG: Showed tachycardia. Plan 1. Uncontrolled Type 2 Diabetes Mellitus The patient will restart all his diabetes medications today, including metformin, glipizide, and Jardiance, as he has been non-adherent for over three months. A GLP-1 agonist is being considered, but will be held until after reassessment on his current medication regimen. He is advised to use a diabetic foot cream for his excessively dry and cracking feet. Referrals will be placed to endocrinology for management of his uncontrolled diabetes, to podiatry for foot care, and a previously ordered referral for an ophthalmology exam will be resubmitted. 2. Hypertension The patient's hypertension will be managed by restarting his valsartan and beta-madeleine. A follow-up visit will be scheduled in one month via telehealth to re-evaluate his blood pressure. 3. Congestive Heart Failure Due to his history of CHF, a referral will be placed to cardiology for further management now that he has insurance. His lasix will be restarted. 4. Anemia The patient has a slight normocytic anemia with a hemoglobin of 10.5, which will be monitored. Discussion Notes I discussed with the patient that his HbA1c is very high at 12.8, which is a result of being off all his medications for over three months due to a lapse in insurance. Now that he has insurance again, we will restart his medications today, including those for diabetes (Jardiance, glipizide, metformin) and high blood pressure (beta-madeleine, valsartan). I advised him to use a diabetic foot cream for his dry and cracking feet. I informed him that I am placing referrals for him to see endocrinology for his uncontrolled diabetes, cardiology for his CHF, podiatry for foot care, and I will resubmit the referral for his eye exam. We will follow up in one month via telehealth to check his blood pressure. Patient Instructions - You can pickling solution maker and start taking all of your prescribed medications again today, including metformin, Jardiance, glipizide, valsartan, and your beta-madeleine. - Apply a diabetic foot cream to your feet to help with the dryness and cracking. - Please schedule the appointments with the specialists for endocrinology (diabetes), cardiology (heart), podiatry (feet), and ophthalmology (eyes) as soon as possible. - We will have a follow-up appointment in one month using telehealth to check on your blood pressure. [facility] Medical History Chronic combined systolic and diastolic CHF (congestive heart failure) Acute heart failure with mildly reduced ejection fraction (HFmrEF, 41-49%) Uncontrolled hypertension DM (diabetes mellitus) type II uncontrolled with eye manifestation Hemorrhagic shock Encounter to establish care Hypertension Right foot pain Surgical History No pertinent past surgical history Family History Unknown No problems noted. Social History Household Members: Other Household Members Other:: roommate Housing: Other Housing Other:: 2 family house. Do you presently have visiting nurse or other home services: No Alcohol intake: current Alcohol intake frequency: holidays/special occasions only Comment: 1:1 sitter Patient Tobacco Use Status: Never used Tobacco e-Cigarette/Vaping Use: Never Used Second Hand Smoke Exposure: No Advance Directives Date on File: 11/04/24 service: No Current occupational status: employed Cognitive needs: No Hearing needs: No Vision needs: No Questionnaire PHQ-9 Over the last 2 weeks, how often have you been bothered by any of the following problems? 1. Little interest or pleasure in doing things: not at all 2. Feeling down, depressed, or hopeless: not at all 3. Trouble falling or staying asleep, or sleeping too much: several days 4. Feeling tired or having little energy: several days 5. Poor appetite or overeating: several days 6. Feeling bad about yourself - or that you are a failure or have let yourself or your family down: not at all 7. Trouble concentrating on things, such as reading the newspaper or watching television: not at all 8. Moving or speaking so slowly that other people could have noticed. Or the opposite - being so fidgety or restless that you have been moving around a lot more than usual: not at all 9. Thoughts that you would be better off or of hurting yourself in some way: not at all Total score: 3 Depression Screening Interpretation: Negative Depression Screening Done: Yes 14385 - PHQ-9 Billing: Yes Source: Developed by Drs. Constantino Nnuez, Sahra [place], Lobito Chino and colleagues, with an educational kayden from [employer]. Thrive Questionnaire Date Thrive assessed: 07/14/25 I am a: Patient What is your living situation today?: I have a steady place to live Within the past 12 months, did the food you bought not last and you didn't have the money to get more?: Never true Within the past 12 months, did you worry whether your food would run out before you got money to buy more?: Never true Do you have trouble paying for medicines?: No Do you have trouble getting transportation to medical appointments?: No Do you have trouble paying your heating and electricity bill?: No Do you have trouble taking care of your child, family member or friend?: No Do you have trouble with day-to-day activities such as bathing, preparing meals, shopping, managing finances, etc.?: No Are you currently unemployed and looking for a job?: Yes Are you interested in more education?: No Currently or been in a relationship where the following occur: No concerns reported THRIVE Score: 0 CONSTANZA-7 AMB Questionnaire CONSTANZA-7 Date CONSTANZA - 7 assessed: 11/05/24 Feeling nervous, anxious, or on edge: 0 = Not at all Not being able to stop or control worryin = Not at all Worrying too much about different things: 0 = Not at all Trouble relaxin = Not at all Being so restless that it is hard to sit still: 0 = Not at all Becoming easily annoyed or irritable: 0 = Not at all Feeling afraid as if something awful might happen: 0 = Not at all Total CONSTANZA-7 score (0-4 normal; 5-9 mild; 10-14 moderate; 15-21 severe): 0 Source: Developed by Drs. Constantino Nunez, [place]ra [place], Lobito Chino and colleagues, with an educational kayden from [employer]. CONSTANZA-7 Assessment Billing CONSTANZA-7 Assessment Tool: CONSTANZA-7 Assessment 58873 Physical exam (Primary Care) Vital Signs: Last Vital Signs Pulse 115 H 09/18/25 15:28 BP 150/100 H 09/18/25 15:28 Pulse Ox 95 09/18/25 15:28 Oxygen Delivery Method Room Air 09/18/25 15:28 BMI result Body Mass Index 38.5 Tobacco/Smoking Status: Tobacco use Status Tobacco use date assessed 09/18/25 09/18/25 15:37 Patient Tobacco Use Status Never used Tobacco 09/18/25 15:37 e-Cigarette/Vaping Use Never Used 09/18/25 15:37 PHQ-9: PHQ-9 Score PHQ-9: Total score 3 09/18/25 15:37 Depression Screening Interpretation: Negative Thrive Assessment: Date of Thrive Assessment Date Thrive assessed 07/14/25 09/18/25 15:37 Currently or been in a relationship where the following occur: No concerns reported Results AMB Hemoglobin A1c AMB Hemoglobin A1c 12.8 % Last Edit by Amber Seymour MA on 09/18/25 15:42 Results Reviewed Results Reviewed: Laboratory Last Values Hgb A1c (Clinic) 12.8 % (4.0-6.0) H 09/18/25 15:41 Coding Level of Care Code Est Pt Level 4 (31919) Diagnoses Uncontrolled diabetes mellitus with hyperglycemia E11.65 Chronic combined systolic and diastolic CHF (congestive heart failure) I50.42 Venous insufficiency I87.2 Primary hypertension I10 Hypertension type: primary hypertension Tachycardia R00.0 Additional Codes CONSTANZA-7 Assessment Billing - CONSTANZA-7 Assessment Tool: CONSTANZA-7 Assessment 51897 ([id number]) PHQ-9 - 70638 - PHQ-9 Billing: Yes ([id number]) Assessment & Plan Assessment & Plan (1) Uncontrolled diabetes mellitus with hyperglycemia: Code(s): E11.65 - Type 2 diabetes mellitus with hyperglycemia Category: Medical (2) Chronic combined systolic and diastolic CHF (congestive heart failure): Code(s): I50.42 - Chronic combined systolic (congestive) and diastolic (congestive) heart failure Category: Medical (3) Venous insufficiency: Code(s): I87.2 - Venous insufficiency (chronic) (peripheral) Category: Medical (4) Chronic combined systolic and diastolic CHF (congestive heart failure): Code(s): I50.42 - Chronic combined systolic (congestive) and diastolic (congestive) heart failure Category: Medical (5) Hypertension: Code(s): I10 - Essential (primary) hypertension Category: Medical Qualifiers: Hypertension type: primary hypertension Qualified Code(s): I10 - Essential (primary) hypertension (6) Tachycardia: Code(s): R00.0 - Tachycardia, unspecified Category: Medical Plan . Orders: Orders AMB Hemoglobin A1c Today E11.65 - Type 2 diabetes mellitus with hyperglycemia Referrals Endocrinology Referral E11.65 - Type 2 diabetes mellitus with hyperglycemia Cardiology Referral I50.42 - Chronic combined systolic (congestive) and diastolic (congestive) heart failure Podiatry Referral E11.65 - Type 2 diabetes mellitus with hyperglycemia, I10 - Essential (primary) hypertension, I50.42 - Chronic combined systolic (congestive) and diastolic (congestive) heart failure, I87.2 - Venous insufficiency (chronic) (peripheral) Medications: Changed From metformin ER 500 mg PO BID To metformin ER 500 mg PO BID 180 tabs 0RF 90 days Refilled empagliflozin 25 mg PO DAILY 90 tabs 1RF furosemide 20 mg PO QAM 30 tabs 1RF glipizide ER 10 mg (2 x 5 mg) PO DAILY 180 tabs 1RF 90 days valsartan 40 mg See Protocol PO BID 60 tabs 1RF carvedilol 12.5 mg See Protocol PO BID 60 tabs 3RF 30 days
[2025-09-18 15:28] VITALS: BP 150/100; PULSE 115; O2SAT 95; BMI 38.5
--- OUTSIDE RECORDS SUMMARY | 2025-09-18 19:15 | XMS_ITS | Patient Health Record ---
Author Organization [facility] Address [address] [place] [id number] Care Team Providers Care Machin[employer] Name Role Phone MARICRUZ LOCKHART Primary Care Provider Michele Corona Jr [facility] Results Component Value Reference Range Notes Pathology Reviewed date:07/18/2025 02:55:24 PM Interpretation: Performing Lab:[facility], [address] [place] [id number] Notes/Report: Reason For Referral No Information Encounters Encounter Location Date Provider Diagnosis [facility] Inpatient [address] [place] [id number] 07/16/2025 Michele Cole Jr [facility] [address] [place] [id number] 07/18/2025 Michele Cole Jr Plan Of Treatment No Information Insurance Providers Payer Name Payer Address Payer Phone Subscriber Number Group Number Insured Name Patient Relationship to Insured Coverage Start Date Coverage End Date MEDICA[employer] OF [facility] [facility] [address] [place] [id number] TONY PECK Self - patient is the insured
--- OUTSIDE RECORDS SUMMARY | 2025-09-18 19:15 | XMS_ITS ---
Author Organization Unknown ENCOUNTERS Encounter Performer Location Date Diagnosis Diagnosis Status Inpatient Noel [address] [id number] [facility] Emergency [address] [id number] [facility] Pre Admit Generic ED Physician [address] [address] [id number] *Note: Encounters from your own facility or health system may be excluded. Allergies, Adverse Reactions, Alerts Allergen Type Severity Identification Date Medications Name Date Quantity Days Supplied GPI Number
== END 2025-09-18 16:28 | disposition home or self-care (01) ==
LOC: HO.HMCC 15:18
PROVIDERS: PCP Nurse Practitioner Family; Visit Provider Nurse Practitioner Family
DX: E11.65 Type 2 diabetes mellitus with hyperglycemia (principal); I50.42 Chronic combined systolic (congestive) and diastolic (congestive) heart failure; I87.2 Venous insufficiency (chronic) (peripheral); I10 Essential (primary) hypertension; R00.0 Tachycardia, unspecified

== ENCOUNTER → 2025-09-18 15:18 | Outpatient (BNVA) | payer OTHER, SELFPAY | PROVIDERS: PCP Nurse Practitioner Family; Visit Provider Nurse Practitioner Family | DX: E11.65 Type 2 diabetes mellitus with hyperglycemia (principal); I11.0 Hypertensive heart disease with heart failure; D64.9 Anemia, unspecified; I50.42 Chronic combined systolic (congestive) and diastolic (congestive) heart failure; I87.2 Venous insufficiency (chronic) (peripheral); R00.0 Tachycardia, unspecified | CPT/HCPCS: 83036; 96127; 99212 ==